=== PATIENT | female | born 1950 | race Caucasian/White ===

== ENCOUNTER 2020-11-02 13:23 | Outpatient (CLI) | payer MEDICARE, OTHER ==
--- NOTE | 2020-11-02 15:00 | CT Report ---
PROCEDURE: Low Dose Lung Cancer Screen INDICATIONS: CURRENT SMOKER TECHNIQUE: Noncontrast low-dose 5 mm thick sections acquired from the pulmonary apices to the posterior costophr enic angles. 7 mm thick coronal and sagittal MIP reformats were then acquired. For radiation dose r eduction, the following was used: automated exposure control, adjustment of mA and/or kV according t o patient size. COMPARISON: None. FINDINGS: Image quality: Excellent. Lungs and pleura: 2 mm solid nodule in anterior aspect of right upper lobe, series 4 image 96. 2 mm solid nodule in posterior aspect of right upper lobe adjacent to major fissure series 4 image 93 . 2 calcified granuloma in anterior aspect of right middle lobe are seen and measures 4 and 5 mm in siz e series 4 image 163. 4 mm calcified granuloma in anterior aspect of right middle lobe series 4 image 173. 1 cm calcified granuloma is seen in right middle lobe near right lung base series 4 image 221. 4 to 5 mm calcified granuloma in anterior right middle lobe near right lung base. Scattered scarring/atelectasis in periphery of bilateral lung pate are seen. No pleural effusion or pneumothorax. Central and peripheral airway is patent and is normal in size. Biapical scarring is se en. Mediastinum: Heart size is normal. No pericardial effusion. No mediastinal adenopathy by size crit eria. Thoracic aorta and central pulmonary arteries are normal in size. Moderate atherosclerotic curtis cifications throughout coronary vessels and thoracic aorta is seen. Esophagus is normal in caliber. No hiatal hernia. Bones and chest wall: No suspicious bony lesions. No vertebral body compression fractures. No axil lucy or supraclavicular adenopathy by size criteria. The thyroid is normal in size and there are no incidental findings. Abdomen: Visualized upper abdomen solid organs and bowel loops appear normal in the absence of contr ast. Gallbladder is surgically absent. IMPRESSION: 1. Multiple calcified granulomata are seen in right lung pate as above. Tiny 2 mm solid nodules are noted in right upper lobe as above. 2. Bibasilar scarring/atelectasis. 3. Moderate atherosclerotic disease. Lung RADS category: 2, benign findings. Annual low-dose chest CT follow-up is recommended. Reviewed by: Monty Moeller MD on 11/02/2020 2:59 PM PDT Approved by: Monty Moeller MD on 11/02/2020 2:59 PM PDT Station ID: [id number]
== END 2020-11-02 13:24 | disposition home or self-care (01) ==
LOC: DI 13:23
PROVIDERS: ATTEND Physician Assistant
DX: Z12.2 Encounter for screening for malignant neoplasm of respiratory organs (principal); F17.210 Nicotine dependence, cigarettes, uncomplicated; J84.10 Pulmonary fibrosis, unspecified; R91.8 Other nonspecific abnormal finding of lung field; J98.11 Atelectasis

== ENCOUNTER 2020-11-11 23:44 | Emergency (ER) | payer MEDICARE, OTHER ==
--- NOTE | 2020-11-12 00:28 | ED Physician Documentation ---
PD HPI Fall - Stated complaint Stated Complaint: GLF/R WRIST PX - Chief complaint Chief Complaint: Trauma Ext - History obtained from History obtained from: Patient - History of Present Illness Mechanism of injury: Tripped (she was outside for a smoke and tripped, falling forward. Abrasions face. Pain right wrist.) Fall distance: Standing position Timing - onset: Today Injury(ies) location: Right Upper Extremity (wrist) Associated symptoms: No: LOC, AMS, Amnesia, Weakness, Paresthesias Contributing factors: Anticoagulated. No: Intoxicated Similar symptoms before: Has not had sx before Review of Systems Constitutional: denies: Fever Nose: denies: Rhinorrhea / runny nose, Congestion Throat: denies: Sore throat Cardiac: denies: Chest pain / pressure Respiratory: denies: Cough GI: denies: Abdominal Pain Skin: reports: Abrasion (s) (several on face). denies: Laceration (s) Neurologic: denies: Focal weakness, Numbness PD PAST MEDICAL HISTORY - Past Medical History Past Medical History: Yes Cardiovascular: Peripheral Vascular Disease, [place] Respiratory: Asthma Neuro: CVA [employer]: Breast cancer : Other Musculoskeletal: Osteoarthritis, Fibromyalgia, Osteoporosis Other Past Medical History: Kidney Failure stage 3 - Past Surgical History Past Surgical History: Yes General: Cholecystectomy, Appendectomy /[employer]: Hysterectomy, Mastectomy - Present Medications Home Medications: Ambulatory Orders Medication Instructions Recorded Confirmed Alendronate Sodium/Vitamin D3 1 each PO 11/12/20 [Fosamax Plus D 70 mg-2,800 Iu] Atorvastatin Calcium 40 mg PO DAILY 11/12/20 11/12/20 Clopidogrel [Plavix] 75 mg PO DAILY 11/12/20 11/12/20 Famotidine [Pepcid] 20 mg PO BID 11/12/20 11/12/20 Fenofibrate [Tricor] 48 mg PO QD 11/12/20 11/12/20 Metoclopramide [Reglan] 10 mg PO Q6H PRN 11/12/20 11/12/20 Metoprolol Succinate [Toprol Xl] 25 mg PO BID 11/12/20 11/12/20 Ondansetron Odt [Zofran] 4 mg TL Q6H PRN #10 tablet 11/12/20 Trazodone HCl 100 mg PO 11/12/20 amLODIPine [Norvasc] 5 mg PO DAILY 11/12/20 11/12/20 oxyCODONE [Roxicodone] 5 mg PO Q4-6H PRN #10 tablet 11/12/20 - Allergies Allergies/Adverse Reactions: Allergies Allergy/AdvReac Type Severity Reaction Status Date / Time Sulfa (Sulfonamide Allergy Rash Verified 11/12/20 00:19 Antibiotics) hydrocodone AdvReac Unknown Verified 11/12/20 00:19 - Social History Does the pt smoke?: Yes Smoking Status: Current every day smoker Does the pt drink ETOH?: Yes Does the pt have substance abuse?: No - Immunizations Immunizations are current?: No Immunizations: TDAP >10years/unknown PD ED PE NORMAL - Vitals Vital signs reviewed: Yes - General General: Alert and oriented X 3, Well developed/nourished - HEENT HEENT: PERRL, Pharynx benign, Other (abrasions on face, forehead, bridge of nose, cheek. ) - Neck Neck: Supple, no meningeal sign, No bony TTP (but does have some tenderness lower neck muscles laterally), No adenopathy - Cardiac Cardiac: RRR, No murmur - Respiratory Respiratory: Clear bilaterally, Other (no chestwall tenderness) - Abdomen Abdomen: Soft, Non tender - Derm Derm: Normal color, Warm and dry - Extremities Extremities: Other (right wrist with swelling and tenderness radial side. Normal pulses color and cap refill. ) - Neuro Neuro: Alert and oriented X 3, No motor deficit, No sensory deficit, Normal speech Results - Vitals Vitals: Oxygen O2 Source Room air - Rads (name of study) head CT Radiology: Prelim report reviewed (no ICH nor fractures), See rad report cervical spine CT Radiology: Prelim report reviewed (no fractures), See rad report wrist xray Radiology: Prelim report reviewed (distal radial comminuted fracture without angulation), See rad report Procedures - General procedure General procedure: ring cutting removal from 2 fingers. - Splint (location) swrist fracture Splint applied by: Tech Type of splint: Fiberglass Other: Patient tolerated well, No complications, Neurovascular intact, Good alignment, Sling provided PD MEDICAL DECISION MAKING - ED course Complexity details: reviewed results, considered differential, d/w patient Departure - Departure Disposition: Home, Self Care Clinical Impression: Fall from slip, trip, or stumble, Facial abrasion, Anticoagulant long-term use, Wrist fracture, right Condition: Stable Record reviewed to determine appropriate education?: Yes Instructions: ED Abrasion, ED Fx Colles Wrist No Redu Requ Follow-Up: YARI WILSON PA-C [Primary Care Provider] - Israel Degroot MD [Provider Admit Priv/Credential] - Prescriptions: oxyCODONE [Roxicodone] 5 mg PO Q4-6H PRN #10 tablet PRN Reason: Pain Ondansetron Odt [Zofran] 4 mg TL Q6H PRN #10 tablet PRN Reason: Nausea / Vomiting Comments: Keep the splint clean and dry. Use the sling to help support and elevate the wrist and forearm. Follow-up with orthopedics within the next week, call Saturday for an appointment. At that point they will earle-ray to make sure it is maintaining position, change the splint to a cast, and discuss if they feel any other treatment is needed such as surgery. Ice elevate and rest the wrist often. Cleanse the abrasions on the face with soap and water or normal back showers and apply topical ointment. Tylenol every 4-6 hours if needed for pain. Consider using it regularly for the next 5 to 6 days 4 times a day. To add add oxycodone every 6 hours if needed for worse pain. Discharge Date/Time: 11/12/20 03:30
[2020-11-12] MEDS ORDERED: ACETAMINOPHEN 325 MG TABLET PO STA (00:36)
[2020-11-12] MEDS ORDERED: KETOROLAC 15 MG/ML VIAL IM STA (00:37)
[2020-11-12] MEDS ORDERED: LIDOCAINE JELLY 2% 6 ML JEL.PF.APP TOP STA (00:37)
[2020-11-12] MEDS ORDERED: oxyCODONE/ACET 5/325 Prepack 4 PO STA (01:28)
[2020-11-12] MEDS ORDERED: CYCLOBENZAPRINE 10 MG TABLET PO STA (01:59)
[2020-11-12 03:03] VITALS: BP 144/70
[2020-11-12] MEDS ORDERED: TETANUS/DIPHTHERIA/PERTUSSIS 0.5 ML SYRINGE IM ONE (03:08)
--- NOTE | 2020-11-12 07:39 | CT Report ---
PROCEDURE: HEAD WO INDICATIONS: fall, face injury on blood thinners TECHNIQUE: Noncontrast 4.5 mm thick angled axial sections acquired from the foramen magnum to the vertex. For r adiation dose reduction, the following was used: automated exposure control, adjustment of mA and/or kV according to patient size. COMPARISON: None. FINDINGS: Image quality: Excellent. CSF spaces: Basal cisterns are patent. No extra-axial fluid collections. Ventricles are normal in size and shape. Brain: No midline shift. No intracranial masses or hemorrhage. Charles-white matter interface is norm al. Skull and face: Calvarium and visualized facial bones are intact, without suspicious lesions. Sinuses: Visualized sinuses and mastoids are clear except for slight maxillary sinus air-fluid level on the left.. IMPRESSION: No trauma found. Small air-fluid level left maxillary sinus posteriorly, possible reflux from epistaxis. Reviewed by: Tevin Curry MD on 11/12/2020 7:37 AM PDT Approved by: Tevin Curry MD on 11/12/2020 7:37 AM PDT Station ID: [id number]
--- NOTE | 2020-11-12 08:07 | CT Report ---
PROCEDURE: CERVICAL SPINE WO INDICATIONS: fall with neck pain/ face injury TECHNIQUE: Noncontrast 3 mm thick sections acquired from the skull base to the T4 level. Sagittal and coronal r eformats were then constructed. For radiation dose reduction, the following was used: automated exp osure control, adjustment of mA and/or kV according to patient size. COMPARISON: None. FINDINGS: Image quality: Excellent. Bones: No fractures or dislocations. Visualized superior ribs are intact. Left greater than right c ervical facet arthropathy, most notably at C2 C3-C6 C7 on the left. Multilevel bilateral bony foramin al narrowing. Soft tissues: Prevertebral soft tissues are normal in thickness. No paravertebral hematomas. No ap ical pneumothoraces. IMPRESSION: 1. No evidence acute cervical fracture or dislocation. 2. Cervical spondylitic change with multilevel foraminal narrowing and multilevel facet arthropathy. A preliminary report with the above findings was provided at the time of the study by [facility]. Reviewed by: Gilbert Mcdonald MD on 11/12/2020 7:05 AM RICCARDO Approved by: Gilbert Mcdonald MD on 11/12/2020 7:05 AM RICCARDO Station ID: [id number]
--- NOTE | 2020-11-12 08:34 | XRAY Report ---
PROCEDURE: Wrist 3 View RT INDICATIONS: fall with wrist pain/injury TECHNIQUE: 3 views of the wrist were acquired. COMPARISON: None FINDINGS: Bones: Comminuted impacted mildly displaced fracture of the distal radius extending to the articular surface. No suspicious bony lesions. Soft tissues: No suspicious soft tissue calcifications. IMPRESSION: Comminuted, impacted, mildly displaced fracture of the distal radius extending to the articular surfa ce. A preliminary report with the above findings was provided at the time of the study by [facility]. Reviewed by: Gilbert Mcdonald MD on 11/12/2020 7:33 AM RICCARDO Approved by: Gilbert Mcdonald MD on 11/12/2020 7:33 AM RICCARDO Station ID: [id number]
== END 2020-11-12 03:30 | disposition home or self-care (01) ==
LOC: ED 23:44
DX: S52.501A Unspecified fracture of the lower end of right radius, initial encounter for closed fracture (principal); S00.81XA Abrasion of other part of head, initial encounter; W18.09XA Striking against other object with subsequent fall, initial encounter; Y93.89 Activity, other specified; Y92.007 Garden or yard of unspecified non-institutional (private) residence as the place of occurrence of the external cause; N18.30 Chronic kidney disease, stage 3 unspecified; F17.200 Nicotine dependence, unspecified, uncomplicated; Z79.01 Long term (current) use of anticoagulants
CPT/HCPCS: 29125; 36415; 70450; 72125; 73110; 90471; 90715; 96372; 99284; A9270

== ENCOUNTER 2020-12-20 09:00 | Outpatient (CLI) | payer MEDICARE, OTHER ==
--- NOTE | 2020-12-20 17:17 | XRAY Report ---
PROCEDURE: Wrist 3 View RT INDICATIONS: COLLES FX OF R RADIUS TECHNIQUE: 3 views of the wrist were acquired. COMPARISON: 11/12/2020 FINDINGS: Bones: There is a mildly impacted fracture of the distal radius with extension to the radiocarpal an d distal radioulnar joints redemonstrated. Fracture lines remain visible with increased sclerosis shelby ng the fracture margins. There is increased callus formation. No definite change in alignment. Soft tissues: There is persistent mild periarticular soft tissue swelling. No suspicious soft tissue calcifications. IMPRESSION: 1. Healing mildly impacted articular fracture of the distal radius without definite change in alignme nt. Reviewed by: Gregorio Tucker MD on 12/20/2020 5:16 PM PDT Approved by: Gregorio Tucker MD on 12/20/2020 5:16 PM PDT Station ID: [id number]
== END 2020-12-20 23:59 | disposition home or self-care (01) ==
LOC: DI.N 09:00
PROVIDERS: ATTEND Physician Assistant
DX: S52.531D Colles' fracture of right radius, subsequent encounter for closed fracture with routine healing (principal)

== ENCOUNTER 2021-01-17 14:30 | Outpatient (CLI) | payer MEDICARE, OTHER ==
--- NOTE | 2021-01-17 15:36 | XRAY Report ---
PROCEDURE: Wrist 3 View RT INDICATIONS: COLLES FX OF R RADIUS TECHNIQUE: 3 views of the wrist were acquired. COMPARISON: 01/17/2021 FINDINGS: Bones: There is a healing fracture of the distal radius which is impacted and involve the articular s urface. No suspicious bony lesions. Soft tissues: No suspicious soft tissue calcifications. IMPRESSION: Healing comminuted fracture of the right distal radius. Reviewed by: Tyson Alexander on 01/17/2021 3:35 PM PDT Approved by: Tyson Alexander on 01/17/2021 3:35 PM PDT Station ID: [id number]
== END 2021-01-17 23:59 | disposition home or self-care (01) ==
LOC: DI.N 14:30
PROVIDERS: ATTEND Orthopaedic Surgery
DX: S52.531D Colles' fracture of right radius, subsequent encounter for closed fracture with routine healing (principal)

== ENCOUNTER 2021-05-26 16:39 | Outpatient (CLI) | payer MEDICARE, OTHER ==
--- NOTE | 2021-05-26 19:18 | Ultrasound Report ---
PROCEDURE: Head or Neck Soft Tissue INDICATIONS: RAISED LUMPS ON FORHEAD TECHNIQUE: Real time scanning was performed of the neck region of interest, with image documentation . COMPARISON: None. FINDINGS: Sonographic images of the right for head demonstrate mild edema. Superior to the right orbi t within the subcutaneous tissues there is a focus of decreased echogenicity measuring 7 x 3 x 5 mm. IMPRESSION: Focus of decreased echogenicity within the subcutaneous tissues as above most suggestive of cyst. Reviewed by: Kate Gutiérrez MD on 05/26/2021 7:17 PM PST Approved by: Kate Gutiérrez MD on 05/26/2021 7:17 PM PST Station ID: [id number]
== END 2021-05-26 16:40 | disposition home or self-care (01) ==
LOC: DI 16:39
PROVIDERS: ATTEND Physician Assistant
DX: R22.0 Localized swelling, mass and lump, head (principal); R10.9 Unspecified abdominal pain; R31.9 Hematuria, unspecified; Z87.442 Personal history of urinary calculi

== ENCOUNTER 2021-05-26 16:49 | Outpatient (CLI) | payer MEDICARE, OTHER ==
--- NOTE | 2021-05-26 18:17 | CT Report ---
PROCEDURE: Abdomen/Pelvis WO INDICATIONS: L flank pain x few months, hx of kidney stones TECHNIQUE: Noncontrast 5 mm thick sections acquired from the diaphragms to the symphysis. 5 mm coronal and sagi ttal reformats were then performed. For radiation dose reduction, the following was used: automated exposure control, adjustment of mA and/or kV according to patient size. COMPARISON: None. FINDINGS: Image quality: Excellent. ABDOMEN: Lung bases: Lung bases are clear. Calcified granulomata, right middle lobe. Heart size is normal. Solid organs: Liver and spleen are normal in size. Multiple calcified splenic granulomata. Gallblad win is surgically absent. Pancreas is normal in contours. No adrenal nodules. Kidneys are normal i n size, without hydronephrosis or nephrolithiasis. Peritoneum and bowel: Unenhanced bowel loops demonstrate normal wall thickness and caliber. Probable large duodenal diverticulum. Fatty infiltration of the wall of the cecum and right colon proximal t ransverse colon suggests chronic inflammation. Mild diverticulosis without evidence of diverticulitis . No free fluid or air. Nodes and vessels: No retroperitoneal or mesenteric adenopathy by size criteria. Extensive aortic an d bilateral iliac calcifications. There is either a calcified high-grade stenosis or focal short segm ent occlusion of the proximal right common iliac artery. Miscellaneous: No ventral hernias. PELVIS: Genitourinary: Bladder wall thickness is normal. Miscellaneous: No inguinal hernias or adenopathy. Uterus is surgically absent. Bones: No suspicious bony lesions. No vertebral body compression fractures. IMPRESSION: 1. No evidence renal stones, ureteral stones, or hydronephrosis. 2. No evidence of acute abdominal process. 3. 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 Comment: If this patient has lifestyle limiting claudication type symptoms, consider CT angiography o f the aorta and lower extremity arteries to further evaluate the extent of occlusive disease. Reviewed by: Gilbert Mcdonald MD on 05/26/2021 6:15 PM PST Approved by: Gilbert Mcdonald MD on 05/26/2021 6:15 PM PST Station ID: [id number]
== END 2021-05-26 23:59 | disposition home or self-care (01) ==
LOC: DI 16:49
PROVIDERS: ATTEND Physician Assistant
DX: R10.9 Unspecified abdominal pain (principal); R31.9 Hematuria, unspecified; Z87.442 Personal history of urinary calculi; I70.0 Atherosclerosis of aorta

== ENCOUNTER 2021-10-25 12:19 | Outpatient (CLI) | payer MEDICARE, OTHER ==
--- NOTE | 2021-10-25 16:34 | CT Report ---
PROCEDURE: Low Dose Lung Cancer Screen, CT scan INDICATIONS: CURRENT SMOKER TECHNIQUE: Noncontrast low-dose 5 mm thick sections acquired from the pulmonary apices to the posterior costophr enic angles. 7 mm thick coronal and sagittal MIP reformats were then acquired. For radiation dose r eduction, the following was used: automated exposure control, adjustment of mA and/or kV according t o patient size. COMPARISON: 11/02/2020 FINDINGS: Image quality: Excellent. Lungs and pleura: 2 mm solid nodule in anterior aspect of right upper lobe, series 4/114. 4 mm calcified granuloma in anterior aspect of right middle lobe series 4 image 173. Adjacent additio nal coarse calcification 1 cm calcified granuloma is seen in right middle lobe near right lung base series 4/231. 4 to 5 mm calcified granuloma in anterior right middle lobe near right lung base. Scattered scarring/atelectasis in periphery of bilateral lung pate are seen. No pleural effusion or pneumothorax. Central and peripheral airway is patent and is normal in size. Biapical scarring is se en. Mediastinum: There is now bulky right paratracheal mediastinal adenopathy measuring 3.4 x 2.7 x 6.2 c m. Dense atherosclerotic vascular calcification present. Smaller calcified nodes present in the media stinum and right hilum measuring up to 1 cm remain unchanged. Heart size is normal. No pericardial e ffusionEsophagus is normal in caliber. No hiatal hernia. Bones and chest wall: No suspicious bony lesions. No vertebral body compression fractures. No axil lucy or supraclavicular adenopathy by size criteria. The thyroid is normal in size and there are no incidental findings. Abdomen: Visualized upper abdomen solid organs and bowel loops appear normal in the absence of contr ast. Gallbladder is surgically absent. IMPRESSION: 1. New bulky mediastinal adenopathy. Recommend follow-up dedicated CT chest with contrast and/or PET/ CT. 2. Stable pulmonary calcified nodules and calcified mediastinal nodes consistent with prior granuloma tous disease. 3. Moderate atherosclerotic disease. Lung RADS category: 4S: Clinically significant findings. Reviewed by: Alberto Louie MD on 10/25/2021 3:33 PM AKDT Approved by: Alberto Louie MD on 10/25/2021 3:33 PM AKDT Station ID: [id number]
== END 2021-10-25 12:20 | disposition home or self-care (01) ==
LOC: DI 12:19
PROVIDERS: ATTEND Physician Assistant
DX: Z12.2 Encounter for screening for malignant neoplasm of respiratory organs (principal); F17.210 Nicotine dependence, cigarettes, uncomplicated; R59.0 Localized enlarged lymph nodes; R91.8 Other nonspecific abnormal finding of lung field; I70.90 Unspecified atherosclerosis

== ENCOUNTER 2022-01-21 21:13 | Emergency (ER) | payer MEDICARE, OTHER ==
--- OUTSIDE RECORDS SUMMARY | 2022-01-21 21:27 | EXTERNAL MEDICAL SUMMARY RPT | Continuity of Care Document ---
:1950 Author Organization [facility] Address [address] [place] [address] Phone Allergies and Intolerances date description facility type (no date) NSAIDS (Non-Steroidal [facility] (unknown) (no date) Sulfa (Sulfonamide Antibiotics) [facility] (unknown) (no date) duloxetine [facility] (unknown) (no date) hydrocodone [facility] (unknown) (no date) meclizine [facility] (unknown) (no date) nirmatrelvir [facility] (unknown) (no date) paroxetine [facility] (unknown) (no date) ritonavir [facility] (unknown) (no date) solifenacin [facility] (unknown) (no date) suvorexant [facility] (unknown) (no date) ursodiol [facility] (unknown) Encounters No information. Functional Status No information. Immunizations No information. Medications date description facility + Oxycodone Hydrochloride 5 MG Oral Tabl et [facility] +0000 Atropine Sulfate 0.025 MG / Diphenoxyl ate [facility] Hydrochloride 2.5 MG Oral Tablet +0000 Amlodipine 5 MG Oral Tablet [facility] +0000 montelukast 10 MG Oral Tablet [facility] +0000 atorvastatin 80 MG Oral Tablet [facility] +0000 clopidogrel 75 MG Oral Tablet [facility] +0000 tizanidine [address] [facility] +0000 Trazodone Hydrochloride 150 MG Oral Ta blet [facility] +0000 Metoprolol Tartrate 25 MG Oral Tablet [facility] +0000 Alendronic acid 70 MG Oral [facility]t [facility] Problems No information. Procedures date description facility + General [facility] [id number] General Physician [facility] +0000 [facility] +0000 [facility] Results/Labs test date author facility value unit interpret ation Result panel 1 (unknown) (no (unknown) (unknown) (no value) (units (unk nown) date) unknown) (unknown) (no (unknown) (unknown) (no value) (units (unk nown) date) unknown) (unknown) (no (unknown) (unknown) [address] [place] [address] (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) unknown) (unknown) (no (unknown) (unknown) [place], [place] (units ( 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) [id number] unknown) (unknown) (no (unknown) (unknown) CT Scan Report (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) unknown) (unknown) (no (unknown) (unknown) [facility] (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) unknown) (unknown) (no (unknown) (unknown) Signed (units (unkno wn) date) unknown) (unknown) (no (unknown) (unknown) (no value) (units (unk nown) date) unknown) (unknown) (no (unknown) (unknown) [id number] (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) cervical spine unknown) degenerative changes are seen. (unknown) (no (unknown) (unknown) 11/21/21 (units (unkno wn) date) unknown) (unknown) (no (unknown) (unknown) 1. Bulky right (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) supraclavicular, unknown) mediastinal, and right hilar adenopathy. Given (unknown) (no (unknown) (unknown) 2. Coarse nodular (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) calcifications, unknown) granulomas in the spleen, liver, and both (unknown) (no (unknown) (unknown) 3. Small (units (unkno wn) date) pericardial unknown) effusion. (unknown) (no (unknown) (unknown) 4. Nonspecific (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) reticulonodular unknown) focus in the medial right upper lobe. Continued (unknown) (no (unknown) (unknown) 5. Mild bronchial (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) wall thickening. unknown) Correlate with acute or chronic bronchitis. (unknown) (no (unknown) (unknown) Abdomen: (units (unkno wn) date) Numerous unknown) calcifications are present in the spleen and occasional (unknown) (no (unknown) (unknown) After the (units (unkn own) date) administration of unknown) intravenous contrast, 3.0 mm axial sections (unknown) (no (unknown) (unknown) After the (units (unkn own) date) administration of unknown) intravenous contrast, 5 mm thick sections acquired (unknown) (no (unknown) (unknown) Approved by: (units (u nknown) date) Mario Yao, unknown) Arianna on 11/21/2021 at 15:58 (unknown) (no (unknown) (unknown) Approved by: (units (u nknown) date) Constance Hutson unknown) Arianna on 11/21/2021 at 18:32 (unknown) (no (unknown) (unknown) Bones and chest (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) wall: There is unknown) bulky adenopathy at the right supraclavicular (unknown) (no (unknown) (unknown) Bones: No (units (unk nown) date) suspicious bony unknown) lesions. Visualized sinuses and mastoids appear (unknown) (no (unknown) (unknown) COMPARISON: (units (un known) date) None. unknown) (unknown) (no (unknown) (unknown) Dictated by: (units (u nknown) date) radha Forbes) Arianna on 11/21/2021 at 15:55 (unknown) (no (unknown) (unknown) Dictated by: (units (u nknown) date) Constance Hutson unknown) Arianna on 11/21/2021 at 18:19 (unknown) (no (unknown) (unknown) FINDINGS: (units (unkn own) date) unknown) (unknown) (no (unknown) (unknown) Glands: The (units (u nknown) date) parotid and unknown) submandibular glands appear normal. Thyroid gland (unknown) (no (unknown) (unknown) IMPRESSION: (units (un known) date) unknown) (unknown) (no (unknown) (unknown) IMPRESSION: (units (un known) date) Metastatic lymph unknown) nodes until proven otherwise within the right (unknown) (no (unknown) (unknown) INDICATIONS: (units (u nknown) date) Localized unknown) swelling, mass and lump, unspecified (unknown) (no (unknown) (unknown) Image quality: (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) Excellent. unknown) (unknown) (no (unknown) (unknown) In this patient (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) with prior unknown) mastectomy, metastatic breast cancer is considered (unknown) (no (unknown) (unknown) Lungs and pleura: (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) Mild leftward unknown) deviation of the mid trachea due to (unknown) (no (unknown) (unknown) Lymph nodes: (units (u nknown) date) There is a unknown) conglomerated group of lymph nodes seen within the (unknown) (no (unknown) (unknown) Mediastinum: The (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) heart size is unknown) normal. There is a small anteriorly layering (unknown) (no (unknown) (unknown) Miscellaneous: (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) Visualized brain unknown) and orbits appear normal. Lung apices appear (unknown) (no (unknown) (unknown) Neck spaces: The (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) oropharynx, unknown) nasopharynx, and pharynx demonstrate no mucosal (unknown) (no (unknown) (unknown) Platelike (units (unkn own) date) atelectatic unknown) changes posteriorly at both lung bases. No pleural (unknown) (no (unknown) (unknown) Please consider (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) additional workup, unknown) beginning with a CT with IV and oral (unknown) (no (unknown) (unknown) Superficial soft (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) tissues appear unknown) normal. (unknown) (no (unknown) (unknown) TECHNIQUE: (units (unk nown) date) unknown) (unknown) (no (unknown) (unknown) The aortic arch (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) demonstrates unknown) moderate atherosclerotic calcification. Pulmonary (unknown) (no (unknown) (unknown) The vocal cords, (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) false vocal cords, unknown) pyriform sinuses, epiglottis, vallecula, (unknown) (no (unknown) (unknown) There is partial (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) visualization of unknown) mediastinal lymph nodes, with a group seen (unknown) (no (unknown) (unknown) Vessels: (units (unkno wn) date) Visualized unknown) vasculature appears patent. (unknown) (no (unknown) (unknown) a masslike (units (unk nown) date) conglomeration of unknown) lymph nodes together measuring about 5.5 x 3.4 cm (unknown) (no (unknown) (unknown) are normal (units (unk nown) date) caliber. The unknown) esophagus is normal without hiatal hernia. (unknown) (no (unknown) (unknown) artery (units (unkno wn) date) calcification. unknown) There is bulky right mediastinal adenopathy. Right (unknown) (no (unknown) (unknown) axis. No (units (unkn own) date) axillary unknown) adenopathy. 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 unknown) Extramucosal spaces appear unremarkable. (unknown) (no (unknown) (unknown) brachiocephalic (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) and left common unknown) carotid artery. There is mass effect on the (unknown) (no (unknown) (unknown) central bronchial (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) wall thickening unknown) bilaterally. No dense alveolar opacities. (unknown) (no (unknown) (unknown) chest, abdomen, (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) and pelvis. unknown) (unknown) (no (unknown) (unknown) coronal and (units (un known) date) sagittal reformats unknown) and 7 mm axial MIP were acquired. For radiation (unknown) (no (unknown) (unknown) diagnosis of (units (u nknown) date) neoplasm, unknown) metastatic disease is most likely. (unknown) (no (unknown) (unknown) effusion or (units (un known) date) pericardial unknown) thickening. Aortic valvular calcification and mild (unknown) (no (unknown) (unknown) few calcified (units ( 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) nodules in the unknown) right middle lobe and occasionally in the left (unknown) (no (unknown) (unknown) interstitial (units (u nknown) date) thickening and unknown) nodularity present in the medial right upper lobe. (unknown) (no (unknown) (unknown) kV according to (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) patient size. unknown) (unknown) (no (unknown) (unknown) likely. (units (unkno wn) date) unknown) (unknown) (no (unknown) (unknown) mass-effect on (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) the adjacent unknown) vasculature, right thyroid lobe, and minimal mass (unknown) (no (unknown) (unknown) no significant (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) abnormality. unknown) (unknown) (no (unknown) (unknown) pharynx. 3 mm (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) thick coronal and unknown) sagittal reformats were generated. For (unknown) (no (unknown) (unknown) pulmonary apices (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) to the posterior unknown) costophrenic angles. 1 mm axial lung, 5 mm (unknown) (no (unknown) (unknown) reduction, the (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) following was unknown) used: automated exposure control, adjustment of (unknown) (no (unknown) (unknown) reduction, the (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) following was unknown) used: automated exposure control. (unknown) (no (unknown) (unknown) right superior (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) mediastinum unknown) measuring 4.3 x 3 cm. Mild mass effect of is seen (unknown) (no (unknown) (unknown) seen in the (units (un known) date) liver. Heavy unknown) atherosclerotic calcification of the aorta and branch (unknown) (no (unknown) (unknown) seen. Adan mass (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) extends within the unknown) superior mediastinum to partially surround (unknown) (no (unknown) (unknown) sella to the (units (u nknown) date) aortic arch. unknown) Additional oblique axial 3.0 mm sections acquired (unknown) (no (unknown) (unknown) subcarinal (units (unk nown) date) adenopathy are unknown) also present. Scattered calcifications within lymph (unknown) (no (unknown) (unknown) suggesting (units (unk nown) date) exposure to prior unknown) granulomatous disease. (unknown) (no (unknown) (unknown) supraclavicular (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) region and unknown) partially visualized within the right superior (unknown) (no (unknown) (unknown) supraclavicular (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) region that unknown) measures at least 5.8 x 3.6 cm in greatest axial (unknown) (no (unknown) (unknown) suspicious bone (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) lesions seen. unknown) (unknown) (no (unknown) (unknown) the trachea. (units (u nknown) date) There is also high unknown) right paratracheal lymph node measuring 1.5 cm (unknown) (no (unknown) (unknown) to this area on (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) subsequent scans unknown) is recommended. (unknown) (no (unknown) (unknown) trachea, which is (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) slightly deviated unknown) to the left. (unknown) (no (unknown) (unknown) vena cava causing (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) narrowing. unknown) (unknown) (no (unknown) (unknown) [id number] (units (unkno wn) date) unknown) (unknown) (no (unknown) (unknown) Accession Number: (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) [id number] unknown) (unknown) (no (unknown) (unknown) Accession Number: (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) [id number] unknown) (unknown) (no (unknown) (unknown) Age/Sex: 71 / F (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) Date of Service: unknown) (unknown) (no (unknown) (unknown) : 1950 (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) Acct:[id number] unknown) (unknown) (no (unknown) (unknown) Irregular (units (unkn own) date) unknown) (unknown) (no (unknown) (unknown) Loc: CT (units (unkno wn) date) unknown) (unknown) (no (unknown) (unknown) Ordering (units (unkno wn) date) Provider: unknown) Lynnette Love P.A-C (unknown) (no (unknown) (unknown) PROCEDURE: CT (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) CHEST W CON unknown) (unknown) (no (unknown) (unknown) PROCEDURE: CT (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) SOFT TISSUE NECK W unknown) CON (unknown) (no (unknown) (unknown) Patient: (units (unkno wn) date) Manda Whitaker unknown) MR#: [id number] (unknown) (no (unknown) (unknown) Procedure: CT (units ( 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) chest w con unknown) (unknown) (no (unknown) (unknown) Procedure: CT (units ( 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) soft tissue neck w unknown) con (unknown) (no (unknown) (unknown) There are (units (unkn own) date) unknown) (unknown) (no (unknown) (unknown) acquired from the (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) unknown) (unknown) (no (unknown) (unknown) adenopathy. Mild (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) unknown) (unknown) (no (unknown) (unknown) and tongue (units (unk nown) date) unknown) (unknown) (no (unknown) (unknown) arteries (units (unkno wn) date) unknown) (unknown) (no (unknown) (unknown) arteries. (units (unkn own) date) unknown) (unknown) (no (unknown) (unknown) attention (units (unkn own) date) unknown) (unknown) (no (unknown) (unknown) calcifications (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) unknown) (unknown) (no (unknown) (unknown) chest. No (units (unk nown) date) unknown) (unknown) (no (unknown) (unknown) clear. (units (unkno wn) date) unknown) (unknown) (no (unknown) (unknown) contrast of the (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) unknown) (unknown) (no (unknown) (unknown) coronary (units (unkno wn) date) unknown) (unknown) (no (unknown) (unknown) demonstrates (units (u nknown) date) unknown) (unknown) (no (unknown) (unknown) dimension. (units (unk nown) date) unknown) (unknown) (no (unknown) (unknown) dose (units (unkno wn) date) unknown) (unknown) (no (unknown) (unknown) effect on (units (unkn own) date) unknown) (unknown) (no (unknown) (unknown) effusions (units (unkn own) date) unknown) (unknown) (no (unknown) (unknown) from the (units (unkno wn) date) unknown) (unknown) (no (unknown) (unknown) hilar and (units (unkn own) date) unknown) (unknown) (no (unknown) (unknown) in short (units (unkno wn) date) unknown) (unknown) (no (unknown) (unknown) lesions. (units (unkno wn) date) unknown) (unknown) (no (unknown) (unknown) lung. (units (unkno wn) date) unknown) (unknown) (no (unknown) (unknown) lungs (units (unkno wn) date) unknown) (unknown) (no (unknown) (unknown) mA and/or (units (unkn own) date) unknown) (unknown) (no (unknown) (unknown) mediastinum. (units (u nknown) date) unknown) (unknown) (no (unknown) (unknown) nodes are (units (unkn own) date) unknown) (unknown) (no (unknown) (unknown) pericardial (units (un known) date) unknown) (unknown) (no (unknown) (unknown) radiation dose (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) unknown) (unknown) (no (unknown) (unknown) recent (units (unkno wn) date) unknown) (unknown) (no (unknown) (unknown) region with (units (un known) date) unknown) (unknown) (no (unknown) (unknown) right (units (unkno wn) date) unknown) (unknown) (no (unknown) (unknown) superior (units (unkno wn) date) unknown) (unknown) (no (unknown) (unknown) there is (units (unkno wn) date) unknown) (unknown) (no (unknown) (unknown) thick (units (unkno wn) date) unknown) (unknown) (no (unknown) (unknown) through the (units (un known) date) unknown) (unknown) (no (unknown) (unknown) to be most (units (unk nown) date) unknown) (unknown) (no (unknown) (unknown) unremarkable. (units ( 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) unknown) (unknown) (no (unknown) (unknown) upon the (units (unkno wn) date) unknown) (unknown) (no (unknown) (unknown) within the (units (unk nown) date) unknown) Result panel 2 (unknown) (no (unknown) (unknown) (no value) (units (unk nown) date) unknown) (unknown) (no (unknown) (unknown) (no value) (units (unk nown) date) unknown) (unknown) (no (unknown) (unknown) (no value) (units (unk nown) date) unknown) (unknown) (no (unknown) (unknown) 11/30/21 (units (unkno wn) date) unknown) (unknown) (no (unknown) (unknown) 15:48 (units (unkno wn) date) unknown) (unknown) (no (unknown) (unknown) [place], [place] (units ( 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) [id number] unknown) (unknown) (no (unknown) (unknown) Draft (units (unkno wn) date) unknown) (unknown) (no (unknown) (unknown) [facility] (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) unknown) (unknown) (no (unknown) (unknown) Surgery Office (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) Visit unknown) (unknown) (no (unknown) (unknown) (no value) (units (unk nown) date) unknown) (unknown) (no (unknown) (unknown) 11/30/21 (units (unkno wn) date) unknown) (unknown) (no (unknown) (unknown) 11/30/21] (units (unkn own) date) unknown) (unknown) (no (unknown) (unknown) [id number] (units (unkno wn) date) unknown) (unknown) (no (unknown) (unknown) Abnormal findings (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) on diagnostic unknown) imaging of other abdominal regions, including (unknown) (no (unknown) (unknown) Abrasion head (units ( 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) unknown) (unknown) (no (unknown) (unknown) Age at menopause: (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) 37 unknown) (unknown) (no (unknown) (unknown) Age/Sex: 71 / F (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) Date of Service: unknown) (unknown) (no (unknown) (unknown) Allergies (units (unkn own) date) unknown) (unknown) (no (unknown) (unknown) Anticoagulant (units ( 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) long-term use unknown) (unknown) (no (unknown) (unknown) Asthma (units (unkno wn) date) unknown) (unknown) (no (unknown) (unknown) Attending Dr: (units ( 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) Anthony Reddy MD unknown) (unknown) (no (unknown) (unknown) BMI 21.6 (units (un known) date) unknown) (unknown) (no (unknown) (unknown) Cardiomegaly (units (u nknown) date) unknown) (unknown) (no (unknown) (unknown) Cerebral (units (unkno wn) date) infarction unknown) (unknown) (no (unknown) (unknown) Cervicalgia (units (un known) date) unknown) (unknown) (no (unknown) (unknown) Chest pain (units (unk nown) date) unknown) (unknown) (no (unknown) (unknown) Chronic kidney (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) disease unknown) (unknown) (no (unknown) (unknown) Confirmed (units (unkn own) date) 11/30/21] unknown) (unknown) (no (unknown) (unknown) Cough (units (unkno wn) date) unknown) (unknown) (no (unknown) (unknown) : 1950 (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) Acct:[id number] unknown) (unknown) (no (unknown) (unknown) Depression (units (unk nown) date) unknown) (unknown) (no (unknown) (unknown) Dept at (units (unkno wn) date) . unknown) (unknown) (no (unknown) (unknown) Documented By: (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) Anthony Reddy MD unknown) 11/30/21 1546 (unknown) (no (unknown) (unknown) Dysuria (units (unkno wn) date) unknown) (unknown) (no (unknown) (unknown) Fall (units (unkno wn) date) unknown) (unknown) (no (unknown) (unknown) Frequency of (units (u nknown) date) micturition unknown) (unknown) (no (unknown) (unknown) : 7 (units (unk nown) date) unknown) (unknown) (no (unknown) (unknown) Head lump (units (unkn own) date) unknown) (unknown) (no (unknown) (unknown) Heart disease (units ( 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) unknown) (unknown) (no (unknown) (unknown) Height 5 ft 5 (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) in unknown) (unknown) (no (unknown) (unknown) Hematuria (units (unkn own) date) unknown) (unknown) (no (unknown) (unknown) Intake (units (unkno wn) date) unknown) (unknown) (no (unknown) (unknown) Loc: [facility] (units (unkno wn) date) unknown) (unknown) (no (unknown) (unknown) Low back pain (units ( 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) unknown) (unknown) (no (unknown) (unknown) 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 unknown) (unknown) (no (unknown) (unknown) Medical History (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) (Reviewed 11/30/21 unknown) @ 16:02 by Nellie Ennis MA) (unknown) (no (unknown) (unknown) Medications (units (un known) date) unknown) (unknown) (no (unknown) (unknown) NSTEMI (non-ST (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) elevated unknown) myocardial infarction) (unknown) (no (unknown) (unknown) 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 unknown) (unknown) (no (unknown) (unknown) PFSH (units (unkno wn) date) unknown) (unknown) (no (unknown) (unknown) Para: 1 (units (unkno wn) date) unknown) (unknown) (no (unknown) (unknown) Patient: (units (unkno wn) date) Manda Whitaker unknown) MR#: [id number] (unknown) (no (unknown) (unknown) Peripheral (units (unk nown) date) vascular disease unknown) (unknown) (no (unknown) (unknown) Reason For Visit (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) unknown) (unknown) (no (unknown) (unknown) Seborrheic (units (unk nown) date) keratoses unknown) (unknown) (no (unknown) (unknown) Signed By: (units (unk nown) date) unknown) (unknown) (no (unknown) (unknown) Skin disorder (units ( 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) unknown) (unknown) (no (unknown) (unknown) Smoking Status: (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) Current every day unknown) smoker (unknown) (no (unknown) (unknown) Sulfa (units (unkno wn) date) (Sulfonamide unknown) Antibiotics) Allergy (Verified 11/30/21 15:47) (unknown) (no (unknown) (unknown) TIA (transient (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) ischemic attack) unknown) (unknown) (no (unknown) (unknown) This note may (units ( 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) have been all or unknown) partially generated using voice recognition (unknown) (no (unknown) (unknown) Tobacco Status (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) unknown) (unknown) (no (unknown) (unknown) Urinary calculi (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) unknown) (unknown) (no (unknown) (unknown) 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) lymph node ref by Ivan (unknown) (no (unknown) (unknown) Vitals (units (unkno wn) date) unknown) (unknown) (no (unknown) (unknown) Weight 130 lb (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) unknown) (unknown) (no (unknown) (unknown) Wrist fracture (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) unknown) (unknown) (no (unknown) (unknown) albuterol sulfate (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) 90 mcg/actuation unknown) aerosol inhaler (Ventolin HFA) 2 puff (unknown) (no (unknown) (unknown) alendronate 70 mg (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) tablet (Fosamax) unknown) 70 mg PO QWEEK 11/30/21 [History Confirmed (unknown) (no (unknown) (unknown) amlodipine 5 mg (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) tablet 5 mg PO unknown) DAILY 11/30/21 [History Confirmed 11/30/21] (unknown) (no (unknown) (unknown) atorvastatin 80 (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) mg tablet 80 mg PO unknown) DAILY 11/30/21 [History Confirmed 11/30/21] (unknown) (no (unknown) (unknown) clopidogrel 75 mg (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) tablet 75 mg PO unknown) DAILY 11/30/21 [History Confirmed 11/30/21] (unknown) (no (unknown) (unknown) diphenoxylate-atr (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) opine 2.5 mg-0.025 unknown) mg tablet 1 tab PO DAILY 11/30/21 [History (unknown) (no (unknown) (unknown) fluticasone (units (un known) date) propionate 50 unknown) mcg/actuation nasal spray,suspension 1 spray (unknown) (no (unknown) (unknown) have occurred. (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) If there are any unknown) questions, please contact the Medical Records (unknown) (no (unknown) (unknown) inhalation Q6H (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) PRN 11/30/21 unknown) [History Confirmed 11/30/21] (unknown) (no (unknown) (unknown) intranasal DAILY (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) 11/30/21 [History unknown) Confirmed 11/30/21] (unknown) (no (unknown) (unknown) may occur. (units (unk nown) date) Occasional unknown) wrong-word or 'sound-alike' substitutions may have (unknown) (no (unknown) (unknown) metoprolol (units (unk nown) date) tartrate 25 mg unknown) tablet 25 mg PO BID 11/30/21 [History Confirmed (unknown) (no (unknown) (unknown) montelukast 10 mg (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) tablet 10 mg PO unknown) DAILY 11/30/21 [History Confirmed 11/30/21] (unknown) (no (unknown) (unknown) occurred due to (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) the inherent unknown) limitations of voice recognition software. Please (unknown) (no (unknown) (unknown) oxycodone 5 mg (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) tablet 5 mg PO BID unknown) PRN 11/30/21 [History Confirmed 11/30/21] (unknown) (no (unknown) (unknown) read the note (units ( 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) carefully and unknown) recognize, using context, where these substitutions (unknown) (no (unknown) (unknown) retroperitoneum (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) unknown) (unknown) (no (unknown) (unknown) software. (units (unkn own) date) Although every unknown) effort is made to edit content, vp global errors (unknown) (no (unknown) (unknown) suvorexant [From (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) Belsomra] Adverse unknown) Reaction (Verified 11/30/21 15:47) (unknown) (no (unknown) (unknown) tizanidine 2 mg (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) capsule 2 mg PO unknown) Q8H PRN 11/30/21 [History Confirmed 11/30/21] (unknown) (no (unknown) (unknown) trazodone 150 mg (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) tablet 150 mg PO unknown) BEDTIME PRN 11/30/21 [History Confirmed Result panel 3 (unknown) (no (unknown) (unknown) (no value) (units (unk nown) date) unknown) (unknown) (no (unknown) (unknown) (no value) (units (unk nown) date) unknown) (unknown) (no (unknown) (unknown) (no value) (units (unk nown) date) unknown) (unknown) (no (unknown) (unknown) 11/30/21 (units (unkno wn) date) unknown) (unknown) (no (unknown) (unknown) 15:48 (units (unkno wn) date) unknown) (unknown) (no (unknown) (unknown) [place], [place] (units ( 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) [id number] unknown) (unknown) (no (unknown) (unknown) Draft (units (unkno wn) date) unknown) (unknown) (no (unknown) (unknown) [facility] (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) unknown) (unknown) (no (unknown) (unknown) Surgery Office (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) Visit unknown) (unknown) (no (unknown) (unknown) (no value) (units (unk nown) date) unknown) (unknown) (no (unknown) (unknown) 11/30/21 (units (unkno wn) date) unknown) (unknown) (no (unknown) (unknown) 11/30/21] (units (unkn own) date) unknown) (unknown) (no (unknown) (unknown) [id number] (units (unkno wn) date) unknown) (unknown) (no (unknown) (unknown) 8-year-old woman (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) referred to unknown) General surgery for requested excisional biopsy of (unknown) (no (unknown) (unknown) Abnormal findings (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) on diagnostic unknown) imaging of other abdominal regions, including (unknown) (no (unknown) (unknown) Abrasion head (units ( 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) unknown) (unknown) (no (unknown) (unknown) Age at menopause: (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) 37 unknown) (unknown) (no (unknown) (unknown) Age/Sex: 71 / F (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) Date of Service: unknown) (unknown) (no (unknown) (unknown) Allergies (units (unkn own) date) unknown) (unknown) (no (unknown) (unknown) Anticoagulant (units ( 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) long-term use unknown) (unknown) (no (unknown) (unknown) Asthma (units (unkno wn) date) unknown) (unknown) (no (unknown) (unknown) Attending Dr: (units ( 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) Anthony Reddy MD unknown) (unknown) (no (unknown) (unknown) BMI 21.6 (units (un known) date) unknown) (unknown) (no (unknown) (unknown) Cardiomegaly (units (u nknown) date) unknown) (unknown) (no (unknown) (unknown) Cerebral (units (unkno wn) date) infarction unknown) (unknown) (no (unknown) (unknown) Cervicalgia (units (un known) date) unknown) (unknown) (no (unknown) (unknown) Chest pain (units (unk nown) date) unknown) (unknown) (no (unknown) (unknown) Chief Complaint (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) unknown) (unknown) (no (unknown) (unknown) Chief Complaint: (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) Neck swelling unknown) (unknown) (no (unknown) (unknown) Chronic kidney (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) disease unknown) (unknown) (no (unknown) (unknown) Confirmed (units (unkn own) date) 11/30/21] unknown) (unknown) (no (unknown) (unknown) Cough (units (unkno wn) date) unknown) (unknown) (no (unknown) (unknown) : 1950 (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) Acct:[id number] unknown) (unknown) (no (unknown) (unknown) Depression (units (unk nown) date) unknown) (unknown) (no (unknown) (unknown) Dept at (units (unkno wn) date) . unknown) (unknown) (no (unknown) (unknown) Details: (units (unkno wn) date) unknown) (unknown) (no (unknown) (unknown) Documented By: (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) Anthony Reddy MD unknown) 11/30/21 1546 (unknown) (no (unknown) (unknown) Dysuria (units (unkno wn) date) unknown) (unknown) (no (unknown) (unknown) Fall (units (unkno wn) date) unknown) (unknown) (no (unknown) (unknown) Frequency of (units (u nknown) date) micturition unknown) (unknown) (no (unknown) (unknown) : 8 (units (unk nown) date) unknown) (unknown) (no (unknown) (unknown) HPI (units (unkno wn) date) unknown) (unknown) (no (unknown) (unknown) Head lump (units (unkn own) date) unknown) (unknown) (no (unknown) (unknown) Heart disease (units ( 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) unknown) (unknown) (no (unknown) (unknown) Height 5 ft 5 (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) in unknown) (unknown) (no (unknown) (unknown) Hematuria (units (unkn own) date) unknown) (unknown) (no (unknown) (unknown) Intake (units (unkno wn) date) unknown) (unknown) (no (unknown) (unknown) Loc: [facility] (units (unkno wn) date) unknown) (unknown) (no (unknown) (unknown) Low back pain (units ( 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) unknown) (unknown) (no (unknown) (unknown) 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 unknown) (unknown) (no (unknown) (unknown) Medical History (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) (Reviewed 11/30/21 unknown) @ 16:02 by Nellie Ennis MA) (unknown) (no (unknown) (unknown) Medications (units (un known) date) unknown) (unknown) (no (unknown) (unknown) NSTEMI (non-ST (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) elevated unknown) myocardial infarction) (unknown) (no (unknown) (unknown) 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 unknown) (unknown) (no (unknown) (unknown) PFSH (units (unkno wn) date) unknown) (unknown) (no (unknown) (unknown) Para: 1 (units (unkno wn) date) unknown) (unknown) (no (unknown) (unknown) Patient: (units (unkno wn) date) Manda Whitaker unknown) MR#: [id number] (unknown) (no (unknown) (unknown) Peripheral (units (unk nown) date) vascular disease unknown) (unknown) (no (unknown) (unknown) Reason For Visit (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) unknown) (unknown) (no (unknown) (unknown) Seborrheic (units (unk nown) date) keratoses unknown) (unknown) (no (unknown) (unknown) Signed By: (units (unk nown) date) unknown) (unknown) (no (unknown) (unknown) Skin disorder (units ( 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) unknown) (unknown) (no (unknown) (unknown) Smoking Status: (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) Current every day unknown) smoker (unknown) (no (unknown) (unknown) Smoking Status: (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) Current every day unknown) smoker (unknown) (no (unknown) (unknown) Social History (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) (Reviewed 11/30/21 unknown) @ 16:02 by Nellie Ennis MA) (unknown) (no (unknown) (unknown) Sulfa (units (unkno wn) date) (Sulfonamide unknown) Antibiotics) Allergy (Verified 11/30/21 15:47) (unknown) (no (unknown) (unknown) TIA (transient (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) ischemic attack) unknown) (unknown) (no (unknown) (unknown) This note may (units ( 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) have been all or unknown) partially generated using voice recognition (unknown) (no (unknown) (unknown) Tobacco Status (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) unknown) (unknown) (no (unknown) (unknown) Urinary calculi (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) unknown) (unknown) (no (unknown) (unknown) 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) lymph node ref by Ivan (unknown) (no (unknown) (unknown) Vitals (units (unkno wn) date) unknown) (unknown) (no (unknown) (unknown) Weight 130 lb (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) unknown) (unknown) (no (unknown) (unknown) Wrist fracture (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) unknown) (unknown) (no (unknown) (unknown) albuterol sulfate (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) 90 mcg/actuation unknown) aerosol inhaler (Ventolin HFA) 2 puff (unknown) (no (unknown) (unknown) alendronate 70 mg (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) tablet (Fosamax) unknown) 70 mg PO QWEEK 11/30/21 [History Confirmed (unknown) (no (unknown) (unknown) amlodipine 5 mg (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) tablet 5 mg PO unknown) DAILY 11/30/21 [History Confirmed 11/30/21] (unknown) (no (unknown) (unknown) and right hilar (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) adenopathy. She unknown) has a chronic cough associated with smoking no (unknown) (no (unknown) (unknown) atorvastatin 80 (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) mg tablet 80 mg PO unknown) DAILY 11/30/21 [History Confirmed 11/30/21] (unknown) (no (unknown) (unknown) clopidogrel 75 mg (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) tablet 75 mg PO unknown) DAILY 11/30/21 [History Confirmed 11/30/21] (unknown) (no (unknown) (unknown) difficulty (units (unk nown) date) swallowing and unknown) fatigued. CT chest and CT neck were ordered by her (unknown) (no (unknown) (unknown) diphenoxylate-atr (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) opine 2.5 mg-0.025 unknown) mg tablet 1 tab PO DAILY 11/30/21 [History (unknown) (no (unknown) (unknown) fluticasone (units (un known) date) propionate 50 unknown) mcg/actuation nasal spray,suspension 1 spray (unknown) (no (unknown) (unknown) have occurred. (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) If there are any unknown) questions, please contact the Medical Records (unknown) (no (unknown) (unknown) hemoptysis nausea (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) vomiting diarrhea unknown) or abdominal pain. She had a bilateral (unknown) (no (unknown) (unknown) inhalation Q6H (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) PRN 11/30/21 unknown) [History Confirmed 11/30/21] (unknown) (no (unknown) (unknown) intranasal DAILY (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) 11/30/21 [History unknown) Confirmed 11/30/21] (unknown) (no (unknown) (unknown) mastectomy (units (unk nown) date) performed in unknown) (unknown) (no (unknown) (unknown) may occur. (units (unk nown) date) Occasional unknown) wrong-word or 'sound-alike' substitutions may have (unknown) (no (unknown) (unknown) metoprolol (units (unk nown) date) tartrate 25 mg unknown) tablet 25 mg PO BID 11/30/21 [History Confirmed (unknown) (no (unknown) (unknown) montelukast 10 mg (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) tablet 10 mg PO unknown) DAILY 11/30/21 [History Confirmed 11/30/21] (unknown) (no (unknown) (unknown) occurred due to (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) the inherent unknown) limitations of voice recognition software. Please (unknown) (no (unknown) (unknown) oxycodone 5 mg (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) tablet 5 mg PO BID unknown) PRN 11/30/21 [History Confirmed 11/30/21] (unknown) (no (unknown) (unknown) primary care (units (u nknown) date) provider and unknown) demonstrate bulky right supraclavicular, mediastinal (unknown) (no (unknown) (unknown) read the note (units ( 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) carefully and unknown) recognize, using context, where these substitutions (unknown) (no (unknown) (unknown) retroperitoneum (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) unknown) (unknown) (no (unknown) (unknown) right neck lymph (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) nodes. Over the unknown) past month she has noticed significant (unknown) (no (unknown) (unknown) software. (units (unkn own) date) Although every unknown) effort is made to edit content, vp global errors (unknown) (no (unknown) (unknown) suvorexant [From (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) Belsomra] Adverse unknown) Reaction (Verified 11/30/21 15:47) (unknown) (no (unknown) (unknown) swelling at the (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) base of her right unknown) neck. In addition she has developed (unknown) (no (unknown) (unknown) tizanidine 2 mg (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) capsule 2 mg PO unknown) Q8H PRN 11/30/21 [History Confirmed 11/30/21] (unknown) (no (unknown) (unknown) trazodone 150 mg (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) tablet 150 mg PO unknown) BEDTIME PRN 11/30/21 [History Confirmed Result panel 4 (unknown) (no (unknown) (unknown) (no value) (units (unk nown) date) unknown) (unknown) (no (unknown) (unknown) (no value) (units (unk nown) date) unknown) (unknown) (no (unknown) (unknown) (no value) (units (unk nown) date) unknown) (unknown) (no (unknown) (unknown) 11/30/21 (units (unkno wn) date) unknown) (unknown) (no (unknown) (unknown) 15:48 (units (unkno wn) date) unknown) (unknown) (no (unknown) (unknown) [place], [place] (units ( 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) [id number] unknown) (unknown) (no (unknown) (unknown) Cancer of kidney (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) unknown) (unknown) (no (unknown) (unknown) Draft (units (unkno wn) date) unknown) (unknown) (no (unknown) (unknown) [facility] (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) unknown) (unknown) (no (unknown) (unknown) Lung cancer (units (un known) date) unknown) (unknown) (no (unknown) (unknown) Surgery Office (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) Visit unknown) (unknown) (no (unknown) (unknown) (no value) (units (unk nown) date) unknown) (unknown) (no (unknown) (unknown) 11/30/21 (units (unkno wn) date) unknown) (unknown) (no (unknown) (unknown) 11/30/21] (units (unkn own) date) unknown) (unknown) (no (unknown) (unknown) [id number] (units (unkno wn) date) unknown) (unknown) (no (unknown) (unknown) 8-year-old woman (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) referred to unknown) General surgery for requested excisional biopsy of (unknown) (no (unknown) (unknown) Abnormal findings (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) on diagnostic unknown) imaging of other abdominal regions, including (unknown) (no (unknown) (unknown) Abrasion head (units ( 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) unknown) (unknown) (no (unknown) (unknown) Age at menopause: (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) 37 unknown) (unknown) (no (unknown) (unknown) Age/Sex: 71 / F (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) Date of Service: unknown) (unknown) (no (unknown) (unknown) Allergies (units (unkn own) date) unknown) (unknown) (no (unknown) (unknown) Anticoagulant (units ( 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) long-term use unknown) (unknown) (no (unknown) (unknown) Asthma (units (unkno wn) date) unknown) (unknown) (no (unknown) (unknown) Attending Dr: (units ( 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) Anthony Reddy MD unknown) (unknown) (no (unknown) (unknown) BMI 21.6 (units (un known) date) unknown) (unknown) (no (unknown) (unknown) BP 120/70 (units (u nknown) date) unknown) (unknown) (no (unknown) (unknown) Blood Pressure (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) Location Lt unknown) brachial (unknown) (no (unknown) (unknown) Cardiomegaly (units (u nknown) date) unknown) (unknown) (no (unknown) (unknown) Cerebral (units (unkno wn) date) infarction unknown) (unknown) (no (unknown) (unknown) Cervicalgia (units (un known) date) unknown) (unknown) (no (unknown) (unknown) Chest pain (units (unk nown) date) unknown) (unknown) (no (unknown) (unknown) Chief Complaint (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) unknown) (unknown) (no (unknown) (unknown) Chief Complaint: (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) Neck swelling unknown) (unknown) (no (unknown) (unknown) Chronic kidney (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) disease unknown) (unknown) (no (unknown) (unknown) Confirmed (units (unkn own) date) 07/21/22] unknown) (unknown) (no (unknown) (unknown) Cough (units (unkno wn) date) unknown) (unknown) (no (unknown) (unknown) : 1950 (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) Acct:[id number] unknown) (unknown) (no (unknown) (unknown) Depression (units (unk nown) date) unknown) (unknown) (no (unknown) (unknown) Dept at (units (unkno wn) date) . unknown) (unknown) (no (unknown) (unknown) Details: (units (unkno wn) date) unknown) (unknown) (no (unknown) (unknown) Documented By: (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) Anthony Reddy MD unknown) 11/30/21 1546 (unknown) (no (unknown) (unknown) Dysuria (units (unkno wn) date) unknown) (unknown) (no (unknown) (unknown) Fall (units (unkno wn) date) unknown) (unknown) (no (unknown) (unknown) Family History (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) (Reviewed 11/30/21 unknown) @ 16:20 by Nellie Ennis MA) (unknown) (no (unknown) (unknown) Father Throat (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) cancer unknown) (unknown) (no (unknown) (unknown) Frequency of (units (u nknown) date) micturition unknown) (unknown) (no (unknown) (unknown) : 8 (units (unk nown) date) unknown) (unknown) (no (unknown) (unknown) H/O bilateral (units ( 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) mastectomy unknown) (unknown) (no (unknown) (unknown) HPI (units (unkno wn) date) unknown) (unknown) (no (unknown) (unknown) Head lump (units (unkn own) date) unknown) (unknown) (no (unknown) (unknown) Heart disease (units ( 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) unknown) (unknown) (no (unknown) (unknown) Height 5 ft 5 (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) in unknown) (unknown) (no (unknown) (unknown) Hematuria (units (unkn own) date) unknown) (unknown) (no (unknown) (unknown) History of (units (unk nown) date) appendectomy unknown) (unknown) (no (unknown) (unknown) History of (units (unk nown) date) cholecystectomy unknown) (unknown) (no (unknown) (unknown) History of (units (unk nown) date) hysterectomy unknown) (unknown) (no (unknown) (unknown) Intake (units (unkno wn) date) unknown) (unknown) (no (unknown) (unknown) Loc: [facility] (units (unkno wn) date) unknown) (unknown) (no (unknown) (unknown) Low back pain (units ( 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) unknown) (unknown) (no (unknown) (unknown) 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 unknown) (unknown) (no (unknown) (unknown) Medical History (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) (Reviewed 11/30/21 unknown) @ 16:20 by Nellie Ennis MA) (unknown) (no (unknown) (unknown) Medications (units (un known) date) unknown) (unknown) (no (unknown) (unknown) Mother Ovarian (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) cancer unknown) (unknown) (no (unknown) (unknown) NSTEMI (non-ST (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) elevated unknown) myocardial infarction) (unknown) (no (unknown) (unknown) 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 unknown) (unknown) (no (unknown) (unknown) Oxygen Delivery (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) Method room air unknown) (unknown) (no (unknown) (unknown) PFSH (units (unkno wn) date) unknown) (unknown) (no (unknown) (unknown) Para: 1 (units (unkno wn) date) unknown) (unknown) (no (unknown) (unknown) Patient: (units (unkno wn) date) Manda Whitaker unknown) MR#: [id number] (unknown) (no (unknown) (unknown) Peripheral (units (unk nown) date) vascular disease unknown) (unknown) (no (unknown) (unknown) Position (units (unkno wn) date) Sitting unknown) (unknown) (no (unknown) (unknown) Pulse 75 (units (un known) date) unknown) (unknown) (no (unknown) (unknown) Pulse Oximetry (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) (%) 97 unknown) (unknown) (no (unknown) (unknown) Pulse Source (units (u nknown) date) Monitor unknown) (unknown) (no (unknown) (unknown) Reason For Visit (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) unknown) (unknown) (no (unknown) (unknown) Seborrheic (units (unk nown) date) keratoses unknown) (unknown) (no (unknown) (unknown) Signed By: (units (unk nown) date) unknown) (unknown) (no (unknown) (unknown) Skin disorder (units ( 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) unknown) (unknown) (no (unknown) (unknown) Smoking Status: (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) Current every day unknown) smoker (unknown) (no (unknown) (unknown) Smoking Status: (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) Current every day unknown) smoker (unknown) (no (unknown) (unknown) Social History (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) (Reviewed 11/30/21 unknown) @ 16:20 by Nellie Ennis MA) (unknown) (no (unknown) (unknown) Sulfa (units (unkno wn) date) (Sulfonamide unknown) Antibiotics) Allergy (Verified 11/30/21 15:47) (unknown) (no (unknown) (unknown) Surgical History (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) (Reviewed 11/30/21 unknown) @ 16:20 by Nellie Ennis MA) (unknown) (no (unknown) (unknown) TIA (transient (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) ischemic attack) unknown) (unknown) (no (unknown) (unknown) Temp 98.8 F (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) unknown) (unknown) (no (unknown) (unknown) Temp Source (units (un known) date) Temporal Artery unknown) Scan (unknown) (no (unknown) (unknown) This note may (units ( 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) have been all or unknown) partially generated using voice recognition (unknown) (no (unknown) (unknown) Tobacco Status (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) unknown) (unknown) (no (unknown) (unknown) Urinary calculi (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) unknown) (unknown) (no (unknown) (unknown) 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) lymph node ref by Ivan (unknown) (no (unknown) (unknown) Vitals (units (unkno wn) date) unknown) (unknown) (no (unknown) (unknown) Weight 130 lb (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) unknown) (unknown) (no (unknown) (unknown) Wrist fracture (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) unknown) (unknown) (no (unknown) (unknown) albuterol sulfate (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) 90 mcg/actuation unknown) aerosol inhaler (Ventolin HFA) 2 puff (unknown) (no (unknown) (unknown) alendronate 70 mg (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) tablet (Fosamax) unknown) 70 mg PO QWEEK 11/30/21 [History Confirmed (unknown) (no (unknown) (unknown) amlodipine 5 mg (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) tablet 5 mg PO unknown) DAILY 11/30/21 [History Confirmed 11/30/21] (unknown) (no (unknown) (unknown) and right hilar (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) adenopathy. She unknown) has a chronic cough associated with smoking no (unknown) (no (unknown) (unknown) atorvastatin 80 (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) mg tablet 80 mg PO unknown) DAILY 11/30/21 [History Confirmed 11/30/21] (unknown) (no (unknown) (unknown) clopidogrel 75 mg (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) tablet 75 mg PO unknown) DAILY 11/30/21 [History Confirmed 11/30/21] (unknown) (no (unknown) (unknown) difficulty (units (unk nown) date) swallowing and unknown) fatigued. CT chest and CT neck were ordered by her (unknown) (no (unknown) (unknown) diphenoxylate-atr (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) opine 2.5 mg-0.025 unknown) mg tablet 1 tab PO DAILY 11/30/21 [History (unknown) (no (unknown) (unknown) fluticasone (units (un known) date) propionate 50 unknown) mcg/actuation nasal spray,suspension 1 spray (unknown) (no (unknown) (unknown) have occurred. (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) If there are any unknown) questions, please contact the Medical Records (unknown) (no (unknown) (unknown) hemoptysis nausea (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) vomiting diarrhea unknown) or abdominal pain. She had a bilateral (unknown) (no (unknown) (unknown) inhalation Q6H (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) PRN 11/30/21 unknown) [History Confirmed 11/30/21] (unknown) (no (unknown) (unknown) intranasal DAILY (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) 11/30/21 [History unknown) Confirmed 11/30/21] (unknown) (no (unknown) (unknown) mastectomy (units (unk nown) date) performed in unknown) (unknown) (no (unknown) (unknown) may occur. (units (unk nown) date) Occasional unknown) wrong-word or 'sound-alike' substitutions may have (unknown) (no (unknown) (unknown) metoprolol (units (unk nown) date) tartrate 25 mg unknown) tablet 25 mg PO BID 11/30/21 [History Confirmed (unknown) (no (unknown) (unknown) montelukast 10 mg (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) tablet 10 mg PO unknown) DAILY 11/30/21 [History Confirmed 11/30/21] (unknown) (no (unknown) (unknown) occurred due to (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) the inherent unknown) limitations of voice recognition software. Please (unknown) (no (unknown) (unknown) oxycodone 5 mg (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) tablet 5 mg PO BID unknown) PRN 11/30/21 [History Confirmed 11/30/21] (unknown) (no (unknown) (unknown) primary care (units (u nknown) date) provider and unknown) demonstrate bulky right supraclavicular, mediastinal (unknown) (no (unknown) (unknown) read the note (units ( unknown) date) carefully and unknown) recognize, using context, where these substitutions (unknown) (no (unknown) (unknown) retroperitoneum (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) unknown) (unknown) (no (unknown) (unknown) right neck lymph (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) nodes. Over the unknown) past month she has noticed significant (unknown) (no (unknown) (unknown) software. (units (unkn own) date) Although every unknown) effort is made to edit content, vp global errors (unknown) (no (unknown) (unknown) suvorexant [From (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) Belsomra] Adverse unknown) Reaction (Verified 11/30/21 15:47) (unknown) (no (unknown) (unknown) swelling at the (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) base of her right unknown) neck. In addition she has developed (unknown) (no (unknown) (unknown) tizanidine 2 mg (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) capsule 2 mg PO unknown) Q8H PRN 11/30/21 [History Confirmed 11/30/21] (unknown) (no (unknown) (unknown) trazodone 150 mg (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) tablet 150 mg PO unknown) BEDTIME PRN 11/30/21 [History Confirmed Result panel 5 (unknown) (no (unknown) (unknown) (no value) (units (unk nown) date) unknown) (unknown) (no (unknown) (unknown) (no value) (units (unk nown) date) unknown) (unknown) (no (unknown) (unknown) [place], [place] (units ( unknown) date) [id number] unknown) (unknown) (no (unknown) (unknown) Draft (units (unkno wn) date) unknown) (unknown) (no (unknown) (unknown) [facility] (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) unknown) (unknown) (no (unknown) (unknown) Nurse Office (units (u nknown) date) Visit unknown) (unknown) (no (unknown) (unknown) (no value) (units (unk nown) date) unknown) (unknown) (no (unknown) (unknown) COVID-19 (units (u nknown) date) unknown) (unknown) (no (unknown) (unknown) [id number] (units (unkno wn) date) unknown) (unknown) (no (unknown) (unknown) 12/05/21 (units (unkno wn) date) unknown) (unknown) (no (unknown) (unknown) Age/Sex: 71 / F (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) Date of unknown) Service: (unknown) (no (unknown) (unknown) Allergies (units (unkn own) date) unknown) (unknown) (no (unknown) (unknown) Attending Dr: (units ( unknown) date) Anthony Reddy MD unknown) (unknown) (no (unknown) (unknown) : 1950 (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) Acct:[id number] unknown) (unknown) (no (unknown) (unknown) Dept at (units (unkno wn) date) . unknown) (unknown) (no (unknown) (unknown) Documented By: (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) Anthony Reddy MD unknown) 12/05/21 1120 (unknown) (no (unknown) (unknown) Evaluation/Scree (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) mere for possible unknown) COVID-19 completed?: Yes- COVID-19 CPT (unknown) (no (unknown) (unknown) Intake (units (unkno wn) date) unknown) (unknown) (no (unknown) (unknown) Intake Note: (units (u nknown) date) unknown) (unknown) (no (unknown) (unknown) Loc: [facility] (units (unkno wn) date) unknown) (unknown) (no (unknown) (unknown) Note (units (unkno wn) date) unknown) (unknown) (no (unknown) (unknown) PRE-PROCEDURE (units ( unknown) date) TEST. PT. DENIES unknown) ANY SYMPTOMS. TEST EXPLAINED AND PT. TOLERATED (unknown) (no (unknown) (unknown) Patient: (units (unkno wn) date) Manda Whitaker unknown) MR#: [id number] (unknown) (no (unknown) (unknown) Reason For Visit (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) unknown) (unknown) (no (unknown) (unknown) Signed By: (units (unk nown) date) unknown) (unknown) (no (unknown) (unknown) Smoking Status: (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) Current every day unknown) smoker (unknown) (no (unknown) (unknown) Sulfa (units (unkno wn) date) (Sulfonamide unknown) Antibiotics) Allergy (Verified 11/30/21 15:47) (unknown) (no (unknown) (unknown) This note may (units ( unknown) date) have been all or unknown) partially generated using voice recognition (unknown) (no (unknown) (unknown) Tobacco Status (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) unknown) (unknown) (no (unknown) (unknown) Visit Reasons: (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) COVID/GUS unknown) (unknown) (no (unknown) (unknown) WELL. (units (unkno wn) date) unknown) (unknown) (no (unknown) (unknown) have occurred. (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) If there are any unknown) questions, please contact the Medical Records (unknown) (no (unknown) (unknown) may occur. (units (unk nown) date) Occasional unknown) wrong-word or 'sound-alike' substitutions may have (unknown) (no (unknown) (unknown) occurred due to (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) the inherent unknown) limitations of voice recognition software. Please (unknown) (no (unknown) (unknown) read the note (units ( unknown) date) carefully and unknown) recognize, using context, where these substitutions (unknown) (no (unknown) (unknown) software. (units (unkn own) date) Although every unknown) effort is made to edit content, vp global errors (unknown) (no (unknown) (unknown) suvorexant [From (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) Belsomra] Adverse unknown) Reaction (Verified 11/30/21 15:47) Result panel 6 (unknown) (no date) (unknown) (unknown) Negative (units (unkn own) unknown) Result panel 7 (unknown) (no (unknown) (unknown) (no value) (units (unk nown) date) unknown) (unknown) (no (unknown) (unknown) (no value) (units (unk nown) date) unknown) (unknown) (no (unknown) (unknown) 12/05/21 1221 (units ( unknown) date) unknown) (unknown) (no (unknown) (unknown) [place], [place] (units ( unknown) date) [id number] unknown) (unknown) (no (unknown) (unknown) [facility] (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) unknown) (unknown) (no (unknown) (unknown) Nurse Office (units (u nknown) date) Visit unknown) (unknown) (no (unknown) (unknown) Signed (units (unkno wn) date) unknown) (unknown) (no (unknown) (unknown) (no value) (units (unk nown) date) unknown) (unknown) (no (unknown) (unknown) COVID-19 (units (u nknown) date) unknown) (unknown) (no (unknown) (unknown) [id number] (units (unkno wn) date) unknown) (unknown) (no (unknown) (unknown) 12/05/21 (units (unkno wn) date) unknown) (unknown) (no (unknown) (unknown) Age/Sex: 71 / F (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) Date of unknown) Service: (unknown) (no (unknown) (unknown) Allergies (units (unkn own) date) unknown) (unknown) (no (unknown) (unknown) Attending Dr: (units ( unknown) date) Anthony Reddy MD unknown) (unknown) (no (unknown) (unknown) : 1950 (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) Acct:[id number] unknown) (unknown) (no (unknown) (unknown) Dept at (units (unkno wn) date) . unknown) (unknown) (no (unknown) (unknown) Documented By: (units (unknown) date) Anthony Reddy MD unknown) 12/05/21 1120 (unknown) (no (unknown) (unknown) Evaluation/Scree (units (unknown) date) mere for possible unknown) COVID-19 completed?: Yes- COVID-19 CPT (unknown) (no (unknown) (unknown) Intake (units (unkno wn) date) unknown) (unknown) (no (unknown) (unknown) Intake Note: (units (u nknown) date) unknown) (unknown) (no (unknown) (unknown) Loc: [facility] (units (unkno wn) date) unknown) (unknown) (no (unknown) (unknown) Note (units (unkno wn) date) unknown) (unknown) (no (unknown) (unknown) PRE-PROCEDURE (units ( unknown) date) TEST. PT. DENIES unknown) ANY SYMPTOMS. TEST EXPLAINED AND PT. TOLERATED (unknown) (no (unknown) (unknown) Patient: (units (unkno wn) date) Manda Whitaker S unknown) MR#: [id number] (unknown) (no (unknown) (unknown) Reason For Visit (units (unknown) date) unknown) (unknown) (no (unknown) (unknown) Signed By: (units (unk nown) date) <Electronically unknown) signed by Anthony Reddy MD> (unknown) (no (unknown) (unknown) Smoking Status: (units (unknown) date) Current every day unknown) smoker (unknown) (no (unknown) (unknown) Sulfa (units (unkno wn) date) (Sulfonamide unknown) Antibiotics) Allergy (Verified 11/30/21 15:47) (unknown) (no (unknown) (unknown) This note may (units ( unknown) date) have been all or unknown) partially generated using voice recognition (unknown) (no (unknown) (unknown) Tobacco Status (units (unknown) date) unknown) (unknown) (no (unknown) (unknown) Visit Reasons: (units (unknown) date) COVID/GUS unknown) (unknown) (no (unknown) (unknown) WELL. (units (unkno wn) date) unknown) (unknown) (no (unknown) (unknown) have occurred. (units (unknown) date) If there are any unknown) questions, please contact the Medical Records (unknown) (no (unknown) (unknown) may occur. (units (unk nown) date) Occasional unknown) wrong-word or 'sound-alike' substitutions may have (unknown) (no (unknown) (unknown) occurred due to (units (unknown) date) the inherent unknown) limitations of voice recognition software. Please (unknown) (no (unknown) (unknown) read the note (units ( unknown) date) carefully and unknown) recognize, using context, where these substitutions (unknown) (no (unknown) (unknown) software. (units (unkn own) date) Although every unknown) effort is made to edit content, vp global errors (unknown) (no (unknown) (unknown) suvorexant [From (units (unknown) date) Belsomra] Adverse unknown) Reaction (Verified 11/30/21 15:47) Result panel 8 (unknown) (no (unknown) (unknown) (no value) (units (unk nown) date) unknown) (unknown) (no (unknown) (unknown) Status: Acute (units ( unknown) date) unknown) (unknown) (no (unknown) (unknown) (no value) (units (unk nown) date) unknown) (unknown) (no (unknown) (unknown) (no value) (units (unk nown) date) unknown) (unknown) (no (unknown) (unknown) 11/30/21 (units (unkno wn) date) unknown) (unknown) (no (unknown) (unknown) 12/05/21 1418 (units ( unknown) date) unknown) (unknown) (no (unknown) (unknown) 15:48 (units (unkno wn) date) unknown) (unknown) (no (unknown) (unknown) [place], [place] (units ( unknown) date) [id number] unknown) (unknown) (no (unknown) (unknown) Cancer of kidney (units (unknown) date) unknown) (unknown) (no (unknown) (unknown) [facility] (units (unknown) date) unknown) (unknown) (no (unknown) (unknown) Lung cancer (units (un known) date) unknown) (unknown) (no (unknown) (unknown) Signed (units (unkno wn) date) unknown) (unknown) (no (unknown) (unknown) Surgery Office (units (unknown) date) Visit unknown) (unknown) (no (unknown) (unknown) (no value) (units (unk nown) date) unknown) (unknown) (no (unknown) (unknown) (1) Cervical (units (u nknown) date) lymphadenopathy: unknown) (unknown) (no (unknown) (unknown) [id number] (units (unkno wn) date) unknown) (unknown) (no (unknown) (unknown) 11/30/21 (units (unkno wn) date) unknown) (unknown) (no (unknown) (unknown) 11/30/21] (units (unkn own) date) unknown) (unknown) (no (unknown) (unknown) 71-year-old woman (units (unknown) date) referred to unknown) General surgery for requested excisional biopsy of (unknown) (no (unknown) (unknown) 71-year-old woman (units (unknown) date) with numerous of unknown) pathologically enlarged right neck and (unknown) (no (unknown) (unknown) Abdomen soft (units (u nknown) date) nontender unknown) nondistended. (unknown) (no (unknown) (unknown) Abnormal findings (units (unknown) date) on diagnostic unknown) imaging of other abdominal regions, including (unknown) (no (unknown) (unknown) Abrasion head (units ( unknown) date) unknown) (unknown) (no (unknown) (unknown) Age at menopause: (units (unknown) date) 37 unknown) (unknown) (no (unknown) (unknown) Age/Sex: 71 / F (units (unknown) date) Date of Service: unknown) (unknown) (no (unknown) (unknown) Allergies (units (unkn own) date) unknown) (unknown) (no (unknown) (unknown) Anticoagulant (units ( unknown) date) long-term use unknown) (unknown) (no (unknown) (unknown) Assessment + Plan (units (unknown) date) unknown) (unknown) (no (unknown) (unknown) Asthma (units (unkno wn) date) unknown) (unknown) (no (unknown) (unknown) Attending Dr: (units ( unknown) date) Anthony Reddy MD unknown) (unknown) (no (unknown) (unknown) BMI 21.6 (units (un known) date) unknown) (unknown) (no (unknown) (unknown) BP 120/70 (units (u nknown) date) unknown) (unknown) (no (unknown) (unknown) Blood Pressure (units (unknown) date) Location Lt unknown) brachial (unknown) (no (unknown) (unknown) Cardiomegaly (units (u nknown) date) unknown) (unknown) (no (unknown) (unknown) Cerebral (units (unkno wn) date) infarction unknown) (unknown) (no (unknown) (unknown) Cervicalgia (units (un known) date) unknown) (unknown) (no (unknown) (unknown) Chest nonlabored (units (unknown) date) respiration unknown) (unknown) (no (unknown) (unknown) Chest pain (units (unk nown) date) unknown) (unknown) (no (unknown) (unknown) Chief Complaint (units (unknown) date) unknown) (unknown) (no (unknown) (unknown) Chief Complaint: (units (unknown) date) Neck swelling unknown) (unknown) (no (unknown) (unknown) Chronic kidney (units (unknown) date) disease unknown) (unknown) (no (unknown) (unknown) Confirmed (units (unkn own) date) 11/30/21] unknown) (unknown) (no (unknown) (unknown) Cough (units (unkno wn) date) unknown) (unknown) (no (unknown) (unknown) : 1950 (units (unknown) date) Acct:[id number] unknown) (unknown) (no (unknown) (unknown) Depression (units (unk nown) date) unknown) (unknown) (no (unknown) (unknown) Dept at (units (unkno wn) date) . unknown) (unknown) (no (unknown) (unknown) Details: (units (unkno wn) date) unknown) (unknown) (no (unknown) (unknown) Documented By: (units (unknown) date) Anthony Reddy MD unknown) 11/30/21 1546 (unknown) (no (unknown) (unknown) Dysuria (units (unkno wn) date) unknown) (unknown) (no (unknown) (unknown) Exam (units (unkno wn) date) unknown) (unknown) (no (unknown) (unknown) Exam Narrative (units (unknown) date) unknown) (unknown) (no (unknown) (unknown) Exam Narrative: (units (unknown) date) unknown) (unknown) (no (unknown) (unknown) Fall (units (unkno wn) date) unknown) (unknown) (no (unknown) (unknown) Family History (units (unknown) date) (Reviewed 12/05/21 unknown) @ 14:14 by Anthony Reddy MD) (unknown) (no (unknown) (unknown) Father Throat (units (unknown) date) cancer unknown) (unknown) (no (unknown) (unknown) Frequency of (units (u nknown) date) micturition unknown) (unknown) (no (unknown) (unknown) General adult (units ( unknown) date) woman alert unknown) oriented no acute distress (unknown) (no (unknown) (unknown) : 8 (units (unk nown) date) unknown) (unknown) (no (unknown) (unknown) H/O bilateral (units ( unknown) date) mastectomy unknown) (unknown) (no (unknown) (unknown) HPI (units (unkno wn) date) unknown) (unknown) (no (unknown) (unknown) Head lump (units (unkn own) date) unknown) (unknown) (no (unknown) (unknown) Heart disease (units ( unknown) date) unknown) (unknown) (no (unknown) (unknown) Height 5 ft 5 (units (unknown) date) in unknown) (unknown) (no (unknown) (unknown) Hematuria (units (unkn own) date) unknown) (unknown) (no (unknown) (unknown) History of (units (unk nown) date) appendectomy unknown) (unknown) (no (unknown) (unknown) History of (units (unk nown) date) cholecystectomy unknown) (unknown) (no (unknown) (unknown) History of (units (unk nown) date) hysterectomy unknown) (unknown) (no (unknown) (unknown) Intake (units (unkno wn) date) unknown) (unknown) (no (unknown) (unknown) Loc: [facility] (units (unkno wn) date) unknown) (unknown) (no (unknown) (unknown) Low back pain (units ( unknown) date) unknown) (unknown) (no (unknown) (unknown) 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 unknown) (unknown) (no (unknown) (unknown) Medical History (units (unknown) date) (Reviewed 12/05/21 unknown) @ 14:14 by Anthony Reddy MD) (unknown) (no (unknown) (unknown) Medications (units (un known) date) unknown) (unknown) (no (unknown) (unknown) Mother Ovarian (units (unknown) date) cancer unknown) (unknown) (no (unknown) (unknown) NSTEMI (non-ST (units (unknown) date) elevated unknown) myocardial infarction) (unknown) (no (unknown) (unknown) Neck numerous (units ( unknown) date) firm fixed unknown) enlarged right base of neck and supraclavicular lymph (unknown) (no (unknown) (unknown) 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 unknown) (unknown) (no (unknown) (unknown) Oxygen Delivery (units (unknown) date) Method room air unknown) (unknown) (no (unknown) (unknown) PFSH (units (unkno wn) date) unknown) (unknown) (no (unknown) (unknown) Para: 1 (units (unkno wn) date) unknown) (unknown) (no (unknown) (unknown) Patient: (units (unkno wn) date) Manda Whitaker unknown) MR#: [id number] (unknown) (no (unknown) (unknown) Peripheral (units (unk nown) date) vascular disease unknown) (unknown) (no (unknown) (unknown) Plan (units (unkno wn) date) unknown) (unknown) (no (unknown) (unknown) Position (units (unkno wn) date) Sitting unknown) (unknown) (no (unknown) (unknown) Pulse 75 (units (un known) date) unknown) (unknown) (no (unknown) (unknown) Pulse Oximetry (units (unknown) date) (%) 97 unknown) (unknown) (no (unknown) (unknown) Pulse Source (units (u nknown) date) Monitor unknown) (unknown) (no (unknown) (unknown) Reason For Visit (units (unknown) date) unknown) (unknown) (no (unknown) (unknown) Seborrheic (units (unk nown) date) keratoses unknown) (unknown) (no (unknown) (unknown) Signed By: (units (unk nown) date) <Electronically unknown) signed by Anthony Reddy MD> (unknown) (no (unknown) (unknown) Skin disorder (units ( unknown) date) unknown) (unknown) (no (unknown) (unknown) Smoking Status: (units (unknown) date) Current every day unknown) smoker (unknown) (no (unknown) (unknown) Smoking Status: (units (unknown) date) Current every day unknown) smoker (unknown) (no (unknown) (unknown) Social History (units (unknown) date) (Reviewed 12/05/21 unknown) @ 14:14 by Anthony Reddy MD) (unknown) (no (unknown) (unknown) Sulfa (units (unkno wn) date) (Sulfonamide unknown) Antibiotics) Allergy (Verified 11/30/21 15:47) (unknown) (no (unknown) (unknown) Surgical History (units (unknown) date) (Reviewed 12/05/21 unknown) @ 14:14 by Anthony Reddy MD) (unknown) (no (unknown) (unknown) TIA (transient (units (unknown) date) ischemic attack) unknown) (unknown) (no (unknown) (unknown) Temp 98.8 F (units (unknown) date) unknown) (unknown) (no (unknown) (unknown) Temp Source (units (un known) date) Temporal Artery unknown) Scan (unknown) (no (unknown) (unknown) This note may (units ( unknown) date) have been all or unknown) partially generated using voice recognition (unknown) (no (unknown) (unknown) Time Coding (units (un known) date) Minutes Spent: unknown) (must be on same date of service/appointmen t) (unknown) (no (unknown) (unknown) Time Spent (units (unk nown) date) unknown) (unknown) (no (unknown) (unknown) Tobacco Status (units (unknown) date) unknown) (unknown) (no (unknown) (unknown) Total Time: 20 (units (unknown) date) unknown) (unknown) (no (unknown) (unknown) Urinary calculi (units (unknown) date) unknown) (unknown) (no (unknown) (unknown) 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) lymph node ref by Ivan (unknown) (no (unknown) (unknown) Vitals (units (unkno wn) date) unknown) (unknown) (no (unknown) (unknown) Weight 130 lb (units (unknown) date) unknown) (unknown) (no (unknown) (unknown) Wrist fracture (units (unknown) date) unknown) (unknown) (no (unknown) (unknown) albuterol sulfate (units (unknown) date) 90 mcg/actuation unknown) aerosol inhaler (Ventolin HFA) 2 puff (unknown) (no (unknown) (unknown) alendronate 70 mg (units (unknown) date) tablet (Fosamax) unknown) 70 mg PO QWEEK 11/30/21 [History Confirmed (unknown) (no (unknown) (unknown) amlodipine 5 mg (units (unknown) date) tablet 5 mg PO unknown) DAILY 11/30/21 [History Confirmed 11/30/21] (unknown) (no (unknown) (unknown) and right hilar (units (unknown) date) adenopathy. She unknown) has a chronic cough associated with smoking no (unknown) (no (unknown) (unknown) atorvastatin 80 (units (unknown) date) mg tablet 80 mg PO unknown) DAILY 11/30/21 [History Confirmed 11/30/21] (unknown) (no (unknown) (unknown) clopidogrel 75 mg (units (unknown) date) tablet 75 mg PO unknown) DAILY 11/30/21 [History Confirmed 11/30/21] (unknown) (no (unknown) (unknown) diagnosis. Lymph (units (unknown) date) nodes are unknown) surgically accessible. Will plan for surgical lymph (unknown) (no (unknown) (unknown) difficulty (units (unk nown) date) swallowing and unknown) fatigued. CT chest and CT neck were ordered by her (unknown) (no (unknown) (unknown) diphenoxylate-atr (units (unknown) date) opine 2.5 mg-0.025 unknown) mg tablet 1 tab PO DAILY 11/30/21 [History (unknown) (no (unknown) (unknown) fluticasone (units (un known) date) propionate 50 unknown) mcg/actuation nasal spray,suspension 1 spray (unknown) (no (unknown) (unknown) have occurred. (units (unknown) date) If there are any unknown) questions, please contact the Medical Records (unknown) (no (unknown) (unknown) hemoptysis nausea (units (unknown) date) vomiting diarrhea unknown) or abdominal pain. No history of (unknown) (no (unknown) (unknown) inhalation Q6H (units (unknown) date) PRN 11/30/21 unknown) [History Confirmed 11/30/21] (unknown) (no (unknown) (unknown) intranasal DAILY (units (unknown) date) 11/30/21 [History unknown) Confirmed 11/30/21] (unknown) (no (unknown) (unknown) is in agreement (units (unknown) date) with this plan. unknown) (unknown) (no (unknown) (unknown) malignancy. (units (un known) date) unknown) (unknown) (no (unknown) (unknown) may occur. (units (unk nown) date) Occasional unknown) wrong-word or 'sound-alike' substitutions may have (unknown) (no (unknown) (unknown) metoprolol (units (unk nown) date) tartrate 25 mg unknown) tablet 25 mg PO BID 11/30/21 [History Confirmed (unknown) (no (unknown) (unknown) montelukast 10 mg (units (unknown) date) tablet 10 mg PO unknown) DAILY 11/30/21 [History Confirmed 11/30/21] (unknown) (no (unknown) (unknown) node excision. (units ( unknown) date) Overview of the unknown) operation was discussed with patient. Operative (unknown) (no (unknown) (unknown) nodes. (units (unkno wn) date) unknown) (unknown) (no (unknown) (unknown) occurred due to (units (unknown) date) the inherent unknown) limitations of voice recognition software. Please (unknown) (no (unknown) (unknown) oxycodone 5 mg (units (unknown) date) tablet 5 mg PO BID unknown) PRN 11/30/21 [History Confirmed 11/30/21] (unknown) (no (unknown) (unknown) primary care (units (u nknown) date) provider and unknown) demonstrate bulky right supraclavicular, mediastinal (unknown) (no (unknown) (unknown) read the note (units ( unknown) date) carefully and unknown) recognize, using context, where these substitutions (unknown) (no (unknown) (unknown) retroperitoneum (units (unknown) date) unknown) (unknown) (no (unknown) (unknown) right neck lymph (units (unknown) date) nodes. Over the unknown) past month she has noticed significant (unknown) (no (unknown) (unknown) risks including (units (unknown) date) bleeding, unknown) infection, lymphatic leak, pneumothorax, damage to (unknown) (no (unknown) (unknown) software. (units (unkn own) date) Although every unknown) effort is made to edit content, vp global errors (unknown) (no (unknown) (unknown) supraclavicular (units (unknown) date) lymph nodes. She unknown) requires an excisional lymph node biopsy for (unknown) (no (unknown) (unknown) surrounding (units (un known) date) structures we were unknown) discussed. Questions have been answered and she (unknown) (no (unknown) (unknown) suvorexant [From (units (unknown) date) Belsomra] Adverse unknown) Reaction (Verified 11/30/21 15:47) (unknown) (no (unknown) (unknown) swelling at the (units (unknown) date) base of her right unknown) neck. In addition she has developed (unknown) (no (unknown) (unknown) tizanidine 2 mg (units (unknown) date) capsule 2 mg PO unknown) Q8H PRN 11/30/21 [History Confirmed 11/30/21] (unknown) (no (unknown) (unknown) trazodone 150 mg (units (unknown) date) tablet 150 mg PO unknown) BEDTIME PRN 11/30/21 [History Confirmed Result panel 9 (unknown) (no date) (unknown) (unknown) (no value) (units 191 39-5 unknown) (unknown) (no date) (unknown) (unknown) (no value) (units (un known) unknown) (unknown) (no date) (unknown) (unknown) (no value) (units 226 37-3 unknown) (unknown) (no date) (unknown) (unknown) (no value) (units 487 67-8 unknown) (unknown) (no date) (unknown) (unknown) (no value) (units (un known) unknown) (unknown) (no date) (unknown) (unknown) (no value) (units 495 60-6 unknown) (unknown) (no date) (unknown) (unknown) (no value) (units 226 36-5 unknown) (unknown) (no date) (unknown) (unknown) (no value) (units 772 02-0 unknown) (unknown) (no date) (unknown) (unknown) (no value) (units 191 39-5 unknown) (unknown) (no date) (unknown) (unknown) (no value) (units 226 34-0 unknown) (unknown) (no date) (unknown) (unknown) (no value) (units 312 08-2 unknown) (unknown) (no date) (unknown) (unknown) (no value) (units 226 33-2 unknown) (unknown) (no date) (unknown) (unknown) (no value) (units 527 97-8 unknown) (unknown) (no date) (unknown) (unknown) (no value) (units 505 95-8 unknown) (unknown) (no date) (unknown) (unknown) (no value) (units 423 49-1 unknown) (unknown) (no date) (unknown) (unknown) Comment: (units 10201 -1 unknown) Result panel 10 (unknown) (no date) (unknown) (unknown) (no value) (units (un known) unknown) (unknown) (no date) (unknown) (unknown) Date of (units (unkn own) Service: unknown) 12/06/21 (unknown) (no date) (unknown) (unknown) 12/06/21 1418 (units (unknown) unknown) (unknown) (no date) (unknown) (unknown) [place] (units (unkn own) [facility] [address] unknown) [address] [place] [id number] (unknown) (no date) (unknown) (unknown) Pre-operative (units (unknown) Note unknown) (unknown) (no date) (unknown) (unknown) (no value) (units (un known) unknown) (unknown) (no date) (unknown) (unknown) [id number] (units (unkn own) unknown) (unknown) (no date) (unknown) (unknown) Age/Sex: 71 / (units (unknown) F unknown) (unknown) (no date) (unknown) (unknown) Changes to (units (un known) H+P: No unknown) (unknown) (no date) (unknown) (unknown) : (units (unkn own) 1950 unknown) Acct:[id number] (unknown) (no date) (unknown) (unknown) History + (units (unk nown) Physical unknown) reviewed/Exam performed by Physician: Yes (unknown) (no date) (unknown) (unknown) Interval Note (units (unknown) unknown) (unknown) (no date) (unknown) (unknown) Patient: (units (unkn own) Manda Whitaker unknown) S MR#: [id number] (unknown) (no date) (unknown) (unknown) Pre-operative (units (unknown) Note unknown) (unknown) (no date) (unknown) (unknown) Provider: (units (unk nown) Anthony Reddy unknown) (unknown) (no date) (unknown) (unknown) Signed (units (unkn own) By:<Electronic unknown) ally signed by Anthony Reddy MD> Result panel 11 (unknown) (no (unknown) (unknown) 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 (unknown) (no (unknown) (unknown) [address] [place] [address] (units (unknown) date) [facility] [address], [place], unknown) [place] [phone] (unknown) (no (unknown) (unknown) [facility] (units (unknown) date) Cytology unknown) (unknown) (no (unknown) (unknown) MD Gregorio Courtney (units (unknown) date) Phone: unknown) [phone] (unknown) (no (unknown) (unknown) Specimen in (units (un known) date) alcohol and two unknown) slides, respectively. Transferred to (unknown) (no (unknown) (unknown) aggregate of four (units (unknown) date) irregularly shaped unknown) pink soft tissue fragments that (unknown) (no (unknown) (unknown) an aggregate of (units (unknown) date) four irregularly unknown) shaped montejo soft tissue fragments that (unknown) (no (unknown) (unknown) cassette A1. (units (u nknown) date) unknown) (unknown) (no (unknown) (unknown) cassette B1. (units (u nknown) date) (KV:[id number]) unknown) (unknown) (no (unknown) (unknown) cytology for (units (u nknown) date) further processing. unknown) (KV:cmc10 [id number]) (unknown) (no (unknown) (unknown) measure 1.2 x 0.7 (units (unknown) date) x 0.4 cm. The unknown) specimen is entirely submitted in (unknown) (no (unknown) (unknown) measure 1.5 x 1.3 (units (unknown) date) x 0.4 cm. The unknown) specimen is entirely submitted in (unknown) (no (unknown) (unknown) patient's name and (units (unknown) date) medical record unknown) number, 'right lymph node', is an (unknown) (no (unknown) (unknown) patient's name and (units (unknown) date) medical record unknown) number, 'right neck lymph node', is (unknown) (no (unknown) (unknown) (no value) (units (unk nown) date) unknown) (unknown) (no (unknown) (unknown) [address] [place] [address] (units (unknown) date) unknown) (unknown) (no (unknown) (unknown) [place], [place] (units ( unknown) date) [id number] unknown) (unknown) (no (unknown) (unknown) [facility] (units (unknown) date) unknown) (unknown) (no (unknown) (unknown) Pathology (units (unkn own) date) Diagnostic Report unknown) (unknown) (no (unknown) (unknown) Signed (units (unkno wn) date) unknown) (unknown) (no (unknown) (unknown) dot-like pattern. (units (unknown) date) unknown) (unknown) (no (unknown) (unknown) (no value) (units (unk nown) date) unknown) (unknown) (no (unknown) (unknown) (negative PAX-8). (units (unknown) date) Also, there is no unknown) evidence for squamous differentiation (unknown) (no (unknown) (unknown) (negative p40). (units (unknown) date) unknown) (unknown) (no (unknown) (unknown) * This test was (units (unknown) date) developed and its unknown) performance characteristics determined (unknown) (no (unknown) (unknown) (units (unknown) date) unknown) (unknown) (no (unknown) (unknown) Performed at: (units (unknown) date) 01 unknown) (unknown) (no (unknown) (unknown) . 01 (units (unkno wn) date) unknown) (unknown) (no (unknown) (unknown) . (units (unkno wn) date) unknown) (unknown) (no (unknown) (unknown) /MRV 12/08/2021 (units (unknown) date) 1038 Local unknown) (unknown) (no (unknown) (unknown) 04 Unknown (units ( unknown) date) Storage/container unknown) code(s) (unknown) (no (unknown) (unknown) 943922, [id number], (units (unknown) date) [id number], [id number] unknown) (unknown) (no (unknown) (unknown) A and B, with the (units (unknown) date) controls stained unknown) appropriately. The tumor shows the (unknown) (no (unknown) (unknown) A. Lymph Node, (units (unknown) date) Right Side of Neck, unknown) Excisional Biopsy: (unknown) (no (unknown) (unknown) A. Received in (units (unknown) date) formalin in a unknown) specimen container, labeled with the (unknown) (no (unknown) (unknown) Administration. (units (unknown) date) The FDA has unknown) determined that such clearance or approval is (unknown) (no (unknown) (unknown) B. Lymph Node, (units (unknown) date) Right Side of Neck, unknown) Excisional Biopsy: (unknown) (no (unknown) (unknown) B. Received in (units (unknown) date) formalin in a unknown) specimen container, labeled with the (unknown) (no (unknown) (unknown) Block A: (units (unkno wn) date) unknown) (unknown) (no (unknown) (unknown) Block B: (units (unkno wn) date) unknown) (unknown) (no (unknown) (unknown) Both of the (units (un known) date) specimens A and B unknown) show similar morphologic features consisting (unknown) (no (unknown) (unknown) Broad spectrum (units (unknown) date) cytokeratins unknown) (TANYA): Uniformly positive, perinuclear (unknown) (no (unknown) (unknown) CD56. In this (units (unknown) date) case, expression unknown) with the 'lung marker' TTF1 raises the (unknown) (no (unknown) (unknown) CD56: Uniformly (units (unknown) date) positive. unknown) (unknown) (no (unknown) (unknown) CDX2: Negative. (units (unknown) date) unknown) (unknown) (no (unknown) (unknown) CPT . (units (o wn) date) unknown) (unknown) (no (unknown) (unknown) Clinical history: (units (unknown) date) . unknown) (unknown) (no (unknown) (unknown) Comment: (units (o wn) date) unknown) (unknown) (no (unknown) (unknown) Cytokeratin 20: (units (unknown) date) Negative. unknown) (unknown) (no (unknown) (unknown) Cytokeratin 7: (units (unknown) date) Uniformly positive, unknown) perinuclear dot-like pattern. (unknown) (no (unknown) (unknown) Diagnosis: (units (unk nown) date) unknown) (unknown) (no (unknown) (unknown) EXCISIONAL BX OF R (units (unknown) date) NECK LYMPH NODE unknown) (unknown) (no (unknown) (unknown) Electronically (units (unknown) date) signed: . unknown) (unknown) (no (unknown) (unknown) Estrogen receptor: (units (unknown) date) Negative. unknown) (unknown) (no (unknown) (unknown) GATA3: Negative. (units (unknown) date) unknown) (unknown) (no (unknown) (unknown) Gross description: (units (unknown) date) . unknown) (unknown) (no (unknown) (unknown) Ki-67: (units ( wn) date) Approximately 50%. unknown) (unknown) (no (unknown) (unknown) [facility] Accession (units ( unknown) date) Number: [id number] unknown) (unknown) (no (unknown) (unknown) MR 12/14/2021 (units (unknown) date) 1521 Local unknown) (unknown) (no (unknown) (unknown) Material (units ( wn) date) submitted: . unknown) (unknown) (no (unknown) (unknown) NPI- [id number] (units (unknown) date) unknown) (unknown) (no (unknown) (unknown) No. of (units ( wn) date) containers..02 unknown) Tissue (unknown) (no (unknown) (unknown) P40: Negative. (units (unknown) date) unknown) (unknown) (no (unknown) (unknown) PART A: lymph node (units (unknown) date) - RIGHT NECK LYMPH unknown) NODE FORMALIN (unknown) (no (unknown) (unknown) PART B: lymph node (units (unknown) date) - RIGHT NECK LYMPH unknown) NODE B-FIX (unknown) (no (unknown) (unknown) PAX-8: Negative. (units (unknown) date) unknown) (unknown) (no (unknown) (unknown) Pathologist (units (un known) date) provided ICD-10: unknown) (unknown) (no (unknown) (unknown) Rose (units (unkno wn) date) MD Esau, unknown) Pathologist (unknown) (no (unknown) (unknown) R59.1 (units (unkno wn) date) unknown) (unknown) (no (unknown) (unknown) Synaptophysin: (units (unknown) date) Uniformly positive. unknown) (unknown) (no (unknown) (unknown) TTF1: Focaly (units ( unknown) date) positive. unknown) (unknown) (no (unknown) (unknown) The results of (units (unknown) date) this case are unknown) verbally provided by Dr. Cifuentes to (unknown) (no (unknown) (unknown) These results, in (units (unknown) date) conjunction with unknown) the morphologic features, are (unknown) (no (unknown) (unknown) and individual (units (unknown) date) tumor cell unknown) necrosis. *Immunostains are performed on blocks (unknown) (no (unknown) (unknown) by [facility]. It has (units (unknown) date) not been cleared or unknown) approved by the U.S. 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 tract (unknown) (no (unknown) (unknown) considered (units (unk nown) date) supportive of the unknown) interpretation of a high-grade (unknown) (no (unknown) (unknown) evidence for (units (u nknown) date) metastatic deposit unknown) from the patient's reported breast (unknown) (no (unknown) (unknown) following results: (units (unknown) date) unknown) (unknown) (no (unknown) (unknown) high level (units (unk nown) date) coexpression of the unknown) neuroendocrine markers synaptophysin and (unknown) (no (unknown) (unknown) may not be (units (unk nown) date) indicative of unknown) pulmonary origin. Furthermore, there is no (unknown) (no (unknown) (unknown) medical claims assistant (units (unknown) date) Veena on 12/14/2021 unknown) at 1:00 p.m. (unknown) (no (unknown) (unknown) neuroendocrine (units (unknown) date) carcinoma. unknown) Specifically, this impression is based on the (unknown) (no (unknown) (unknown) not necessary. (units (unknown) date) This test is used unknown) for clinical purposes. It should not be (unknown) (no (unknown) (unknown) of a small cell (units (unknown) date) undifferentiated unknown) malignancy with extensive crush artifact (unknown) (no (unknown) (unknown) pattern of (units (unk nown) date) staining seen with unknown) TANYA and cytokeratin 7 in conjunction with (unknown) (no (unknown) (unknown) regarded as (units (un known) date) investigational or unknown) for research. (unknown) (no (unknown) (unknown) suspicion for (units ( unknown) date) origin from a lung unknown) primary; however, it is worthy to note (unknown) (no (unknown) (unknown) that TTF1 loses (units (unknown) date) specificity in the unknown) setting of neuroendocrine neoplasms and (unknown) (no (unknown) (unknown) Collection Date: (units (unknown) date) 12/06/21 unknown) (unknown) (no (unknown) (unknown) DD/ (units (unknown) date) 0000 unknown) (unknown) (no (unknown) (unknown) Date of : (units (unknown) date) 1950 Admit unknown) Date: 12/06/21 (unknown) (no (unknown) (unknown) Dictated By: (units (u nknown) date) Rose Cifuentes unknown) (unknown) (no (unknown) (unknown) (units (unknown) date) Dictating Dr: unknown) Rose Cifuentes MD (unknown) (no (unknown) (unknown) Ordering (units (unkno wn) date) Physician: unknown) Anthony Reddy MD (unknown) (no (unknown) (unknown) Patient name: (units ( unknown) date) Manda Whitaker unknown) (unknown) (no (unknown) (unknown) Signed By: (units (unk nown) date) 12/14/212006 unknown) (unknown) (no (unknown) (unknown) TD/TT: 12/14/21 (units (unknown) date) 2006 unknown) Result panel 12 (unknown) (no (unknown) (unknown) (no value) (units (unk nown) date) unknown) (unknown) (no (unknown) (unknown) Date of Service: (units (unknown) date) 12/06/21 unknown) (unknown) (no (unknown) (unknown) 12/06/21 1544 (units ( unknown) date) unknown) (unknown) (no (unknown) (unknown) [facility] (units (unknown) date) [address] [place] [address] unknown) [place] [address] (unknown) (no (unknown) (unknown) Operative Note (units (unknown) date) unknown) (unknown) (no (unknown) (unknown) (no value) (units (unk nown) date) unknown) (unknown) (no (unknown) (unknown) [id number] (units (unkno wn) date) unknown) (unknown) (no (unknown) (unknown) Age/Sex: 71 / F (units (unknown) date) unknown) (unknown) (no (unknown) (unknown) Anesthesia Type: (units (unknown) date) General unknown) (unknown) (no (unknown) (unknown) Click Yes if (units (u nknown) date) Unassisted: Yes unknown) (unknown) (no (unknown) (unknown) Complications: (units (unknown) date) none unknown) (unknown) (no (unknown) (unknown) Condition: stable (units (unknown) date) unknown) (unknown) (no (unknown) (unknown) : 1950 (units (unknown) date) Acct:[id number] unknown) (unknown) (no (unknown) (unknown) Date of (units (unkno wn) date) procedure: unknown) 12/06/21 (unknown) (no (unknown) (unknown) Disposition: same (units (unknown) date) day surgery unknown) (unknown) (no (unknown) (unknown) Enlarging right (units (unknown) date) cervical and unknown) supraclavicular lymphadenopathy of unknown etiology (unknown) (no (unknown) (unknown) Estimated Blood (units (unknown) date) Loss (mL): 30 unknown) (unknown) (no (unknown) (unknown) Excisional biopsy (units (unknown) date) of left cervical unknown) lymph node. (unknown) (no (unknown) (unknown) Findings: (units (unkn own) date) unknown) (unknown) (no (unknown) (unknown) Indications: (units (u nknown) date) unknown) (unknown) (no (unknown) (unknown) Necrotic (units (unkno wn) date) superficial unknown) cervical lymph nodes (unknown) (no (unknown) (unknown) Operative (units (unkn own) date) Date/Time/Diagnose unknown) s (unknown) (no (unknown) (unknown) Operative Notes (units (unknown) date) unknown) (unknown) (no (unknown) (unknown) Patient was (units (unk n) date) brought to the unknown) operating room placed supine on the table. Bilateral (unknown) (no (unknown) (unknown) Patient: (units (unkno wn) date) Manda Whitaker S unknown) MR#: [id number] (unknown) (no (unknown) (unknown) Post-op (units (unkno wn) date) diagnosis: same unknown) (unknown) (no (unknown) (unknown) Post-operative (units (unknown) date) unknown) (unknown) (no (unknown) (unknown) Pre-op diagnosis: (units (unknown) date) Cervical unknown) lymphadenopathy (unknown) (no (unknown) (unknown) Procedure + (units (un known) date) Clinicians unknown) (unknown) (no (unknown) (unknown) Procedure in (units (u nknown) date) detail: unknown) (unknown) (no (unknown) (unknown) Procedure: (units (unk nown) date) unknown) (unknown) (no (unknown) (unknown) Provider: (units (unkn own) date) Anthony Reddy MD unknown) (unknown) (no (unknown) (unknown) Same procedure as (units (unknown) date) scheduled: Yes unknown) (unknown) (no (unknown) (unknown) Signed (units (unkno wn) date) By:<Electronically unknown) signed by Anthony Reddy MD> (unknown) (no (unknown) (unknown) Specimen(s): (units (u nknown) date) other (Right unknown) cervical lymph nodes) (unknown) (no (unknown) (unknown) Surgeon: Anthony (units (unknown) date) Gus unknown) (unknown) (no (unknown) (unknown) Time of (units (unkno wn) date) procedure: 15:40 unknown) (unknown) (no (unknown) (unknown) excised and (units (un known) date) passed off the unknown) field as specimen. The wound was irrigated and this (unknown) (no (unknown) (unknown) hemostasis and (units (unknown) date) for dividing the unknown) lymphatic tissue. The lymph node was then X (unknown) (no (unknown) (unknown) into the supine (units (unknown) date) position and unknown) appropriately padded. Time-out was performed. She (unknown) (no (unknown) (unknown) large. It was (units (unknown) date) necrotic and unknown) crumbled with grasping. Hemoclips were used for (unknown) (no (unknown) (unknown) lower extremity (units (unknown) date) compression unknown) devices were applied. Patient was then positioned (unknown) (no (unknown) (unknown) palpable. The (units ( unknown) date) platysma was unknown) incised and the base of the neck was exposed. There (unknown) (no (unknown) (unknown) recovery in (units (un known) date) stable condition. unknown) (unknown) (no (unknown) (unknown) returned clear. (units (unknown) date) The platysma was unknown) then closed in running fashion followed by the (unknown) (no (unknown) (unknown) skin with 4-0 (units (u nknown) date) Monocryl. Patient unknown) tolerated the procedure well was transferred to (unknown) (no (unknown) (unknown) the neck towards (units (unknown) date) the based on the unknown) right-hand side. The lymph nodes were readily (unknown) (no (unknown) (unknown) was a prominent (units (unknown) date) superficial unknown) cervical lymph node that was pathologically and (unknown) (no (unknown) (unknown) was prepped and (units (unknown) date) draped in sterile unknown) fashion. A horizontal incision was made on Result panel 13 (unknown) (no (unknown) (unknown) (no value) (units (unk nown) date) unknown) (unknown) (no (unknown) (unknown) Date of Service: (units (unknown) date) 01/01/22 unknown) (unknown) (no (unknown) (unknown) (no value) (units (unk nown) date) unknown) (unknown) (no (unknown) (unknown) Allergies (units (unkn own) date) unknown) (unknown) (no (unknown) (unknown) Cancer of kidney (units (unknown) date) unknown) (unknown) (no (unknown) (unknown) Home Medications (units (unknown) date) unknown) (unknown) (no (unknown) (unknown) [facility] (units (unknown) date) [address] [place] [address] Street unknown) [place] [address] (unknown) (no (unknown) (unknown) Lung cancer (units (un known) date) unknown) (unknown) (no (unknown) (unknown) Oncology Consult (units (unknown) date) unknown) (unknown) (no (unknown) (unknown) Ovarian cancer (units (unknown) date) unknown) (unknown) (no (unknown) (unknown) Throat cancer (units ( unknown) date) unknown) (unknown) (no (unknown) (unknown) (no value) (units (unk nown) date) unknown) (unknown) (no (unknown) (unknown) 7-10) (units (unkno wn) date) unknown) (unknown) (no (unknown) (unknown) Medication (units (unk nown) date) Instructions unknown) Recorded Confirmed Type (unknown) (no (unknown) (unknown) (Tylenol) (units (unkn own) date) unknown) (unknown) (no (unknown) (unknown) - Consult (units (unkn own) date) Narrative unknown) (unknown) (no (unknown) (unknown) - Data of Consult (units (unknown) date) unknown) (unknown) (no (unknown) (unknown) - Medical, (units (unk nown) date) Surgical, Family unknown) History (unknown) (no (unknown) (unknown) - Social History (units (unknown) date) unknown) (unknown) (no (unknown) (unknown) [id number] (units (unkno wn) date) unknown) (unknown) (no (unknown) (unknown) 11/21/2021 CT (units (u nknown) date) chest without unknown) contrast showed bulky right supraclavicular (unknown) (no (unknown) (unknown) Abnormal (units (unkno wn) date) colonoscopy unknown) (unknown) (no (unknown) (unknown) Abnormal findings (units (unknown) date) on diagnostic unknown) imaging of other abdominal regions, including (unknown) (no (unknown) (unknown) Abrasion head (units ( unknown) date) unknown) (unknown) (no (unknown) (unknown) Age/Sex: 71 / F (units (unknown) date) unknown) (unknown) (no (unknown) (unknown) Allergy/AdvReac (units (unknown) date) Type Severity unknown) Reaction Status Date / Time (unknown) (no (unknown) (unknown) Antibiotics) (units (u nknown) date) unknown) (unknown) (no (unknown) (unknown) Anticoagulant (units ( unknown) date) long-term use unknown) (unknown) (no (unknown) (unknown) Asthma (units (unkno wn) date) unknown) (unknown) (no (unknown) (unknown) Both samples (units (u nknown) date) contain similar unknown) morphologic features consisting a small cell (unknown) (no (unknown) (unknown) CC: Melly Noe, (units (unknown) date) MD unknown) (unknown) (no (unknown) (unknown) CT neck (units (unkno wn) date) w/contrast unknown) (unknown) (no (unknown) (unknown) Cardiomegaly (units (u nknown) date) unknown) (unknown) (no (unknown) (unknown) Cerebral (units (unkno wn) date) infarction unknown) (unknown) (no (unknown) (unknown) Cervicalgia (units (un known) date) unknown) (unknown) (no (unknown) (unknown) Chest pain (units (unk nown) date) unknown) (unknown) (no (unknown) (unknown) Chronic kidney (units (unknown) date) disease unknown) (unknown) (no (unknown) (unknown) Cough (units (unkno wn) date) unknown) (unknown) (no (unknown) (unknown) : 1950 (units (unknown) date) Acct:[id number] unknown) (unknown) (no (unknown) (unknown) Linus Demarco MD (units (unknown) date) unknown) (unknown) (no (unknown) (unknown) Depression (units (unk nown) date) unknown) (unknown) (no (unknown) (unknown) Dysuria (units (unkno wn) date) unknown) (unknown) (no (unknown) (unknown) Fall (units (unkno wn) date) unknown) (unknown) (no (unknown) (unknown) Family History (units (unknown) date) (Last Reviewed unknown) 12/05/21 @ 14:14 by Anthony Reddy MD) (unknown) (no (unknown) (unknown) Family History: (units (unknown) date) unknown) (unknown) (no (unknown) (unknown) Father (units (unkno wn) date) unknown) (unknown) (no (unknown) (unknown) Frequency of (units (u nknown) date) micturition unknown) (unknown) (no (unknown) (unknown) H/O bilateral (units ( unknown) date) mastectomy unknown) (unknown) (no (unknown) (unknown) Head lump (units (unkn own) date) unknown) (unknown) (no (unknown) (unknown) Heart disease (units ( unknown) date) unknown) (unknown) (no (unknown) (unknown) Hematuria (units (unkn own) date) unknown) (unknown) (no (unknown) (unknown) History (units (unkno wn) date) unknown) (unknown) (no (unknown) (unknown) History of (units (unk nown) date) Present Illness unknown) (unknown) (no (unknown) (unknown) History of (units (unk nown) date) appendectomy unknown) (unknown) (no (unknown) (unknown) History of (units (unk nown) date) cholecystectomy unknown) (unknown) (no (unknown) (unknown) History of (units (unk nown) date) hysterectomy unknown) (unknown) (no (unknown) (unknown) Home Medications (units (unknown) date) and Allergies unknown) (unknown) (no (unknown) (unknown) In 10/2021, right (units (unknown) date) neck tender unknown) (unknown) (no (unknown) (unknown) Manda Whitaker (units (unknown) date) is a 71 year old unknown) female (unknown) (no (unknown) (unknown) Low back pain (units ( unknown) date) unknown) (unknown) (no (unknown) (unknown) 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 unknown) (unknown) (no (unknown) (unknown) Medical History (units (unknown) date) unknown) (unknown) (no (unknown) (unknown) Medical History (units (unknown) date) (Last Updated unknown) 12/06/21 @ 12:52 by Cosmo Boykin RN) (unknown) (no (unknown) (unknown) Medical History: (units (unknown) date) unknown) (unknown) (no (unknown) (unknown) Mother (units (unkno wn) date) unknown) (unknown) (no (unknown) (unknown) NSTEMI (non-ST (units (unknown) date) elevated unknown) myocardial infarction) (unknown) (no (unknown) (unknown) Narrative: (units (unk nown) date) unknown) (unknown) (no (unknown) (unknown) On 12/06/2021, (units (unknown) date) Gus performed unknown) excisional biopsy of right cervical lymph (unknown) (no (unknown) (unknown) Patient: (units (unkno wn) date) Manda Whitaker unknown) MR#: [id number] (unknown) (no (unknown) (unknown) Patient: new to (units (unknown) date) practice unknown) (unknown) (no (unknown) (unknown) Peripheral (units (unk nown) date) vascular disease unknown) (unknown) (no (unknown) (unknown) Primary Care (units (u nknown) date) Provider: unknown) (unknown) (no (unknown) (unknown) Provider: (units (unkn own) date) Melly Noe MD unknown) (unknown) (no (unknown) (unknown) Reason for (units (unk nown) date) consult: Small unknown) cell lung cancer (unknown) (no (unknown) (unknown) Seborrheic (units (unk nown) date) keratoses unknown) (unknown) (no (unknown) (unknown) She is c/o (units (unk nown) date) headache. at time unknown) pretty sever. at oxydone at night. blurred vision (unknown) (no (unknown) (unknown) She said she is (units (unknown) date) lossing wt in the unknown) face and arm, but edema in the legs. left > (unknown) (no (unknown) (unknown) Signed By: (units (unk nown) date) unknown) (unknown) (no (unknown) (unknown) Skin disorder (units ( unknown) date) unknown) (unknown) (no (unknown) (unknown) Smoking Status: (units (unknown) date) Current every day unknown) smoker (unknown) (no (unknown) (unknown) Sulfa (units (unkno wn) date) (Sulfonamide unknown) Allergy Verified 11/30/21 15:47 (unknown) (no (unknown) (unknown) Surgical History (units (unknown) date) (Last Updated unknown) 12/06/21 @ 12:51 by Cosmo Boykin RN) (unknown) (no (unknown) (unknown) Surgical History: (units (unknown) date) unknown) (unknown) (no (unknown) (unknown) TIA (transient (units (unknown) date) ischemic attack) unknown) (unknown) (no (unknown) (unknown) There is partial (units (unknown) date) visualization of unknown) mediastinal lymph nodes, with a group seen (unknown) (no (unknown) (unknown) Urinary calculi (units (unknown) date) unknown) (unknown) (no (unknown) (unknown) Wrist fracture (units (unknown) date) unknown) (unknown) (no (unknown) (unknown) a lot of nausea (units (unknown) date) unknown) (unknown) (no (unknown) (unknown) acetaminophen 325 (units (unknown) date) mg capsule 650 mg unknown) PO QID PRN pain #60 caps 12/06/21 Rx (unknown) (no (unknown) (unknown) aerosol inhaler (units (unknown) date) (Ventolin HFA) unknown) Bronchodilation (unknown) (no (unknown) (unknown) albuterol sulfate (units (unknown) date) 90 mcg/actuation 2 unknown) puff inhalation Q6H PRN 11/30/21 12/06/21 (unknown) (no (unknown) (unknown) alendronate 70 mg (units (unknown) date) tablet 70 mg PO unknown) WEEKLY 12/06/21 12/06/21 History (unknown) (no (unknown) (unknown) amlodipine 5 mg (units (unknown) date) tablet 5 mg PO unknown) DAILY 11/30/21 12/06/21 History (unknown) (no (unknown) (unknown) at time. used to (units (unknown) date) read a lot, but unknown) now give up 2/2 blurred vision. No double (unknown) (no (unknown) (unknown) atorvastatin 80 (units (unknown) date) mg tablet 80 mg PO unknown) DAILY 11/30/21 12/06/21 History (unknown) (no (unknown) (unknown) bronchial wall (units (unknown) date) thickening noted. unknown) (unknown) (no (unknown) (unknown) clopidogrel 75 mg (units (unknown) date) tablet 75 mg PO unknown) DAILY 11/30/21 12/06/21 History (unknown) (no (unknown) (unknown) different on diff (units (unknown) date) she aided unknown) malignancy with extensive crush artifact (unknown) (no (unknown) (unknown) difficult (units (unkn own) date) swal;lowing. unknown) (unknown) (no (unknown) (unknown) dimension. (units (unk nown) date) unknown) (unknown) (no (unknown) (unknown) diphenoxylate-atr (units (unknown) date) opine 2.5 1 tab PO unknown) DAILY diarrhea 11/30/21 12/06/21 History (unknown) (no (unknown) (unknown) epigastric pian, (units (unknown) date) umbilivcal adn eh unknown) under the right rib. (unknown) (no (unknown) (unknown) fluticasone (units (un known) date) propionate 50 1 unknown) spray intranasal DAILY 11/30/21 12/06/21 History (unknown) (no (unknown) (unknown) food stuck in the (units (unknown) date) throat unknown) (unknown) (no (unknown) (unknown) here is a (units (unkn own) date) conglomerated unknown) group of lymph nodes seen within the right (unknown) (no (unknown) (unknown) mcg/actuation (units ( unknown) date) nasal unknown) (unknown) (no (unknown) (unknown) mediastinal and (units (unknown) date) right hilar unknown) adenopathy, coarse nodular calcifications, gradually (unknown) (no (unknown) (unknown) metoprolol (units (unk nown) date) tartrate 25 mg unknown) tablet 25 mg PO BID 11/30/21 12/06/21 History (unknown) (no (unknown) (unknown) mg-0.025 mg (units (un known) date) tablet unknown) (unknown) (no (unknown) (unknown) montelukast 10 mg (units (unknown) date) tablet 10 mg PO unknown) DAILY 11/30/21 12/06/21 History (unknown) (no (unknown) (unknown) months in the (units ( unknown) date) spleen liver and unknown) both lungs, small pericardial effusion and (unknown) (no (unknown) (unknown) node. The (units (unk nown) date) pathology showed unknown) metastatic high-grade neuroendocrine carcinoma. (unknown) (no (unknown) (unknown) nonspecific (units (un known) date) reticulonodular unknown) focus in the medial right upper lobe. Mild (unknown) (no (unknown) (unknown) on 11/02/2021: (units (unknown) date) node palapge by unknown) PCP Dr. Lynnette Hua. Now Dr. Linus Demarco (unknown) (no (unknown) (unknown) oxycodone 5 mg (units (unknown) date) tablet 5 mg PO BID unknown) PRN Pain (Scale Score 07/21/22 07/27/22 (unknown) (no (unknown) (unknown) retroperitoneum (units (unknown) date) unknown) (unknown) (no (unknown) (unknown) right (units (unkno wn) date) unknown) (unknown) (no (unknown) (unknown) right neck has (units (unknown) date) grown a lot. the unknown) left side became tender (unknown) (no (unknown) (unknown) right superior (units (unknown) date) mediastinum unknown) measuring 4.3 x 3 cm. Mild mass effect of is seen (unknown) (no (unknown) (unknown) she can only eat (units (unknown) date) soft food unknown) sometime. (unknown) (no (unknown) (unknown) she just saw (units (u nknown) date) vascular surgerry. unknown) no blood clot. (unknown) (no (unknown) (unknown) spray,suspension (units (unknown) date) unknown) (unknown) (no (unknown) (unknown) supraclavicular (units (unknown) date) region that unknown) measures at least 5.8 x 3.6 cm in greatest axial (unknown) (no (unknown) (unknown) suvorexant [From (units (unknown) date) Belsomra] AdvReac unknown) Verified 12/06/21 12:53 (unknown) (no (unknown) (unknown) tizanidine 2 mg (units (unknown) date) tablet 2 mg PO PRN unknown) PRN Muscle Pain 12/06/21 12/06/21 History (unknown) (no (unknown) (unknown) trachea, which is (units (unknown) date) slightly deviated unknown) to the left. (unknown) (no (unknown) (unknown) trazodone 150 mg (units (unknown) date) tablet 150 mg PO unknown) BEDTIME PRN Sleep 11/30/21 12/06/21 History (unknown) (no (unknown) (unknown) upon the (units (unkno wn) date) unknown) (unknown) (no (unknown) (unknown) vision. (units (unkno wn) date) unknown) (unknown) (no (unknown) (unknown) weight has (units (unk nown) date) remained about the unknown) same . (unknown) (no (unknown) (unknown) within the (units (unk nown) date) unknown) Result panel 14 (unknown) (no (unknown) (unknown) (no value) (units (unk nown) date) unknown) (unknown) (no (unknown) (unknown) Date of Service: (units (unknown) date) 01/01/22 unknown) (unknown) (no (unknown) (unknown) (no value) (units (unk nown) date) unknown) (unknown) (no (unknown) (unknown) Allergies (units (unkn own) date) unknown) (unknown) (no (unknown) (unknown) Cancer of kidney (units (unknown) date) unknown) (unknown) (no (unknown) (unknown) Home Medications (units (unknown) date) unknown) (unknown) (no (unknown) (unknown) [facility] (units (unknown) date) [address] unknown) [place] [address] (unknown) (no (unknown) (unknown) Lung cancer (units (un known) date) unknown) (unknown) (no (unknown) (unknown) Oncology Consult (units (unknown) date) unknown) (unknown) (no (unknown) (unknown) Ovarian cancer (units (unknown) date) unknown) (unknown) (no (unknown) (unknown) Throat cancer (units ( unknown) date) unknown) (unknown) (no (unknown) (unknown) n (units (unkno wn) date) unknown) (unknown) (no (unknown) (unknown) (no value) (units (unk nown) date) unknown) (unknown) (no (unknown) (unknown) 7-10) (units (unkno wn) date) unknown) (unknown) (no (unknown) (unknown) Medication (units (unk nown) date) Instructions unknown) Recorded Confirmed Type (unknown) (no (unknown) (unknown) (Tylenol) (units (unkn own) date) unknown) (unknown) (no (unknown) (unknown) - Consult (units (unkn own) date) Narrative unknown) (unknown) (no (unknown) (unknown) - Data of Consult (units (unknown) date) unknown) (unknown) (no (unknown) (unknown) - Medical, (units (unk nown) date) Surgical, Family unknown) History (unknown) (no (unknown) (unknown) - Social History (units (unknown) date) unknown) (unknown) (no (unknown) (unknown) [id number] (units (unkno wn) date) unknown) (unknown) (no (unknown) (unknown) 11/21/2021 CT chest (units (unknown) date) without contrast unknown) showed bulky right supraclavicular (unknown) (no (unknown) (unknown) Abnormal (units (unkno wn) date) colonoscopy unknown) (unknown) (no (unknown) (unknown) Abnormal findings (units (unknown) date) on diagnostic unknown) imaging of other abdominal regions, including (unknown) (no (unknown) (unknown) Abrasion head (units ( unknown) date) unknown) (unknown) (no (unknown) (unknown) Age/Sex: 71 / F (units (unknown) date) unknown) (unknown) (no (unknown) (unknown) Alcohol Intake: (units (unknown) date) former unknown) (unknown) (no (unknown) (unknown) Allergy/AdvReac (units (unknown) date) Type Severity unknown) Reaction Status Date / Time (unknown) (no (unknown) (unknown) Anti-Inflamma (units ( unknown) date) Upset unknown) (unknown) (no (unknown) (unknown) Antibiotics) (units (u nknown) date) unknown) (unknown) (no (unknown) (unknown) Anticoagulant (units ( unknown) date) long-term use unknown) (unknown) (no (unknown) (unknown) Asthma (units (unkno wn) date) unknown) (unknown) (no (unknown) (unknown) Both samples (units (u nknown) date) contain similar unknown) morphologic features consisting a small cell (unknown) (no (unknown) (unknown) CC: Melly Noe, (units (unknown) date) MD unknown) (unknown) (no (unknown) (unknown) CT neck w/contrast (units (unknown) date) unknown) (unknown) (no (unknown) (unknown) Cardiomegaly (units (u nknown) date) unknown) (unknown) (no (unknown) (unknown) Cerebral (units (unkno wn) date) infarction unknown) (unknown) (no (unknown) (unknown) Cervicalgia (units (un known) date) unknown) (unknown) (no (unknown) (unknown) Chest pain (units (unk nown) date) unknown) (unknown) (no (unknown) (unknown) Chronic kidney (units (unknown) date) disease unknown) (unknown) (no (unknown) (unknown) Consult date: (units ( unknown) date) 01/01/22 unknown) (unknown) (no (unknown) (unknown) Cough (units (unkno wn) date) unknown) (unknown) (no (unknown) (unknown) : 1950 (units (unknown) date) Acct:[id number] unknown) (unknown) (no (unknown) (unknown) Linus Demarco MD (units (unknown) date) unknown) (unknown) (no (unknown) (unknown) Depression (units (unk nown) date) unknown) (unknown) (no (unknown) (unknown) Dysuria (units (unkno wn) date) unknown) (unknown) (no (unknown) (unknown) Fall (units (unkno wn) date) unknown) (unknown) (no (unknown) (unknown) Family History (units (unknown) date) (Last Reviewed unknown) 12/05/21 @ 14:14 by Anthony Reddy MD) (unknown) (no (unknown) (unknown) Family History: (units (unknown) date) unknown) (unknown) (no (unknown) (unknown) Father (units (unkno wn) date) unknown) (unknown) (no (unknown) (unknown) Frequency of (units (u nknown) date) micturition unknown) (unknown) (no (unknown) (unknown) H/O bilateral (units ( unknown) date) mastectomy unknown) (unknown) (no (unknown) (unknown) Head lump (units (unkn own) date) unknown) (unknown) (no (unknown) (unknown) Heart disease (units ( unknown) date) unknown) (unknown) (no (unknown) (unknown) Hematuria (units (unkn own) date) unknown) (unknown) (no (unknown) (unknown) History (units (unkno wn) date) unknown) (unknown) (no (unknown) (unknown) History of Present (units (unknown) date) Illness unknown) (unknown) (no (unknown) (unknown) History of (units (unk nown) date) appendectomy unknown) (unknown) (no (unknown) (unknown) History of (units (unk nown) date) cholecystectomy unknown) (unknown) (no (unknown) (unknown) History of (units (unk nown) date) hysterectomy unknown) (unknown) (no (unknown) (unknown) Home Medications (units (unknown) date) and Allergies unknown) (unknown) (no (unknown) (unknown) In 10/2021, right (units (unknown) date) neck tender unknown) (unknown) (no (unknown) (unknown) Manda Whiatker (units (unknown) date) is a 71 year old unknown) female (unknown) (no (unknown) (unknown) Low back pain (units ( unknown) date) unknown) (unknown) (no (unknown) (unknown) 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 unknown) (unknown) (no (unknown) (unknown) Medical History (units (unknown) date) unknown) (unknown) (no (unknown) (unknown) Medical History (units (unknown) date) (Last Updated unknown) 12/06/21 @ 12:52 by Cosmo Boykin RN) (unknown) (no (unknown) (unknown) Medical History: (units (unknown) date) unknown) (unknown) (no (unknown) (unknown) Mother (units (unkno wn) date) unknown) (unknown) (no (unknown) (unknown) NSAIDS (units (unkno wn) date) (Non-Steroidal unknown) AdvReac Gastrointestinal Verified 01/01/22 12:44 (unknown) (no (unknown) (unknown) NSTEMI (non-ST (units (unknown) date) elevated myocardial unknown) infarction) (unknown) (no (unknown) (unknown) Narrative: (units (unk nown) date) unknown) (unknown) (no (unknown) (unknown) On 12/06/2021, (units (unknown) date) Gus performed unknown) excisional biopsy of right cervical lymph (unknown) (no (unknown) (unknown) Patient: (units (unkno wn) date) Manda Whitaker unknown) MR#: [id number] (unknown) (no (unknown) (unknown) Patient: new to (units (unknown) date) practice unknown) (unknown) (no (unknown) (unknown) Peripheral (units (unk ) date) vascular disease unknown) (unknown) (no (unknown) (unknown) Primary Care (units (u nknown) date) Provider: unknown) (unknown) (no (unknown) (unknown) Provider: (units (unkn own) date) Melly Noe MD unknown) (unknown) (no (unknown) (unknown) Reason for (units (unk nown) date) consult: Small cell unknown) lung cancer (unknown) (no (unknown) (unknown) Requesting (units (un) ) Physician: unknown) (unknown) (no (unknown) (unknown) Seborrheic (units (unk n) date) keratoses unknown) (unknown) (no (unknown) (unknown) She is c/o (units () ) headache. at time unknown) pretty sever. at oxydone at night. blurred vision (unknown) (no (unknown) (unknown) She is still (units (u nknow) date) smoking actively. unknown) (unknown) (no (unknown) (unknown) She said she is (units (unknown) date) lossing wt in the unknown) face and arm, but edema in the legs. left > (unknown) (no (unknown) (unknown) She was tested and (units (unknown) date) was negative BRCA unknown) 1/2 in 2015. (unknown) (no (unknown) (unknown) Signed By: (units (unk nown) date) unknown) (unknown) (no (unknown) (unknown) Skin disorder (units ( unknown) date) unknown) (unknown) (no (unknown) (unknown) Smoking Status: (units (unknown) date) Current every day unknown) smoker (unknown) (no (unknown) (unknown) Substance Use (units ( unknown) date) Type: does not use unknown) (unknown) (no (unknown) (unknown) Sulfa (Sulfonamide (units (unknown) date) Allergy Verified unknown) 11/30/21 15:47 (unknown) (no (unknown) (unknown) Surgical History (units (unknown) date) (Last Updated unknown) 12/06/21 @ 12:51 by Cosmo Boykin RN) (unknown) (no (unknown) (unknown) Surgical History: (units (unknown) date) unknown) (unknown) (no (unknown) (unknown) TIA (transient (units (unknown) date) ischemic attack) unknown) (unknown) (no (unknown) (unknown) There is partial (units (unknown) date) visualization of unknown) mediastinal lymph nodes, with a group seen (unknown) (no (unknown) (unknown) Urinary calculi (units (unknown) date) unknown) (unknown) (no (unknown) (unknown) Wrist fracture (units (unknown) date) unknown) (unknown) (no (unknown) (unknown) [From Paxlovid (units (unknown) date) (EUA)] unknown) (unknown) (no (unknown) (unknown) a lot of nausea (units (unknown) date) unknown) (unknown) (no (unknown) (unknown) acetaminophen 325 (units (unknown) date) mg capsule 650 mg unknown) PO QID PRN pain #60 caps 12/06/21 Rx (unknown) (no (unknown) (unknown) aerosol inhaler (units (unknown) date) (Ventolin HFA) unknown) Bronchodilation (unknown) (no (unknown) (unknown) albuterol sulfate (units (unknown) date) 90 mcg/actuation 2 unknown) puff inhalation Q6H PRN 11/30/21 12/06/21 (unknown) (no (unknown) (unknown) alendronate 70 mg (units (unknown) date) tablet 70 mg PO unknown) WEEKLY 12/06/21 12/06/21 History (unknown) (no (unknown) (unknown) amlodipine 5 mg (units (unknown) date) tablet 5 mg PO unknown) DAILY 11/30/21 12/06/21 History (unknown) (no (unknown) (unknown) at time. used to (units (unknown) date) read a lot, but now unknown) give up 2/2 blurred vision. No double (unknown) (no (unknown) (unknown) atorvastatin 80 mg (units (unknown) date) tablet 80 mg PO unknown) DAILY 11/30/21 12/06/21 History (unknown) (no (unknown) (unknown) bronchial wall (units (unknown) date) thickening noted. unknown) (unknown) (no (unknown) (unknown) clopidogrel 75 mg (units (unknown) date) tablet 75 mg PO unknown) DAILY 11/30/21 12/06/21 History (unknown) (no (unknown) (unknown) different on diff (units (unknown) date) she aided unknown) malignancy with extensive crush artifact (unknown) (no (unknown) (unknown) difficult (units (unkn own) date) swal;lowing. unknown) (unknown) (no (unknown) (unknown) dimension. (units (unk nown) date) unknown) (unknown) (no (unknown) (unknown) diphenoxylate-atro (units (unknown) date) pine 2.5 1 tab PO unknown) DAILY diarrhea 11/30/21 12/06/21 History (unknown) (no (unknown) (unknown) duloxetine AdvReac (units (unknown) date) Hypotension unknown) Verified 01/01/22 12:44 (unknown) (no (unknown) (unknown) epigastric pian, (units (unknown) date) umbilivcal adn eh unknown) under the right rib. (unknown) (no (unknown) (unknown) fluticasone (units (un known) date) propionate 50 1 unknown) spray intranasal DAILY 11/30/21 12/06/21 History (unknown) (no (unknown) (unknown) food stuck in the (units (unknown) date) throat unknown) (unknown) (no (unknown) (unknown) here is a (units (unkn own) date) conglomerated group unknown) of lymph nodes seen within the right (unknown) (no (unknown) (unknown) hydrocodone (units (un known) date) AdvReac Rash unknown) Verified 01/01/22 12:44 (unknown) (no (unknown) (unknown) mcg/actuation (units ( unknown) date) nasal unknown) (unknown) (no (unknown) (unknown) meclizine AdvReac (units (unknown) date) Hypertensio unknown) Verified 01/01/22 12:44 (unknown) (no (unknown) (unknown) mediastinal and (units (unknown) date) right hilar unknown) adenopathy, coarse nodular calcifications, gradually (unknown) (no (unknown) (unknown) metoprolol (units (unk nown) date) tartrate 25 mg unknown) tablet 25 mg PO BID 11/30/21 12/06/21 History (unknown) (no (unknown) (unknown) mg-0.025 mg tablet (units (unknown) date) unknown) (unknown) (no (unknown) (unknown) montelukast 10 mg (units (unknown) date) tablet 10 mg PO unknown) DAILY 11/30/21 12/06/21 History (unknown) (no (unknown) (unknown) months in the (units ( unknown) date) spleen liver and unknown) both lungs, small pericardial effusion and (unknown) (no (unknown) (unknown) nirmatrelvir (units (u nknown) date) AdvReac Verified unknown) 01/01/22 12:44 (unknown) (no (unknown) (unknown) node. The (units (unk nown) date) pathology showed unknown) metastatic high-grade neuroendocrine carcinoma. (unknown) (no (unknown) (unknown) nonspecific (units (un known) date) reticulonodular unknown) focus in the medial right upper lobe. Mild (unknown) (no (unknown) (unknown) on 11/02/2021: (units (unknown) date) node palapge by PCP unknown) Dr. Lynnette Hua. Now Dr. Linus Demarco (unknown) (no (unknown) (unknown) oxycodone 5 mg (units (unknown) date) tablet 5 mg PO BID unknown) PRN Pain (Scale Score 11/30/21 12/06/21 (unknown) (no (unknown) (unknown) paroxetine AdvReac (units (unknown) date) Nightmare Verified unknown) 01/01/22 12:44 (unknown) (no (unknown) (unknown) retroperitoneum (units (unknown) date) unknown) (unknown) (no (unknown) (unknown) right (units (unkno wn) date) unknown) (unknown) (no (unknown) (unknown) right neck has (units (unknown) date) grown a lot. the unknown) left side became tender (unknown) (no (unknown) (unknown) right superior (units (unknown) date) mediastinum unknown) measuring 4.3 x 3 cm. Mild mass effect of is seen (unknown) (no (unknown) (unknown) ritonavir AdvReac (units (unknown) date) Verified 01/01/22 unknown) 12:44 (unknown) (no (unknown) (unknown) she can only eat (units (unknown) date) soft food sometime. unknown) (unknown) (no (unknown) (unknown) she just saw (units (u nknown) date) vascular surgerry. unknown) no blood clot. (unknown) (no (unknown) (unknown) solifenacin (units (un known) date) AdvReac Verified unknown) 01/01/22 12:44 (unknown) (no (unknown) (unknown) spray,suspension (units (unknown) date) unknown) (unknown) (no (unknown) (unknown) supraclavicular (units (unknown) date) region that unknown) measures at least 5.8 x 3.6 cm in greatest axial (unknown) (no (unknown) (unknown) suvorexant [From (units (unknown) date) Belsomra] AdvReac unknown) Verified 12/06/21 12:53 (unknown) (no (unknown) (unknown) tizanidine 2 mg (units (unknown) date) tablet 2 mg PO PRN unknown) PRN Muscle Pain 12/06/21 12/06/21 History (unknown) (no (unknown) (unknown) trachea, which is (units (unknown) date) slightly deviated unknown) to the left. (unknown) (no (unknown) (unknown) trazodone 150 mg (units (unknown) date) tablet 150 mg PO unknown) BEDTIME PRN Sleep 11/30/21 12/06/21 History (unknown) (no (unknown) (unknown) upon the (units (unkno wn) date) unknown) (unknown) (no (unknown) (unknown) ursodiol AdvReac (units (unknown) date) Rash Verified unknown) 01/01/22 12:44 (unknown) (no (unknown) (unknown) vision. (units (unkno wn) date) unknown) (unknown) (no (unknown) (unknown) weight has (units (unk nown) date) remained about the unknown) same . (unknown) (no (unknown) (unknown) within the (units (unk nown) date) unknown) Result panel 15 (unknown) (no (unknown) (unknown) (no value) (units (unk nown) date) unknown) (unknown) (no (unknown) (unknown) Date of Service: (units (unknown) date) 01/01/22 unknown) (unknown) (no (unknown) (unknown) (no value) (units (unk nown) date) unknown) (unknown) (no (unknown) (unknown) Allergies (units (unkn own) date) unknown) (unknown) (no (unknown) (unknown) Cancer of kidney (units (unknown) date) unknown) (unknown) (no (unknown) (unknown) Home Medications (units (unknown) date) unknown) (unknown) (no (unknown) (unknown) [facility] (units (unknown) date) [address] unknown) [place] [address] (unknown) (no (unknown) (unknown) Lung cancer (units (un known) date) unknown) (unknown) (no (unknown) (unknown) Oncology Consult (units (unknown) date) unknown) (unknown) (no (unknown) (unknown) Ovarian cancer (units (unknown) date) unknown) (unknown) (no (unknown) (unknown) Throat cancer (units ( unknown) date) unknown) (unknown) (no (unknown) (unknown) n (units (unkno wn) date) unknown) (unknown) (no (unknown) (unknown) (no value) (units (unk nown) date) unknown) (unknown) (no (unknown) (unknown) 7-10) (units (unkno wn) date) unknown) (unknown) (no (unknown) (unknown) Medication (units (unk nown) date) Instructions unknown) Recorded Confirmed Type (unknown) (no (unknown) (unknown) (1) 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 (unknown) (no (unknown) (unknown) (Tylenol) (units (unkn own) date) unknown) (unknown) (no (unknown) (unknown) - Consult (units (unkn own) date) Narrative unknown) (unknown) (no (unknown) (unknown) - Data of Consult (units (unknown) date) unknown) (unknown) (no (unknown) (unknown) - Medical, (units (unk nown) date) Surgical, Family unknown) History (unknown) (no (unknown) (unknown) - Social History (units (unknown) date) unknown) (unknown) (no (unknown) (unknown) [id number] (units (unkno wn) date) unknown) (unknown) (no (unknown) (unknown) 11/21/2021 CT chest (units (unknown) date) without contrast unknown) showed bulky right supraclavicular (unknown) (no (unknown) (unknown) Abnormal (units (unkno wn) date) colonoscopy unknown) (unknown) (no (unknown) (unknown) Abnormal findings (units (unknown) date) on diagnostic unknown) imaging of other abdominal regions, including (unknown) (no (unknown) (unknown) Abrasion head (units ( unknown) date) unknown) (unknown) (no (unknown) (unknown) Age/Sex: 71 / F (units (unknown) date) unknown) (unknown) (no (unknown) (unknown) Alcohol Intake: (units (unknown) date) former unknown) (unknown) (no (unknown) (unknown) Allergy/AdvReac (units (unknown) date) Type Severity unknown) Reaction Status Date / Time (unknown) (no (unknown) (unknown) Anti-Inflamma (units ( unknown) date) Upset unknown) (unknown) (no (unknown) (unknown) Antibiotics) (units (u nknown) date) unknown) (unknown) (no (unknown) (unknown) Anticoagulant (units ( unknown) date) long-term use unknown) (unknown) (no (unknown) (unknown) Assessment and (units (unknown) date) Plan unknown) (unknown) (no (unknown) (unknown) Asthma (units (unkno wn) date) unknown) (unknown) (no (unknown) (unknown) Both samples (units (u nknown) date) contain similar unknown) morphologic features consisting a small cell (unknown) (no (unknown) (unknown) Brain MR w/wo (units ( unknown) date) contrast unknown) (unknown) (no (unknown) (unknown) CBC, CMP (units (unkno wn) date) unknown) (unknown) (no (unknown) (unknown) CC: Melly Noe, (units (unknown) date) MD unknown) (unknown) (no (unknown) (unknown) CT neck w/contrast (units (unknown) date) unknown) (unknown) (no (unknown) (unknown) Cardiomegaly (units (u nknown) date) unknown) (unknown) (no (unknown) (unknown) Cerebral (units (unkno wn) date) infarction unknown) (unknown) (no (unknown) (unknown) Cervicalgia (units (un known) date) unknown) (unknown) (no (unknown) (unknown) Chest pain (units (unk nown) date) unknown) (unknown) (no (unknown) (unknown) Chronic kidney (units (unknown) date) disease unknown) (unknown) (no (unknown) (unknown) Consult date: (units ( unknown) date) 01/01/22 unknown) (unknown) (no (unknown) (unknown) Cough (units (unkno wn) date) unknown) (unknown) (no (unknown) (unknown) : 1950 (units (unknown) date) Acct:[id number] unknown) (unknown) (no (unknown) (unknown) Linus Demarco MD (units (unknown) date) unknown) (unknown) (no (unknown) (unknown) Depression (units (unk nown) date) unknown) (unknown) (no (unknown) (unknown) Discussion: (units (un known) date) unknown) (unknown) (no (unknown) (unknown) Dysuria (units (unkno wn) date) unknown) (unknown) (no (unknown) (unknown) Fall (units (unkno wn) date) unknown) (unknown) (no (unknown) (unknown) Family History (units (unknown) date) (Last Reviewed unknown) 12/05/21 @ 14:14 by Anthony Reddy MD) (unknown) (no (unknown) (unknown) Family History: (units (unknown) date) unknown) (unknown) (no (unknown) (unknown) Father (units (unkno wn) date) unknown) (unknown) (no (unknown) (unknown) Frequency of (units (u nknown) date) micturition unknown) (unknown) (no (unknown) (unknown) H/O bilateral (units ( unknown) date) mastectomy unknown) (unknown) (no (unknown) (unknown) Head lump (units (unkn own) date) unknown) (unknown) (no (unknown) (unknown) Heart disease (units ( unknown) date) unknown) (unknown) (no (unknown) (unknown) Hematuria (units (unkn own) date) unknown) (unknown) (no (unknown) (unknown) History (units (unkno wn) date) unknown) (unknown) (no (unknown) (unknown) History of Present (units (unknown) date) Illness unknown) (unknown) (no (unknown) (unknown) History of (units (unk nown) date) appendectomy unknown) (unknown) (no (unknown) (unknown) History of (units (unk nown) date) cholecystectomy unknown) (unknown) (no (unknown) (unknown) History of (units (unk nown) date) hysterectomy unknown) (unknown) (no (unknown) (unknown) Home Medications (units (unknown) date) and Allergies unknown) (unknown) (no (unknown) (unknown) I reviewed the (units (unknown) date) right neck lymph unknown) node biopsy pathology with the patient. 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 unknown) (unknown) (no (unknown) (unknown) Medical History (units (unknown) date) unknown) (unknown) (no (unknown) (unknown) Medical History (units (unknown) date) (Last Updated unknown) 12/06/21 @ 12:52 by Cosmo Boykin RN) (unknown) (no (unknown) (unknown) Medical History: (units (unknown) date) unknown) (unknown) (no (unknown) (unknown) Mother (units (unkno wn) date) unknown) (unknown) (no (unknown) (unknown) NSAIDS (units (unkno wn) date) (Non-Steroidal unknown) AdvReac Gastrointestinal Verified 01/01/22 12:44 (unknown) (no (unknown) (unknown) NSTEMI (non-ST (units (unknown) date) elevated myocardial unknown) infarction) (unknown) (no (unknown) (unknown) Narrative: (units (unk nown) date) unknown) (unknown) (no (unknown) (unknown) [facility] (units (unknown) date) unknown) (unknown) (no (unknown) (unknown) On 12/06/2021, (units (unknown) date) Gus performed unknown) excisional biopsy of right cervical lymph (unknown) (no (unknown) (unknown) PET CT (units (unkno wn) date) unknown) (unknown) (no (unknown) (unknown) Patient: (units (unkno wn) date) Manda Whitaker unknown) MR#: [id number] (unknown) (no (unknown) (unknown) Patient: new to (units (unknown) date) practice unknown) (unknown) (no (unknown) (unknown) 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 unknown) (unknown) (no (unknown) (unknown) Plan: (units (unkno wn) date) unknown) (unknown) (no (unknown) (unknown) Port placement (units (unknown) date) unknown) (unknown) (no (unknown) (unknown) Primary Care (units (u nknown) date) Provider: unknown) (unknown) (no (unknown) (unknown) Provider: (units (unkn own) date) Melly Noe MD unknown) (unknown) (no (unknown) (unknown) RTC in 3 weeks (units (unknown) date) unknown) (unknown) (no (unknown) (unknown) Reason for (units (unk nown) date) consult: Small cell unknown) lung cancer (unknown) (no (unknown) (unknown) Requesting (units (unk nown) date) Physician: unknown) (unknown) (no (unknown) (unknown) Rx (units (unkno wn) date) unknown) (unknown) (no (unknown) (unknown) Seborrheic (units (unk nown) date) keratoses unknown) (unknown) (no (unknown) (unknown) She is c/o (units (unk nown) date) headache. at time unknown) pretty sever. at oxydone at night. blurred vision (unknown) (no (unknown) (unknown) She is still (units (u nknown) date) smoking actively. unknown) (unknown) (no (unknown) (unknown) She said she is (units (unknown) date) lossing wt in the unknown) face and arm, but edema in the legs. left > (unknown) (no (unknown) (unknown) She was tested and (units (unknown) date) was negative BRCA unknown) 1/2 in 2016. (unknown) (no (unknown) (unknown) Signed By: (units (unk nown) date) unknown) (unknown) (no (unknown) (unknown) Skin disorder (units ( unknown) date) unknown) (unknown) (no (unknown) (unknown) Smoking Status: (units (unknown) date) Current every day unknown) smoker (unknown) (no (unknown) (unknown) Substance Use (units ( unknown) date) Type: does not use unknown) (unknown) (no (unknown) (unknown) Sulfa (Sulfonamide (units (unknown) date) Allergy Verified unknown) 11/30/21 15:47 (unknown) (no (unknown) (unknown) Surgical History (units (unknown) date) (Last Updated unknown) 12/06/21 @ 12:51 by Cosmo Boykin RN) (unknown) (no (unknown) (unknown) Surgical History: (units (unknown) date) unknown) (unknown) (no (unknown) (unknown) TIA (transient (units (unknown) date) ischemic attack) unknown) (unknown) (no (unknown) (unknown) Talked with (units (un known) date) patient that 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 (unknown) (no (unknown) (unknown) There is partial (units (unknown) date) visualization of unknown) mediastinal lymph nodes, with a group seen (unknown) (no (unknown) (unknown) Urinary calculi (units (unknown) date) unknown) (unknown) (no (unknown) (unknown) Wrist fracture (units (unknown) date) unknown) (unknown) (no (unknown) (unknown) [From Paxlovid (units (unknown) date) (EUA)] unknown) (unknown) (no (unknown) (unknown) a lot of nausea (units (unknown) date) unknown) (unknown) (no (unknown) (unknown) acetaminophen 325 (units (unknown) date) mg capsule 650 mg unknown) PO QID PRN pain #60 caps 12/06/21 01/01/22 (unknown) (no (unknown) (unknown) aerosol inhaler (units (unknown) date) (Ventolin HFA) unknown) Bronchodilation (unknown) (no (unknown) (unknown) albuterol sulfate (units (unknown) date) 90 mcg/actuation 2 unknown) puff inhalation Q6H PRN 11/30/21 01/01/22 (unknown) (no (unknown) (unknown) alendronate 70 mg (units (unknown) date) tablet 70 mg PO unknown) WEEKLY 12/06/21 01/01/22 History (unknown) (no (unknown) (unknown) amlodipine 5 mg (units (unknown) date) tablet 5 mg PO unknown) DAILY 11/30/21 01/01/22 History (unknown) (no (unknown) (unknown) at time. used to (units (unknown) date) read a lot, but now unknown) give up 2/2 blurred vision. No double (unknown) (no (unknown) (unknown) atorvastatin 80 mg (units (unknown) date) tablet 80 mg PO unknown) DAILY 11/30/21 01/01/22 History (unknown) (no (unknown) (unknown) bronchial wall (units (unknown) date) thickening noted. unknown) (unknown) (no (unknown) (unknown) clopidogrel 75 mg (units (unknown) date) tablet 75 mg PO unknown) DAILY 11/30/21 01/01/22 History (unknown) (no (unknown) (unknown) different on diff (units (unknown) date) she aided unknown) malignancy with extensive crush artifact (unknown) (no (unknown) (unknown) difficult (units (unkn own) date) swal;lowing. unknown) (unknown) (no (unknown) (unknown) dimension. (units (unk nown) date) unknown) (unknown) (no (unknown) (unknown) diphenoxylate-atro (units (unknown) date) pine 2.5 1 tab PO unknown) DAILY diarrhea 11/30/21 01/01/22 History (unknown) (no (unknown) (unknown) duloxetine AdvReac (units (unknown) date) Hypotension unknown) Verified 01/01/22 12:44 (unknown) (no (unknown) (unknown) epigastric pian, (units (unknown) date) umbilivcal adn eh unknown) under the right rib. (unknown) (no (unknown) (unknown) experiencing (units (u nknown) date) headache. I talked unknown) with them that small cell has the tendency to (unknown) (no (unknown) (unknown) fluticasone (units (un known) date) propionate 50 1 unknown) spray intranasal DAILY 11/30/21 01/01/22 History (unknown) (no (unknown) (unknown) food stuck in the (units (unknown) date) throat unknown) (unknown) (no (unknown) (unknown) here is a (units (unkn own) date) conglomerated group unknown) of lymph nodes seen within the right (unknown) (no (unknown) (unknown) hydrocodone (units (un known) date) AdvReac Rash unknown) Verified 01/01/22 12:44 (unknown) (no (unknown) (unknown) informed her and (units (unknown) date) her daughter the unknown) final diagnosis is consistent with small cell (unknown) (no (unknown) (unknown) lung cancer. It (units (unknown) date) is associated with unknown) smoking 100%. Patient clinically is also (unknown) (no (unknown) (unknown) mcg/actuation (units ( unknown) date) nasal unknown) (unknown) (no (unknown) (unknown) meclizine AdvReac (units (unknown) date) Hypertensio unknown) Verified 01/01/22 12:44 (unknown) (no (unknown) (unknown) mediastinal and (units (unknown) date) right hilar unknown) adenopathy, coarse nodular calcifications, gradually (unknown) (no (unknown) (unknown) metastasis. To (units (unknown) date) further evaluate unknown) the stool, I will obtain PET scan. (unknown) (no (unknown) (unknown) metastasize to (units ( unknown) date) brain. I will unknown) obtain brain MRI to further evaluate. In addition (unknown) (no (unknown) (unknown) metoprolol (units (unk nown) date) tartrate 25 mg unknown) tablet 25 mg PO BID 11/30/21 01/01/22 History (unknown) (no (unknown) (unknown) mg-0.025 mg tablet (units (unknown) date) unknown) (unknown) (no (unknown) (unknown) montelukast 10 mg (units (unknown) date) tablet 10 mg PO unknown) DAILY 11/30/21 01/01/22 History (unknown) (no (unknown) (unknown) months in the (units ( unknown) date) spleen liver and unknown) both lungs, small pericardial effusion and (unknown) (no (unknown) (unknown) nirmatrelvir (units (u nknown) date) AdvReac Verified unknown) 01/01/22 12:44 (unknown) (no (unknown) (unknown) node. The (units (unk nown) date) pathology showed unknown) metastatic high-grade neuroendocrine carcinoma. (unknown) (no (unknown) (unknown) nonspecific (units (un known) date) reticulonodular unknown) focus in the medial right upper lobe. Mild (unknown) (no (unknown) (unknown) on 11/02/2021: (units (unknown) date) node palapge by PCP unknown) Dr. Lynnette Hua. Now Dr. Linus Demarco (unknown) (no (unknown) (unknown) oxycodone 5 mg (units (unknown) date) tablet 5 mg PO BID unknown) PRN Pain (Scale Score 11/30/21 01/01/22 (unknown) (no (unknown) (unknown) paroxetine AdvReac (units (unknown) date) Nightmare Verified unknown) 01/01/22 12:44 (unknown) (no (unknown) (unknown) patient is having (units (unknown) date) a lot of other unknown) symptoms including abdominal pain nausea and. (unknown) (no (unknown) (unknown) retroperitoneum (units (unknown) date) unknown) (unknown) (no (unknown) (unknown) right (units (unkno wn) date) unknown) (unknown) (no (unknown) (unknown) right neck has (units (unknown) date) grown a lot. the unknown) left side became tender (unknown) (no (unknown) (unknown) right superior (units (unknown) date) mediastinum unknown) measuring 4.3 x 3 cm. Mild mass effect of is seen (unknown) (no (unknown) (unknown) ritonavir AdvReac (units (unknown) date) Verified 01/01/22 unknown) 12:44 (unknown) (no (unknown) (unknown) she can only eat (units (unknown) date) soft food sometime. unknown) (unknown) (no (unknown) (unknown) she just saw (units (u nknown) date) vascular surgerry. unknown) no blood clot. (unknown) (no (unknown) (unknown) solifenacin (units (un known) date) AdvReac Verified unknown) 01/01/22 12:44 (unknown) (no (unknown) (unknown) spray,suspension (units (unknown) date) unknown) (unknown) (no (unknown) (unknown) supraclavicular (units (unknown) date) region that unknown) measures at least 5.8 x 3.6 cm in greatest axial (unknown) (no (unknown) (unknown) suvorexant [From (units (unknown) date) Belsomra] AdvReac unknown) Verified 12/06/21 12:53 (unknown) (no (unknown) (unknown) tizanidine 2 mg (units (unknown) date) tablet 2 mg PO PRN unknown) PRN Muscle Pain 12/06/21 01/01/22 History (unknown) (no (unknown) (unknown) trachea, which is (units (unknown) date) slightly deviated unknown) to the left. (unknown) (no (unknown) (unknown) trazodone 150 mg (units (unknown) date) tablet 150 mg PO unknown) BEDTIME PRN Sleep 11/30/21 01/01/22 History (unknown) (no (unknown) (unknown) tumor. We usually (units (unknown) date) treat with unknown) (unknown) (no (unknown) (unknown) upon the (units (unkno wn) date) unknown) (unknown) (no (unknown) (unknown) ursodiol AdvReac (units (unknown) date) Rash Verified unknown) 01/01/22 12:44 (unknown) (no (unknown) (unknown) vision. (units (unkno wn) date) unknown) (unknown) (no (unknown) (unknown) weight has (units (unk nown) date) remained about the unknown) same . (unknown) (no (unknown) (unknown) within the (units (unk nown) date) unknown) Result panel 16 (unknown) (no date) (unknown) (unknown) 1.0 % (unkn own) (unknown) (no date) (unknown) (unknown) 1.1 % (unkn own) (unknown) (no date) (unknown) (unknown) 100 /uL (unkn own) (unknown) (no date) (unknown) (unknown) 100 /uL (unkn own) (unknown) (no date) (unknown) (unknown) 12.6 g/dL (unkn own) (unknown) (no date) (unknown) (unknown) 14.3 % (unkn own) (unknown) (no date) (unknown) (unknown) 156 X10 3/uL (unkn own) (unknown) (no date) (unknown) (unknown) 1800 /uL (unkn own) (unknown) (no date) (unknown) (unknown) 30.7 PG (unkn own) (unknown) (no date) (unknown) (unknown) 32.4 % (unkn own) (unknown) (no date) (unknown) (unknown) 3200 /uL (unkn own) (unknown) (no date) (unknown) (unknown) 35.1 % (unkn own) (unknown) (no date) (unknown) (unknown) 35.9 % (unkn own) (unknown) (no date) (unknown) (unknown) 4.10 X10 6/uL (unkn own) (unknown) (no date) (unknown) (unknown) 400 /uL (unkn own) (unknown) (no date) (unknown) (unknown) 5.6 X10 3/uL (unkn own) (unknown) (no date) (unknown) (unknown) 57.5 % (unkn own) (unknown) (no date) (unknown) (unknown) 8.0 % (unkn own) (unknown) (no date) (unknown) (unknown) 87.5 fL (unkn own) Result panel 17 (unknown) (no date) (unknown) (unknown) > 60 mL/min (unkn own) (unknown) (no date) (unknown) (unknown) 0.4 mg/dL (unkn own) (unknown) (no date) (unknown) (unknown) 0.99 mg/dL (unkn own) (unknown) (no date) (unknown) (unknown) 1.2 (units unknown) (unknown) (unknown) (no date) (unknown) (unknown) 12 mg/dL (unkn own) (unknown) (no date) (unknown) (unknown) 12.1 (units unknown) (unknown) (unknown) (no date) (unknown) (unknown) 137 mmol/L (unkn own) (unknown) (no date) (unknown) (unknown) 2.9 g/dL (unkn own) (unknown) (no date) (unknown) (unknown) 25 IU/L (unkn own) (unknown) (no date) (unknown) (unknown) 3.5 g/dL (unkn own) (unknown) (no date) (unknown) (unknown) 3.5 mmol/L (unkn own) (unknown) (no date) (unknown) (unknown) 32 mmol/L (unkn own) (unknown) (no date) (unknown) (unknown) 50 IU/L (unkn own) (unknown) (no date) (unknown) (unknown) 6.4 g/dL (unkn own) (unknown) (no date) (unknown) (unknown) 8.7 mg/dL (unkn own) (unknown) (no date) (unknown) (unknown) 85 U/L (unkn own) (unknown) (no date) (unknown) (unknown) 91 mg/dL (unkn own) (unknown) (no date) (unknown) (unknown) 99 mmol/L (unkn own) Result panel 18 (unknown) (no (unknown) (unknown) (no value) (units (unk nown) date) unknown) (unknown) (no (unknown) (unknown) Date of Service: (units (unknown) date) 01/01/22 unknown) (unknown) (no (unknown) (unknown) (no value) (units (unk nown) date) unknown) (unknown) (no (unknown) (unknown) Allergies (units (unkn own) date) unknown) (unknown) (no (unknown) (unknown) Cancer of kidney (units (unknown) date) unknown) (unknown) (no (unknown) (unknown) Home Medications (units (unknown) date) unknown) (unknown) (no (unknown) (unknown) [facility] (units (unknown) date) [address] unknown) [place] [address] (unknown) (no (unknown) (unknown) Lung cancer (units (un known) date) unknown) (unknown) (no (unknown) (unknown) Oncology Consult (units (unknown) date) unknown) (unknown) (no (unknown) (unknown) Ovarian cancer (units (unknown) date) unknown) (unknown) (no (unknown) (unknown) Throat cancer (units ( unknown) date) unknown) (unknown) (no (unknown) (unknown) n (units (unkno wn) date) unknown) (unknown) (no (unknown) (unknown) (no value) (units (unk nown) date) unknown) (unknown) (no (unknown) (unknown) 7-10) (units (unkno wn) date) unknown) (unknown) (no (unknown) (unknown) Medication (units (unk nown) date) Instructions unknown) Recorded Confirmed Type (unknown) (no (unknown) (unknown) (1) 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 (unknown) (no (unknown) (unknown) (Tylenol) (units (unkn own) date) unknown) (unknown) (no (unknown) (unknown) - Consult (units (unkn own) date) Narrative unknown) (unknown) (no (unknown) (unknown) - Data of Consult (units (unknown) date) unknown) (unknown) (no (unknown) (unknown) - Medical, (units (unk nown) date) Surgical, Family unknown) History (unknown) (no (unknown) (unknown) - Social History (units (unknown) date) unknown) (unknown) (no (unknown) (unknown) [id number] (units (unkno wn) date) unknown) (unknown) (no (unknown) (unknown) Abnormal (units (unkno wn) date) colonoscopy unknown) (unknown) (no (unknown) (unknown) Abnormal findings (units (unknown) date) on diagnostic unknown) imaging of other abdominal regions, including (unknown) (no (unknown) (unknown) Abrasion head (units ( unknown) date) unknown) (unknown) (no (unknown) (unknown) Age/Sex: 71 / F (units (unknown) date) unknown) (unknown) (no (unknown) (unknown) Alcohol Intake: (units (unknown) date) former unknown) (unknown) (no (unknown) (unknown) Allergy/AdvReac (units (unknown) date) Type Severity unknown) Reaction Status Date / Time (unknown) (no (unknown) (unknown) Anti-Inflamma (units ( unknown) date) Upset unknown) (unknown) (no (unknown) (unknown) Antibiotics) (units (u nknown) date) unknown) (unknown) (no (unknown) (unknown) Anticoagulant (units ( unknown) date) long-term use unknown) (unknown) (no (unknown) (unknown) Assessment and (units (unknown) date) Plan unknown) (unknown) (no (unknown) (unknown) Asthma (units (unkno wn) date) unknown) (unknown) (no (unknown) (unknown) Brain MR w/wo (units ( unknown) date) contrast unknown) (unknown) (no (unknown) (unknown) CBC, CMP (units (unkno wn) date) unknown) (unknown) (no (unknown) (unknown) CC: Melly Noe, (units (unknown) date) MD unknown) (unknown) (no (unknown) (unknown) Cardiomegaly (units (u nknown) date) unknown) (unknown) (no (unknown) (unknown) Cerebral (units (unkno wn) date) infarction unknown) (unknown) (no (unknown) (unknown) Cervicalgia (units (un known) date) unknown) (unknown) (no (unknown) (unknown) Chest pain (units (unk nown) date) unknown) (unknown) (no (unknown) (unknown) Chronic kidney (units (unknown) date) disease unknown) (unknown) (no (unknown) (unknown) Consult date: (units ( unknown) date) 01/01/22 unknown) (unknown) (no (unknown) (unknown) Cough (units (unkno wn) date) unknown) (unknown) (no (unknown) (unknown) : 1950 (units (unknown) date) Acct:[id number] unknown) (unknown) (no (unknown) (unknown) Linus Demarco MD (units (unknown) date) unknown) (unknown) (no (unknown) (unknown) Depression (units (unk nown) date) unknown) (unknown) (no (unknown) (unknown) Discussion: (units (un known) date) unknown) (unknown) (no (unknown) (unknown) Dysuria (units (unkno wn) date) unknown) (unknown) (no (unknown) (unknown) Fall (units (unkno wn) date) unknown) (unknown) (no (unknown) (unknown) Family History (units (unknown) date) (Last Reviewed unknown) 12/05/21 @ 14:14 by Anthony Reddy MD) (unknown) (no (unknown) (unknown) Family History: (units (unknown) date) unknown) (unknown) (no (unknown) (unknown) Father (units (unkno wn) date) unknown) (unknown) (no (unknown) (unknown) Frequency of (units (u nknown) date) micturition unknown) (unknown) (no (unknown) (unknown) H/O bilateral (units ( unknown) date) mastectomy unknown) (unknown) (no (unknown) (unknown) Head lump (units (unkn own) date) unknown) (unknown) (no (unknown) (unknown) Heart disease (units ( unknown) date) unknown) (unknown) (no (unknown) (unknown) Hematuria (units (unkn own) date) unknown) (unknown) (no (unknown) (unknown) History (units (unkno wn) date) unknown) (unknown) (no (unknown) (unknown) History of Present (units (unknown) date) Illness unknown) (unknown) (no (unknown) (unknown) History of (units (unk nown) date) appendectomy unknown) (unknown) (no (unknown) (unknown) History of (units (unk nown) date) cholecystectomy unknown) (unknown) (no (unknown) (unknown) History of (units (unk nown) date) hysterectomy unknown) (unknown) (no (unknown) (unknown) Home Medications (units (unknown) date) and Allergies unknown) (unknown) (no (unknown) (unknown) I reviewed the (units (unknown) date) right neck lymph unknown) node biopsy pathology with the patient. I (unknown) (no (unknown) (unknown) I talked with them (units (unknown) date) it is highly unknown) suspicious that patient may have a distant (unknown) (no (unknown) (unknown) Manda Whitaker (units (unknown) date) is a 71 year old unknown) female. According to patient, she has family (unknown) (no (unknown) (unknown) Manda said that (units (unknown) date) about in 10/2021, unknown) she felt right neck tenderness. 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 unknown) (unknown) (no (unknown) (unknown) Medical History (units (unknown) date) unknown) (unknown) (no (unknown) (unknown) Medical History (units (unknown) date) (Last Updated unknown) 12/06/21 @ 12:52 by Cosmo Boykin RN) (unknown) (no (unknown) (unknown) Medical History: (units (unknown) date) unknown) (unknown) (no (unknown) (unknown) Mother (units (unkno wn) date) unknown) (unknown) (no (unknown) (unknown) NSAIDS (units (unkno wn) date) (Non-Steroidal unknown) AdvReac Gastrointestinal Verified 01/01/22 12:44 (unknown) (no (unknown) (unknown) NSTEMI (non-ST (units (unknown) date) elevated myocardial unknown) infarction) (unknown) (no (unknown) (unknown) Narrative: (units (unk nown) date) unknown) (unknown) (no (unknown) (unknown) [employer] (units (unknown) date) unknown) (unknown) (no (unknown) (unknown) On 11/21/2021 CT (units (unknown) date) chest without unknown) contrast showed bulky right supraclavicular, (unknown) (no (unknown) (unknown) On 12/06/2021, (units (unknown) date) Gus performed unknown) excisional biopsy of right cervical lymph (unknown) (no (unknown) (unknown) PET CT (units (unkno wn) date) unknown) (unknown) (no (unknown) (unknown) Patient: (units (o wn) date) Manda Whitaker S unknown) MR#: [id number] (unknown) (no (unknown) (unknown) Patient: new to (units (unknown) date) practice unknown) (unknown) (no (unknown) (unknown) Peripheral (units (unk nown) date) vascular disease unknown) (unknown) (no (unknown) (unknown) Plan: (units (unkno wn) date) unknown) (unknown) (no (unknown) (unknown) Port placement (units (unknown) date) unknown) (unknown) (no (unknown) (unknown) Primary Care (units (u nkn) date) Provider: unknown) (unknown) (no (unknown) (unknown) Provider: (units ( own) date) Melly Noe MD unknown) (unknown) (no (unknown) (unknown) RTC in 3 weeks (units (unknown) date) unknown) (unknown) (no (unknown) (unknown) Reason for (units (unk nown) date) consult: Small cell unknown) lung cancer (unknown) (no (unknown) (unknown) Requesting (units (unk n) date) Physician: unknown) (unknown) (no (unknown) (unknown) Rx (units (unkno wn) date) unknown) (unknown) (no (unknown) (unknown) Seborrheic (units (unk nown) date) keratoses unknown) (unknown) (no (unknown) (unknown) She is still (units (u nknown) date) smoking actively. unknown) (unknown) (no (unknown) (unknown) She said she is (units (unknown) date) lossing wt in the unknown) face and arm, but edema in the legs. left > (unknown) (no (unknown) (unknown) She then underwent (units (unknown) date) CT neck w/contrast unknown) on 11/21/2021 that showed a masslike (unknown) (no (unknown) (unknown) Signed By: (units (unk nown) date) unknown) (unknown) (no (unknown) (unknown) Skin disorder (units ( unknown) date) unknown) (unknown) (no (unknown) (unknown) Smoking Status: (units (unknown) date) Current every day unknown) smoker (unknown) (no (unknown) (unknown) Substance Use (units ( unknown) date) Type: does not use unknown) (unknown) (no (unknown) (unknown) Sulfa (Sulfonamide (units (unknown) date) Allergy Verified unknown) 11/30/21 15:47 (unknown) (no (unknown) (unknown) Surgical History (units (unknown) date) (Last Updated unknown) 12/06/21 @ 12:51 by Cosmo Boykin RN) (unknown) (no (unknown) (unknown) Surgical History: (units (unknown) date) unknown) (unknown) (no (unknown) (unknown) TIA (transient (units (unknown) date) ischemic attack) unknown) (unknown) (no (unknown) (unknown) Talked with (units (un known) date) patient that 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 At time unknown) her headache is pretty severe. She also (unknown) (no (unknown) (unknown) Urinary calculi (units (unknown) date) unknown) (unknown) (no (unknown) (unknown) Wrist fracture (units (unknown) date) unknown) (unknown) (no (unknown) (unknown) [From Paxlovid (units (unknown) date) (EUA)] unknown) (unknown) (no (unknown) (unknown) acetaminophen 325 (units (unknown) date) mg capsule 650 mg unknown) PO QID PRN pain #60 caps 12/06/21 01/01/22 (unknown) (no (unknown) (unknown) aerosol inhaler (units (unknown) date) (Ventolin HFA) unknown) Bronchodilation (unknown) (no (unknown) (unknown) albuterol sulfate (units (unknown) date) 90 mcg/actuation 2 unknown) puff inhalation Q6H PRN 11/30/21 01/01/22 (unknown) (no (unknown) (unknown) alendronate 70 mg (units (unknown) date) tablet 70 mg PO unknown) WEEKLY 12/06/21 01/01/22 History (unknown) (no (unknown) (unknown) amlodipine 5 mg (units (unknown) date) tablet 5 mg PO unknown) DAILY 11/30/21 01/01/22 History (unknown) (no (unknown) (unknown) artifact. (units (unkn own) date) unknown) (unknown) (no (unknown) (unknown) atorvastatin 80 mg (units (unknown) date) tablet 80 mg PO unknown) DAILY 11/30/21 01/01/22 History (unknown) (no (unknown) (unknown) bronchial wall (units (unknown) date) thickening noted. unknown) (unknown) (no (unknown) (unknown) clopidogrel 75 mg (units (unknown) date) tablet 75 mg PO unknown) DAILY 11/30/21 01/01/22 History (unknown) (no (unknown) (unknown) conglomerated (units ( unknown) date) group of lymph unknown) nodes within the right supraclavicular region that (unknown) (no (unknown) (unknown) developed blurred (units (unknown) date) vision. She said unknown) that she used to read a lot, but now she has (unknown) (no (unknown) (unknown) diphenoxylate-atro (units (unknown) date) pine 2.5 1 tab PO unknown) DAILY diarrhea 11/30/21 01/01/22 History (unknown) (no (unknown) (unknown) duloxetine AdvReac (units (unknown) date) Hypotension unknown) Verified 01/01/22 12:44 (unknown) (no (unknown) (unknown) experiencing (units (u nknown) date) headache. I talked unknown) with them that small cell has the tendency to (unknown) (no (unknown) (unknown) features consist (units (unknown) date) with small cell unknown) undifferented malignancy with extensive crush (unknown) (no (unknown) (unknown) fluticasone (units (un known) date) propionate 50 1 unknown) spray intranasal DAILY 11/30/21 01/01/22 History (unknown) (no (unknown) (unknown) history of breast (units (unknown) date) cancer (her unknown) daughter with positive BRCA mutations. But Manda (unknown) (no (unknown) (unknown) hydrocodone (units (un known) date) AdvReac Rash unknown) Verified 01/01/22 12:44 (unknown) (no (unknown) (unknown) informed her and (units (unknown) date) her daughter the unknown) final diagnosis is consistent with small cell (unknown) (no (unknown) (unknown) is reporting (units (u nknown) date) epigastric pain and unknown) umblical snell. Her weight has remained about (unknown) (no (unknown) (unknown) lung cancer. It (units (unknown) date) is associated with unknown) smoking 100%. Patient clinically is also (unknown) (no (unknown) (unknown) mcg/actuation (units ( unknown) date) nasal unknown) (unknown) (no (unknown) (unknown) measures at least (units (unknown) date) 5.8 x 3.6 cm in unknown) greatest axial dimension. There is partial (unknown) (no (unknown) (unknown) meclizine AdvReac (units (unknown) date) Hypertensio unknown) Verified 01/01/22 12:44 (unknown) (no (unknown) (unknown) mediastinal and (units (unknown) date) right hilar unknown) adenopathy, coarse nodular calcifications, gradually (unknown) (no (unknown) (unknown) metastasis. To (units (unknown) date) further evaluate unknown) the stool, I will obtain PET scan. (unknown) (no (unknown) (unknown) metastasize to (units ( unknown) date) brain. I will unknown) obtain brain MRI to further evaluate. In addition (unknown) (no (unknown) (unknown) metoprolol (units (unk nown) date) tartrate 25 mg unknown) tablet 25 mg PO BID 11/30/21 01/01/22 History (unknown) (no (unknown) (unknown) mg-0.025 mg tablet (units (unknown) date) unknown) (unknown) (no (unknown) (unknown) montelukast 10 mg (units (unknown) date) tablet 10 mg PO unknown) DAILY 11/30/21 01/01/22 History (unknown) (no (unknown) (unknown) months in the (units ( unknown) date) spleen liver and unknown) both lungs, small pericardial effusion and (unknown) (no (unknown) (unknown) nirmatrelvir (units (u nknown) date) AdvReac Verified unknown) 01/01/22 12:44 (unknown) (no (unknown) (unknown) node. The (units (unk nown) date) pathology showed unknown) metastatic high-grade neuroendocrine carcinoma with (unknown) (no (unknown) (unknown) nonspecific (units (un known) date) reticulonodular unknown) focus in the medial right upper lobe. Mild (unknown) (no (unknown) (unknown) oxycodone 5 mg (units (unknown) date) tablet 5 mg PO BID unknown) PRN Pain (Scale Score 11/30/21 01/01/22 (unknown) (no (unknown) (unknown) paroxetine AdvReac (units (unknown) date) Nightmare Verified unknown) 01/01/22 12:44 (unknown) (no (unknown) (unknown) patient is having (units (unknown) date) a lot of other unknown) symptoms including abdominal pain nausea and. (unknown) (no (unknown) (unknown) retroperitoneum (units (unknown) date) unknown) (unknown) (no (unknown) (unknown) right (units (unkno wn) date) unknown) (unknown) (no (unknown) (unknown) ritonavir AdvReac (units (unknown) date) Verified 01/01/22 unknown) 12:44 (unknown) (no (unknown) (unknown) she just saw (units (u nknown) date) vascular surgerry. unknown) no blood clot. (unknown) (no (unknown) (unknown) she went to see (units (unknown) date) her PCR Lynnette unknown) Ivan, and right neck lymph nodes were palpated. (unknown) (no (unknown) (unknown) solifenacin (units (un known) date) AdvReac Verified unknown) 01/01/22 12:44 (unknown) (no (unknown) (unknown) spray,suspension (units (unknown) date) unknown) (unknown) (no (unknown) (unknown) superior (units (unkno wn) date) mediastinum unknown) measuring 4.3 x 3 cm. Mild mass effect of is seen upon the (unknown) (no (unknown) (unknown) suvorexant [From (units (unknown) date) Belsomra] AdvReac unknown) Verified 12/06/21 12:53 (unknown) (no (unknown) (unknown) the same . (units (unk nown) date) unknown) (unknown) (no (unknown) (unknown) tizanidine 2 mg (units (unknown) date) tablet 2 mg PO PRN unknown) PRN Muscle Pain 12/06/21 01/01/22 History (unknown) (no (unknown) (unknown) to give up 2/2 (units ( unknown) date) blurred vision. She unknown) is also reporting food stuck in the flow. She (unknown) (no (unknown) (unknown) trachea, which is (units (unknown) date) slightly deviated unknown) to the left. (unknown) (no (unknown) (unknown) trazodone 150 mg (units (unknown) date) tablet 150 mg PO unknown) BEDTIME PRN Sleep 11/30/21 01/01/22 History (unknown) (no (unknown) (unknown) tumor. We usually (units (unknown) date) treat with unknown) (unknown) (no (unknown) (unknown) ursodiol AdvReac (units (unknown) date) Rash Verified unknown) 01/01/22 12:44 (unknown) (no (unknown) (unknown) visualization of (units (unknown) date) mediastinal lymph unknown) nodes, with a group seen within the right (unknown) (no (unknown) (unknown) was tested (units (unk nown) date) negative (about in unknown) 2015). Result panel 19 (unknown) (no (unknown) (unknown) (no value) (units (unk nown) date) unknown) (unknown) (no (unknown) (unknown) Date of Service: (units (unknown) date) 01/01/22 unknown) (unknown) (no (unknown) (unknown) (no value) (units (unk nown) date) unknown) (unknown) (no (unknown) (unknown) Allergies (units (unkn own) date) unknown) (unknown) (no (unknown) (unknown) Cancer of kidney (units (unknown) date) unknown) (unknown) (no (unknown) (unknown) Home Medications (units (unknown) date) unknown) (unknown) (no (unknown) (unknown) [facility] (units (unknown) date) [address] unknown) [place] [address] (unknown) (no (unknown) (unknown) Laboratory Last (units (unknown) date) Values unknown) (unknown) (no (unknown) (unknown) Last Vital Signs (units (unknown) date) unknown) (unknown) (no (unknown) (unknown) Lung cancer (units (un known) date) unknown) (unknown) (no (unknown) (unknown) Oncology Consult (units (unknown) date) unknown) (unknown) (no (unknown) (unknown) Ovarian cancer (units (unknown) date) unknown) (unknown) (no (unknown) (unknown) Throat cancer (units ( unknown) date) unknown) (unknown) (no (unknown) (unknown) n (units (unkno wn) date) unknown) (unknown) (no (unknown) (unknown) (no value) (units (unk nown) date) unknown) (unknown) (no (unknown) (unknown) 7-10) (units (unkno wn) date) unknown) (unknown) (no (unknown) (unknown) Medication (units (unk nown) date) Instructions unknown) Recorded Confirmed Type (unknown) (no (unknown) (unknown) (1) 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 (unknown) (no (unknown) (unknown) (Tylenol) (units (unkn own) date) unknown) (unknown) (no (unknown) (unknown) - Constitutional (units (unknown) date) unknown) (unknown) (no (unknown) (unknown) - Consult (units (unkn own) date) Narrative unknown) (unknown) (no (unknown) (unknown) - Data of Consult (units (unknown) date) unknown) (unknown) (no (unknown) (unknown) - Labs (units (unkno wn) date) unknown) (unknown) (no (unknown) (unknown) - Medical, (units (unk nown) date) Surgical, Family unknown) History (unknown) (no (unknown) (unknown) - Routine (units (unkn own) date) Abdominal Exam unknown) (unknown) (no (unknown) (unknown) - Routine (units (unkn own) date) Cardiovascular Exam unknown) (unknown) (no (unknown) (unknown) - Routine (units (unkn own) date) Chest/Breast/Axilla unknown) Exam (unknown) (no (unknown) (unknown) - Routine HEENT (units (unknown) date) Exam unknown) (unknown) (no (unknown) (unknown) - Routine Neck (units (unknown) date) Exam unknown) (unknown) (no (unknown) (unknown) - Routine (units (unkn own) date) Respiratory Exam unknown) (unknown) (no (unknown) (unknown) - Social History (units (unknown) date) unknown) (unknown) (no (unknown) (unknown) [id number] (units (unkno wn) date) unknown) (unknown) (no (unknown) (unknown) 01/02/22 00:24 (units (unknown) date) unknown) (unknown) (no (unknown) (unknown) 71 year old female (units (unknown) date) with active smoking unknown) history. She developed right neck mass (unknown) (no (unknown) (unknown) ALT 25 IU/L (<35) (units (unknown) date) 01/01/22 14:24 unknown) (unknown) (no (unknown) (unknown) AST 50 IU/L (units (u nknown) date) (14-36) H unknown) 01/01/22 14:24 (unknown) (no (unknown) (unknown) Abnormal (units (unkno wn) date) colonoscopy unknown) (unknown) (no (unknown) (unknown) Abnormal findings (units (unknown) date) on diagnostic unknown) imaging of other abdominal regions, including (unknown) (no (unknown) (unknown) Abrasion head (units ( unknown) date) unknown) (unknown) (no (unknown) (unknown) Age/Sex: 71 / F (units (unknown) date) unknown) (unknown) (no (unknown) (unknown) Albumin 3.5 g/dL (units (unknown) date) (3.5-5.0) unknown) 01/01/22 14:24 (unknown) (no (unknown) (unknown) Albumin/Globulin (units (unknown) date) Ratio 1.2 unknown) (1.0-2.8) 01/01/22 14:24 (unknown) (no (unknown) (unknown) Alcohol Intake: (units (unknown) date) former unknown) (unknown) (no (unknown) (unknown) Alkaline (units (unkno wn) date) Phosphatase 85 U/L unknown) (38-126) 01/01/22 14:24 (unknown) (no (unknown) (unknown) All systems PM: (units (unknown) date) reviewed and no unknown) additional remarkable complaints except as (unknown) (no (unknown) (unknown) Allergy/AdvReac (units (unknown) date) Type Severity unknown) Reaction Status Date / Time (unknown) (no (unknown) (unknown) Anti-Inflamma (units ( unknown) date) Upset unknown) (unknown) (no (unknown) (unknown) Antibiotics) (units (u nknown) date) unknown) (unknown) (no (unknown) (unknown) Anticoagulant (units ( unknown) date) long-term use unknown) (unknown) (no (unknown) (unknown) Assessment and (units (unknown) date) Plan unknown) (unknown) (no (unknown) (unknown) Asthma (units (unkno wn) date) unknown) (unknown) (no (unknown) (unknown) Axillae: Absent: (units (unknown) date) lymphadenopathy unknown) (unknown) (no (unknown) (unknown) BP 117/51 L (units (u nknown) date) 01/01/22 12:45 unknown) (unknown) (no (unknown) (unknown) BUN 12 mg/dL (units ( unknown) date) (7-17) 01/01/22 unknown) 14:24 (unknown) (no (unknown) (unknown) BUN/Creatinine (units (unknown) date) Ratio 12.1 (6-22) unknown) 01/01/22 14:24 (unknown) (no (unknown) (unknown) Baso # (Auto) 100 (units (unknown) date) /uL (0-100) unknown) 01/01/22 14:24 (unknown) (no (unknown) (unknown) Baso % (Auto) 1.0 (units (unknown) date) % (0-2) 01/01/22 unknown) 14:24 (unknown) (no (unknown) (unknown) Brain MR w/wo (units ( unknown) date) contrast unknown) (unknown) (no (unknown) (unknown) CBC, CMP (units (unkno wn) date) unknown) (unknown) (no (unknown) (unknown) CC: Melly Noe, (units (unknown) date) unknown) (unknown) (no (unknown) (unknown) Calcium 8.7 mg/dL (units (unknown) date) (8.4-10.2) unknown) 01/01/22 14:24 (unknown) (no (unknown) (unknown) Carbon Dioxide 32 (units (unknown) date) mmol/L (22-32) unknown) 01/01/22 14:24 (unknown) (no (unknown) (unknown) Cardiomegaly (units (u nknown) date) unknown) (unknown) (no (unknown) (unknown) Cerebral (units (unkno wn) date) infarction unknown) (unknown) (no (unknown) (unknown) Cervicalgia (units (un known) date) unknown) (unknown) (no (unknown) (unknown) Chest pain (units (unk nown) date) unknown) (unknown) (no (unknown) (unknown) Chest wall exam (units (unknown) date) standard: Absent: unknown) tenderness (unknown) (no (unknown) (unknown) Chloride 99 (units (u nknown) date) mmol/L (98-107) unknown) 01/01/22 14:24 (unknown) (no (unknown) (unknown) Chronic kidney (units (unknown) date) disease unknown) (unknown) (no (unknown) (unknown) Consult date: (units ( unknown) date) 01/01/22 unknown) (unknown) (no (unknown) (unknown) Cough (units (unkno wn) date) unknown) (unknown) (no (unknown) (unknown) Creatinine 0.99 (units (unknown) date) mg/dL (0.52-1.04) unknown) 01/01/22 14:24 (unknown) (no (unknown) (unknown) : 1950 (units (unknown) date) Acct:[id number] unknown) (unknown) (no (unknown) (unknown) Linus Demarco MD (units (unknown) date) unknown) (unknown) (no (unknown) (unknown) Depression (units (unk nown) date) unknown) (unknown) (no (unknown) (unknown) Discussion: (units (un known) date) unknown) (unknown) (no (unknown) (unknown) Dysuria (units (unkno wn) date) unknown) (unknown) (no (unknown) (unknown) Eos # (Auto) 100 (units (unknown) date) /uL (0-450) unknown) 01/01/22 14:24 (unknown) (no (unknown) (unknown) Eos % (Auto) 1.1 (units (unknown) date) % (2-4) L unknown) 01/01/22 14:24 (unknown) (no (unknown) (unknown) Estimated GFR > (units (unknown) date) 60 mL/min (>60) unknown) 01/01/22 14:24 (unknown) (no (unknown) (unknown) Exam (units (unkno wn) date) unknown) (unknown) (no (unknown) (unknown) Eye: Present: (units ( unknown) date) EOMI, PERRL, normal unknown) accommodation. Absent: conjunctival icterus (unknown) (no (unknown) (unknown) Fall (units (unkno wn) date) unknown) (unknown) (no (unknown) (unknown) Family History (units (unknown) date) (Last Reviewed unknown) 12/05/21 @ 14:14 by Anthony Reddy MD) (unknown) (no (unknown) (unknown) Family History: (units (unknown) date) unknown) (unknown) (no (unknown) (unknown) Father (units (unkno wn) date) unknown) (unknown) (no (unknown) (unknown) Frequency of (units (u nknown) date) micturition unknown) (unknown) (no (unknown) (unknown) GenericComposite[P (units (unknown) date) lt Count 156 unknown) X10^3/uL (150-400) 01/01/22 14:24 ] (unknown) (no (unknown) (unknown) GenericComposite[R (units (unknown) date) BC 4.10 X10^6/uL unknown) (4.0-5.2) 01/01/22 14:24 ] (unknown) (no (unknown) (unknown) GenericComposite[W (units (unknown) date) BC 5.6 X10^3/uL unknown) (4.5-11.0) 01/01/22 14:24 ] (unknown) (no (unknown) (unknown) Globulin 2.9 g/dL (units (unknown) date) (1.7-4.1) unknown) 01/01/22 14:24 (unknown) (no (unknown) (unknown) Glucose 91 mg/dL (units (unknown) date) (80-110) 01/01/22 unknown) 14:24 (unknown) (no (unknown) (unknown) H/O bilateral (units ( unknown) date) mastectomy unknown) (unknown) (no (unknown) (unknown) Hct 35.9 % (units (un known) date) (36-46) L unknown) 01/01/22 14:24 (unknown) (no (unknown) (unknown) Head lump (units (unkn own) date) unknown) (unknown) (no (unknown) (unknown) Head: Present: (units (unknown) date) normocephalic, unknown) atraumatic. Absent: cushingoid faces, abrasion, (unknown) (no (unknown) (unknown) Heart disease (units ( unknown) date) unknown) (unknown) (no (unknown) (unknown) Hematuria (units (unkn own) date) unknown) (unknown) (no (unknown) (unknown) Hgb 12.6 g/dL (units (unknown) date) (12.0-16.0) unknown) 01/01/22 14:24 (unknown) (no (unknown) (unknown) History (units (unkno wn) date) unknown) (unknown) (no (unknown) (unknown) History of Present (units (unknown) date) Illness unknown) (unknown) (no (unknown) (unknown) History of (units (unk nown) date) appendectomy unknown) (unknown) (no (unknown) (unknown) History of (units (unk nown) date) cholecystectomy unknown) (unknown) (no (unknown) (unknown) History of (units (unk nown) date) hysterectomy unknown) (unknown) (no (unknown) (unknown) Home Medications (units (unknown) date) and Allergies unknown) (unknown) (no (unknown) (unknown) I reviewed the (units (unknown) date) right neck lymph unknown) node biopsy pathology with the patient. I (unknown) (no (unknown) (unknown) Manda Whitaker (units (unknown) date) is a 71 year old unknown) female. According to patient, she has family (unknown) (no (unknown) (unknown) Manda said that (units (unknown) date) about in 10/2021, unknown) she felt right neck tenderness. On 11/02/2021, (unknown) (no (unknown) (unknown) Low back pain (units ( unknown) date) unknown) (unknown) (no (unknown) (unknown) Lymph # (Auto) (units (unknown) date) 1800 /uL unknown) ([id number]) 01/01/22 14:24 (unknown) (no (unknown) (unknown) Lymph % (Auto) (units (unknown) date) 32.4 % (25-40) unknown) 01/01/22 14:24 (unknown) (no (unknown) (unknown) MCH 30.7 PG (units (u nknown) date) (26-34) 01/01/22 unknown) 14:24 (unknown) (no (unknown) (unknown) MCHC 35.1 % (units (u nknown) date) (30-36) 01/01/22 unknown) 14:24 (unknown) (no (unknown) (unknown) MCV 87.5 fL (units (u nknown) date) (80-100) 01/01/22 unknown) 14:24 (unknown) (no (unknown) (unknown) 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 unknown) (unknown) (no (unknown) (unknown) Medical History (units (unknown) date) unknown) (unknown) (no (unknown) (unknown) Medical History (units (unknown) date) (Last Updated unknown) 12/06/21 @ 12:52 by Cosmo Boykin RN) (unknown) (no (unknown) (unknown) Medical History: (units (unknown) date) unknown) (unknown) (no (unknown) (unknown) Ector # (Auto) 400 (units (unknown) date) /uL (0-900) unknown) 01/01/22 14:24 (unknown) (no (unknown) (unknown) Ector % (Auto) 8.0 (units (unknown) date) % (3-14) 01/01/22 unknown) 14:24 (unknown) (no (unknown) (unknown) Mother (units (unkno wn) date) unknown) (unknown) (no (unknown) (unknown) NSAIDS (units (o wn) date) (Non-Steroidal unknown) AdvReac Gastrointestinal Verified 01/01/22 12:44 (unknown) (no (unknown) (unknown) NSTEMI (non-ST (units (unknown) date) elevated myocardial unknown) infarction) (unknown) (no (unknown) (unknown) Narrative: (units (unk nown) date) unknown) (unknown) (no (unknown) (unknown) Neut # (Auto) (units ( unknown) date) 3200 /uL unknown) ([id number]) 01/01/22 14:24 (unknown) (no (unknown) (unknown) Neut % (Auto) (units ( unknown) date) 57.5 % (50-75) unknown) 01/01/22 14:24 (unknown) (no (unknown) (unknown) [employer] (units (unknown) date) unknown) (unknown) (no (unknown) (unknown) On 11/21/2021 CT (units (unknown) date) chest without unknown) contrast showed bulky right supraclavicular, (unknown) (no (unknown) (unknown) On 12/06/2021, (units (unknown) date) Gus performed unknown) excisional biopsy of right cervical lymph (unknown) (no (unknown) (unknown) PET CT (units (o wn) date) unknown) (unknown) (no (unknown) (unknown) Palpation/Percussi (units (unknown) date) on: Absent: unknown) hepatomegaly (unknown) (no (unknown) (unknown) Patient: (units (unkno wn) date) Manda Whitaker S unknown) MR#: [id number] (unknown) (no (unknown) (unknown) Patient: new to (units (unknown) date) practice unknown) (unknown) (no (unknown) (unknown) 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 Absent: wheezes (unknown) (no (unknown) (unknown) Present: RRR, S1, (units (unknown) date) S2. Absent: unknown) murmur, gallop, rubs (unknown) (no (unknown) (unknown) Present: soft. (units (unknown) date) Absent: tenderness, unknown) distended, organomegaly (unknown) (no (unknown) (unknown) Present: supple, (units (unknown) date) lymphadenopathy unknown) (large right supraclavicular mass noted (unknown) (no (unknown) (unknown) Primary Care (units (u nknown) date) Provider: unknown) (unknown) (no (unknown) (unknown) Provider: (units (unkn own) date) Melly Noe MD unknown) (unknown) (no (unknown) (unknown) Pulse 59 L (units (un known) date) 01/01/22 12:45 unknown) (unknown) (no (unknown) (unknown) Pulse Ox 96 (units (u nknown) date) 01/01/22 12:45 unknown) (unknown) (no (unknown) (unknown) RDW 14.3 % (units (un known) date) (11.6-14.8) unknown) 01/01/22 14:24 (unknown) (no (unknown) (unknown) RTC in 3 weeks (units (unknown) date) unknown) (unknown) (no (unknown) (unknown) 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 unknown) (unknown) (no (unknown) (unknown) She said she is (units (unknown) date) lossing wt in the unknown) face and arm, but edema in the legs. left > (unknown) (no (unknown) (unknown) She then underwent (units (unknown) date) CT neck w/contrast unknown) on 11/21/2021 that showed a masslike (unknown) (no (unknown) (unknown) Signed By: (units (unk nown) date) unknown) (unknown) (no (unknown) (unknown) Skin disorder (units ( unknown) date) unknown) (unknown) (no (unknown) (unknown) Smoking Status: (units (unknown) date) Current every day unknown) smoker (unknown) (no (unknown) (unknown) Sodium 137 mmol/L (units (unknown) date) (137-145) unknown) 01/01/22 14:24 (unknown) (no (unknown) (unknown) Substance Use (units ( unknown) date) Type: does not use unknown) (unknown) (no (unknown) (unknown) Sulfa (Sulfonamide (units (unknown) date) Allergy Verified unknown) 11/30/21 15:47 (unknown) (no (unknown) (unknown) Surgical History (units (unknown) date) (Last Updated unknown) 12/06/21 @ 12:51 by Cosmo Boykin RN) (unknown) (no (unknown) (unknown) Surgical History: (units (unknown) date) unknown) (unknown) (no (unknown) (unknown) TIA (transient (units (unknown) date) ischemic attack) unknown) (unknown) (no (unknown) (unknown) Talked with (units (un known) date) patient that 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 At time unknown) her headache is pretty severe. She also (unknown) (no (unknown) (unknown) Total Bilirubin (units (unknown) date) 0.4 mg/dL (0.2-1.3) unknown) 01/01/22 14:24 (unknown) (no (unknown) (unknown) Total Protein 6.4 (units (unknown) date) g/dL (6.3-8.2) unknown) 01/01/22 14:24 (unknown) (no (unknown) (unknown) Urinary calculi (units (unknown) date) unknown) (unknown) (no (unknown) (unknown) Vital signs: (units (u nknown) date) unknown) (unknown) (no (unknown) (unknown) Wrist fracture (units (unknown) date) unknown) (unknown) (no (unknown) (unknown) [From Paxlovid (units (unknown) date) (EUA)] unknown) (unknown) (no (unknown) (unknown) acetaminophen 325 (units (unknown) date) mg capsule 650 mg unknown) PO QID PRN pain #60 caps 12/06/21 01/01/22 (unknown) (no (unknown) (unknown) addition patient (units (unknown) date) is having a lot of unknown) other symptoms including abdominal pain (unknown) (no (unknown) (unknown) aerosol inhaler (units (unknown) date) (Ventolin HFA) unknown) Bronchodilation (unknown) (no (unknown) (unknown) albuterol sulfate (units (unknown) date) 90 mcg/actuation 2 unknown) puff inhalation Q6H PRN 11/30/21 01/01/22 (unknown) (no (unknown) (unknown) alendronate 70 mg (units (unknown) date) tablet 70 mg PO unknown) WEEKLY 12/06/21 01/01/22 History (unknown) (no (unknown) (unknown) also experiencing (units (unknown) date) headache. I talked unknown) with them that small cell has the tendency (unknown) (no (unknown) (unknown) amlodipine 5 mg (units (unknown) date) tablet 5 mg PO unknown) DAILY 11/30/21 01/01/22 History (unknown) (no (unknown) (unknown) artifact. (units (unkn own) date) unknown) (unknown) (no (unknown) (unknown) atorvastatin 80 mg (units (unknown) date) tablet 80 mg PO unknown) DAILY 11/30/21 01/01/22 History (unknown) (no (unknown) (unknown) bronchial wall (units (unknown) date) thickening noted. unknown) (unknown) (no (unknown) (unknown) cell lung cancer. (units (unknown) date) It is associated unknown) with smoking 100%. Patient clinically is (unknown) (no (unknown) (unknown) clopidogrel 75 mg (units (unknown) date) tablet 75 mg PO unknown) DAILY 11/30/21 01/01/22 History (unknown) (no (unknown) (unknown) conglomerated (units ( unknown) date) group of lymph unknown) nodes within the right supraclavicular region that (unknown) (no (unknown) (unknown) developed blurred (units (unknown) date) vision. She said unknown) that she used to read a lot, but now she has (unknown) (no (unknown) (unknown) diphenoxylate-atro (units (unknown) date) pine 2.5 1 tab PO unknown) DAILY diarrhea 11/30/21 01/01/22 History (unknown) (no (unknown) (unknown) distant (units (unkno wn) date) metastasis. To unknown) further evaluate the stool, I will obtain PET scan. 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 But Manda (unknown) (no (unknown) (unknown) hydrocodone (units (un known) date) AdvReac Rash unknown) Verified 01/01/22 12:44 (unknown) (no (unknown) (unknown) informed her and (units (unknown) date) her daughter that unknown) the final diagnosis is consistent with small (unknown) (no (unknown) (unknown) is reporting (units (u nknown) date) epigastric pain and unknown) umblical snell. Her weight has remained about (unknown) (no (unknown) (unknown) laceration, (units (un known) date) hematoma unknown) (unknown) (no (unknown) (unknown) mcg/actuation (units ( unknown) date) nasal unknown) (unknown) (no (unknown) (unknown) meaduring 6 x 6 on (units (unknown) date) my evaluaiton. ), unknown) tenderness (unknown) (no (unknown) (unknown) measures at least (units (unknown) date) 5.8 x 3.6 cm in unknown) greatest axial dimension. There is partial (unknown) (no (unknown) (unknown) meclizine AdvReac (units (unknown) date) Hypertensio unknown) Verified 01/01/22 12:44 (unknown) (no (unknown) (unknown) mediastinal and (units (unknown) date) right hilar unknown) adenopathy, coarse nodular calcifications, gradually (unknown) (no (unknown) (unknown) metoprolol (units (unk nown) date) tartrate 25 mg unknown) tablet 25 mg PO BID 11/30/21 01/01/22 History (unknown) (no (unknown) (unknown) mg-0.025 mg tablet (units (unknown) date) unknown) (unknown) (no (unknown) (unknown) montelukast 10 mg (units (unknown) date) tablet 10 mg PO unknown) DAILY 11/30/21 01/01/22 History (unknown) (no (unknown) (unknown) months in the (units ( unknown) date) spleen liver and unknown) both lungs, small pericardial effusion and (unknown) (no (unknown) (unknown) nausea and. I (units (unknown) date) talked with them it unknown) is highly suspicious that patient may have a (unknown) (no (unknown) (unknown) nirmatrelvir (units (u nknown) date) AdvReac Verified unknown) 01/01/22 12:44 (unknown) (no (unknown) (unknown) node. The (units (unk nown) date) pathology showed unknown) metastatic high-grade neuroendocrine carcinoma with (unknown) (no (unknown) (unknown) nonspecific (units (un known) date) reticulonodular unknown) focus in the medial right upper lobe. Mild (unknown) (no (unknown) (unknown) oxycodone 5 mg (units (unknown) date) tablet 5 mg PO BID unknown) PRN Pain (Scale Score 11/30/21 01/01/22 (unknown) (no (unknown) (unknown) paroxetine AdvReac (units (unknown) date) Nightmare Verified unknown) 01/01/22 12:44 (unknown) (no (unknown) (unknown) positive no acute (units (unknown) date) distress, positive unknown) average body habitus (unknown) (no (unknown) (unknown) relative quickly (units (unknown) date) unknown) (unknown) (no (unknown) (unknown) retroperitoneum (units (unknown) date) unknown) (unknown) (no (unknown) (unknown) right (units (unkno wn) date) unknown) (unknown) (no (unknown) (unknown) ritonavir AdvReac (units (unknown) date) Verified 01/01/22 unknown) 12:44 (unknown) (no (unknown) (unknown) she just saw (units (u nknown) date) vascular surgerry. unknown) no blood clot. (unknown) (no (unknown) (unknown) she went to see (units (unknown) date) her PCR Lynnette unknown) Ivan, and right neck lymph nodes were palpated. (unknown) (no (unknown) (unknown) solifenacin (units (un known) date) AdvReac Verified unknown) 01/01/22 12:44 (unknown) (no (unknown) (unknown) spray,suspension (units (unknown) date) unknown) (unknown) (no (unknown) (unknown) stated (units (unkno wn) date) unknown) (unknown) (no (unknown) (unknown) superior (units (unkno wn) date) mediastinum unknown) measuring 4.3 x 3 cm. Mild mass effect of is seen upon the (unknown) (no (unknown) (unknown) suvorexant [From (units (unknown) date) Belsomra] AdvReac unknown) Verified 12/06/21 12:53 (unknown) (no (unknown) (unknown) the same . (units (unk nown) date) unknown) (unknown) (no (unknown) (unknown) tizanidine 2 mg (units (unknown) date) tablet 2 mg PO PRN unknown) PRN Muscle Pain 12/06/21 01/01/22 History (unknown) (no (unknown) (unknown) to give up 2/2 (units ( unknown) date) blurred vision. She unknown) is also reporting food stuck in the flow. She (unknown) (no (unknown) (unknown) to metastasize to (units (unknown) date) brain. I will unknown) obtain brain MRI to further evaluate. In (unknown) (no (unknown) (unknown) trachea, which is (units (unknown) date) slightly deviated unknown) to the left. (unknown) (no (unknown) (unknown) trazodone 150 mg (units (unknown) date) tablet 150 mg PO unknown) BEDTIME PRN Sleep 11/30/21 01/01/22 History (unknown) (no (unknown) (unknown) tumor. We usually (units (unknown) date) treat with unknown) (unknown) (no (unknown) (unknown) ursodiol AdvReac (units (unknown) date) Rash Verified unknown) 01/01/22 12:44 (unknown) (no (unknown) (unknown) visualization of (units (unknown) date) mediastinal lymph unknown) nodes, with a group seen within the right (unknown) (no (unknown) (unknown) was tested (units (unk nown) date) negative (about in unknown) 2015). Result panel 20 (unknown) (no (unknown) (unknown) (no value) (units (unk nown) date) unknown) (unknown) (no (unknown) (unknown) Date of Service: (units (unknown) date) 01/01/22 unknown) (unknown) (no (unknown) (unknown) (no value) (units (unk nown) date) unknown) (unknown) (no (unknown) (unknown) 01/02/22 0039 (units ( unknown) date) unknown) (unknown) (no (unknown) (unknown) Allergies (units (unkn own) date) unknown) (unknown) (no (unknown) (unknown) Cancer of kidney (units (unknown) date) unknown) (unknown) (no (unknown) (unknown) Home Medications (units (unknown) date) unknown) (unknown) (no (unknown) (unknown) [facility] (units (unknown) date) [address] unknown) [place] [address] (unknown) (no (unknown) (unknown) Laboratory Last (units (unknown) date) Values unknown) (unknown) (no (unknown) (unknown) Last Vital Signs (units (unknown) date) unknown) (unknown) (no (unknown) (unknown) Lung cancer (units (un known) date) unknown) (unknown) (no (unknown) (unknown) Oncology Consult (units (unknown) date) unknown) (unknown) (no (unknown) (unknown) Ovarian cancer (units (unknown) date) unknown) (unknown) (no (unknown) (unknown) Throat cancer (units ( unknown) date) unknown) (unknown) (no (unknown) (unknown) n (units (unkno wn) date) unknown) (unknown) (no (unknown) (unknown) (no value) (units (unk nown) date) unknown) (unknown) (no (unknown) (unknown) 7-10) (units (unkno wn) date) unknown) (unknown) (no (unknown) (unknown) Medication (units (unk nown) date) Instructions unknown) Recorded Confirmed Type (unknown) (no (unknown) (unknown) (1) 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 (unknown) (no (unknown) (unknown) (Tylenol) (units (unkn own) date) unknown) (unknown) (no (unknown) (unknown) - Constitutional (units (unknown) date) unknown) (unknown) (no (unknown) (unknown) - Consult (units (unkn own) date) Narrative unknown) (unknown) (no (unknown) (unknown) - Data of Consult (units (unknown) date) unknown) (unknown) (no (unknown) (unknown) - Labs (units (unkno wn) date) unknown) (unknown) (no (unknown) (unknown) - Medical, (units (unk nown) date) Surgical, Family unknown) History (unknown) (no (unknown) (unknown) - Routine (units (unkn own) date) Abdominal Exam unknown) (unknown) (no (unknown) (unknown) - Routine (units (unkn own) date) Cardiovascular Exam unknown) (unknown) (no (unknown) (unknown) - Routine (units (unkn own) date) Chest/Breast/Axilla unknown) Exam (unknown) (no (unknown) (unknown) - Routine HEENT (units (unknown) date) Exam unknown) (unknown) (no (unknown) (unknown) - Routine Neck (units (unknown) date) Exam unknown) (unknown) (no (unknown) (unknown) - Routine (units (unkn own) date) Respiratory Exam unknown) (unknown) (no (unknown) (unknown) - Social History (units (unknown) date) unknown) (unknown) (no (unknown) (unknown) [id number] (units (unkno wn) date) unknown) (unknown) (no (unknown) (unknown) 01/02/22 00:24 (units (unknown) date) unknown) (unknown) (no (unknown) (unknown) 71 year old female (units (unknown) date) with active smoking unknown) history. She developed right neck mass (unknown) (no (unknown) (unknown) ALT 25 IU/L (<35) (units (unknown) date) 01/01/22 14:24 unknown) (unknown) (no (unknown) (unknown) AST 50 IU/L (units (u nknown) date) (14-36) H unknown) 01/01/22 14:24 (unknown) (no (unknown) (unknown) Abnormal (units (unkno wn) date) colonoscopy unknown) (unknown) (no (unknown) (unknown) Abnormal findings (units (unknown) date) on diagnostic unknown) imaging of other abdominal regions, including (unknown) (no (unknown) (unknown) Abrasion head (units ( unknown) date) unknown) (unknown) (no (unknown) (unknown) Age/Sex: 71 / F (units (unknown) date) unknown) (unknown) (no (unknown) (unknown) Albumin 3.5 g/dL (units (unknown) date) (3.5-5.0) unknown) 01/01/22 14:24 (unknown) (no (unknown) (unknown) Albumin/Globulin (units (unknown) date) Ratio 1.2 unknown) (1.0-2.8) 01/01/22 14:24 (unknown) (no (unknown) (unknown) Alcohol Intake: (units (unknown) date) former unknown) (unknown) (no (unknown) (unknown) Alkaline (units (unkno wn) date) Phosphatase 85 U/L unknown) (38-126) 01/01/22 14:24 (unknown) (no (unknown) (unknown) All systems PM: (units (unknown) date) reviewed and no unknown) additional remarkable complaints except as (unknown) (no (unknown) (unknown) Allergy/AdvReac (units (unknown) date) Type Severity unknown) Reaction Status Date / Time (unknown) (no (unknown) (unknown) Anti-Inflamma (units ( unknown) date) Upset unknown) (unknown) (no (unknown) (unknown) Antibiotics) (units (u nknown) date) unknown) (unknown) (no (unknown) (unknown) Anticoagulant (units ( unknown) date) long-term use unknown) (unknown) (no (unknown) (unknown) Assessment and (units (unknown) date) Plan unknown) (unknown) (no (unknown) (unknown) Asthma (units (unkno wn) date) unknown) (unknown) (no (unknown) (unknown) Axillae: Absent: (units (unknown) date) lymphadenopathy unknown) (unknown) (no (unknown) (unknown) BP 117/51 L (units (u nknown) date) 01/01/22 12:45 unknown) (unknown) (no (unknown) (unknown) BUN 12 mg/dL (units ( unknown) date) (7-17) 01/01/22 unknown) 14:24 (unknown) (no (unknown) (unknown) BUN/Creatinine (units (unknown) date) Ratio 12.1 (6-22) unknown) 01/01/22 14:24 (unknown) (no (unknown) (unknown) Baso # (Auto) 100 (units (unknown) date) /uL (0-100) unknown) 01/01/22 14:24 (unknown) (no (unknown) (unknown) Baso % (Auto) 1.0 (units (unknown) date) % (0-2) 01/01/22 unknown) 14:24 (unknown) (no (unknown) (unknown) Brain MR w/wo (units ( unknown) date) contrast unknown) (unknown) (no (unknown) (unknown) CBC, CMP (units (unkno wn) date) unknown) (unknown) (no (unknown) (unknown) CC: Melly Noe, (units (unknown) date) MD unknown) (unknown) (no (unknown) (unknown) Calcium 8.7 mg/dL (units (unknown) date) (8.4-10.2) unknown) 01/01/22 14:24 (unknown) (no (unknown) (unknown) Carbon Dioxide 32 (units (unknown) date) mmol/L (22-32) unknown) 01/01/22 14:24 (unknown) (no (unknown) (unknown) Cardiomegaly (units (u nknown) date) unknown) (unknown) (no (unknown) (unknown) Cerebral (units (unkno wn) date) infarction unknown) (unknown) (no (unknown) (unknown) Cervicalgia (units (un known) date) unknown) (unknown) (no (unknown) (unknown) Chest pain (units (unk nown) date) unknown) (unknown) (no (unknown) (unknown) Chest wall exam (units (unknown) date) standard: Absent: unknown) tenderness (unknown) (no (unknown) (unknown) Chloride 99 (units (u nknown) date) mmol/L (98-107) unknown) 01/01/22 14:24 (unknown) (no (unknown) (unknown) Chronic kidney (units (unknown) date) disease unknown) (unknown) (no (unknown) (unknown) Consult date: (units ( unknown) date) 01/01/22 unknown) (unknown) (no (unknown) (unknown) Cough (units (unkno wn) date) unknown) (unknown) (no (unknown) (unknown) Creatinine 0.99 (units (unknown) date) mg/dL (0.52-1.04) unknown) 01/01/22 14:24 (unknown) (no (unknown) (unknown) : 1950 (units (unknown) date) Acct:[id number] unknown) (unknown) (no (unknown) (unknown) Linus Demarco MD (units (unknown) date) unknown) (unknown) (no (unknown) (unknown) Depression (units (unk nown) date) unknown) (unknown) (no (unknown) (unknown) Discussion: (units (un known) date) unknown) (unknown) (no (unknown) (unknown) Dysuria (units (unkno wn) date) unknown) (unknown) (no (unknown) (unknown) Eos # (Auto) 100 (units (unknown) date) /uL (0-450) unknown) 01/01/22 14:24 (unknown) (no (unknown) (unknown) Eos % (Auto) 1.1 (units (unknown) date) % (2-4) L unknown) 01/01/22 14:24 (unknown) (no (unknown) (unknown) Estimated GFR > (units (unknown) date) 60 mL/min (>60) unknown) 01/01/22 14:24 (unknown) (no (unknown) (unknown) Exam (units (unkno wn) date) unknown) (unknown) (no (unknown) (unknown) Eye: Present: (units ( unknown) date) EOMI, PERRL, normal unknown) accommodation. Absent: conjunctival icterus (unknown) (no (unknown) (unknown) Fall (units (unkno wn) date) unknown) (unknown) (no (unknown) (unknown) Family History (units (unknown) date) (Last Reviewed unknown) 12/05/21 @ 14:14 by Anthony Reddy MD) (unknown) (no (unknown) (unknown) Family History: (units (unknown) date) unknown) (unknown) (no (unknown) (unknown) Father (units (unkno wn) date) unknown) (unknown) (no (unknown) (unknown) Frequency of (units (u nknown) date) micturition unknown) (unknown) (no (unknown) (unknown) GenericComposite[P (units (unknown) date) lt Count 156 unknown) X10^3/uL (150-400) 01/01/22 14:24 ] (unknown) (no (unknown) (unknown) GenericComposite[R (units (unknown) date) BC 4.10 X10^6/uL unknown) (4.0-5.2) 01/01/22 14:24 ] (unknown) (no (unknown) (unknown) GenericComposite[W (units (unknown) date) BC 5.6 X10^3/uL unknown) (4.5-11.0) 01/01/22 14:24 ] (unknown) (no (unknown) (unknown) Globulin 2.9 g/dL (units (unknown) date) (1.7-4.1) unknown) 01/01/22 14:24 (unknown) (no (unknown) (unknown) Glucose 91 mg/dL (units (unknown) date) (80-110) 01/01/22 unknown) 14:24 (unknown) (no (unknown) (unknown) H/O bilateral (units ( unknown) date) mastectomy unknown) (unknown) (no (unknown) (unknown) Hct 35.9 % (units (un known) date) (36-46) L unknown) 01/01/22 14:24 (unknown) (no (unknown) (unknown) Head lump (units (unkn own) date) unknown) (unknown) (no (unknown) (unknown) Head: Present: (units (unknown) date) normocephalic, unknown) atraumatic. Absent: cushingoid faces, abrasion, (unknown) (no (unknown) (unknown) Heart disease (units ( unknown) date) unknown) (unknown) (no (unknown) (unknown) Hematuria (units (unkn own) date) unknown) (unknown) (no (unknown) (unknown) Hgb 12.6 g/dL (units (unknown) date) (12.0-16.0) unknown) 01/01/22 14:24 (unknown) (no (unknown) (unknown) History (units (unkno wn) date) unknown) (unknown) (no (unknown) (unknown) History of Present (units (unknown) date) Illness unknown) (unknown) (no (unknown) (unknown) History of (units (unk nown) date) appendectomy unknown) (unknown) (no (unknown) (unknown) History of (units (unk nown) date) cholecystectomy unknown) (unknown) (no (unknown) (unknown) History of (units (unk nown) date) hysterectomy unknown) (unknown) (no (unknown) (unknown) Home Medications (units (unknown) date) and Allergies unknown) (unknown) (no (unknown) (unknown) I explained that (units (unknown) date) 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 The goal is to delay the (unknown) (no (unknown) (unknown) I reviewed the (units (unknown) date) right neck lymph unknown) node biopsy pathology with the patient. I (unknown) (no (unknown) (unknown) I will obtain (units ( unknown) date) brain MRI to unknown) further evaluate. In addition patient is having a (unknown) (no (unknown) (unknown) Manda Whitaker (units (unknown) date) is a 71 year old unknown) female. According to patient, she has family (unknown) (no (unknown) (unknown) Manda said that (units (unknown) date) about in 10/2021, unknown) she felt right neck tenderness. On 11/02/2021, (unknown) (no (unknown) (unknown) Low back pain (units ( unknown) date) unknown) (unknown) (no (unknown) (unknown) Lymph # (Auto) (units (unknown) date) 1800 /uL unknown) ([id number]) 01/01/22 14:24 (unknown) (no (unknown) (unknown) Lymph % (Auto) (units (unknown) date) 32.4 % (25-40) unknown) 01/01/22 14:24 (unknown) (no (unknown) (unknown) MCH 30.7 PG (units (u nknown) date) (26-34) 01/01/22 unknown) 14:24 (unknown) (no (unknown) (unknown) MCHC 35.1 % (units (u nknown) date) (30-36) 01/01/22 unknown) 14:24 (unknown) (no (unknown) (unknown) MCV 87.5 fL (units (u nknown) date) (80-100) 01/01/22 unknown) 14:24 (unknown) (no (unknown) (unknown) 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 unknown) (unknown) (no (unknown) (unknown) Medical History (units (unknown) date) unknown) (unknown) (no (unknown) (unknown) Medical History (units (unknown) date) (Last Updated unknown) 12/06/21 @ 12:52 by Cosmo Boykin RN) (unknown) (no (unknown) (unknown) Medical History: (units (unknown) date) unknown) (unknown) (no (unknown) (unknown) Ector # (Auto) 400 (units (unknown) date) /uL (0-900) unknown) 01/01/22 14:24 (unknown) (no (unknown) (unknown) Ector % (Auto) 8.0 (units (unknown) date) % (3-14) 01/01/22 unknown) 14:24 (unknown) (no (unknown) (unknown) Mother (units (unkno wn) date) unknown) (unknown) (no (unknown) (unknown) NSAIDS (units (unkno wn) date) (Non-Steroidal unknown) AdvReac Gastrointestinal Verified 01/01/22 12:44 (unknown) (no (unknown) (unknown) NSTEMI (non-ST (units (unknown) date) elevated myocardial unknown) infarction) (unknown) (no (unknown) (unknown) Narrative: (units (unk nown) date) unknown) (unknown) (no (unknown) (unknown) Neut # (Auto) (units ( unknown) date) 3200 /uL unknown) (0706-3160) 01/01/22 14:24 (unknown) (no (unknown) (unknown) Neut % (Auto) (units ( unknown) date) 57.5 % (50-75) unknown) 01/01/22 14:24 (unknown) (no (unknown) (unknown) [employer] (units (unknown) date) unknown) (unknown) (no (unknown) (unknown) On 11/21/2021 CT (units (unknown) date) chest without unknown) contrast showed bulky right supraclavicular, (unknown) (no (unknown) (unknown) On 12/06/2021, (units (unknown) date) Gus performed unknown) excisional biopsy of right cervical lymph (unknown) (no (unknown) (unknown) PET CT (units (unkno wn) date) unknown) (unknown) (no (unknown) (unknown) Palpation/Percussi (units (unknown) date) on: Absent: unknown) hepatomegaly (unknown) (no (unknown) (unknown) Patient: (units (unkno wn) date) Manda Whitaker S unknown) MR#: [id number] (unknown) (no (unknown) (unknown) Patient: new to (units (unknown) date) practice unknown) (unknown) (no (unknown) (unknown) 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 Absent: wheezes (unknown) (no (unknown) (unknown) Present: RRR, S1, (units (unknown) date) S2. Absent: unknown) murmur, gallop, rubs (unknown) (no (unknown) (unknown) Present: soft. (units (unknown) date) Absent: tenderness, unknown) distended, organomegaly (unknown) (no (unknown) (unknown) Present: supple, (units (unknown) date) lymphadenopathy unknown) (large right supraclavicular mass noted (unknown) (no (unknown) (unknown) Primary Care (units (u nknown) date) Provider: unknown) (unknown) (no (unknown) (unknown) Provider: (units (unkn own) date) Melly Noe MD unknown) (unknown) (no (unknown) (unknown) Pulse 59 L (units (un known) date) 01/01/22 12:45 unknown) (unknown) (no (unknown) (unknown) Pulse Ox 96 (units (u nknown) date) 01/01/22 12:45 unknown) (unknown) (no (unknown) (unknown) RDW 14.3 % (units (un known) date) (11.6-14.8) unknown) 01/01/22 14:24 (unknown) (no (unknown) (unknown) RTC in 3 weeks (units (unknown) date) unknown) (unknown) (no (unknown) (unknown) 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 unknown) (unknown) (no (unknown) (unknown) She said she is (units (unknown) date) lossing wt in the unknown) face and arm, but edema in the legs. left > (unknown) (no (unknown) (unknown) She then underwent (units (unknown) date) CT neck w/contrast unknown) on 11/21/2021 that showed a masslike (unknown) (no (unknown) (unknown) Signed (units (unkno wn) date) By:<Electronically unknown) signed by Melly Noe MD> (unknown) (no (unknown) (unknown) Skin disorder (units ( unknown) date) unknown) (unknown) (no (unknown) (unknown) Smoking Status: (units (unknown) date) Current every day unknown) smoker (unknown) (no (unknown) (unknown) Sodium 137 mmol/L (units (unknown) date) (137-145) unknown) 01/01/22 14:24 (unknown) (no (unknown) (unknown) Substance Use (units ( unknown) date) Type: does not use unknown) (unknown) (no (unknown) (unknown) Sulfa (Sulfonamide (units (unknown) date) Allergy Verified unknown) 11/30/21 15:47 (unknown) (no (unknown) (unknown) Surgical History (units (unknown) date) (Last Updated unknown) 12/06/21 @ 12:51 by Cosmo Boykin RN) (unknown) (no (unknown) (unknown) Surgical History: (units (unknown) date) unknown) (unknown) (no (unknown) (unknown) TIA (transient (units (unknown) date) ischemic attack) unknown) (unknown) (no (unknown) (unknown) Temp 97.4 F L (units (unknown) date) 01/01/22 12:45 unknown) (unknown) (no (unknown) (unknown) Today, she is c/o (units (unknown) date) headache. At time unknown) her headache is pretty severe. She also (unknown) (no (unknown) (unknown) Total Bilirubin (units (unknown) date) 0.4 mg/dL (0.2-1.3) unknown) 01/01/22 14:24 (unknown) (no (unknown) (unknown) Total Protein 6.4 (units (unknown) date) g/dL (6.3-8.2) unknown) 01/01/22 14:24 (unknown) (no (unknown) (unknown) Urinary calculi (units (unknown) date) unknown) (unknown) (no (unknown) (unknown) Vital signs: (units (u nknown) date) unknown) (unknown) (no (unknown) (unknown) Wrist fracture (units (unknown) date) unknown) (unknown) (no (unknown) (unknown) [From Paxlovid (units (unknown) date) (EUA)] unknown) (unknown) (no (unknown) (unknown) acetaminophen 325 (units (unknown) date) mg capsule 650 mg unknown) PO QID PRN pain #60 caps 12/06/21 01/01/22 (unknown) (no (unknown) (unknown) aerosol inhaler (units (unknown) date) (Ventolin HFA) unknown) Bronchodilation (unknown) (no (unknown) (unknown) albuterol sulfate (units (unknown) date) 90 mcg/actuation 2 unknown) puff inhalation Q6H PRN 11/30/21 01/01/22 (unknown) (no (unknown) (unknown) alendronate 70 mg (units (unknown) date) tablet 70 mg PO unknown) WEEKLY 12/06/21 01/01/22 History (unknown) (no (unknown) (unknown) amlodipine 5 mg (units (unknown) date) tablet 5 mg PO unknown) DAILY 11/30/21 01/01/22 History (unknown) (no (unknown) (unknown) artifact. (units (unkn own) date) unknown) (unknown) (no (unknown) (unknown) atorvastatin 80 mg (units (unknown) date) tablet 80 mg PO unknown) DAILY 11/30/21 01/01/22 History (unknown) (no (unknown) (unknown) cell lung cancer. (units (unknown) date) unknown) (unknown) (no (unknown) (unknown) cell lung cancer. (units (unknown) date) Patient clinically unknown) is also experiencing headache. I talked (unknown) (no (unknown) (unknown) cisplatin/etoposid (units (unknown) date) e.. I also unknown) recommended port placement. (unknown) (no (unknown) (unknown) clopidogrel 75 mg (units (unknown) date) tablet 75 mg PO unknown) DAILY 11/30/21 01/01/22 History (unknown) (no (unknown) (unknown) conglomerated (units ( unknown) date) group of lymph unknown) nodes within the right supraclavicular region that (unknown) (no (unknown) (unknown) developed blurred (units (unknown) date) vision. She said unknown) that she used to read a lot, but now she has (unknown) (no (unknown) (unknown) diphenoxylate-atro (units (unknown) date) pine 2.5 1 tab PO unknown) DAILY diarrhea 11/30/21 01/01/22 History (unknown) (no (unknown) (unknown) distant (units (unkno wn) date) metastasis. To unknown) further evaluate, I will obtain PET scan. 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 But Manda (unknown) (no (unknown) (unknown) hydrocodone (units (un known) date) AdvReac Rash unknown) Verified 01/01/22 12:44 (unknown) (no (unknown) (unknown) in the spleen (units ( unknown) date) liver and both unknown) lungs, small pericardial effusion and nonspecific (unknown) (no (unknown) (unknown) informed her and (units (unknown) date) her daughter that unknown) the final diagnosis is consistent with small (unknown) (no (unknown) (unknown) is reporting (units (u nknown) date) epigastric pain and unknown) umblical snell. Her weight has remained about (unknown) (no (unknown) (unknown) laceration, (units (un known) date) hematoma unknown) (unknown) (no (unknown) (unknown) lot of other (units (u nknown) date) symptoms including unknown) abdominal pain, nausea and food stuck in the (unknown) (no (unknown) (unknown) mcg/actuation (units ( unknown) date) nasal unknown) (unknown) (no (unknown) (unknown) meaduring 6 x 6 on (units (unknown) date) my evaluaiton. ), unknown) tenderness (unknown) (no (unknown) (unknown) measures at least (units (unknown) date) 5.8 x 3.6 cm in unknown) greatest axial dimension. There is partial (unknown) (no (unknown) (unknown) meclizine AdvReac (units (unknown) date) Hypertensio unknown) Verified 01/01/22 12:44 (unknown) (no (unknown) (unknown) mediastinal and (units (unknown) date) right hilar unknown) adenopathy, coarse nodular calcifications, granuloma (unknown) (no (unknown) (unknown) metoprolol (units (unk nown) date) tartrate 25 mg unknown) tablet 25 mg PO BID 11/30/21 01/01/22 History (unknown) (no (unknown) (unknown) mg-0.025 mg tablet (units (unknown) date) unknown) (unknown) (no (unknown) (unknown) montelukast 10 mg (units (unknown) date) tablet 10 mg PO unknown) DAILY 11/30/21 01/01/22 History (unknown) (no (unknown) (unknown) nirmatrelvir (units (u nknown) date) AdvReac Verified unknown) 01/01/22 12:44 (unknown) (no (unknown) (unknown) node. 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 I told her that (unknown) (no (unknown) (unknown) relative quickly in (units (unknown) date) 10/2021. CT neck unknown) and chest showed bulky lymph nodes in right (unknown) (no (unknown) (unknown) reticulonodular (units (unknown) date) focus in the medial unknown) right upper lobe. Mild bronchial wall (unknown) (no (unknown) (unknown) retroperitoneum (units (unknown) date) unknown) (unknown) (no (unknown) (unknown) right (units (unkno wn) date) unknown) (unknown) (no (unknown) (unknown) right neck lymph (units (unknown) date) node excision unknown) biopsy. The pathology is consistent with small (unknown) (no (unknown) (unknown) ritonavir AdvReac (units (unknown) date) Verified 01/01/22 unknown) 12:44 (unknown) (no (unknown) (unknown) she just saw (units (u nknown) date) vascular surgerry. unknown) no blood clot. (unknown) (no (unknown) (unknown) she went to see (units (unknown) date) her PCR Lynnette unknown) Ivan, and right neck lymph nodes were palpated. (unknown) (no (unknown) (unknown) small cell the (units (unknown) date) highly sensitive to unknown) chemotherapy. I am recommending (unknown) (no (unknown) (unknown) solifenacin (units (un known) date) AdvReac Verified unknown) 01/01/22 12:44 (unknown) (no (unknown) (unknown) spray,suspension (units (unknown) date) unknown) (unknown) (no (unknown) (unknown) stated (units (unkno wn) date) unknown) (unknown) (no (unknown) (unknown) superior (units (unkno wn) date) mediastinum unknown) measuring 4.3 x 3 cm. Mild mass effect of is seen upon the (unknown) (no (unknown) (unknown) supraclavicular (units (unknown) date) fossa, and unknown) mediastinum. On 12/06/2021, Dr. Reddy performed (unknown) (no (unknown) (unknown) suvorexant [From (units (unknown) date) Belsomra] AdvReac unknown) Verified 12/06/21 12:53 (unknown) (no (unknown) (unknown) the same . (units (unk nown) date) unknown) (unknown) (no (unknown) (unknown) thickening noted. (units (unknown) date) unknown) (unknown) (no (unknown) (unknown) tizanidine 2 mg (units (unknown) date) tablet 2 mg PO PRN unknown) PRN Muscle Pain 12/06/21 01/01/22 History (unknown) (no (unknown) (unknown) to give up 2/2 (units ( unknown) date) blurred vision. She unknown) is also reporting food stuck in the flow. She (unknown) (no (unknown) (unknown) trachea, which is (units (unknown) date) slightly deviated unknown) to the left. (unknown) (no (unknown) (unknown) trazodone 150 mg (units (unknown) date) tablet 150 mg PO unknown) BEDTIME PRN Sleep 11/30/21 01/01/22 History (unknown) (no (unknown) (unknown) upper chest. I (units (unknown) date) talked with them it unknown) is highly suspicious that patient may have a (unknown) (no (unknown) (unknown) ursodiol AdvReac (units (unknown) date) Rash Verified unknown) 01/01/22 12:44 (unknown) (no (unknown) (unknown) visualization of (units (unknown) date) mediastinal lymph unknown) nodes, with a group seen within the right (unknown) (no (unknown) (unknown) was tested (units (unk nown) date) negative (about in unknown) 2015). 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 Result panel 21 (unknown) (no (unknown) (unknown) (no value) (units (unk nown) date) unknown) (unknown) (no (unknown) (unknown) [address] [place] [address] (units (unknown) date) unknown) (unknown) (no (unknown) (unknown) [place] [address] (unit s (unknown) date) unknown) (unknown) (no (unknown) (unknown) [facility] (units (unknown) date) unknown) (unknown) (no (unknown) (unknown) Nuclear Medicine (units (unknown) date) Report unknown) (unknown) (no (unknown) (unknown) Signed (units (unkno wn) date) unknown) (unknown) (no (unknown) (unknown) (no value) (units (unk nown) date) unknown) (unknown) (no (unknown) (unknown) 01/03/22 (units (unkno wn) date) unknown) (unknown) (no (unknown) (unknown) 3.1 cm with SUV (units (unknown) date) maximum 15.7, unknown) previously measured 2.3 x 2.3 cm. Right hilar (unknown) (no (unknown) (unknown) 4.0. Multiple (units ( unknown) date) calcified pulmonary unknown) nodules. Heart size is enlarged with trace (unknown) (no (unknown) (unknown) 7.1. (units (unkno wn) date) unknown) (unknown) (no (unknown) (unknown) Abdomen and pelvis: (unit s (unknown) date) No enlarged unknown) retroperitoneal or mesenteric lymph nodes. (unknown) (no (unknown) (unknown) After intravenous (units (unknown) date) administration of unknown) F-18 fluoro-deoxyglucose (FDG), noncontrast (unknown) (no (unknown) (unknown) Although small, (units (unknown) date) there is appearance unknown) of increased metabolic activity with SUV (unknown) (no (unknown) (unknown) Approved by: Kaet (unit s (unknown) date) Arianna Gutiérrez on unknown) 01/04/2022 at 15:19 (unknown) (no (unknown) (unknown) Bones: No abnormal (unit s (unknown) date) osseous tracer unknown) uptake. No lytic or blastic bony lesions. (unknown) (no (unknown) (unknown) COMPARISON: (units (un known) date) [facility], CT, unknown) CT CHEST W CON, 11/21/2021, 13:10. (unknown) (no (unknown) (unknown) Dictated by: Kate (unit s (unknown) date) Arianna Gutiérrez on unknown) 01/04/2022 at 14:31 (unknown) (no (unknown) (unknown) FINDINGS: (units (unkn own) date) unknown) (unknown) (no (unknown) (unknown) Hypermetabolic (units (unknown) date) masses in the lower unknown) neck, mediastinum and hilar regions most (unknown) (no (unknown) (unknown) Hypermetabolic (units (unknown) date) pulmonary nodules unknown) concerning for metastatic disease. (unknown) (no (unknown) (unknown) IMPRESSION: (units (un known) date) unknown) (unknown) (no (unknown) (unknown) INDICATIONS: (units (u nknown) date) small cell lung unknown) cancer (unknown) (no (unknown) (unknown) Ill defined streaky (unit s (unknown) date) opacity measuring unknown) appoximately 7 mm on ser 3 image 81 with (unknown) (no (unknown) (unknown) Ill-defined (units (un known) date) multiple hepatic unknown) mass lesions with metabolic activity most (unknown) (no (unknown) (unknown) Kidneys are normal (units (unknown) date) in size, without unknown) hydronephrosis or nephrolithiasis. Small (unknown) (no (unknown) (unknown) Left (units (unkno wn) date) supraclavicular mass unknown) measuring 1.3 cm x 1.7 cm on series 3 image 54 with (unknown) (no (unknown) (unknown) Neck/Thorax: There (unit s (unknown) date) are two 4 mm medial unknown) right upper lobe nodules on series 3 (unknown) (no (unknown) (unknown) RADIOPHARMACEUTICAL (unit s (unknown) date) : 14.1 mCi F-18 unknown) fluorodeoxyglucose IV. (unknown) (no (unknown) (unknown) Right (units (unkno wn) date) supraclavicular mass unknown) measures 5.3 x 6.7 cm compared to 3.9 cm x 4.9 cm. (unknown) (no (unknown) (unknown) TECHNIQUE: (units (unk nown) date) unknown) (unknown) (no (unknown) (unknown) appears (units (unkno wn) date) heterogenous with unknown) ill defined areas of low attenuation. There are (unknown) (no (unknown) (unknown) effusion. (units (unkn own) date) unknown) (unknown) (no (unknown) (unknown) free fluid or air. (units (unknown) date) No pelvic or unknown) inguinal adenopathy. Bladder wall thickness (unknown) (no (unknown) (unknown) glucose level as (units (unknown) date) measured by unknown) glucometer was 1 L1 mg/dl. The area imaged (unknown) (no (unknown) (unknown) hypermetabolic (units (unknown) date) activity is present unknown) in the mediastinum. Subcarinal mass (unknown) (no (unknown) (unknown) hypermetabolic with (unit s (unknown) date) SUV maximum unknown) measuring 9.2. Anterior conglomerate (unknown) (no (unknown) (unknown) intestines are (units (unknown) date) normal in caliber. unknown) Aorta and inferior vena cava are normal in (unknown) (no (unknown) (unknown) maximum 3.3. (units (u nknown) date) unknown) (unknown) (no (unknown) (unknown) measures 1.9 x 2.7 (units (unknown) date) cm compared to 1.5 unknown) cm x 2.2 cm, with SUV maximum of 11.0. (unknown) (no (unknown) (unknown) measures 2.9 x 7.5 (units (unknown) date) cm compared to 1.1 x unknown) 1.3 cm. It is hypermetabolic with SUV (unknown) (no (unknown) (unknown) measuring 10.2. (units (unknown) date) Right conglomerate unknown) paratracheal mass measures 6.2 cm x 6.1 cm (unknown) (no (unknown) (unknown) metastatic disease. (unit s (unknown) date) Further evaluation unknown) with hepatic MR is recommended. (unknown) (no (unknown) (unknown) of hypermetabolic (units (unknown) date) activity with SUV unknown) maximums ranging from 4-11. The spleen is (unknown) (no (unknown) (unknown) overlapping (units (un known) date) emission PET images unknown) was then obtained. The patient's pretest (unknown) (no (unknown) (unknown) size. Gallbladder (units (unknown) date) is removed. unknown) Pancreas is normal in morphology. No adrenal (unknown) (no (unknown) (unknown) skull base, vertex (units (unknown) date) to the upper thighs. unknown) (unknown) (no (unknown) (unknown) to 4.6 x 3.7 cm. (units (unknown) date) It is hypermetabolic unknown) with SUV maximum measuring 10.8. Smaller (unknown) (no (unknown) (unknown) were obtained for (units (unknown) date) attenuation unknown) correction and anatomic localization. A series (unknown) (no (unknown) (unknown) with malignant (units (unknown) date) disease. unknown) (unknown) (no (unknown) (unknown) [id number] (units (unkn own) date) unknown) (unknown) (no (unknown) (unknown) Accession Number: (units (unknown) date) [id number] unknown) (unknown) (no (unknown) (unknown) Age/Sex: 71 / F (units (unknown) date) Date of Service: unknown) (unknown) (no (unknown) (unknown) CT images (units (unkn own) date) unknown) (unknown) (no (unknown) (unknown) : 1950 (units (unknown) date) Acct:[id number] unknown) (unknown) (no (unknown) (unknown) It is (units (unkno wn) date) unknown) (unknown) (no (unknown) (unknown) Loc: [facility] (units (unkn own) date) unknown) (unknown) (no (unknown) (unknown) Ordering Provider: (units (unknown) date) Melly Noe MD unknown) (unknown) (no (unknown) (unknown) PROCEDURE: NM PET (unit s (unknown) date) CT FUSION SKULL 2 unknown) THIGH (unknown) (no (unknown) (unknown) Patient: (units (unkno wn) date) Manda Whitaker unknown) MR#: M (unknown) (no (unknown) (unknown) Procedure: NM PET (units (unknown) date) CT fusion skull 2 unknown) thigh (unknown) (no (unknown) (unknown) SUV (units (unkno wn) date) unknown) (unknown) (no (unknown) (unknown) SUV maximum (units (un known) date) unknown) (unknown) (no (unknown) (unknown) The liver (units (unkn own) date) unknown) (unknown) (no (unknown) (unknown) and large (units (unkn own) date) unknown) (unknown) (no (unknown) (unknown) compared (units (unkno wn) date) unknown) (unknown) (no (unknown) (unknown) concerning for (units (unknown) date) unknown) (unknown) (no (unknown) (unknown) consistent (units (unk nown) date) unknown) (unknown) (no (unknown) (unknown) fasting blood (units ( unknown) date) unknown) (unknown) (no (unknown) (unknown) foci of (units (unkno wn) date) unknown) (unknown) (no (unknown) (unknown) image 70. (units (unkn own) date) unknown) (unknown) (no (unknown) (unknown) is normal. (units (unk nown) date) unknown) (unknown) (no (unknown) (unknown) mass (units (unkno wn) date) unknown) (unknown) (no (unknown) (unknown) maximum (units (unkno wn) date) unknown) (unknown) (no (unknown) (unknown) maximum of (units (unk nown) date) unknown) (unknown) (no (unknown) (unknown) measuring 2.6 x (units (unknown) date) unknown) (unknown) (no (unknown) (unknown) mediastinal mass (units (unknown) date) unknown) (unknown) (no (unknown) (unknown) multiple foci (units ( unknown) date) unknown) (unknown) (no (unknown) (unknown) nodules. (units (unkno wn) date) unknown) (unknown) (no (unknown) (unknown) normal in (units (unkn own) date) unknown) (unknown) (no (unknown) (unknown) of (units (unkno wn) date) unknown) (unknown) (no (unknown) (unknown) pericardial (units (un known) date) unknown) (unknown) (no (unknown) (unknown) size. No (units (unkn own) date) unknown) (unknown) (no (unknown) (unknown) spanned from the (units (unknown) date) unknown) Result panel (unknown) (no (unknown) (unknown) (no value) (units (unk nown) date) unknown) (unknown) (no (unknown) (unknown) (no value) (units (unk nown) date) unknown) (unknown) (no (unknown) (unknown) (no value) (units (unk nown) date) unknown) (unknown) (no (unknown) (unknown) 01/04/22 (units (unkno wn) date) unknown) (unknown) (no (unknown) (unknown) 09:42 (units (unkno wn) date) unknown) (unknown) (no (unknown) (unknown) [place], [place] (units ( unknown) date) [id number] unknown) (unknown) (no (unknown) (unknown) Cancer of kidney (units (unknown) date) unknown) (unknown) (no (unknown) (unknown) Draft (units (unkno wn) date) unknown) (unknown) (no (unknown) (unknown) Gastrointestinal (units (unknown) date) Upset unknown) (unknown) (no (unknown) (unknown) Hypertension (units (u nknown) date) unknown) (unknown) (no (unknown) (unknown) Hypotension (units (un known) date) unknown) (unknown) (no (unknown) (unknown) [facility] (units (unknown) date) unknown) (unknown) (no (unknown) (unknown) Lung cancer (units (un known) date) unknown) (unknown) (no (unknown) (unknown) Nightmare (units (unkn own) date) unknown) (unknown) (no (unknown) (unknown) Rash (units (unkno wn) date) unknown) (unknown) (no (unknown) (unknown) Surgery Office (units (unknown) date) Visit unknown) (unknown) (no (unknown) (unknown) (no value) (units (unk nown) date) unknown) (unknown) (no (unknown) (unknown) [id number] (units (unkno wn) date) unknown) (unknown) (no (unknown) (unknown) 01/04/22 (units (unkno wn) date) unknown) (unknown) (no (unknown) (unknown) 01/04/22] (units (unkn own) date) unknown) (unknown) (no (unknown) (unknown) Abnormal (units (unkno wn) date) colonoscopy unknown) (unknown) (no (unknown) (unknown) Abnormal findings (units (unknown) date) on diagnostic unknown) imaging of other abdominal regions, including (unknown) (no (unknown) (unknown) Abrasion head (units ( unknown) date) unknown) (unknown) (no (unknown) (unknown) Age/Sex: 71 / F (units (unknown) date) Date of Service: unknown) (unknown) (no (unknown) (unknown) Allergies (units (unkn own) date) unknown) (unknown) (no (unknown) (unknown) Anticoagulant (units ( unknown) date) long-term use unknown) (unknown) (no (unknown) (unknown) Asthma (units (unkno wn) date) unknown) (unknown) (no (unknown) (unknown) Attending Dr: (units ( unknown) date) Anthony Reddy MD unknown) (unknown) (no (unknown) (unknown) BMI 21.1 (units (un known) date) unknown) (unknown) (no (unknown) (unknown) Cardiomegaly (units (u nknown) date) unknown) (unknown) (no (unknown) (unknown) Cerebral (units (unkno wn) date) infarction unknown) (unknown) (no (unknown) (unknown) Cervicalgia (units (un known) date) unknown) (unknown) (no (unknown) (unknown) Chest pain (units (unk nown) date) unknown) (unknown) (no (unknown) (unknown) Chronic kidney (units (unknown) date) disease unknown) (unknown) (no (unknown) (unknown) Confirmed (units (unkn own) date) 01/04/22] unknown) (unknown) (no (unknown) (unknown) Cough (units (unkno wn) date) unknown) (unknown) (no (unknown) (unknown) : 1950 (units (unknown) date) Acct:[id number] unknown) (unknown) (no (unknown) (unknown) Depression (units (unk nown) date) unknown) (unknown) (no (unknown) (unknown) Dept at (units (unkno wn) date) . unknown) (unknown) (no (unknown) (unknown) Documented By: (units (unknown) date) Anthony Reddy MD unknown) 01/04/22 0940 (unknown) (no (unknown) (unknown) Dysuria (units (unkno wn) date) unknown) (unknown) (no (unknown) (unknown) Fall (units (unkno wn) date) unknown) (unknown) (no (unknown) (unknown) Family History (units (unknown) date) (Reviewed 12/05/21 unknown) @ 14:14 by Anthony Reddy MD) (unknown) (no (unknown) (unknown) Father Throat (units (unknown) date) cancer unknown) (unknown) (no (unknown) (unknown) Frequency of (units (u nknown) date) micturition unknown) (unknown) (no (unknown) (unknown) H/O bilateral (units ( unknown) date) mastectomy unknown) (unknown) (no (unknown) (unknown) Head lump (units (unkn own) date) unknown) (unknown) (no (unknown) (unknown) Heart disease (units ( unknown) date) unknown) (unknown) (no (unknown) (unknown) Height 5 ft 5 (units (unknown) date) in unknown) (unknown) (no (unknown) (unknown) Hematuria (units (unkn own) date) unknown) (unknown) (no (unknown) (unknown) History of (units (unk nown) date) appendectomy unknown) (unknown) (no (unknown) (unknown) History of (units (unk nown) date) cholecystectomy unknown) (unknown) (no (unknown) (unknown) History of (units (unk nown) date) hysterectomy unknown) (unknown) (no (unknown) (unknown) Intake (units (unkno wn) date) unknown) (unknown) (no (unknown) (unknown) Loc: [facility] (units (unkno wn) date) unknown) (unknown) (no (unknown) (unknown) Low back pain (units ( unknown) date) unknown) (unknown) (no (unknown) (unknown) 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 unknown) (unknown) (no (unknown) (unknown) Medical History (units (unknown) date) (Updated 01/01/22 @ unknown) 13:10 by Melly Noe MD) (unknown) (no (unknown) (unknown) Medications (units (un known) date) unknown) (unknown) (no (unknown) (unknown) Mother Ovarian (units (unknown) date) cancer unknown) (unknown) (no (unknown) (unknown) NSAIDS (units (unkno wn) date) (Non-Steroidal unknown) Anti-Inflamma Adverse Reaction (Verified 01/04/22 09:40) (unknown) (no (unknown) (unknown) NSTEMI (non-ST (units (unknown) date) elevated myocardial unknown) infarction) (unknown) (no (unknown) (unknown) Oxygen Delivery (units (unknown) date) Method room air unknown) (unknown) (no (unknown) (unknown) PFSH (units (unkno wn) date) unknown) (unknown) (no (unknown) (unknown) Patient: (units (unkno wn) date) Manda Whitaker unknown) MR#: [id number] (unknown) (no (unknown) (unknown) Peripheral (units (unk nown) date) vascular disease unknown) (unknown) (no (unknown) (unknown) Pulse 70 (units (un known) date) unknown) (unknown) (no (unknown) (unknown) Pulse Oximetry (%) (units (unknown) date) 96 unknown) (unknown) (no (unknown) (unknown) Pulse Source (units (u nknown) date) Monitor unknown) (unknown) (no (unknown) (unknown) Reason For Visit (units (unknown) date) unknown) (unknown) (no (unknown) (unknown) Seborrheic (units (unk nown) date) keratoses unknown) (unknown) (no (unknown) (unknown) Signed By: (units (unk nown) date) unknown) (unknown) (no (unknown) (unknown) Skin disorder (units ( unknown) date) unknown) (unknown) (no (unknown) (unknown) Smoking Status: (units (unknown) date) Current every day unknown) smoker (unknown) (no (unknown) (unknown) Smoking Status: (units (unknown) date) Current every day unknown) smoker (unknown) (no (unknown) (unknown) Social History (units (unknown) date) (Reviewed 12/05/21 unknown) @ 14:14 by Anthony Reddy MD) (unknown) (no (unknown) (unknown) Sulfa (Sulfonamide (units (unknown) date) Antibiotics) unknown) Allergy (Verified 01/04/22 09:40) (unknown) (no (unknown) (unknown) Surgical History (units (unknown) date) (Updated 01/01/22 @ unknown) 12:47 by Melly Noe MD) (unknown) (no (unknown) (unknown) TIA (transient (units (unknown) date) ischemic attack) unknown) (unknown) (no (unknown) (unknown) Temp 97.1 F L (units (unknown) date) unknown) (unknown) (no (unknown) (unknown) Temp Source (units (un known) date) Temporal Artery unknown) Scan (unknown) (no (unknown) (unknown) This note may have (units (unknown) date) been all or unknown) partially generated using voice recognition (unknown) (no (unknown) (unknown) Tobacco Status (units (unknown) date) unknown) (unknown) (no (unknown) (unknown) Urinary calculi (units (unknown) date) unknown) (unknown) (no (unknown) (unknown) Visit Reasons: PO/ (units (unknown) date) LYMPH NODE unknown) BIOPSY/needs port placement per onc (unknown) (no (unknown) (unknown) Vitals (units (unkno wn) date) unknown) (unknown) (no (unknown) (unknown) Weight 127 lb (units (unknown) date) unknown) (unknown) (no (unknown) (unknown) Wrist fracture (units (unknown) date) unknown) (unknown) (no (unknown) (unknown) [History Confirmed (units (unknown) date) 01/04/22] unknown) (unknown) (no (unknown) (unknown) [Rx Confirmed (units ( unknown) date) 01/04/22] unknown) (unknown) (no (unknown) (unknown) acetaminophen 325 (units (unknown) date) mg capsule unknown) (Tylenol) 650 mg PO QID PRN pain #60 caps 12/06/21 (unknown) (no (unknown) (unknown) albuterol sulfate (units (unknown) date) 90 mcg/actuation unknown) aerosol inhaler (Ventolin HFA) 2 puff (unknown) (no (unknown) (unknown) alcohol intake: (units (unknown) date) former unknown) (unknown) (no (unknown) (unknown) alendronate 70 mg (units (unknown) date) tablet 70 mg PO unknown) WEEKLY 12/06/21 [History Confirmed 01/04/22] (unknown) (no (unknown) (unknown) amlodipine 5 mg (units (unknown) date) tablet 5 mg PO unknown) DAILY 11/30/21 [History Confirmed 01/04/22] (unknown) (no (unknown) (unknown) atorvastatin 80 mg (units (unknown) date) tablet 80 mg PO unknown) DAILY 11/30/21 [History Confirmed 01/04/22] (unknown) (no (unknown) (unknown) clopidogrel 75 mg (units (unknown) date) tablet 75 mg PO unknown) DAILY 11/30/21 [History Confirmed 01/04/22] (unknown) (no (unknown) (unknown) diphenoxylate-atro (units (unknown) date) pine 2.5 mg-0.025 unknown) mg tablet 1 tab PO DAILY diarrhea 11/30/21 (unknown) (no (unknown) (unknown) duloxetine Adverse (units (unknown) date) Reaction (Verified unknown) 01/04/22 09:40) (unknown) (no (unknown) (unknown) fluticasone (units (un known) date) propionate 50 unknown) mcg/actuation nasal spray,suspension 1 spray (unknown) (no (unknown) (unknown) have occurred. If (units (unknown) date) there are any unknown) questions, please contact the Medical Records (unknown) (no (unknown) (unknown) household members: (units (unknown) date) family unknown) (unknown) (no (unknown) (unknown) hydrocodone (units (un known) date) Adverse Reaction unknown) (Verified 01/04/22 09:40) (unknown) (no (unknown) (unknown) inhalation Q6H PRN (units (unknown) date) Bronchodilation unknown) 11/30/21 [History Confirmed 01/04/22] (unknown) (no (unknown) (unknown) intranasal DAILY (units (unknown) date) 11/30/21 [History unknown) Confirmed 01/04/22] (unknown) (no (unknown) (unknown) may occur. (units (unk nown) date) Occasional unknown) wrong-word or 'sound-alike' substitutions may have (unknown) (no (unknown) (unknown) meclizine Adverse (units (unknown) date) Reaction (Verified unknown) 01/04/22 09:40) (unknown) (no (unknown) (unknown) metoprolol (units (unk nown) date) tartrate 25 mg unknown) tablet 25 mg PO BID 11/30/21 [History Confirmed (unknown) (no (unknown) (unknown) montelukast 10 mg (units (unknown) date) tablet 10 mg PO unknown) DAILY 11/30/21 [History Confirmed 01/04/22] (unknown) (no (unknown) (unknown) nirmatrelvir [From (units (unknown) date) Paxlovid (EUA)] unknown) Adverse Reaction (Verified 01/04/22 09:40) (unknown) (no (unknown) (unknown) occurred due to (units (unknown) date) the inherent unknown) limitations of voice recognition software. Please (unknown) (no (unknown) (unknown) oxycodone 5 mg (units (unknown) date) tablet 5 mg PO BID unknown) PRN Pain (Scale Score 7-10) 11/30/21 [History (unknown) (no (unknown) (unknown) paroxetine Adverse (units (unknown) date) Reaction (Verified unknown) 01/04/22 09:40) (unknown) (no (unknown) (unknown) read the note (units ( unknown) date) carefully and unknown) recognize, using context, where these substitutions (unknown) (no (unknown) (unknown) retroperitoneum (units (unknown) date) unknown) (unknown) (no (unknown) (unknown) ritonavir [From (units (unknown) date) Paxlovid (EUA)] unknown) Adverse Reaction (Verified 01/04/22 09:40) (unknown) (no (unknown) (unknown) software. Although (units (unknown) date) every effort is unknown) made to edit content, vp global errors (unknown) (no (unknown) (unknown) solifenacin (units (un known) date) Adverse Reaction unknown) (Verified 01/04/22 09:40) (unknown) (no (unknown) (unknown) substance use (units ( unknown) date) type: does not use unknown) (unknown) (no (unknown) (unknown) suvorexant [From (units (unknown) date) Belsomra] Adverse unknown) Reaction (Verified 01/04/22 09:40) (unknown) (no (unknown) (unknown) tizanidine 2 mg (units (unknown) date) tablet 2 mg PO PRN unknown) PRN Muscle Pain 12/06/21 [History Confirmed (unknown) (no (unknown) (unknown) trazodone 150 mg (units (unknown) date) tablet 150 mg PO unknown) BEDTIME PRN Sleep 11/30/21 [History Confirmed (unknown) (no (unknown) (unknown) ursodiol Adverse (units (unknown) date) Reaction (Verified unknown) 01/04/22 09:40) Result panel 23 (unknown) (no (unknown) (unknown) (no value) (units (unk nown) date) unknown) (unknown) (no (unknown) (unknown) [address] [place] [address] (units (unknown) date) unknown) (unknown) (no (unknown) (unknown) [place], [place] (units ( unknown) date) [id number] unknown) (unknown) (no (unknown) (unknown) [facility] (units (unknown) date) unknown) (unknown) (no (unknown) (unknown) Magnetic (units (unkno wn) date) Resonance Report unknown) (unknown) (no (unknown) (unknown) Signed (units (unkno wn) date) unknown) (unknown) (no (unknown) (unknown) (no value) (units (unk nown) date) unknown) (unknown) (no (unknown) (unknown) - If clinically (units (unknown) date) appropriate, unknown) please consider a follow-up whole-body nuclear (unknown) (no (unknown) (unknown) 01/04/22 (units (unkno wn) date) unknown) (unknown) (no (unknown) (unknown) Approved by: (units (u nknown) date) Mario Yao, unknown) Arianna on 01/04/2022 at 13:26 (unknown) (no (unknown) (unknown) Brain: No (units (unk nown) date) intracranial unknown) bleeds or mass effects. No abnormal intracranial (unknown) (no (unknown) (unknown) COMPARISON: (units (un known) date) [facility], unknown) NM, NM PET CT FUSION SKULL 2 THIGH, 01/03/2022, (unknown) (no (unknown) (unknown) CSF spaces: (units (un known) date) Ventricles are unknown) normal in size and shape. Basal cisterns are (unknown) (no (unknown) (unknown) CT CHEST W CON, (units (unknown) date) 11/21/2021, 13:10. unknown) (unknown) (no (unknown) (unknown) Dictated by: (units (u nknown) date) Mario Yao unknownFrederick Keller on 01/04/2022 at 13:23 (unknown) (no (unknown) (unknown) FINDINGS: (units (unkn own) date) unknown) (unknown) (no (unknown) (unknown) Charles-white (units (unk nown) date) matter interface unknown) appears intact. Diffusion weighted images (unknown) (no (unknown) (unknown) However, (units (unkno wn) date) numerous unknown) irregularly enhancing areas can be seen within the calvarium. (unknown) (no (unknown) (unknown) IMPRESSION: No (units (unknown) date) dana parenchymal unknown) masses or abnormal enhancement can be seen. 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 unknown) (unknown) (no (unknown) (unknown) [facility], (units (unknown) date) CT, CT SOFT unknown) TISSUE NECK W CON, 11/21/2021, 13:10. [place] (unknown) (no (unknown) (unknown) Noncontrast (units (un known) date) axial T1 spin unknown) echo, axial T2 fast spin echo, sagittal and axial (unknown) (no (unknown) (unknown) Note is made of (units (unknown) date) age-appropriate unknown) brain parenchymal volume loss and chronic small (unknown) (no (unknown) (unknown) Optional (units (unkno wn) date) contrast, unknown) followed by axial and coronal and sagittal 3D VIBE or T1 (unknown) (no (unknown) (unknown) Orbits appear (units ( unknown) date) normal. Note is unknown) made of bilateral lens replacements. (unknown) (no (unknown) (unknown) Sinuses: (units (unkno wn) date) Sinuses and unknown) mastoids are clear. (unknown) (no (unknown) (unknown) Skull and face: (units (unknown) date) Numerous unknown) irregularly enhancing foci can be seen within the (unknown) (no (unknown) (unknown) TECHNIQUE: (units (unk nown) date) unknown) (unknown) (no (unknown) (unknown) There is (units (unkno wn) date) unknown) (unknown) (no (unknown) (unknown) acute ischemic (units (unknown) date) insults. unknown) Brainstem appear normal. Normal intravascular flow (unknown) (no (unknown) (unknown) extra-axial (units (un known) date) fluid unknown) collections. (unknown) (no (unknown) (unknown) gradient echo, (units (unknown) date) axial diffusion unknown) and ADC, coronal thin-slice T2 FSE through the (unknown) (no (unknown) (unknown) ischemic (units (unkno wn) date) changes. unknown) (unknown) (no (unknown) (unknown) moderate (units (unkno wn) date) suspicion for unknown) bony metastatic disease. (unknown) (no (unknown) (unknown) present. The (units ( unknown) date) hippocampal unknown) regions appear normal and symmetric in morphology. (unknown) (no (unknown) (unknown) scan. (units (unkno wn) date) unknown) (unknown) (no (unknown) (unknown) with fat (units (unkno wn) date) saturation unknown) sequences through the brain. (unknown) (no (unknown) (unknown) [id number] (units (unkn own) date) unknown) (unknown) (no (unknown) (unknown) 10:53. (units (unkno wn) date) unknown) (unknown) (no (unknown) (unknown) Accession (units (unkn own) date) Number: unknown) [id number] (unknown) (no (unknown) (unknown) Age/Sex: 71 / F (units (unknown) date) Date of unknown) Service: (unknown) (no (unknown) (unknown) : 1950 (units (unknown) date) Acct:[id number] unknown) (unknown) (no (unknown) (unknown) FLAIR, axial (units (u nknown) date) unknown) (unknown) (no (unknown) (unknown) Hospital, CT, (units ( unknown) date) unknown) (unknown) (no (unknown) (unknown) Loc: MRI (units (unkno wn) date) unknown) (unknown) (no (unknown) (unknown) Ordering (units (unkno wn) date) Provider: unknown) Melly Noe MD (unknown) (no (unknown) (unknown) PROCEDURE: MR (units (unknown) date) HEAD/BRAIN WO/W unknown) CON (unknown) (no (unknown) (unknown) Patient: (units (unkno wn) date) Manda Whitaker unknown) MR#: M (unknown) (no (unknown) (unknown) Procedure: MR (units ( unknown) date) head/brain wo/w unknown) con (unknown) (no (unknown) (unknown) brain. (units (unkno wn) date) unknown) (unknown) (no (unknown) (unknown) calvarium. (units (unk nown) date) unknown) (unknown) (no (unknown) (unknown) demonstrate no (units (unknown) date) unknown) (unknown) (no (unknown) (unknown) enhancement. (units (u nknown) date) unknown) (unknown) (no (unknown) (unknown) medicine bone (units ( unknown) date) unknown) (unknown) (no (unknown) (unknown) patent. No (units (un known) date) unknown) (unknown) (no (unknown) (unknown) spin echo (units (unkn own) date) unknown) (unknown) (no (unknown) (unknown) vessel (units (unkno wn) date) unknown) (unknown) (no (unknown) (unknown) voids are (units (unkn own) date) unknown) Result panel 24 (unknown) (no (unknown) (unknown) (no value) (units (unk nown) date) unknown) (unknown) (no (unknown) (unknown) (no value) (units (unk nown) date) unknown) (unknown) (no (unknown) (unknown) (no value) (units (unk nown) date) unknown) (unknown) (no (unknown) (unknown) 01/04/22 (units (unkno wn) date) unknown) (unknown) (no (unknown) (unknown) 09:42 (units (unkno wn) date) unknown) (unknown) (no (unknown) (unknown) [place], [place] (units ( unknown) date) [id number] unknown) (unknown) (no (unknown) (unknown) Cancer of kidney (units (unknown) date) unknown) (unknown) (no (unknown) (unknown) Draft (units (unkno wn) date) unknown) (unknown) (no (unknown) (unknown) Gastrointestinal (units (unknown) date) Upset unknown) (unknown) (no (unknown) (unknown) Hypertension (units (u nknown) date) unknown) (unknown) (no (unknown) (unknown) Hypotension (units (un known) date) unknown) (unknown) (no (unknown) (unknown) [facility] (units (unknown) date) unknown) (unknown) (no (unknown) (unknown) Lung cancer (units (un known) date) unknown) (unknown) (no (unknown) (unknown) Nightmare (units (unkn own) date) unknown) (unknown) (no (unknown) (unknown) Rash (units (unkno wn) date) unknown) (unknown) (no (unknown) (unknown) Surgery Office (units (unknown) date) Visit unknown) (unknown) (no (unknown) (unknown) (no value) (units (unk nown) date) unknown) (unknown) (no (unknown) (unknown) [id number] (units (unkno wn) date) unknown) (unknown) (no (unknown) (unknown) 01/04/22 (units (unkno wn) date) unknown) (unknown) (no (unknown) (unknown) 01/04/22] (units (unkn own) date) unknown) (unknown) (no (unknown) (unknown) 71 year old woman (units (unknown) date) referred for port a unknown) cath placement secondary to metastatic (unknown) (no (unknown) (unknown) Abnormal (units (unkno wn) date) colonoscopy unknown) (unknown) (no (unknown) (unknown) Abnormal findings (units (unknown) date) on diagnostic unknown) imaging of other abdominal regions, including (unknown) (no (unknown) (unknown) Abrasion head (units ( unknown) date) unknown) (unknown) (no (unknown) (unknown) Age/Sex: 71 / F (units (unknown) date) Date of Service: unknown) (unknown) (no (unknown) (unknown) Allergies (units (unkn own) date) unknown) (unknown) (no (unknown) (unknown) Anticoagulant (units ( unknown) date) long-term use unknown) (unknown) (no (unknown) (unknown) Asthma (units (unkno wn) date) unknown) (unknown) (no (unknown) (unknown) Attending Dr: (units ( unknown) date) Anthony Reddy MD unknown) (unknown) (no (unknown) (unknown) BMI 21.1 (units (un known) date) unknown) (unknown) (no (unknown) (unknown) Cardiomegaly (units (u nknown) date) unknown) (unknown) (no (unknown) (unknown) Cerebral (units (unkno wn) date) infarction unknown) (unknown) (no (unknown) (unknown) Cervicalgia (units (un known) date) unknown) (unknown) (no (unknown) (unknown) Chest pain (units (unk nown) date) unknown) (unknown) (no (unknown) (unknown) Chief Complaint (units (unknown) date) unknown) (unknown) (no (unknown) (unknown) Chief Complaint: (units (unknown) date) port placement unknown) (unknown) (no (unknown) (unknown) Chronic kidney (units (unknown) date) disease unknown) (unknown) (no (unknown) (unknown) Confirmed (units (unkn own) date) 01/04/22] unknown) (unknown) (no (unknown) (unknown) Cough (units (unkno wn) date) unknown) (unknown) (no (unknown) (unknown) : 1950 (units (unknown) date) Acct:[id number] unknown) (unknown) (no (unknown) (unknown) Depression (units (unk nown) date) unknown) (unknown) (no (unknown) (unknown) Dept at (units (unkno wn) date) . unknown) (unknown) (no (unknown) (unknown) Details: (units (unkno wn) date) unknown) (unknown) (no (unknown) (unknown) Documented By: (units (unknown) date) Anthony Reddy MD unknown) 01/04/22 0940 (unknown) (no (unknown) (unknown) Dysuria (units (unkno wn) date) unknown) (unknown) (no (unknown) (unknown) Fall (units (unkno wn) date) unknown) (unknown) (no (unknown) (unknown) Family History (units (unknown) date) (Reviewed 12/05/21 unknown) @ 14:14 by Anthony Reddy MD) (unknown) (no (unknown) (unknown) Father Throat (units (unknown) date) cancer unknown) (unknown) (no (unknown) (unknown) Frequency of (units (u nknown) date) micturition unknown) (unknown) (no (unknown) (unknown) H/O bilateral (units ( unknown) date) mastectomy unknown) (unknown) (no (unknown) (unknown) HPI (units (unkno wn) date) unknown) (unknown) (no (unknown) (unknown) Head lump (units (unkn own) date) unknown) (unknown) (no (unknown) (unknown) Heart disease (units ( unknown) date) unknown) (unknown) (no (unknown) (unknown) Height 5 ft 5 (units (unknown) date) in unknown) (unknown) (no (unknown) (unknown) Hematuria (units (unkn own) date) unknown) (unknown) (no (unknown) (unknown) History of (units (unk nown) date) appendectomy unknown) (unknown) (no (unknown) (unknown) History of (units (unk nown) date) cholecystectomy unknown) (unknown) (no (unknown) (unknown) History of (units (unk nown) date) hysterectomy unknown) (unknown) (no (unknown) (unknown) Intake (units (unkno wn) date) unknown) (unknown) (no (unknown) (unknown) Loc: [facility]G (units (unkno wn) date) unknown) (unknown) (no (unknown) (unknown) Low back pain (units ( unknown) date) unknown) (unknown) (no (unknown) (unknown) 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 unknown) (unknown) (no (unknown) (unknown) Medical History (units (unknown) date) (Updated 01/01/22 @ unknown) 13:10 by Melly Noe MD) (unknown) (no (unknown) (unknown) Medications (units (un known) date) unknown) (unknown) (no (unknown) (unknown) Mother Ovarian (units (unknown) date) cancer unknown) (unknown) (no (unknown) (unknown) NSAIDS (units (unkno wn) date) (Non-Steroidal unknown) Anti-Inflamma Adverse Reaction (Verified 01/04/22 09:40) (unknown) (no (unknown) (unknown) NSTEMI (non-ST (units (unknown) date) elevated myocardial unknown) infarction) (unknown) (no (unknown) (unknown) Oxygen Delivery (units (unknown) date) Method room air unknown) (unknown) (no (unknown) (unknown) PFSH (units (unkno wn) date) unknown) (unknown) (no (unknown) (unknown) Patient: (units (unkno wn) date) Manda Whitaker unknown) MR#: [id number] (unknown) (no (unknown) (unknown) Peripheral (units (unk nown) date) vascular disease unknown) (unknown) (no (unknown) (unknown) Pulse 70 (units (un known) date) unknown) (unknown) (no (unknown) (unknown) Pulse Oximetry (%) (units (unknown) date) 96 unknown) (unknown) (no (unknown) (unknown) Pulse Source (units (u nknown) date) Monitor unknown) (unknown) (no (unknown) (unknown) Reason For Visit (units (unknown) date) unknown) (unknown) (no (unknown) (unknown) Seborrheic (units (unk nown) date) keratoses unknown) (unknown) (no (unknown) (unknown) She has never had (units (unknown) date) a prior inwdewlling unknown) central venous catheter. She does not (unknown) (no (unknown) (unknown) She has widely (units (unknown) date) metastatic disease unknown) and intends to start paliative chemotherapy. (unknown) (no (unknown) (unknown) Signed By: (units (unk nown) date) unknown) (unknown) (no (unknown) (unknown) Skin disorder (units ( unknown) date) unknown) (unknown) (no (unknown) (unknown) Smoking Status: (units (unknown) date) Current every day unknown) smoker (unknown) (no (unknown) (unknown) Smoking Status: (units (unknown) date) Current every day unknown) smoker (unknown) (no (unknown) (unknown) Social History (units (unknown) date) (Reviewed 12/05/21 unknown) @ 14:14 by Anthony Reddy MD) (unknown) (no (unknown) (unknown) Status post (units (un known) date) excisional biopsy unknown) (12/06/21) (unknown) (no (unknown) (unknown) Sulfa (Sulfonamide (units (unknown) date) Antibiotics) unknown) Allergy (Verified 01/04/22 09:40) (unknown) (no (unknown) (unknown) Surgical History (units (unknown) date) (Updated 01/04/22 @ unknown) 15:10 by Mojgan Barrios RN) (unknown) (no (unknown) (unknown) TIA (transient (units (unknown) date) ischemic attack) unknown) (unknown) (no (unknown) (unknown) Temp 97.1 F L (units (unknown) date) unknown) (unknown) (no (unknown) (unknown) Temp Source (units (un known) date) Temporal Artery unknown) Scan (unknown) (no (unknown) (unknown) This note may have (units (unknown) date) been all or unknown) partially generated using voice recognition (unknown) (no (unknown) (unknown) Tobacco Status (units (unknown) date) unknown) (unknown) (no (unknown) (unknown) Urinary calculi (units (unknown) date) unknown) (unknown) (no (unknown) (unknown) Visit Reasons: PO/ (units (unknown) date) LYMPH NODE unknown) BIOPSY/needs port placement per onc (unknown) (no (unknown) (unknown) Vitals (units (unkno wn) date) unknown) (unknown) (no (unknown) (unknown) Weight 127 lb (units (unknown) date) unknown) (unknown) (no (unknown) (unknown) Wrist fracture (units (unknown) date) unknown) (unknown) (no (unknown) (unknown) [History Confirmed (units (unknown) date) 01/04/22] unknown) (unknown) (no (unknown) (unknown) [Rx Confirmed (units ( unknown) date) 01/04/22] unknown) (unknown) (no (unknown) (unknown) acetaminophen 325 (units (unknown) date) mg capsule unknown) (Tylenol) 650 mg PO QID PRN pain #60 caps 12/06/21 (unknown) (no (unknown) (unknown) albuterol sulfate (units (unknown) date) 90 mcg/actuation unknown) aerosol inhaler (Ventolin HFA) 2 puff (unknown) (no (unknown) (unknown) alcohol intake: (units (unknown) date) former unknown) (unknown) (no (unknown) (unknown) alendronate 70 mg (units (unknown) date) tablet 70 mg PO unknown) WEEKLY 12/06/21 [History Confirmed 01/04/22] (unknown) (no (unknown) (unknown) amlodipine 5 mg (units (unknown) date) tablet 5 mg PO unknown) DAILY 11/30/21 [History Confirmed 01/04/22] (unknown) (no (unknown) (unknown) atorvastatin 80 mg (units (unknown) date) tablet 80 mg PO unknown) DAILY 11/30/21 [History Confirmed 01/04/22] (unknown) (no (unknown) (unknown) clopidogrel 75 mg (units (unknown) date) tablet 75 mg PO unknown) DAILY 11/30/21 [History Confirmed 01/04/22] (unknown) (no (unknown) (unknown) diphenoxylate-atro (units (unknown) date) pine 2.5 mg-0.025 unknown) mg tablet 1 tab PO DAILY diarrhea 11/30/21 (unknown) (no (unknown) (unknown) duloxetine Adverse (units (unknown) date) Reaction (Verified unknown) 01/04/22 09:40) (unknown) (no (unknown) (unknown) fluticasone (units (un known) date) propionate 50 unknown) mcg/actuation nasal spray,suspension 1 spray (unknown) (no (unknown) (unknown) have occurred. If (units (unknown) date) there are any unknown) questions, please contact the Medical Records (unknown) (no (unknown) (unknown) household members: (units (unknown) date) family unknown) (unknown) (no (unknown) (unknown) hydrocodone (units (un known) date) Adverse Reaction unknown) (Verified 01/04/22 09:40) (unknown) (no (unknown) (unknown) inhalation Q6H PRN (units (unknown) date) Bronchodilation unknown) 11/30/21 [History Confirmed 01/04/22] (unknown) (no (unknown) (unknown) intranasal DAILY (units (unknown) date) 11/30/21 [History unknown) Confirmed 01/04/22] (unknown) (no (unknown) (unknown) may occur. (units (unk nown) date) Occasional unknown) wrong-word or 'sound-alike' substitutions may have (unknown) (no (unknown) (unknown) meclizine Adverse (units (unknown) date) Reaction (Verified unknown) 01/04/22 09:40) (unknown) (no (unknown) (unknown) metoprolol (units (unk nown) date) tartrate 25 mg unknown) tablet 25 mg PO BID 11/30/21 [History Confirmed (unknown) (no (unknown) (unknown) montelukast 10 mg (units (unknown) date) tablet 10 mg PO unknown) DAILY 11/30/21 [History Confirmed 01/04/22] (unknown) (no (unknown) (unknown) nirmatrelvir [From (units (unknown) date) Paxlovid (EUA)] unknown) Adverse Reaction (Verified 01/04/22 09:40) (unknown) (no (unknown) (unknown) occurred due to (units (unknown) date) the inherent unknown) limitations of voice recognition software. Please (unknown) (no (unknown) (unknown) oxycodone 5 mg (units (unknown) date) tablet 5 mg PO BID unknown) PRN Pain (Scale Score 7-10) 11/30/21 [History (unknown) (no (unknown) (unknown) paroxetine Adverse (units (unknown) date) Reaction (Verified unknown) 01/04/22 09:40) (unknown) (no (unknown) (unknown) read the note (units ( unknown) date) carefully and unknown) recognize, using context, where these substitutions (unknown) (no (unknown) (unknown) retroperitoneum (units (unknown) date) unknown) (unknown) (no (unknown) (unknown) ritonavir [From (units (unknown) date) Paxlovid (EUA)] unknown) Adverse Reaction (Verified 01/04/22 09:40) (unknown) (no (unknown) (unknown) [id number] weeks (units (unknown) date) ago without issue unknown) for an excisional biopsy of the right neck (unknown) (no (unknown) (unknown) small cell lung (units (unknown) date) cancer. unknown) (unknown) (no (unknown) (unknown) software. Although (units (unknown) date) every effort is unknown) made to edit content, vp global errors (unknown) (no (unknown) (unknown) solifenacin (units (un known) date) Adverse Reaction unknown) (Verified 01/04/22 09:40) (unknown) (no (unknown) (unknown) substance use (units ( unknown) date) type: does not use unknown) (unknown) (no (unknown) (unknown) suvorexant [From (units (unknown) date) Belsomra] Adverse unknown) Reaction (Verified 01/04/22 09:40) (unknown) (no (unknown) (unknown) take (units (unkno wn) date) anticoagulation but unknown) does take Clopidogrel. She tolerated anesthesia (unknown) (no (unknown) (unknown) tizanidine 2 mg (units (unknown) date) tablet 2 mg PO PRN unknown) PRN Muscle Pain 12/06/21 [History Confirmed (unknown) (no (unknown) (unknown) trazodone 150 mg (units (unknown) date) tablet 150 mg PO unknown) BEDTIME PRN Sleep 11/30/21 [History Confirmed (unknown) (no (unknown) (unknown) ursodiol Adverse (units (unknown) date) Reaction (Verified unknown) 01/04/22 09:40) Result panel 25 (unknown) (no (unknown) (unknown) (no value) (units (unk nown) date) unknown) (unknown) (no (unknown) (unknown) Status: Acute (units ( unknown) date) unknown) (unknown) (no (unknown) (unknown) (no value) (units (unk nown) date) unknown) (unknown) (no (unknown) (unknown) (no value) (units (unk nown) date) unknown) (unknown) (no (unknown) (unknown) 01/04/22 (units (unkno wn) date) unknown) (unknown) (no (unknown) (unknown) 01/04/221920 (units ( unknown) date) unknown) (unknown) (no (unknown) (unknown) 09:42 (units (unkno wn) date) unknown) (unknown) (no (unknown) (unknown) [place], [place] (units ( unknown) date) [id number] unknown) (unknown) (no (unknown) (unknown) Cancer of kidney (units (unknown) date) unknown) (unknown) (no (unknown) (unknown) Gastrointestinal (units (unknown) date) Upset unknown) (unknown) (no (unknown) (unknown) Hypertension (units (u nknown) date) unknown) (unknown) (no (unknown) (unknown) Hypotension (units (un known) date) unknown) (unknown) (no (unknown) (unknown) [facility] (units (unknown) date) unknown) (unknown) (no (unknown) (unknown) Lung cancer (units (un known) date) unknown) (unknown) (no (unknown) (unknown) Nightmare (units (unkn own) date) unknown) (unknown) (no (unknown) (unknown) Rash (units (unkno wn) date) unknown) (unknown) (no (unknown) (unknown) Signed (units (unkno wn) date) unknown) (unknown) (no (unknown) (unknown) Surgery Office (units (unknown) date) Visit unknown) (unknown) (no (unknown) (unknown) (no value) (units (unk nown) date) unknown) (unknown) (no (unknown) (unknown) (1) 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: (unknown) (no (unknown) (unknown) - (units (unkno wn) date) unknown) (unknown) (no (unknown) (unknown) -Hold Plavix 5 (units (unknown) date) days preop unknown) (unknown) (no (unknown) (unknown) [id number] (units (unkno wn) date) unknown) (unknown) (no (unknown) (unknown) 01/04/22 (units (unkno wn) date) unknown) (unknown) (no (unknown) (unknown) 01/04/22] (units (unkn own) date) unknown) (unknown) (no (unknown) (unknown) 71 y.o woman with (units (unknown) date) metastatic small unknown) cell lung cancer hx of CAD, COPD, PVD who (unknown) (no (unknown) (unknown) 71 year old woman (units (unknown) date) referred for port a unknown) cath placement secondary to metastatic (unknown) (no (unknown) (unknown) Abnormal (units (unkno wn) date) colonoscopy unknown) (unknown) (no (unknown) (unknown) Abnormal findings (units (unknown) date) on diagnostic unknown) imaging of other abdominal regions, including (unknown) (no (unknown) (unknown) Abrasion head (units ( unknown) date) unknown) (unknown) (no (unknown) (unknown) Active tobacco use (units (unknown) date) unknown) (unknown) (no (unknown) (unknown) Age/Sex: 71 / F (units (unknown) date) Date of Service: unknown) (unknown) (no (unknown) (unknown) Allergies (units (unkn own) date) unknown) (unknown) (no (unknown) (unknown) Anticoagulant (units ( unknown) date) long-term use unknown) (unknown) (no (unknown) (unknown) Assessment + Plan (units (unknown) date) unknown) (unknown) (no (unknown) (unknown) Asthma (units (unkno wn) date) unknown) (unknown) (no (unknown) (unknown) Attending Dr: (units ( unknown) date) Anthony Reddy MD unknown) (unknown) (no (unknown) (unknown) BMI 21.1 (units (un known) date) unknown) (unknown) (no (unknown) (unknown) CAD (units (unkno wn) date) unknown) (unknown) (no (unknown) (unknown) COPD not on oxygen (units (unknown) date) unknown) (unknown) (no (unknown) (unknown) Cardiomegaly (units (u nknown) date) unknown) (unknown) (no (unknown) (unknown) Cerebral (units (unkno wn) date) infarction unknown) (unknown) (no (unknown) (unknown) Cervicalgia (units (un known) date) unknown) (unknown) (no (unknown) (unknown) Chest pain (units (unk nown) date) unknown) (unknown) (no (unknown) (unknown) Chief Complaint (units (unknown) date) unknown) (unknown) (no (unknown) (unknown) Chief Complaint: (units (unknown) date) port placement unknown) (unknown) (no (unknown) (unknown) Chronic kidney (units (unknown) date) disease unknown) (unknown) (no (unknown) (unknown) Confirmed (units (unkn own) date) 01/04/22] unknown) (unknown) (no (unknown) (unknown) Cough (units (unkno wn) date) unknown) (unknown) (no (unknown) (unknown) : 1950 (units (unknown) date) Acct:[id number] unknown) (unknown) (no (unknown) (unknown) Depression (units (unk nown) date) unknown) (unknown) (no (unknown) (unknown) Dept at (units (unkno wn) date) . unknown) (unknown) (no (unknown) (unknown) Details: (units (unkno wn) date) unknown) (unknown) (no (unknown) (unknown) Documented By: (units (unknown) date) Anthony Reddy MD unknown) 01/04/22 0940 (unknown) (no (unknown) (unknown) Dysuria (units (unkno wn) date) unknown) (unknown) (no (unknown) (unknown) Exam (units (unkno wn) date) unknown) (unknown) (no (unknown) (unknown) Exam Narrative (units (unknown) date) unknown) (unknown) (no (unknown) (unknown) Exam Narrative: (units (unknown) date) unknown) (unknown) (no (unknown) (unknown) Fall (units (unkno wn) date) unknown) (unknown) (no (unknown) (unknown) Family History (units (unknown) date) (Reviewed 01/04/22 unknown) @ 19:13 by Anthony Reddy MD) (unknown) (no (unknown) (unknown) Father Throat (units (unknown) date) cancer unknown) (unknown) (no (unknown) (unknown) Frequency of (units (u nknown) date) micturition unknown) (unknown) (no (unknown) (unknown) Gen-Adult woman (units (unknown) date) alert and oriented unknown) (unknown) (no (unknown) (unknown) H/O bilateral (units ( unknown) date) mastectomy unknown) (unknown) (no (unknown) (unknown) HPI (units (unkno wn) date) unknown) (unknown) (no (unknown) (unknown) Head lump (units (unkn own) date) unknown) (unknown) (no (unknown) (unknown) Heart disease (units ( unknown) date) unknown) (unknown) (no (unknown) (unknown) Height 5 ft 5 (units (unknown) date) in unknown) (unknown) (no (unknown) (unknown) Hematuria (units (unkn own) date) unknown) (unknown) (no (unknown) (unknown) History of (units (unk nown) date) appendectomy unknown) (unknown) (no (unknown) (unknown) History of (units (unk nown) date) cholecystectomy unknown) (unknown) (no (unknown) (unknown) History of (units (unk nown) date) hysterectomy unknown) (unknown) (no (unknown) (unknown) Hx (units (unkno wn) date) unknown) (unknown) (no (unknown) (unknown) Intake (units (unkno wn) date) unknown) (unknown) (no (unknown) (unknown) Loc: [facility] (units (unkno wn) date) unknown) (unknown) (no (unknown) (unknown) Low back pain (units ( unknown) date) unknown) (unknown) (no (unknown) (unknown) 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 unknown) (unknown) (no (unknown) (unknown) Medical History (units (unknown) date) (Reviewed 01/04/22 unknown) @ 19:13 by Anthony Reddy MD) (unknown) (no (unknown) (unknown) Medications (units (un known) date) unknown) (unknown) (no (unknown) (unknown) Mother Ovarian (units (unknown) date) cancer unknown) (unknown) (no (unknown) (unknown) NSAIDS (units (unkno wn) date) (Non-Steroidal unknown) Anti-Inflamma Adverse Reaction (Verified 01/04/22 09:40) (unknown) (no (unknown) (unknown) NSTEMI (non-ST (units (unknown) date) elevated myocardial unknown) infarction) (unknown) (no (unknown) (unknown) Neck-Right neck (units (unknown) date) incision CDI bulky unknown) right cervical lymphadenopathy. No (unknown) (no (unknown) (unknown) Oxygen Delivery (units (unknown) date) Method room air unknown) (unknown) (no (unknown) (unknown) PFSH (units (unkno wn) date) unknown) (unknown) (no (unknown) (unknown) PVD (units (unkno wn) date) unknown) (unknown) (no (unknown) (unknown) Patient: (units (unkno wn) date) Manda Whitaker unknown) MR#: [id number] (unknown) (no (unknown) (unknown) Peripheral (units (unk nown) date) vascular disease unknown) (unknown) (no (unknown) (unknown) Plan (units (unkno wn) date) unknown) (unknown) (no (unknown) (unknown) Pulse 70 (units (un known) date) unknown) (unknown) (no (unknown) (unknown) Pulse Oximetry (%) (units (unknown) date) 96 unknown) (unknown) (no (unknown) (unknown) Pulse Source (units (u nknown) date) Monitor unknown) (unknown) (no (unknown) (unknown) Reason For Visit (units (unknown) date) unknown) (unknown) (no (unknown) (unknown) Seborrheic (units (unk nown) date) keratoses unknown) (unknown) (no (unknown) (unknown) She has never had a (units (unknown) date) prior indewlling unknown) central venous catheter. She does not take (unknown) (no (unknown) (unknown) She has widely (units (unknown) date) metastatic disease unknown) and intends to start palliative chemotherapy. (unknown) (no (unknown) (unknown) Signed By: (units (unk nown) date) <Electronically unknown) signed by Anthony Reddy MD> (unknown) (no (unknown) (unknown) Skin disorder (units ( unknown) date) unknown) (unknown) (no (unknown) (unknown) Smoking Status: (units (unknown) date) Current every day unknown) smoker (unknown) (no (unknown) (unknown) Smoking Status: (units (unknown) date) Current every day unknown) smoker (unknown) (no (unknown) (unknown) Social History (units (unknown) date) (Reviewed 01/04/22 unknown) @ 19:13 by Anthony Reddy MD) (unknown) (no (unknown) (unknown) Status post (units (un known) date) excisional biopsy unknown) (12/06/21) (unknown) (no (unknown) (unknown) Sulfa (Sulfonamide (units (unknown) date) Antibiotics) unknown) Allergy (Verified 01/04/22 09:40) (unknown) (no (unknown) (unknown) Surgical History (units (unknown) date) (Reviewed 01/04/22 unknown) @ 19:13 by Anthony Reddy MD) (unknown) (no (unknown) (unknown) TIA (transient (units (unknown) date) ischemic attack) unknown) (unknown) (no (unknown) (unknown) TIA/C (units (unkno wn) date) unknown) (unknown) (no (unknown) (unknown) Temp 97.1 F L (units (unknown) date) unknown) (unknown) (no (unknown) (unknown) Temp Source (units (un known) date) Temporal Artery unknown) Scan (unknown) (no (unknown) (unknown) This note may have (units (unknown) date) been all or unknown) partially generated using voice recognition (unknown) (no (unknown) (unknown) Time Coding (units (un known) date) Minutes Spent: unknown) (must be on same date of service/appointment ) (unknown) (no (unknown) (unknown) Time Spent (units (unk nown) date) unknown) (unknown) (no (unknown) (unknown) Tobacco Status (units (unknown) date) unknown) (unknown) (no (unknown) (unknown) Total Time: 25 (units (unknown) date) unknown) (unknown) (no (unknown) (unknown) Urinary calculi (units (unknown) date) unknown) (unknown) (no (unknown) (unknown) Visit Reasons: PO/ (units (unknown) date) LYMPH NODE unknown) BIOPSY/needs port placement per onc (unknown) (no (unknown) (unknown) Vitals (units (unkno wn) date) unknown) (unknown) (no (unknown) (unknown) Weight 127 lb (units (unknown) date) unknown) (unknown) (no (unknown) (unknown) Wrist fracture (units (unknown) date) unknown) (unknown) (no (unknown) (unknown) [History Confirmed (units (unknown) date) 01/04/22] unknown) (unknown) (no (unknown) (unknown) [Rx Confirmed (units ( unknown) date) 01/04/22] unknown) (unknown) (no (unknown) (unknown) access. I think it (units (unknown) date) is reasonable to unknown) proceed with left port a cath placement (unknown) (no (unknown) (unknown) acetaminophen 325 (units (unknown) date) mg capsule unknown) (Tylenol) 650 mg PO QID PRN pain #60 caps 12/06/21 (unknown) (no (unknown) (unknown) albuterol sulfate (units (unknown) date) 90 mcg/actuation unknown) aerosol inhaler (Ventolin HFA) 2 puff (unknown) (no (unknown) (unknown) alcohol intake: (units (unknown) date) former unknown) (unknown) (no (unknown) (unknown) alendronate 70 mg (units (unknown) date) tablet 70 mg PO unknown) WEEKLY 12/06/21 [History Confirmed 01/04/22] (unknown) (no (unknown) (unknown) amlodipine 5 mg (units (unknown) date) tablet 5 mg PO unknown) DAILY 11/30/21 [History Confirmed 01/04/22] (unknown) (no (unknown) (unknown) anticoagulation (units (unknown) date) but does take unknown) Clopidogrel. She tolerated general anesthesia (unknown) (no (unknown) (unknown) atorvastatin 80 mg (units (unknown) date) tablet 80 mg PO unknown) DAILY 11/30/21 [History Confirmed 01/04/22] (unknown) (no (unknown) (unknown) be possible. (units (un known) date) However the left unknown) neck may be amendable to ultrasound guided central (unknown) (no (unknown) (unknown) cervical (units (unkno wn) date) lymphadenopathy and unknown) a right neck approach to port placement would not (unknown) (no (unknown) (unknown) clopidogrel 75 mg (units (unknown) date) tablet 75 mg PO unknown) DAILY 11/30/21 [History Confirmed 01/04/22] (unknown) (no (unknown) (unknown) diphenoxylate-atro (units (unknown) date) pine 2.5 mg-0.025 unknown) mg tablet 1 tab PO DAILY diarrhea 11/30/21 (unknown) (no (unknown) (unknown) duloxetine Adverse (units (unknown) date) Reaction (Verified unknown) 01/04/22 09:40) (unknown) (no (unknown) (unknown) embolism, (units (unknown) date) were discussed. unknown) (unknown) (no (unknown) (unknown) fluticasone (units (un known) date) propionate 50 unknown) mcg/actuation nasal spray,suspension 1 spray (unknown) (no (unknown) (unknown) have occurred. If (units (unknown) date) there are any unknown) questions, please contact the Medical Records (unknown) (no (unknown) (unknown) household members: (units (unknown) date) family unknown) (unknown) (no (unknown) (unknown) however she (units (unk nown) date) understands that if unknown) it is not technically possible the backup option (unknown) (no (unknown) (unknown) hydrocodone (units (un known) date) Adverse Reaction unknown) (Verified 01/04/22 09:40) (unknown) (no (unknown) (unknown) including (units (unkn own) date) bleeding, unknown) infection, mechanical device failure, pneumothorax, (unknown) (no (unknown) (unknown) inhalation Q6H PRN (units (unknown) date) Bronchodilation unknown) 11/30/21 [History Confirmed 01/04/22] (unknown) (no (unknown) (unknown) intranasal DAILY (units (unknown) date) 11/30/21 [History unknown) Confirmed 01/04/22] (unknown) (no (unknown) (unknown) is PICC placement. (units (unknown) date) Overview of the unknown) operation was discussed. Operative risks (unknown) (no (unknown) (unknown) may occur. (units (unk nown) date) Occasional unknown) wrong-word or 'sound-alike' substitutions may have (unknown) (no (unknown) (unknown) meclizine Adverse (units (unknown) date) Reaction (Verified unknown) 01/04/22 09:40) (unknown) (no (unknown) (unknown) metoprolol (units (unk nown) date) tartrate 25 mg unknown) tablet 25 mg PO BID 11/30/21 [History Confirmed (unknown) (no (unknown) (unknown) montelukast 10 mg (units (unknown) date) tablet 10 mg PO unknown) DAILY 11/30/21 [History Confirmed 01/04/22] (unknown) (no (unknown) (unknown) needs a port a (units (unknown) date) cath for palliative unknown) chemotherapy. She has bulky right sided (unknown) (no (unknown) (unknown) nirmatrelvir [From (units (unknown) date) Paxlovid (EUA)] unknown) Adverse Reaction (Verified 01/04/22 09:40) (unknown) (no (unknown) (unknown) occurred due to (units (unknown) date) the inherent unknown) limitations of voice recognition software. Please (unknown) (no (unknown) (unknown) oxycodone 5 mg (units (unknown) date) tablet 5 mg PO BID unknown) PRN Pain (Scale Score 7-10) 11/30/21 [History (unknown) (no (unknown) (unknown) paroxetine Adverse (units (unknown) date) Reaction (Verified unknown) 01/04/22 09:40) (unknown) (no (unknown) (unknown) read the note (units ( unknown) date) carefully and unknown) recognize, using context, where these substitutions (unknown) (no (unknown) (unknown) retroperitoneum (units (unknown) date) unknown) (unknown) (no (unknown) (unknown) ritonavir [From (units (unknown) date) Paxlovid (EUA)] unknown) Adverse Reaction (Verified 01/04/22 09:40) (unknown) (no (unknown) (unknown) several weeks ago (units (unknown) date) without issue for unknown) an excisional biopsy of the right neck. (unknown) (no (unknown) (unknown) significant left (units (unknown) date) cervical unknown) lymphadenopathy. (unknown) (no (unknown) (unknown) small cell lung (units (unknown) date) cancer. unknown) (unknown) (no (unknown) (unknown) software. Although (units (unknown) date) every effort is unknown) made to edit content, vp global errors (unknown) (no (unknown) (unknown) solifenacin (units (un known) date) Adverse Reaction unknown) (Verified 01/04/22 09:40) (unknown) (no (unknown) (unknown) substance use (units ( unknown) date) type: does not use unknown) (unknown) (no (unknown) (unknown) suvorexant [From (units (unknown) date) Belsomra] Adverse unknown) Reaction (Verified 01/04/22 09:40) (unknown) (no (unknown) (unknown) tizanidine 2 mg (units (unknown) date) tablet 2 mg PO PRN unknown) PRN Muscle Pain 12/06/21 [History Confirmed (unknown) (no (unknown) (unknown) trazodone 150 mg (units (unknown) date) tablet 150 mg PO unknown) BEDTIME PRN Sleep 11/30/21 [History Confirmed (unknown) (no (unknown) (unknown) ursodiol Adverse (units (unknown) date) Reaction (Verified unknown) 01/04/22 09:40) Result panel 26 (unknown) (no (unknown) (unknown) (no value) (units (unk nown) date) unknown) (unknown) (no (unknown) (unknown) COVID-19 (units (u nknown) date) unknown) (unknown) (no (unknown) (unknown) [id number] (units (unkno wn) date) unknown) (unknown) (no (unknown) (unknown) 01/09/22 (units (unkno wn) date) unknown) (unknown) (no (unknown) (unknown) Age/Sex: 71 / F (units (unknown) date) Date of Service: unknown) (unknown) (no (unknown) (unknown) Allergies (units (unkn own) date) unknown) (unknown) (no (unknown) (unknown) [place], [place] (units ( unknown) date) [id number] unknown) (unknown) (no (unknown) (unknown) Attending Dr: (units ( unknown) date) Anthony Reddy MD unknown) (unknown) (no (unknown) (unknown) : 1950 (units (unknown) date) Acct:[id number] unknown) (unknown) (no (unknown) (unknown) Dept at (units (unkno wn) date) . unknown) (unknown) (no (unknown) (unknown) Documented By: (units (unknown) date) Anthony Reddy MD unknown) 01/09/22 1048 (unknown) (no (unknown) (unknown) Draft (units (unkno wn) date) unknown) (unknown) (no (unknown) (unknown) Evaluation/Screeni (units (unknown) date) ng for possible unknown) COVID-19 completed?: Yes- COVID-19 CPT (unknown) (no (unknown) (unknown) Gastrointestinal (units (unknown) date) Upset unknown) (unknown) (no (unknown) (unknown) Hypertension (units (u nknown) date) unknown) (unknown) (no (unknown) (unknown) Hypotension (units (un known) date) unknown) (unknown) (no (unknown) (unknown) Intake Note: (units (u nknown) date) unknown) (unknown) (no (unknown) (unknown) Intake performed (units (unknown) date) by: Jb Polk unknown) (unknown) (no (unknown) (unknown) Intake (units (unkno wn) date) unknown) (unknown) (no (unknown) (unknown) Intake- Clincial (units (unknown) date) Staff unknown) (unknown) (no (unknown) (unknown) [facility] (units (unknown) date) unknown) (unknown) (no (unknown) (unknown) Loc: [facility] (units (unkno wn) date) unknown) (unknown) (no (unknown) (unknown) NSAIDS (units (unkno wn) date) (Non-Steroidal unknown) Anti-Inflamma Adverse Reaction (Verified 01/04/22 09:40) (unknown) (no (unknown) (unknown) Nightmare (units (unkn own) date) unknown) (unknown) (no (unknown) (unknown) Note (units (unkno wn) date) unknown) (unknown) (no (unknown) (unknown) Nurse Office Visit (units (unknown) date) unknown) (unknown) (no (unknown) (unknown) Pain, nausea (units (u nknown) date) unknown) (unknown) (no (unknown) (unknown) Patient: (units (unkno wn) date) Goodhall,Manda S unknown) MR#: [id number] (unknown) (no (unknown) (unknown) Pt came in for a (units (unknown) date) pre procedure covid unknown) test. Denied any covid symptoms. Explained (unknown) (no (unknown) (unknown) Rash (units (unkno wn) date) unknown) (unknown) (no (unknown) (unknown) Reason For Visit (units (unknown) date) unknown) (unknown) (no (unknown) (unknown) Signed By: (units (unk nown) date) unknown) (unknown) (no (unknown) (unknown) Smoking Status: (units (unknown) date) Current every day unknown) smoker (unknown) (no (unknown) (unknown) Sulfa (Sulfonamide (units (unknown) date) Antibiotics) unknown) Allergy (Verified 01/04/22 09:40) (unknown) (no (unknown) (unknown) This note may have (units (unknown) date) been all or unknown) partially generated using voice recognition (unknown) (no (unknown) (unknown) Tobacco Status (units (unknown) date) unknown) (unknown) (no (unknown) (unknown) Visit Reasons: (units (unknown) date) COVID/GUS unknown) (unknown) (no (unknown) (unknown) duloxetine Adverse (units (unknown) date) Reaction (Verified unknown) 01/04/22 09:40) (unknown) (no (unknown) (unknown) have occurred. If (units (unknown) date) there are any unknown) questions, please contact the Medical Records (unknown) (no (unknown) (unknown) hydrocodone (units (un known) date) Adverse Reaction unknown) (Verified 01/04/22 09:40) (unknown) (no (unknown) (unknown) may occur. (units (unk nown) date) Occasional unknown) wrong-word or 'sound-alike' substitutions may have (unknown) (no (unknown) (unknown) meclizine Adverse (units (unknown) date) Reaction (Verified unknown) 01/04/22 09:40) (unknown) (no (unknown) (unknown) nirmatrelvir [From (units (unknown) date) Paxlovid (EUA)] unknown) Adverse Reaction (Verified 01/05/22 07:26) (unknown) (no (unknown) (unknown) occurred due to (units (unknown) date) the inherent unknown) limitations of voice recognition software. Please (unknown) (no (unknown) (unknown) paroxetine Adverse (units (unknown) date) Reaction (Verified unknown) 01/04/22 09:40) (unknown) (no (unknown) (unknown) read the note (units ( unknown) date) carefully and unknown) recognize, using context, where these substitutions (unknown) (no (unknown) (unknown) ritonavir [From (units (unknown) date) Paxlovid (EUA)] unknown) Adverse Reaction (Verified 01/05/22 07:26) (unknown) (no (unknown) (unknown) software. Although (units (unknown) date) every effort is unknown) made to edit content, vp global errors (unknown) (no (unknown) (unknown) solifenacin (units (un known) date) Adverse Reaction unknown) (Verified 01/04/22 09:40) (unknown) (no (unknown) (unknown) suvorexant [From (units (unknown) date) Belsomra] Allergy unknown) (Verified 01/05/22 07:26) (unknown) (no (unknown) (unknown) test to pt. (units (un known) date) Tolerated covid unknown) test well. (unknown) (no (unknown) (unknown) ursodiol Adverse (units (unknown) date) Reaction (Verified unknown) 01/04/22 09:40) Result panel 27 (unknown) (no (unknown) (unknown) (no value) (units (unk nown) date) unknown) (unknown) (no (unknown) (unknown) COVID-19 (units (u nknown) date) unknown) (unknown) (no (unknown) (unknown) [id number] (units (unkno wn) date) unknown) (unknown) (no (unknown) (unknown) 01/09/22 1121 (units ( unknown) date) unknown) (unknown) (no (unknown) (unknown) 01/09/22 (units (unkno wn) date) unknown) (unknown) (no (unknown) (unknown) Age/Sex: 71 / F (units (unknown) date) Date of Service: unknown) (unknown) (no (unknown) (unknown) Allergies (units (unkn own) date) unknown) (unknown) (no (unknown) (unknown) [facility] (units ( unknown) date) [id number] unknown) (unknown) (no (unknown) (unknown) Attending Dr: (units ( unknown) date) Anthony Reddy MD unknown) (unknown) (no (unknown) (unknown) : 1950 (units (unknown) date) Acct:[id number] unknown) (unknown) (no (unknown) (unknown) Dept at (units (unkno wn) date) . unknown) (unknown) (no (unknown) (unknown) Documented By: (units (unknown) date) Anthony Reddy MD unknown) 01/09/22 1048 (unknown) (no (unknown) (unknown) Evaluation/Screeni (units (unknown) date) ng for possible unknown) COVID-19 completed?: Yes- COVID-19 CPT (unknown) (no (unknown) (unknown) Gastrointestinal (units (unknown) date) Upset unknown) (unknown) (no (unknown) (unknown) Hypertension (units (u nknown) date) unknown) (unknown) (no (unknown) (unknown) Hypotension (units (un known) date) unknown) (unknown) (no (unknown) (unknown) Intake Note: (units (u nknown) date) unknown) (unknown) (no (unknown) (unknown) Intake performed (units (unknown) date) by: Jb Polk unknown) (unknown) (no (unknown) (unknown) Intake (units (unkno wn) date) unknown) (unknown) (no (unknown) (unknown) Intake- Clincial (units (unknown) date) Staff unknown) (unknown) (no (unknown) (unknown) [facility] (units (unknown) date) unknown) (unknown) (no (unknown) (unknown) Loc: [facility] (units (unkno wn) date) unknown) (unknown) (no (unknown) (unknown) NSAIDS (units (unkno wn) date) (Non-Steroidal unknown) Anti-Inflamma Adverse Reaction (Verified 01/04/22 09:40) (unknown) (no (unknown) (unknown) Nightmare (units (unkn own) date) unknown) (unknown) (no (unknown) (unknown) Note (units (unkno wn) date) unknown) (unknown) (no (unknown) (unknown) Nurse Office Visit (units (unknown) date) unknown) (unknown) (no (unknown) (unknown) Pain, nausea (units (u nknown) date) unknown) (unknown) (no (unknown) (unknown) Patient: (units (unkno wn) date) Manda Whitaker unknown) MR#: [id number] (unknown) (no (unknown) (unknown) Pt came in for a (units (unknown) date) pre procedure covid unknown) test. Denied any covid symptoms. Explained (unknown) (no (unknown) (unknown) Rash (units (unkno wn) date) unknown) (unknown) (no (unknown) (unknown) Reason For Visit (units (unknown) date) unknown) (unknown) (no (unknown) (unknown) Signed By: (units (unk nown) date) <Electronically unknown) signed by Anthony Reddy MD> (unknown) (no (unknown) (unknown) Signed (units (unkno wn) date) unknown) (unknown) (no (unknown) (unknown) Smoking Status: (units (unknown) date) Current every day unknown) smoker (unknown) (no (unknown) (unknown) Sulfa (Sulfonamide (units (unknown) date) Antibiotics) unknown) Allergy (Verified 01/04/22 09:40) (unknown) (no (unknown) (unknown) This note may have (units (unknown) date) been all or unknown) partially generated using voice recognition (unknown) (no (unknown) (unknown) Tobacco Status (units (unknown) date) unknown) (unknown) (no (unknown) (unknown) Visit Reasons: (units (unknown) date) COVID/GUS unknown) (unknown) (no (unknown) (unknown) duloxetine Adverse (units (unknown) date) Reaction (Verified unknown) 01/04/22 09:40) (unknown) (no (unknown) (unknown) have occurred. If (units (unknown) date) there are any unknown) questions, please contact the Medical Records (unknown) (no (unknown) (unknown) hydrocodone (units (un known) date) Adverse Reaction unknown) (Verified 01/04/22 09:40) (unknown) (no (unknown) (unknown) may occur. (units (unk nown) date) Occasional unknown) wrong-word or 'sound-alike' substitutions may have (unknown) (no (unknown) (unknown) meclizine Adverse (units (unknown) date) Reaction (Verified unknown) 01/04/22 09:40) (unknown) (no (unknown) (unknown) nirmatrelvir [From (units (unknown) date) Paxlovid (EUA)] unknown) Adverse Reaction (Verified 01/05/22 07:26) (unknown) (no (unknown) (unknown) occurred due to (units (unknown) date) the inherent unknown) limitations of voice recognition software. Please (unknown) (no (unknown) (unknown) paroxetine Adverse (units (unknown) date) Reaction (Verified unknown) 01/04/22 09:40) (unknown) (no (unknown) (unknown) read the note (units ( unknown) date) carefully and unknown) recognize, using context, where these substitutions (unknown) (no (unknown) (unknown) ritonavir [From (units (unknown) date) Paxlovid (EUA)] unknown) Adverse Reaction (Verified 01/05/22 07:26) (unknown) (no (unknown) (unknown) software. Although (units (unknown) date) every effort is unknown) made to edit content, vp global errors (unknown) (no (unknown) (unknown) solifenacin (units (un known) date) Adverse Reaction unknown) (Verified 01/04/22 09:40) (unknown) (no (unknown) (unknown) suvorexant [From (units (unknown) date) Belsomra] Allergy unknown) (Verified 01/05/22 07:26) (unknown) (no (unknown) (unknown) test to pt. (units (un known) date) Tolerated covid unknown) test well. (unknown) (no (unknown) (unknown) ursodiol Adverse (units (unknown) date) Reaction (Verified unknown) 01/04/22 09:40) Result panel 28 (unknown) (no date) (unknown) (unknown) Negative (units (unkn own) unknown) (unknown) (no date) (unknown) (unknown) Negative (units (unkn own) unknown) Result panel 29 (unknown) (no date) (unknown) (unknown) (no value) (units (un known) unknown) (unknown) (no date) (unknown) (unknown) [id number] (units (unkn own) unknown) (unknown) (no date) (unknown) (unknown) 01/10/22 1537 (units (unknown) unknown) (unknown) (no date) (unknown) (unknown) Age/Sex: 71 / (units (unknown) F unknown) (unknown) (no date) (unknown) (unknown) Changes to (units (un known) H+P: No unknown) (unknown) (no date) (unknown) (unknown) : (units (unkn own) 1950 unknown) Acct:[id number] (unknown) (no date) (unknown) (unknown) Date of (units (unkn own) Service: unknown) 01/10/22 (unknown) (no date) (unknown) (unknown) History + (units (unk nown) Physical unknown) reviewed/Exam performed by Physician: Yes (unknown) (no date) (unknown) (unknown) Interval Note (units (unknown) unknown) (unknown) (no date) (unknown) (unknown) [place] (units (unkn own) [facility] [address] unknown) [address] [place] [id number] (unknown) (no date) (unknown) (unknown) Patient: (units (unkn own) Manda Whitaker unknown) S MR#: [id number] (unknown) (no date) (unknown) (unknown) Pre-operative (units (unknown) Note unknown) (unknown) (no date) (unknown) (unknown) Provider: (units (unk nown) Anthony Reddy unknown) (unknown) (no date) (unknown) (unknown) Signed (units (unkn own) By:<Electronic unknown) ally signed by Anthony Reddy MD> Result panel 30 (unknown) (no (unknown) (unknown) (no value) (units (unk nown) date) unknown) (unknown) (no (unknown) (unknown) [phone] (units (unkn own) date) unknown) (unknown) (no (unknown) (unknown) 01/10/22 (units (unkno wn) date) unknown) (unknown) (no (unknown) (unknown) 1. Port placement (units (unknown) date) as above. unknown) (unknown) (no (unknown) (unknown) [address] [place] [address] (units (unknown) date) unknown) (unknown) (no (unknown) (unknown) 2. Right (units (unkno wn) date) paratracheal unknown) adenopathy. (unknown) (no (unknown) (unknown) Accession Number: (units (unknown) date) [id number] unknown) (unknown) (no (unknown) (unknown) Age/Sex: 71 / F (units (unknown) date) Date of Service: unknown) (unknown) (no (unknown) (unknown) [place], [place] (units ( unknown) date) [id number] unknown) (unknown) (no (unknown) (unknown) Approved by: (units (u nknown) date) Quan iFne M.D. unknown) on 01/10/2022 at 17:54 (unknown) (no (unknown) (unknown) Bones and chest (units (unknown) date) wall: No unknown) suspicious bony lesions. Overlying soft tissues (unknown) (no (unknown) (unknown) COMPARISON: (units (un known) date) [facility], unknown) CT, CT CHEST W [facility], 11/21/2021, 13:10. (unknown) (no (unknown) (unknown) : 1950 (units (unknown) date) Acct:[id number] unknown) (unknown) (no (unknown) (unknown) Dictated by: (units (u nknown) date) Quan Fine M.D. unknown) on 01/10/2022 at 17:53 (unknown) (no (unknown) (unknown) FINDINGS: (units (unkn own) date) unknown) (unknown) (no (unknown) (unknown) IMPRESSION: (units (un known) date) unknown) (unknown) (no (unknown) (unknown) INDICATIONS: PORT (units (unknown) date) PLACEMENT unknown) (unknown) (no (unknown) (unknown) [facility] (units (unknown) date) unknown) (unknown) (no (unknown) (unknown) Loc: OR (units (unkno wn) date) unknown) (unknown) (no (unknown) (unknown) Lungs and pleura: (units (unknown) date) Lungs are clear. unknown) No pleural effusions or pneumothorax. (unknown) (no (unknown) (unknown) Mediastinum: (units (u nknown) date) Right paratracheal unknown) adenopathy is present, as before. Heart size (unknown) (no (unknown) (unknown) Ordering (units (unkno wn) date) Provider: unknown) Anthony Reddy MD (unknown) (no (unknown) (unknown) PROCEDURE: XR (units ( unknown) date) CHEST 1V unknown) (unknown) (no (unknown) (unknown) Patient: (units (unkno wn) date) Manda Whitaker unknown) MR#: M (unknown) (no (unknown) (unknown) Procedure: XR (units ( unknown) date) chest 1V unknown) (unknown) (no (unknown) (unknown) Signed (units (unkno wn) date) unknown) (unknown) (no (unknown) (unknown) Surgical changes (units (unknown) date) and devices: unknown) Left-sided port a catheter is present, tip of (unknown) (no (unknown) (unknown) TECHNIQUE: One (units (unknown) date) view of the chest unknown) was acquired. (unknown) (no (unknown) (unknown) XRay Report (units (un known) date) unknown) (unknown) (no (unknown) (unknown) appear (units (unkno wn) date) unknown) (unknown) (no (unknown) (unknown) is normal. (units (unk nown) date) unknown) (unknown) (no (unknown) (unknown) the left (units (unkno wn) date) brachiocephalic unknown) vein. There is a loop within the left inferior neck. (unknown) (no (unknown) (unknown) unremarkable. (units ( unknown) date) unknown) (unknown) (no (unknown) (unknown) which is in (units (un known) date) unknown) Result panel 31 (unknown) (no (unknown) (unknown) (no value) (units (unk nown) date) unknown) (unknown) (no (unknown) (unknown) [id number] (units (unkno wn) date) unknown) (unknown) (no (unknown) (unknown) 01/10/22 1654 (units ( unknown) date) unknown) (unknown) (no (unknown) (unknown) Age/Sex: 71 / F (units (unknown) date) unknown) (unknown) (no (unknown) (unknown) Ancef prior to (units (unknown) date) incision. Under unknown) ultrasound guidance the left internal jugular (unknown) (no (unknown) (unknown) Anesthesia Type: (units (unknown) date) General unknown) (unknown) (no (unknown) (unknown) Click Yes if (units (u nknown) date) Unassisted: Yes unknown) (unknown) (no (unknown) (unknown) Complications: (units (unknown) date) none unknown) (unknown) (no (unknown) (unknown) Condition: (units (unk nown) date) stable unknown) (unknown) (no (unknown) (unknown) : 1950 (units (unknown) date) Acct:[id number] unknown) (unknown) (no (unknown) (unknown) Date of Service: (units (unknown) date) 01/10/22 unknown) (unknown) (no (unknown) (unknown) Date of (units (unkno wn) date) procedure: unknown) 01/10/22 (unknown) (no (unknown) (unknown) Disposition: (units (u nknown) date) same day surgery unknown) (unknown) (no (unknown) (unknown) Estimated Blood (units (unknown) date) Loss (mL): 50 unknown) (unknown) (no (unknown) (unknown) Findings: (units (unkn own) date) unknown) (unknown) (no (unknown) (unknown) Indications: (units (u nknown) date) unknown) (unknown) (no (unknown) (unknown) [facility] (units (unknown) date) [address] unknown) [place] [address] (unknown) (no (unknown) (unknown) 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 The (units ( unknown) date) skin was sealed unknown) with Dermabond. Patient tolerated procedure (unknown) (no (unknown) (unknown) Operative (units (unkn own) date) Date/Time/Diagnos unknown) es (unknown) (no (unknown) (unknown) Operative Note (units (unknown) date) unknown) (unknown) (no (unknown) (unknown) Operative Notes (units (unknown) date) unknown) (unknown) (no (unknown) (unknown) Patient emerged (units (unknown) date) from general unknown) anesthesia was extubated and taken to the (unknown) (no (unknown) (unknown) Patient was (units (un known) date) brought to the unknown) operating room placed supine on table. Bilateral (unknown) (no (unknown) (unknown) Patient: (units (unkno wn) date) Manda Whitaker unknown) MR#: [id number] (unknown) (no (unknown) (unknown) Port flushes and (units (unknown) date) draws easily. Tip unknown) of the catheter projects into the SVC (unknown) (no (unknown) (unknown) Port-A-Cath (units (un known) date) placement unknown) (unknown) (no (unknown) (unknown) Post-op (units (unkno wn) date) diagnosis: same unknown) (unknown) (no (unknown) (unknown) Post-operative (units (unknown) date) unknown) (unknown) (no (unknown) (unknown) Pre-op (units (unkno wn) date) diagnosis: Small unknown) cell lung cancer (unknown) (no (unknown) (unknown) Procedure + (units (un known) date) Clinicians unknown) (unknown) (no (unknown) (unknown) Procedure in (units (u nknown) date) detail: unknown) (unknown) (no (unknown) (unknown) Procedure: (units (unk nown) date) unknown) (unknown) (no (unknown) (unknown) Provider: (units (unkn own) date) Anthony Reddy MD unknown) (unknown) (no (unknown) (unknown) Same procedure (units (unknown) date) as scheduled: Yes unknown) (unknown) (no (unknown) (unknown) Signed (units (unkno wn) date) By:<Electronicall unknown) y signed by Anthony Reddy MD> (unknown) (no (unknown) (unknown) Specimen(s): (units (u nknown) date) none sent unknown) (unknown) (no (unknown) (unknown) Surgeon: Anthony (units (unknown) date) Gus unknown) (unknown) (no (unknown) (unknown) Time of (units (unkno wn) date) procedure: 16:50 unknown) (unknown) (no (unknown) (unknown) attached after (units (unknown) date) it was primed unknown) with heparined saline. The port was tested to (unknown) (no (unknown) (unknown) dilator was then (units (unknown) date) placed over the unknown) guidewire. The catheter was then inserted (unknown) (no (unknown) (unknown) ensure that it (units (unknown) date) flushed easily unknown) and had good blood return. The port was then (unknown) (no (unknown) (unknown) induced and he (units (unknown) date) was intubated unknown) with an LMA. she was then prepped and draped in (unknown) (no (unknown) (unknown) lower extremity (units (unknown) date) compressive unknown) devices were applied. General anesthesia was (unknown) (no (unknown) (unknown) postoperative (units ( unknown) date) care unit in unknown) stable condition (unknown) (no (unknown) (unknown) procedure (units (unkn own) date) necessary unknown) equipment within the operating room. She received 2 g of (unknown) (no (unknown) (unknown) secured to the (units (unknown) date) underlying fascia unknown) using interupted 0 Prolene suture. Hemostasis (unknown) (no (unknown) (unknown) subcutaneous (units (u nknown) date) pocket was made unknown) in the right chest wall. The tunneler device was (unknown) (no (unknown) (unknown) through the (units (un known) date) needle. Its unknown) placement was then confirmed using fluoroscopy. The (unknown) (no (unknown) (unknown) through the (units (un known) date) sheath. Placement unknown) was again confirmed with fluoroscopy. A (unknown) (no (unknown) (unknown) tissues were (units (u nknown) date) reapproximated unknown) with the 3 0 Vicryl and then skin closed with 4-0 (unknown) (no (unknown) (unknown) used to move the (units (unknown) date) catheter from the unknown) neck to the chest pocket. The port was (unknown) (no (unknown) (unknown) usual sterile (units ( unknown) date) fashion. Time-out unknown) was performed ensure the correct patient (unknown) (no (unknown) (unknown) vein was (units (unkno wn) date) accessed under unknown) direct visualization. The guidewire was then threaded (unknown) (no (unknown) (unknown) was achieved. (units ( unknown) date) The wound was unknown) irrigated with sterile saline. The subcutaneous (unknown) (no (unknown) (unknown) well. The sponge (units (unknown) date) and instrument unknown) count at the end operation was correct. Result panel 32 (unknown) (no date) (unknown) (unknown) 0.8 % (unkn own) (unknown) (no date) (unknown) (unknown) 1.6 % (unkn own) (unknown) (no date) (unknown) (unknown) 100 /ul (unkn own) (unknown) (no date) (unknown) (unknown) 12.7 g/dl (unkn own) (unknown) (no date) (unknown) (unknown) 14.7 % (unkn own) (unknown) (no date) (unknown) (unknown) 15.4 % (unkn own) (unknown) (no date) (unknown) (unknown) 1500 /ul (unkn own) (unknown) (no date) (unknown) (unknown) 199 x10 3/ul (unkn own) (unknown) (no date) (unknown) (unknown) 200 /ul (unkn own) (unknown) (no date) (unknown) (unknown) 30.1 pg (unkn own) (unknown) (no date) (unknown) (unknown) 34.0 % (unkn own) (unknown) (no date) (unknown) (unknown) 37.3 % (unkn own) (unknown) (no date) (unknown) (unknown) 4.20 x10 6/ul (unkn own) (unknown) (no date) (unknown) (unknown) 7.5 % (unkn own) (unknown) (no date) (unknown) (unknown) 700 /ul (unkn own) (unknown) (no date) (unknown) (unknown) 7300 /ul (unkn own) (unknown) (no date) (unknown) (unknown) 74.7 % (unkn own) (unknown) (no date) (unknown) (unknown) 88.7 fl (unkn own) (unknown) (no date) (unknown) (unknown) 9.8 x10 3/ul (unkn own) Result panel 33 (unknown) (no date) (unknown) (unknown) 1.0 (units unknown) (unknown) (unknown) (no date) (unknown) (unknown) 1.23 mg/dl (unkn own) (unknown) (no date) (unknown) (unknown) 1.3 mg/dl (unkn own) (unknown) (no date) (unknown) (unknown) 1.4 mg/dl (unkn own) (unknown) (no date) (unknown) (unknown) 132 mmol/l (unkn own) (unknown) (no date) (unknown) (unknown) 177 u/l (unkn own) (unknown) (no date) (unknown) (unknown) 20.3 (units unknown) (unknown) (unknown) (no date) (unknown) (unknown) 25 mg/dl (unkn own) (unknown) (no date) (unknown) (unknown) 29 iu/l (unkn own) (unknown) (no date) (unknown) (unknown) 3.1 g/dl (unkn own) (unknown) (no date) (unknown) (unknown) 3.1 g/dl (unkn own) (unknown) (no date) (unknown) (unknown) 3.4 mmol/l (unkn own) (unknown) (no date) (unknown) (unknown) 33 mmol/l (unkn own) (unknown) (no date) (unknown) (unknown) 47 ml/min (unkn own) (unknown) (no date) (unknown) (unknown) 47 ml/min (unkn own) (unknown) (no date) (unknown) (unknown) 6.2 g/dl (unkn own) (unknown) (no date) (unknown) (unknown) 8.5 mg/dl (unkn own) (unknown) (no date) (unknown) (unknown) 89 mg/dl (unkn own) (unknown) (no date) (unknown) (unknown) 89 mg/dl (unkn own) (unknown) (no date) (unknown) (unknown) 92 mmol/l (unkn own) (unknown) (no date) (unknown) (unknown) 95 iu/l (unkn own) Result panel 34 (unknown) (no date) (unknown) (unknown) 0.9 (units unknown) (unknown) (unknown) (no date) (unknown) (unknown) 1.2 mg/dl (unkn own) (unknown) (no date) (unknown) (unknown) 1.3 mg/dl (unkn own) (unknown) (no date) (unknown) (unknown) 1.31 mg/dl (unkn own) (unknown) (no date) (unknown) (unknown) 117 mg/dl (unkn own) (unknown) (no date) (unknown) (unknown) 117 mg/dl (unkn own) (unknown) (no date) (unknown) (unknown) 129 mmol/l (unkn own) (unknown) (no date) (unknown) (unknown) 166 u/l (unkn own) (unknown) (no date) (unknown) (unknown) 2.9 g/dl (unkn own) (unknown) (no date) (unknown) (unknown) 22.1 (units unknown) (unknown) (unknown) (no date) (unknown) (unknown) 28 iu/l (unkn own) (unknown) (no date) (unknown) (unknown) 29 mg/dl (unkn own) (unknown) (no date) (unknown) (unknown) 3.1 g/dl (unkn own) (unknown) (no date) (unknown) (unknown) 3.5 mmol/l (unkn own) (unknown) (no date) (unknown) (unknown) 30 mmol/l (unkn own) (unknown) (no date) (unknown) (unknown) 44 ml/min (unkn own) (unknown) (no date) (unknown) (unknown) 44 ml/min (unkn own) (unknown) (no date) (unknown) (unknown) 6.0 g/dl (unkn own) (unknown) (no date) (unknown) (unknown) 8.1 mg/dl (unkn own) (unknown) (no date) (unknown) (unknown) 94 mmol/l (unkn own) (unknown) (no date) (unknown) (unknown) 96 iu/l (unkn own) Result panel 35 (unknown) (no date) (unknown) (unknown) 0.6 % (unkn own) (unknown) (no date) (unknown) (unknown) 0.9 % (unkn own) (unknown) (no date) (unknown) (unknown) 10.6 x10 3/ul (unkn own) (unknown) (no date) (unknown) (unknown) 100 /ul (unkn own) (unknown) (no date) (unknown) (unknown) 100 /ul (unkn own) (unknown) (no date) (unknown) (unknown) 12.5 g/dl (unkn own) (unknown) (no date) (unknown) (unknown) 14.7 % (unkn own) (unknown) (no date) (unknown) (unknown) 17.7 % (unkn own) (unknown) (no date) (unknown) (unknown) 1900 /ul (unkn own) (unknown) (no date) (unknown) (unknown) 227 x10 3/ul (unkn own) (unknown) (no date) (unknown) (unknown) 30.1 pg (unkn own) (unknown) (no date) (unknown) (unknown) 33.9 % (unkn own) (unknown) (no date) (unknown) (unknown) 37.0 % (unkn own) (unknown) (no date) (unknown) (unknown) 4.16 x10 6/ul (unkn own) (unknown) (no date) (unknown) (unknown) 7.3 % (unkn own) (unknown) (no date) (unknown) (unknown) 73.5 % (unkn own) (unknown) (no date) (unknown) (unknown) 7800 /ul (unkn own) (unknown) (no date) (unknown) (unknown) 800 /ul (unkn own) (unknown) (no date) (unknown) (unknown) 88.9 fl (unkn own) Result panel 36 (unknown) (no (unknown) (unknown) (no value) (units (unk nown) date) unknown) (unknown) (no (unknown) (unknown) (1) 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 (unknown) (no (unknown) (unknown) (Tylenol) (units (unkn own) date) unknown) (unknown) (no (unknown) (unknown) - Date of Visit (units (unknown) date) unknown) (unknown) (no (unknown) (unknown) - Labs (units (unkno wn) date) unknown) (unknown) (no (unknown) (unknown) - Patient (units (unkn own) date) Self-Reported unknown) Symptoms (unknown) (no (unknown) (unknown) [id number] (units (unkno wn) date) unknown) (unknown) (no (unknown) (unknown) [id number] (units (unkno wn) date) unknown) (unknown) (no (unknown) (unknown) [id number] (units (unkno wn) date) unknown) (unknown) (no (unknown) (unknown) 01/17/22 01/18/22 (units (unknown) date) 01/18/22 unknown) (unknown) (no (unknown) (unknown) 01/18/22 14:00 (units (unknown) date) 97.8 F 83 18 122/58 unknown) L 98 (unknown) (no (unknown) (unknown) 1000 mls/hr IV (units (unknown) date) BOLUS ONE Rx#: unknown) (unknown) (no (unknown) (unknown) 23:59 07:59 15:59 (units (unknown) date) unknown) (unknown) (no (unknown) (unknown) 7-10) (units (unkno wn) date) unknown) (unknown) (no (unknown) (unknown) 71 year old female (units (unknown) date) with active smoking unknown) history. She developed right neck mass (unknown) (no (unknown) (unknown) @ 25 mls/hr IV NOW (units (unknown) date) ONE Rx#: unknown) (unknown) (no (unknown) (unknown) ALT 28 IU/L (<35) (units (unknown) date) 01/17/22 11:57 unknown) (unknown) (no (unknown) (unknown) AST 96 IU/L (units (un known) date) (14-36) H 01/17/22 unknown) 11:57 (unknown) (no (unknown) (unknown) Abdominal pain, (units (unknown) date) Heartburn unknown) (unknown) (no (unknown) (unknown) Age/Sex: 71 / F (units (unknown) date) unknown) (unknown) (no (unknown) (unknown) Albumin 2.9 g/dL (units (unknown) date) (3.5-5.0) L unknown) 01/17/22 11:57 (unknown) (no (unknown) (unknown) Albumin/Globulin (units (unknown) date) Ratio 0.9 (1.0-2.8) unknown) L 01/17/22 11:57 (unknown) (no (unknown) (unknown) Alkaline (units (unkno wn) date) Phosphatase 166 U/L unknown) (38-126) H 01/17/22 11:57 (unknown) (no (unknown) (unknown) Allergies (units (unkn own) date) unknown) (unknown) (no (unknown) (unknown) Allergy/AdvReac (units (unknown) date) Type Severity unknown) Reaction Status Date / Time (unknown) (no (unknown) (unknown) Anti-Inflamma (units ( unknown) date) Upset unknown) (unknown) (no (unknown) (unknown) Antibiotics) (units (u nknown) date) unknown) (unknown) (no (unknown) (unknown) Assessment and (units (unknown) date) Plan unknown) (unknown) (no (unknown) (unknown) BUN 29 mg/dL (units (u nknown) date) (7-17) H 01/17/22 unknown) 11:57 (unknown) (no (unknown) (unknown) BUN/Creatinine (units (unknown) date) Ratio 22.1 (6-22) H unknown) 01/17/22 11:57 (unknown) (no (unknown) (unknown) Balance 1104 / (units (unknown) date) 1104 unknown) (unknown) (no (unknown) (unknown) Baso # (Auto) 100 (units (unknown) date) /uL (0-100) unknown) 01/18/22 13:50 (unknown) (no (unknown) (unknown) Baso % (Auto) 0.6 (units (unknown) date) % (0-2) 01/18/22 unknown) 13:50 (unknown) (no (unknown) (unknown) Brain MR w/wo (units ( unknown) date) contrast unknown) (unknown) (no (unknown) (unknown) CBC, CMP (units (unkno wn) date) unknown) (unknown) (no (unknown) (unknown) Calcium 8.1 mg/dL (units (unknown) date) (8.4-10.2) L unknown) 01/17/22 11:57 (unknown) (no (unknown) (unknown) Carbon Dioxide 30 (units (unknown) date) mmol/L (22-32) unknown) 01/17/22 11:57 (unknown) (no (unknown) (unknown) Chief Complaint: (units (unknown) date) Small cell lung unknown) cancer (unknown) (no (unknown) (unknown) Chloride 0.9% 50 (units (unknown) date) ml @ 216 mls/ unknown) (unknown) (no (unknown) (unknown) Chloride 94 mmol/L (units (unknown) date) (98-107) L 01/17/22 unknown) 11:57 (unknown) (no (unknown) (unknown) Creatinine 1.31 (units (unknown) date) mg/dL (0.52-1.04) H unknown) 01/17/22 11:57 (unknown) (no (unknown) (unknown) : 1950 (units (unknown) date) Acct:[id number] unknown) (unknown) (no (unknown) (unknown) Date of Service: (units (unknown) date) 01/18/22 unknown) (unknown) (no (unknown) (unknown) Date of visit: (units (unknown) date) 01/18/22 unknown) (unknown) (no (unknown) (unknown) Discussion: (units (un known) date) unknown) (unknown) (no (unknown) (unknown) Eos # (Auto) 100 (units (unknown) date) /uL (0-450) unknown) 01/18/22 13:50 (unknown) (no (unknown) (unknown) Eos % (Auto) 0.9 % (units (unknown) date) (2-4) L 01/18/22 unknown) 13:50 (unknown) (no (unknown) (unknown) Estimated GFR 44 (units (unknown) date) mL/min (>60) L unknown) 01/17/22 11:57 (unknown) (no (unknown) (unknown) Exam (units (unkno wn) date) unknown) (unknown) (no (unknown) (unknown) Globulin 3.1 g/dL (units (unknown) date) (1.7-4.1) 01/17/22 unknown) 11:57 (unknown) (no (unknown) (unknown) Glucose 117 mg/dL (units (unknown) date) (80-110) H 01/17/22 unknown) 11:57 (unknown) (no (unknown) (unknown) Hct 37.0 % (36-46) (units (unknown) date) 01/18/22 13:50 unknown) (unknown) (no (unknown) (unknown) Hgb 12.5 g/dL (units ( unknown) date) (12.0-16.0) unknown) 01/18/22 13:50 (unknown) (no (unknown) (unknown) History (units (unkno wn) date) unknown) (unknown) (no (unknown) (unknown) Home Medications (units (unknown) date) and Allergies unknown) (unknown) (no (unknown) (unknown) Home Medications (units (unknown) date) unknown) (unknown) (no (unknown) (unknown) I explained that (units (unknown) date) 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 The goal is to delay the (unknown) (no (unknown) (unknown) I reviewed the (units (unknown) date) right neck lymph unknown) node biopsy pathology with the patient. I (unknown) (no (unknown) (unknown) I will obtain (units ( unknown) date) brain MRI to unknown) further evaluate. In addition patient is having a (unknown) (no (unknown) (unknown) IV 1104 / 1104 (units (unknown) date) unknown) (unknown) (no (unknown) (unknown) Intake Total 1104 (units (unknown) date) / 1104 unknown) (unknown) (no (unknown) (unknown) Intake and Output (units (unknown) date) unknown) (unknown) (no (unknown) (unknown) Intake: (units (unkno wn) date) unknown) (unknown) (no (unknown) (unknown) Interval history: (units (unknown) date) unknown) (unknown) (no (unknown) (unknown) [facility] (units (unknown) date) [address] unknown) [place] [id number] (unknown) (no (unknown) (unknown) Manda Whitaker (units (unknown) date) is a 71 year old unknown) female. According to patient, she has family (unknown) (no (unknown) (unknown) Manda said that (units (unknown) date) about in 10/2021, unknown) she felt right neck tenderness. On 11/02/2021, (unknown) (no (unknown) (unknown) Laboratory Last (units (unknown) date) Values unknown) (unknown) (no (unknown) (unknown) Lymph # (Auto) (units (unknown) date) 1900 /uL unknown) (2012-2695) 01/18/22 13:50 (unknown) (no (unknown) (unknown) Lymph % (Auto) (units (unknown) date) 17.7 % (25-40) L unknown) 01/18/22 13:50 (unknown) (no (unknown) (unknown) MCH 30.1 PG (units (un known) date) (26-34) 01/18/22 unknown) 13:50 (unknown) (no (unknown) (unknown) MCHC 33.9 % (units (un known) date) (30-36) 01/18/22 unknown) 13:50 (unknown) (no (unknown) (unknown) MCV 88.9 fL (units (un known) date) (80-100) 01/18/22 unknown) 13:50 (unknown) (no (unknown) (unknown) Magnesium 1.3 (units ( unknown) date) mg/dL (1.6-2.3) L unknown) 01/17/22 11:57 (unknown) (no (unknown) (unknown) Magnesium Sulfate (units (unknown) date) 2 gm In 50 ml 50 / unknown) 50 (unknown) (no (unknown) (unknown) Medication (units (unk nown) date) Instructions unknown) Recorded Confirmed Type (unknown) (no (unknown) (unknown) Ector # (Auto) 800 (units (unknown) date) /uL (0-900) unknown) 01/18/22 13:50 (unknown) (no (unknown) (unknown) Ector % (Auto) 7.3 (units (unknown) date) % (3-14) 01/18/22 unknown) 13:50 (unknown) (no (unknown) (unknown) NSAIDS (units (unkno wn) date) (Non-Steroidal unknown) AdvReac Gastrointestinal Verified 01/10/22 16:32 (unknown) (no (unknown) (unknown) Neut # (Auto) 7800 (units (unknown) date) /uL (9843-1340) H unknown) 01/18/22 13:50 (unknown) (no (unknown) (unknown) Neut % (Auto) 73.5 (units (unknown) date) % (50-75) 01/18/22 unknown) 13:50 (unknown) (no (unknown) (unknown) Nose bleeds, (units (u nknown) date) Changes in taste, unknown) Hoarseness, Swollen glands (unknown) (no (unknown) (unknown) [employer] (units (unknown) date) unknown) (unknown) (no (unknown) (unknown) On 11/21/2021 CT (units (unknown) date) chest without unknown) contrast showed bulky right supraclavicular, (unknown) (no (unknown) (unknown) On 12/06/2021, (units (unknown) date) Gus performed unknown) excisional biopsy of right cervical lymph (unknown) (no (unknown) (unknown) Oncological (units (un known) date) History unknown) (unknown) (no (unknown) (unknown) Oncology Progress (units (unknown) date) Note unknown) (unknown) (no (unknown) (unknown) Ondansetron 8 mg (units (unknown) date) In Sodium 54 / 54 unknown) (unknown) (no (unknown) (unknown) PET CT (units (unkno wn) date) unknown) (unknown) (no (unknown) (unknown) PN -Subjective (units (unknown) date) unknown) (unknown) (no (unknown) (unknown) Patient: (units (unkno wn) date) Manda Whitaker S unknown) MR#: [id number] (unknown) (no (unknown) (unknown) Plan: (units (unkno wn) date) unknown) (unknown) (no (unknown) (unknown) Plt Count 227 (units ( unknown) date) X103/uL (150-400) unknown) 01/18/22 13:50 (unknown) (no (unknown) (unknown) Port placement (units (unknown) date) unknown) (unknown) (no (unknown) (unknown) Potassium 3.5 (units ( unknown) date) mmol/L (3.4-5.1) unknown) 01/17/22 11:57 (unknown) (no (unknown) (unknown) Provider: (units (unkn own) date) Melly Noe MD unknown) (unknown) (no (unknown) (unknown) RBC 4.16 X106/uL (units (unknown) date) (4.0-5.2) 01/18/22 unknown) 13:50 (unknown) (no (unknown) (unknown) RDW 14.7 % (units (unk nown) date) (11.6-14.8) unknown) 01/18/22 13:50 (unknown) (no (unknown) (unknown) RTC in 3 weeks (units (unknown) date) unknown) (unknown) (no (unknown) (unknown) Results (units (unkno wn) date) unknown) (unknown) (no (unknown) (unknown) Rx (units (unkno wn) date) unknown) (unknown) (no (unknown) (unknown) SR Cardiovascular (units (unknown) date) issues: unknown) Palpitations, Shortness of breath with activity or (unknown) (no (unknown) (unknown) SR Constitution: (units (unknown) date) Fatigue/Malaise, unknown) Night Sweats (unknown) (no (unknown) (unknown) SR Endocrine (units (u nknown) date) issues: Cold unknown) intolerance, Excessive thirst (unknown) (no (unknown) (unknown) SR (units (unkno wn) date) Gastrointestinal unknown) issues: Poor or no appetite, Nausea, Vomiting, Diarrhea, (unknown) (no (unknown) (unknown) SR Hematologic (units (unknown) date) issues: Swollen unknown) lymph nodes (unknown) (no (unknown) (unknown) SR Musculoskeletal (units (unknown) date) issues: Joint pain unknown) or swelling, Muscle weakness, Muscle pain (unknown) (no (unknown) (unknown) SR Neuro issues: (units (unknown) date) Headache, unknown) Lightheaded/dizzy, Numbness or tingling, Difficulty (unknown) (no (unknown) (unknown) SR Skin issues: (units (unknown) date) Skin color changes, unknown) Blistering or peeling, Skin lesions or (unknown) (no (unknown) (unknown) SR ears, nose, (units (unknown) date) mouth, throat unknown) issues: Congestion, Cough, Difficulty swallowing, (unknown) (no (unknown) (unknown) SR respiratory (units (unknown) date) issues: Cough, unknown) Shortness of breath, Mucous (unknown) (no (unknown) (unknown) She said she is (units (unknown) date) lossing wt in the unknown) face and arm, but edema in the legs. left > (unknown) (no (unknown) (unknown) She then underwent (units (unknown) date) CT neck w/contrast unknown) on 11/21/2021 that showed a masslike (unknown) (no (unknown) (unknown) Signed By: (units (unk nown) date) unknown) (unknown) (no (unknown) (unknown) Sodium 129 mmol/L (units (unknown) date) (137-145) L unknown) 01/17/22 11:57 (unknown) (no (unknown) (unknown) Sodium Chloride (units (unknown) date) 0.9% 1,000 ml @ unknown) 1000 / 1000 (unknown) (no (unknown) (unknown) Sulfa (Sulfonamide (units (unknown) date) Allergy Verified unknown) 01/10/22 16:32 (unknown) (no (unknown) (unknown) Temp Pulse Resp BP (units (unknown) date) Pulse Ox unknown) (unknown) (no (unknown) (unknown) Today, she is c/o (units (unknown) date) headache. At time unknown) her headache is pretty severe. She also (unknown) (no (unknown) (unknown) Total Bilirubin (units (unknown) date) 1.2 mg/dL (0.2-1.3) unknown) 01/17/22 11:57 (unknown) (no (unknown) (unknown) Total Protein 6.0 (units (unknown) date) g/dL (6.3-8.2) L unknown) 01/17/22 11:57 (unknown) (no (unknown) (unknown) Vital Signs (units (un known) date) unknown) (unknown) (no (unknown) (unknown) Vital signs: (units (u nknown) date) unknown) (unknown) (no (unknown) (unknown) WBC 10.6 X103/uL (units (unknown) date) (4.5-11.0) 01/18/22 unknown) 13:50 (unknown) (no (unknown) (unknown) [From Paxlovid (units (unknown) date) (EUA)] nausea unknown) (unknown) (no (unknown) (unknown) acetaminophen 325 (units (unknown) date) mg capsule 650 mg unknown) PO QID PRN pain #60 caps 12/06/21 01/10/22 (unknown) (no (unknown) (unknown) aerosol inhaler (units (unknown) date) (Ventolin HFA) unknown) Bronchodilation (unknown) (no (unknown) (unknown) albuterol sulfate (units (unknown) date) 90 mcg/actuation 2 unknown) puff inhalation Q6H PRN 11/30/21 01/10/22 (unknown) (no (unknown) (unknown) alendronate 70 mg (units (unknown) date) tablet 70 mg PO unknown) WEEKLY 12/06/21 01/10/22 History (unknown) (no (unknown) (unknown) amlodipine 5 mg (units (unknown) date) tablet 5 mg PO unknown) DAILY 11/30/21 01/10/22 History (unknown) (no (unknown) (unknown) artifact. (units (unkn own) date) unknown) (unknown) (no (unknown) (unknown) atorvastatin 80 mg (units (unknown) date) tablet 80 mg PO unknown) DAILY 11/30/21 01/10/22 History (unknown) (no (unknown) (unknown) balancing (units (unkn own) date) unknown) (unknown) (no (unknown) (unknown) cell lung cancer. (units (unknown) date) Patient clinically unknown) is also experiencing headache. I talked (unknown) (no (unknown) (unknown) cell lung cancer. (units (unknown) date) unknown) (unknown) (no (unknown) (unknown) cisplatin/etoposid (units (unknown) date) e.. I also unknown) recommended port placement. (unknown) (no (unknown) (unknown) clopidogrel 75 mg (units (unknown) date) tablet 75 mg PO unknown) DAILY 11/30/21 01/10/22 History (unknown) (no (unknown) (unknown) conglomerated (units ( unknown) date) group of lymph unknown) nodes within the right supraclavicular region that (unknown) (no (unknown) (unknown) developed blurred (units (unknown) date) vision. She said unknown) that she used to read a lot, but now she has (unknown) (no (unknown) (unknown) diphenoxylate-atro (units (unknown) date) pine 2.5 1 tab PO unknown) DAILY diarrhea 11/30/21 01/10/22 History (unknown) (no (unknown) (unknown) distant (units (unkno wn) date) metastasis. To unknown) further evaluate, I will obtain PET scan. 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 But Manda (unknown) (no (unknown) (unknown) hr IV NOW ONE (units ( unknown) date) Rx#:[id number] unknown) (unknown) (no (unknown) (unknown) hydrocodone (units (un known) date) AdvReac Rash unknown) Verified 01/10/22 16:32 (unknown) (no (unknown) (unknown) in the spleen (units ( unknown) date) liver and both unknown) lungs, small pericardial effusion and nonspecific (unknown) (no (unknown) (unknown) informed her and (units (unknown) date) her daughter that unknown) the final diagnosis is consistent with small (unknown) (no (unknown) (unknown) is reporting (units (u nknown) date) epigastric pain and unknown) umblical snell. Her weight has remained about (unknown) (no (unknown) (unknown) lidocaine-prilocai (units (unknown) date) ne 2.5 %-2.5 % See unknown) Rx Instructions .Route 01/16/22 Rx (unknown) (no (unknown) (unknown) lot of other (units (u nknown) date) symptoms including unknown) abdominal pain, nausea and food stuck in the (unknown) (no (unknown) (unknown) lying flat, (units (un known) date) Extreme swelling unknown) (unknown) (no (unknown) (unknown) mcg/actuation (units ( unknown) date) nasal unknown) (unknown) (no (unknown) (unknown) measures at least (units (unknown) date) 5.8 x 3.6 cm in unknown) greatest axial dimension. There is partial (unknown) (no (unknown) (unknown) meclizine AdvReac (units (unknown) date) Hypertensio unknown) Verified 01/10/22 16:32 (unknown) (no (unknown) (unknown) mediastinal and (units (unknown) date) right hilar unknown) adenopathy, coarse nodular calcifications, granuloma (unknown) (no (unknown) (unknown) metoprolol (units (unk nown) date) tartrate 25 mg unknown) tablet 37.5 mg PO BID 11/30/21 01/10/22 History (unknown) (no (unknown) (unknown) mg-0.025 mg tablet (units (unknown) date) unknown) (unknown) (no (unknown) (unknown) moles, Hair loss (units (unknown) date) or scalp prob, Nail unknown) changes (unknown) (no (unknown) (unknown) montelukast 10 mg (units (unknown) date) tablet 10 mg PO unknown) DAILY 11/30/21 01/10/22 History (unknown) (no (unknown) (unknown) n (units (unkno wn) date) unknown) (unknown) (no (unknown) (unknown) nirmatrelvir (units (u nknown) date) AdvReac Pain, unknown) Verified 01/10/22 16:32 (unknown) (no (unknown) (unknown) node. 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 (unknown) (no (unknown) (unknown) ondansetron 4 mg (units (unknown) date) disintegrating 4 mg unknown) PO Q6H PRN nausea and 01/10/22 Rx (unknown) (no (unknown) (unknown) or cramps, Back or (units (unknown) date) neck pain, unknown) Difficulty walking, Bone pain (unknown) (no (unknown) (unknown) oxycodone 5 mg (units (unknown) date) tablet 5 mg PO BID unknown) PRN Pain (Scale Score 11/30/21 01/10/22 (unknown) (no (unknown) (unknown) paroxetine AdvReac (units (unknown) date) Nightmare Verified unknown) 01/10/22 16:32 (unknown) (no (unknown) (unknown) prochlorperazine (units (unknown) date) 25 mg rectal 25 mg unknown) KS BID PRN Nausea And 01/16/22 Rx (unknown) (no (unknown) (unknown) progress and to (units (unknown) date) keep her quality of unknown) time as best as we can. I told her that (unknown) (no (unknown) (unknown) relative quickly in (units (unknown) date) 10/2021. CT neck unknown) and chest showed bulky lymph nodes in right (unknown) (no (unknown) (unknown) reticulonodular (units (unknown) date) focus in the medial unknown) right upper lobe. Mild bronchial wall (unknown) (no (unknown) (unknown) right neck lymph (units (unknown) date) node excision unknown) biopsy. The pathology is consistent with small (unknown) (no (unknown) (unknown) right (units (unkno wn) date) unknown) (unknown) (no (unknown) (unknown) ritonavir AdvReac (units (unknown) date) Pain, Verified unknown) 01/10/22 16:32 (unknown) (no (unknown) (unknown) she just saw (units (u nknown) date) vascular surgerry. unknown) no blood clot. (unknown) (no (unknown) (unknown) she went to see (units (unknown) date) her PCR Lynnette unknown) Ivan, and right neck lymph nodes were palpated. (unknown) (no (unknown) (unknown) small cell the (units (unknown) date) highly sensitive to unknown) chemotherapy. I am recommending (unknown) (no (unknown) (unknown) solifenacin (units (un known) date) AdvReac Verified unknown) 01/10/22 16:32 (unknown) (no (unknown) (unknown) spray,suspension (units (unknown) date) unknown) (unknown) (no (unknown) (unknown) superior (units (unkno wn) date) mediastinum unknown) measuring 4.3 x 3 cm. Mild mass effect of is seen upon the (unknown) (no (unknown) (unknown) suppository (units (un known) date) Vomiting #20 ea unknown) (unknown) (no (unknown) (unknown) supraclavicular (units (unknown) date) fossa, and unknown) mediastinum. On 12/06/2021, Dr. Reddy performed (unknown) (no (unknown) (unknown) suvorexant [From (units (unknown) date) Belsomra] Allergy unknown) Rash Verified 01/10/22 16:32 (unknown) (no (unknown) (unknown) tablet vomiting (units (unknown) date) #30 tabs unknown) (unknown) (no (unknown) (unknown) the same . (units (unk nown) date) unknown) (unknown) (no (unknown) (unknown) thickening noted. (units (unknown) date) unknown) (unknown) (no (unknown) (unknown) tizanidine 2 mg (units (unknown) date) tablet 2 mg PO PRN unknown) PRN Muscle Pain 12/06/21 01/10/22 History (unknown) (no (unknown) (unknown) to give up 2/2 (units ( unknown) date) blurred vision. She unknown) is also reporting food stuck in the flow. She (unknown) (no (unknown) (unknown) topical cream (units ( unknown) date) .COMPLEX #30 grams unknown) (unknown) (no (unknown) (unknown) trachea, which is (units (unknown) date) slightly deviated unknown) to the left. (unknown) (no (unknown) (unknown) trazodone 150 mg (units (unknown) date) tablet 150 mg PO unknown) BEDTIME PRN Sleep 11/30/21 01/10/22 History (unknown) (no (unknown) (unknown) upper chest. I (units (unknown) date) talked with them it unknown) is highly suspicious that patient may have a (unknown) (no (unknown) (unknown) ursodiol AdvReac (units (unknown) date) Rash Verified unknown) 01/10/22 16:32 (unknown) (no (unknown) (unknown) visualization of (units (unknown) date) mediastinal lymph unknown) nodes, with a group seen within the right (unknown) (no (unknown) (unknown) was tested (units (unk nown) date) negative (about in unknown) 2015). 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 Result panel 37 (unknown) (no date) (unknown) (unknown) 0.9 (units unknown) (unknown) (unknown) (no date) (unknown) (unknown) 1.2 mg/dl (unkn own) (unknown) (no date) (unknown) (unknown) 1.21 mg/dl (unkn own) (unknown) (no date) (unknown) (unknown) 129 mmol/l (unkn own) (unknown) (no date) (unknown) (unknown) 135 iu/l (unkn own) (unknown) (no date) (unknown) (unknown) 2.0 mg/dl (unkn own) (unknown) (no date) (unknown) (unknown) 21.5 (units unknown) (unknown) (unknown) (no date) (unknown) (unknown) 219 u/l (unkn own) (unknown) (no date) (unknown) (unknown) 26 mg/dl (unkn own) (unknown) (no date) (unknown) (unknown) 28 mmol/l (unkn own) (unknown) (no date) (unknown) (unknown) 3.1 g/dl (unkn own) (unknown) (no date) (unknown) (unknown) 3.3 g/dl (unkn own) (unknown) (no date) (unknown) (unknown) 3.6 mmol/l (unkn own) (unknown) (no date) (unknown) (unknown) 32 iu/l (unkn own) (unknown) (no date) (unknown) (unknown) 48 ml/min (unkn own) (unknown) (no date) (unknown) (unknown) 48 ml/min (unkn own) (unknown) (no date) (unknown) (unknown) 6.4 g/dl (unkn own) (unknown) (no date) (unknown) (unknown) 8.1 mg/dl (unkn own) (unknown) (no date) (unknown) (unknown) 93 mmol/l (unkn own) (unknown) (no date) (unknown) (unknown) 99 mg/dl (unkn own) (unknown) (no date) (unknown) (unknown) 99 mg/dl (unkn own) Result panel 38 (unknown) (no (unknown) (unknown) (no value) (units (unk nown) date) unknown) (unknown) (no (unknown) (unknown) (1) 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 (unknown) (no (unknown) (unknown) (Tylenol) (units (unkn own) date) unknown) (unknown) (no (unknown) (unknown) - Date of Visit (units (unknown) date) unknown) (unknown) (no (unknown) (unknown) - Labs (units (unkno wn) date) unknown) (unknown) (no (unknown) (unknown) - Patient (units (unkn own) date) Self-Reported unknown) Symptoms (unknown) (no (unknown) (unknown) [id number] (units (unkno wn) date) unknown) (unknown) (no (unknown) (unknown) [id number] (units (unkno wn) date) unknown) (unknown) (no (unknown) (unknown) [id number] (units (unkno wn) date) unknown) (unknown) (no (unknown) (unknown) 01/17/22 01/18/22 (units (unknown) date) 01/18/22 unknown) (unknown) (no (unknown) (unknown) 01/18/22 14:00 (units (unknown) date) 97.8 F 83 18 122/58 unknown) L 98 (unknown) (no (unknown) (unknown) 1000 mls/hr IV (units (unknown) date) BOLUS ONE Rx#: unknown) (unknown) (no (unknown) (unknown) 23:59 07:59 15:59 (units (unknown) date) unknown) (unknown) (no (unknown) (unknown) 7-10) (units (unkno wn) date) unknown) (unknown) (no (unknown) (unknown) 71 year old female (units (unknown) date) with active smoking unknown) history. She developed right neck mass (unknown) (no (unknown) (unknown) @ 25 mls/hr IV NOW (units (unknown) date) ONE Rx#: unknown) (unknown) (no (unknown) (unknown) ALT 28 IU/L (<35) (units (unknown) date) 01/17/22 11:57 unknown) (unknown) (no (unknown) (unknown) AST 96 IU/L (units (un known) date) (14-36) H 01/17/22 unknown) 11:57 (unknown) (no (unknown) (unknown) Abdominal pain, (units (unknown) date) Heartburn unknown) (unknown) (no (unknown) (unknown) Age/Sex: 71 / F (units (unknown) date) unknown) (unknown) (no (unknown) (unknown) Albumin 2.9 g/dL (units (unknown) date) (3.5-5.0) L unknown) 01/17/22 11:57 (unknown) (no (unknown) (unknown) Albumin/Globulin (units (unknown) date) Ratio 0.9 (1.0-2.8) unknown) L 01/17/22 11:57 (unknown) (no (unknown) (unknown) Alkaline (units (unkno wn) date) Phosphatase 166 U/L unknown) (38-126) H 01/17/22 11:57 (unknown) (no (unknown) (unknown) Allergies (units (unkn own) date) unknown) (unknown) (no (unknown) (unknown) Allergy/AdvReac (units (unknown) date) Type Severity unknown) Reaction Status Date / Time (unknown) (no (unknown) (unknown) Anti-Inflamma (units ( unknown) date) Upset unknown) (unknown) (no (unknown) (unknown) Antibiotics) (units (u nknown) date) unknown) (unknown) (no (unknown) (unknown) Assessment and (units (unknown) date) Plan unknown) (unknown) (no (unknown) (unknown) BUN 29 mg/dL (units (u nknown) date) (7-17) H 01/17/22 unknown) 11:57 (unknown) (no (unknown) (unknown) BUN/Creatinine (units (unknown) date) Ratio 22.1 (6-22) H unknown) 01/17/22 11:57 (unknown) (no (unknown) (unknown) Balance 1104 / (units (unknown) date) 1104 unknown) (unknown) (no (unknown) (unknown) Baso # (Auto) 100 (units (unknown) date) /uL (0-100) unknown) 01/18/22 13:50 (unknown) (no (unknown) (unknown) Baso % (Auto) 0.6 (units (unknown) date) % (0-2) 01/18/22 unknown) 13:50 (unknown) (no (unknown) (unknown) Brain MR w/wo (units ( unknown) date) contrast unknown) (unknown) (no (unknown) (unknown) CBC, CMP (units (unkno wn) date) unknown) (unknown) (no (unknown) (unknown) Calcium 8.1 mg/dL (units (unknown) date) (8.4-10.2) L unknown) 01/17/22 11:57 (unknown) (no (unknown) (unknown) Carbon Dioxide 30 (units (unknown) date) mmol/L (22-32) unknown) 01/17/22 11:57 (unknown) (no (unknown) (unknown) Chief Complaint: (units (unknown) date) Small cell lung unknown) cancer (unknown) (no (unknown) (unknown) Chloride 0.9% 50 (units (unknown) date) ml @ 216 mls/ unknown) (unknown) (no (unknown) (unknown) Chloride 94 mmol/L (units (unknown) date) (98-107) L 01/17/22 unknown) 11:57 (unknown) (no (unknown) (unknown) Creatinine 1.31 (units (unknown) date) mg/dL (0.52-1.04) H unknown) 01/17/22 11:57 (unknown) (no (unknown) (unknown) : 1950 (units (unknown) date) Acct:[id number] unknown) (unknown) (no (unknown) (unknown) Date of Service: (units (unknown) date) 01/18/22 unknown) (unknown) (no (unknown) (unknown) Date of visit: (units (unknown) date) 01/18/22 unknown) (unknown) (no (unknown) (unknown) Discussion: (units (un known) date) unknown) (unknown) (no (unknown) (unknown) Eos # (Auto) 100 (units (unknown) date) /uL (0-450) unknown) 01/18/22 13:50 (unknown) (no (unknown) (unknown) Eos % (Auto) 0.9 % (units (unknown) date) (2-4) L 01/18/22 unknown) 13:50 (unknown) (no (unknown) (unknown) Estimated GFR 44 (units (unknown) date) mL/min (>60) L unknown) 01/17/22 11:57 (unknown) (no (unknown) (unknown) Exam (units (unkno wn) date) unknown) (unknown) (no (unknown) (unknown) Globulin 3.1 g/dL (units (unknown) date) (1.7-4.1) 01/17/22 unknown) 11:57 (unknown) (no (unknown) (unknown) Glucose 117 mg/dL (units (unknown) date) (80-110) H 01/17/22 unknown) 11:57 (unknown) (no (unknown) (unknown) Hct 37.0 % (36-46) (units (unknown) date) 01/18/22 13:50 unknown) (unknown) (no (unknown) (unknown) Hgb 12.5 g/dL (units ( unknown) date) (12.0-16.0) unknown) 01/18/22 13:50 (unknown) (no (unknown) (unknown) History (units (unkno wn) date) unknown) (unknown) (no (unknown) (unknown) Home Medications (units (unknown) date) and Allergies unknown) (unknown) (no (unknown) (unknown) Home Medications (units (unknown) date) unknown) (unknown) (no (unknown) (unknown) I explained that (units (unknown) date) 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 The goal is to delay the (unknown) (no (unknown) (unknown) I reviewed the (units (unknown) date) right neck lymph unknown) node biopsy pathology with the patient. I (unknown) (no (unknown) (unknown) I will obtain (units ( unknown) date) brain MRI to unknown) further evaluate. In addition patient is having a (unknown) (no (unknown) (unknown) IV 1104 / 1104 (units (unknown) date) unknown) (unknown) (no (unknown) (unknown) Intake Total 1104 (units (unknown) date) / 1104 unknown) (unknown) (no (unknown) (unknown) Intake and Output (units (unknown) date) unknown) (unknown) (no (unknown) (unknown) Intake: (units (unkno wn) date) unknown) (unknown) (no (unknown) (unknown) Interval history: (units (unknown) date) unknown) (unknown) (no (unknown) (unknown) [facility] (units (unknown) date) [address] unknown) [place] [address] (unknown) (no (unknown) (unknown) Manda Whitaker (units (unknown) date) is a 71 year old unknown) female. According to patient, she has family (unknown) (no (unknown) (unknown) Manda said that (units (unknown) date) about in 10/2021, unknown) she felt right neck tenderness. On 11/02/2021, (unknown) (no (unknown) (unknown) Laboratory Last (units (unknown) date) Values unknown) (unknown) (no (unknown) (unknown) Lymph # (Auto) (units (unknown) date) 1900 /uL unknown) ([id number]) 01/18/22 13:50 (unknown) (no (unknown) (unknown) Lymph % (Auto) (units (unknown) date) 17.7 % (25-40) L unknown) 01/18/22 13:50 (unknown) (no (unknown) (unknown) MCH 30.1 PG (units (un known) date) (26-34) 01/18/22 unknown) 13:50 (unknown) (no (unknown) (unknown) MCHC 33.9 % (units (un known) date) (30-36) 01/18/22 unknown) 13:50 (unknown) (no (unknown) (unknown) MCV 88.9 fL (units (un known) date) (80-100) 01/18/22 unknown) 13:50 (unknown) (no (unknown) (unknown) Magnesium 1.3 (units ( unknown) date) mg/dL (1.6-2.3) L unknown) 01/17/22 11:57 (unknown) (no (unknown) (unknown) Magnesium Sulfate (units (unknown) date) 2 gm In 50 ml 50 / unknown) 50 (unknown) (no (unknown) (unknown) Medication (units (unk nown) date) Instructions unknown) Recorded Confirmed Type (unknown) (no (unknown) (unknown) Ector # (Auto) 800 (units (unknown) date) /uL (0-900) unknown) 01/18/22 13:50 (unknown) (no (unknown) (unknown) Ector % (Auto) 7.3 (units (unknown) date) % (3-14) 01/18/22 unknown) 13:50 (unknown) (no (unknown) (unknown) NSAIDS (units (unkno wn) date) (Non-Steroidal unknown) AdvReac Gastrointestinal Verified 01/10/22 16:32 (unknown) (no (unknown) (unknown) Neut # (Auto) 7800 (units (unknown) date) /uL (8294-7214) H unknown) 01/18/22 13:50 (unknown) (no (unknown) (unknown) Neut % (Auto) 73.5 (units (unknown) date) % (50-75) 01/18/22 unknown) 13:50 (unknown) (no (unknown) (unknown) Nose bleeds, (units (u nknown) date) Changes in taste, unknown) Hoarseness, Swollen glands (unknown) (no (unknown) (unknown) [employer] (units (unknown) date) unknown) (unknown) (no (unknown) (unknown) On 11/21/2021 CT (units (unknown) date) chest without unknown) contrast showed bulky right supraclavicular, (unknown) (no (unknown) (unknown) On 12/06/2021, (units (unknown) date) Gus performed unknown) excisional biopsy of right cervical lymph (unknown) (no (unknown) (unknown) On 01/03/2022, (units ( unknown) date) patient underwent unknown) PET scan that showed hypermetabolic masses in (unknown) (no (unknown) (unknown) On 01/04/2022, (units ( unknown) date) patient also unknown) underwent brain MRI that showed no dana parenchymal (unknown) (no (unknown) (unknown) Oncological (units (un known) date) History unknown) (unknown) (no (unknown) (unknown) Oncology Progress (units (unknown) date) Note unknown) (unknown) (no (unknown) (unknown) Ondansetron 8 mg (units (unknown) date) In Sodium 54 / 54 unknown) (unknown) (no (unknown) (unknown) PET CT (units (unkno wn) date) unknown) (unknown) (no (unknown) (unknown) PN -Subjective (units (unknown) date) unknown) (unknown) (no (unknown) (unknown) Patient: (units (unkno wn) date) Manda Whitaker unknown) MR#: [id number] (unknown) (no (unknown) (unknown) Plan: (units (unkno wn) date) unknown) (unknown) (no (unknown) (unknown) Plt Count 227 (units ( unknown) date) X103/uL (150-400) unknown) 01/18/22 13:50 (unknown) (no (unknown) (unknown) Port placement (units (unknown) date) unknown) (unknown) (no (unknown) (unknown) Potassium 3.5 (units ( unknown) date) mmol/L (3.4-5.1) unknown) 01/17/22 11:57 (unknown) (no (unknown) (unknown) Provider: (units (unkn own) date) Melly Noe MD unknown) (unknown) (no (unknown) (unknown) RBC 4.16 X106/uL (units (unknown) date) (4.0-5.2) 01/18/22 unknown) 13:50 (unknown) (no (unknown) (unknown) RDW 14.7 % (units (unk nown) date) (11.6-14.8) unknown) 01/18/22 13:50 (unknown) (no (unknown) (unknown) RTC in 3 weeks (units (unknown) date) unknown) (unknown) (no (unknown) (unknown) Results (units (unkno wn) date) unknown) (unknown) (no (unknown) (unknown) Rx (units (unkno wn) date) unknown) (unknown) (no (unknown) (unknown) SR Cardiovascular (units (unknown) date) issues: unknown) Palpitations, Shortness of breath with activity or (unknown) (no (unknown) (unknown) SR Constitution: (units (unknown) date) Fatigue/Malaise, unknown) Night Sweats (unknown) (no (unknown) (unknown) SR Endocrine (units (u nknown) date) issues: Cold unknown) intolerance, Excessive thirst (unknown) (no (unknown) (unknown) SR (units (unkno wn) date) Gastrointestinal unknown) issues: Poor or no appetite, Nausea, Vomiting, Diarrhea, (unknown) (no (unknown) (unknown) SR Hematologic (units (unknown) date) issues: Swollen unknown) lymph nodes (unknown) (no (unknown) (unknown) SR Musculoskeletal (units (unknown) date) issues: Joint pain unknown) or swelling, Muscle weakness, Muscle pain (unknown) (no (unknown) (unknown) SR Neuro issues: (units (unknown) date) Headache, unknown) Lightheaded/dizzy, Numbness or tingling, Difficulty (unknown) (no (unknown) (unknown) SR Skin issues: (units (unknown) date) Skin color changes, unknown) Blistering or peeling, Skin lesions or (unknown) (no (unknown) (unknown) SR ears, nose, (units (unknown) date) mouth, throat unknown) issues: Congestion, Cough, Difficulty swallowing, (unknown) (no (unknown) (unknown) SR respiratory (units (unknown) date) issues: Cough, unknown) Shortness of breath, Mucous (unknown) (no (unknown) (unknown) She then underwent (units (unknown) date) CT neck w/contrast unknown) on 11/21/2021 that showed a mass-like (unknown) (no (unknown) (unknown) Signed By: (units (unk nown) date) unknown) (unknown) (no (unknown) (unknown) Sodium 129 mmol/L (units (unknown) date) (137-145) L unknown) 01/17/22 11:57 (unknown) (no (unknown) (unknown) Sodium Chloride (units (unknown) date) 0.9% 1,000 ml @ unknown) 1000 / 1000 (unknown) (no (unknown) (unknown) Sulfa (Sulfonamide (units (unknown) date) Allergy Verified unknown) 01/10/22 16:32 (unknown) (no (unknown) (unknown) Temp Pulse Resp BP (units (unknown) date) Pulse Ox unknown) (unknown) (no (unknown) (unknown) Today, she is c/o (units (unknown) date) headache. At time unknown) her headache is pretty severe. She also (unknown) (no (unknown) (unknown) Total Bilirubin (units (unknown) date) 1.2 mg/dL (0.2-1.3) unknown) 01/17/22 11:57 (unknown) (no (unknown) (unknown) Total Protein 6.0 (units (unknown) date) g/dL (6.3-8.2) L unknown) 01/17/22 11:57 (unknown) (no (unknown) (unknown) Vital Signs (units (un known) date) unknown) (unknown) (no (unknown) (unknown) Vital signs: (units (u nknown) date) unknown) (unknown) (no (unknown) (unknown) WBC 10.6 X103/uL (units (unknown) date) (4.5-11.0) 01/18/22 unknown) 13:50 (unknown) (no (unknown) (unknown) [From Paxlovid (units (unknown) date) (EUA)] nausea unknown) (unknown) (no (unknown) (unknown) acetaminophen 325 (units (unknown) date) mg capsule 650 mg unknown) PO QID PRN pain #60 caps 12/06/21 01/10/22 (unknown) (no (unknown) (unknown) aerosol inhaler (units (unknown) date) (Ventolin HFA) unknown) Bronchodilation (unknown) (no (unknown) (unknown) albuterol sulfate (units (unknown) date) 90 mcg/actuation 2 unknown) puff inhalation Q6H PRN 11/30/21 01/10/22 (unknown) (no (unknown) (unknown) alendronate 70 mg (units (unknown) date) tablet 70 mg PO unknown) WEEKLY 12/06/21 01/10/22 History (unknown) (no (unknown) (unknown) amlodipine 5 mg (units (unknown) date) tablet 5 mg PO unknown) DAILY 11/30/21 01/10/22 History (unknown) (no (unknown) (unknown) artifact. (units (unkn own) date) unknown) (unknown) (no (unknown) (unknown) atorvastatin 80 mg (units (unknown) date) tablet 80 mg PO unknown) DAILY 11/30/21 01/10/22 History (unknown) (no (unknown) (unknown) balancing (units (unkn own) date) unknown) (unknown) (no (unknown) (unknown) can be seen within (units (unknown) date) the calvarium. unknown) There is moderate suspicion for bony (unknown) (no (unknown) (unknown) cell lung cancer. (units (unknown) date) Patient clinically unknown) is also experiencing headache. I talked (unknown) (no (unknown) (unknown) cell lung cancer. (units (unknown) date) unknown) (unknown) (no (unknown) (unknown) cisplatin/etoposid (units (unknown) date) e.. I also unknown) recommended port placement. (unknown) (no (unknown) (unknown) clopidogrel 75 mg (units (unknown) date) tablet 75 mg PO unknown) DAILY 11/30/21 01/10/22 History (unknown) (no (unknown) (unknown) concerning for (units (unknown) date) metastatic is unknown) noted. (unknown) (no (unknown) (unknown) conglomerated group (units (unknown) date) of lymph nodes unknown) within the right supra-clavicular region that (unknown) (no (unknown) (unknown) developed blurred (units (unknown) date) vision. She said unknown) that she used to read a lot, but now she has (unknown) (no (unknown) (unknown) diphenoxylate-atro (units (unknown) date) pine 2.5 1 tab PO unknown) DAILY diarrhea 11/30/21 01/10/22 History (unknown) (no (unknown) (unknown) disease. (units (unkno wn) date) Ill-defined unknown) multiple hepatic mass lesions with metabolic activity most (unknown) (no (unknown) (unknown) distant (units (unkno wn) date) metastasis. To unknown) further evaluate, I will obtain PET scan. (unknown) (no (unknown) (unknown) duloxetine AdvReac (units (unknown) date) Hypotension unknown) Verified 01/10/22 16:32 (unknown) (no (unknown) (unknown) e. 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 But Manda (unknown) (no (unknown) (unknown) hr IV NOW ONE (units ( unknown) date) Rx#:[id number] unknown) (unknown) (no (unknown) (unknown) hydrocodone (units (un known) date) AdvReac Rash unknown) Verified 01/10/22 16:32 (unknown) (no (unknown) (unknown) in the spleen (units ( unknown) date) liver and both unknown) lungs, small pericardial effusion and nonspecific (unknown) (no (unknown) (unknown) informed her and (units (unknown) date) her daughter that unknown) the final diagnosis is consistent with small (unknown) (no (unknown) (unknown) is reporting (units (u nknown) date) epigastric pain and unknown) umblical snell. Her weight has remained about (unknown) (no (unknown) (unknown) legs. left > (units (u nknown) date) right. She just saw unknown) vascular surgery. no blood clot. (unknown) (no (unknown) (unknown) lidocaine-prilocai (units (unknown) date) ne 2.5 %-2.5 % See unknown) Rx Instructions .Route 01/16/22 Rx (unknown) (no (unknown) (unknown) lot of other (units (u nknown) date) symptoms including unknown) abdominal pain, nausea and food stuck in the (unknown) (no (unknown) (unknown) lying flat, (units (un known) date) Extreme swelling unknown) (unknown) (no (unknown) (unknown) masses or abnormal (units (unknown) date) enhancement. unknown) However, numerous irregularly enhancing areas (unknown) (no (unknown) (unknown) mcg/actuation (units ( unknown) date) nasal unknown) (unknown) (no (unknown) (unknown) measures at least (units (unknown) date) 5.8 x 3.6 cm in unknown) greatest axial dimension. There is partial (unknown) (no (unknown) (unknown) meclizine AdvReac (units (unknown) date) Hypertensio unknown) Verified 01/10/22 16:32 (unknown) (no (unknown) (unknown) mediastinal and (units (unknown) date) right hilar unknown) adenopathy, coarse nodular calcifications, granuloma (unknown) (no (unknown) (unknown) metastatic (units (unk nown) date) disease. unknown) (unknown) (no (unknown) (unknown) metoprolol (units (unk nown) date) tartrate 25 mg unknown) tablet 37.5 mg PO BID 11/30/21 01/10/22 History (unknown) (no (unknown) (unknown) mg-0.025 mg tablet (units (unknown) date) unknown) (unknown) (no (unknown) (unknown) moles, Hair loss (units (unknown) date) or scalp prob, Nail unknown) changes (unknown) (no (unknown) (unknown) montelukast 10 mg (units (unknown) date) tablet 10 mg PO unknown) DAILY 11/30/21 01/10/22 History (unknown) (no (unknown) (unknown) n (units (unkno wn) date) unknown) (unknown) (no (unknown) (unknown) nirmatrelvir (units (u nknown) date) AdvReac Pain, unknown) Verified 01/10/22 16:32 (unknown) (no (unknown) (unknown) node. 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 (unknown) (no (unknown) (unknown) ondansetron 4 mg (units (unknown) date) disintegrating 4 mg unknown) PO Q6H PRN nausea and 01/10/22 Rx (unknown) (no (unknown) (unknown) or cramps, Back or (units (unknown) date) neck pain, unknown) Difficulty walking, Bone pain (unknown) (no (unknown) (unknown) oxycodone 5 mg (units (unknown) date) tablet 5 mg PO BID unknown) PRN Pain (Scale Score 11/30/21 01/10/22 (unknown) (no (unknown) (unknown) paroxetine AdvReac (units (unknown) date) Nightmare Verified unknown) 01/10/22 16:32 (unknown) (no (unknown) (unknown) prochlorperazine (units (unknown) date) 25 mg rectal 25 mg unknown) KS BID PRN Nausea And 01/16/22 Rx (unknown) (no (unknown) (unknown) progress and to (units (unknown) date) keep her quality of unknown) time as best as we can. I told her that (unknown) (no (unknown) (unknown) relative quickly in (units (unknown) date) 10/2021. CT neck unknown) and chest showed bulky lymph nodes in right (unknown) (no (unknown) (unknown) reticulonodular (units (unknown) date) focus in the medial unknown) right upper lobe. Mild bronchial wall (unknown) (no (unknown) (unknown) right neck lymph (units (unknown) date) node excision unknown) biopsy. The pathology is consistent with small (unknown) (no (unknown) (unknown) ritonavir AdvReac (units (unknown) date) Pain, Verified unknown) 01/10/22 16:32 (unknown) (no (unknown) (unknown) she went to see (units (unknown) date) her PCR Lynnette unknown) Ivan, and right neck lymph nodes were palpated. (unknown) (no (unknown) (unknown) small cell the (units (unknown) date) highly sensitive to unknown) chemotherapy. I am recommending (unknown) (no (unknown) (unknown) solifenacin (units (un known) date) AdvReac Verified unknown) 01/10/22 16:32 (unknown) (no (unknown) (unknown) spray,suspension (units (unknown) date) unknown) (unknown) (no (unknown) (unknown) superior (units (unkno wn) date) mediastinum unknown) measuring 4.3 x 3 cm. Mild mass effect of is seen upon the (unknown) (no (unknown) (unknown) suppository (units (un known) date) Vomiting #20 ea unknown) (unknown) (no (unknown) (unknown) supraclavicular (units (unknown) date) fossa, and unknown) mediastinum. On 12/06/2021, Dr. Reddy performed (unknown) (no (unknown) (unknown) suvorexant [From (units (unknown) date) Belsomra] Allergy unknown) Rash Verified 01/10/22 16:32 (unknown) (no (unknown) (unknown) tablet vomiting (units (unknown) date) #30 tabs unknown) (unknown) (no (unknown) (unknown) the lower neck, (units (unknown) date) mediastinum, and unknown) hilar regions consistent with malignant diseas (unknown) (no (unknown) (unknown) the same . She (units (unknown) date) said she is losing unknown) wt in the face and arm, but edema in the (unknown) (no (unknown) (unknown) thickening noted. (units (unknown) date) unknown) (unknown) (no (unknown) (unknown) tizanidine 2 mg (units (unknown) date) tablet 2 mg PO PRN unknown) PRN Muscle Pain 12/06/21 01/10/22 History (unknown) (no (unknown) (unknown) to give up 2/2 (units ( unknown) date) blurred vision. She unknown) is also reporting food stuck in the flow. She (unknown) (no (unknown) (unknown) topical cream (units ( unknown) date) .COMPLEX #30 grams unknown) (unknown) (no (unknown) (unknown) trachea, which is (units (unknown) date) slightly deviated unknown) to the left. (unknown) (no (unknown) (unknown) trazodone 150 mg (units (unknown) date) tablet 150 mg PO unknown) BEDTIME PRN Sleep 11/30/21 01/10/22 History (unknown) (no (unknown) (unknown) upper chest. I (units (unknown) date) talked with them it unknown) is highly suspicious that patient may have a (unknown) (no (unknown) (unknown) ursodiol AdvReac (units (unknown) date) Rash Verified unknown) 01/10/22 16:32 (unknown) (no (unknown) (unknown) visualization of (units (unknown) date) mediastinal lymph unknown) nodes, with a group seen within the right (unknown) (no (unknown) (unknown) was tested (units (unk nown) date) negative (about in unknown) 2015). 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 Result panel 39 (unknown) (no (unknown) (unknown) (no value) (units (unk nown) date) unknown) (unknown) (no (unknown) (unknown) (1) 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 (unknown) (no (unknown) (unknown) (Tylenol) (units (unkn own) date) unknown) (unknown) (no (unknown) (unknown) - Date of Visit (units (unknown) date) unknown) (unknown) (no (unknown) (unknown) - Labs (units (unkno wn) date) unknown) (unknown) (no (unknown) (unknown) - Patient (units (unkn own) date) Self-Reported unknown) Symptoms (unknown) (no (unknown) (unknown) [id number] (units (unkno wn) date) unknown) (unknown) (no (unknown) (unknown) [id number] (units (unkno wn) date) unknown) (unknown) (no (unknown) (unknown) [id number] (units (unkno wn) date) unknown) (unknown) (no (unknown) (unknown) 01/17/22 01/18/22 (units (unknown) date) 01/18/22 unknown) (unknown) (no (unknown) (unknown) 01/18/22 14:00 (units (unknown) date) 97.8 F 83 18 122/58 unknown) L 98 (unknown) (no (unknown) (unknown) 1000 mls/hr IV (units (unknown) date) BOLUS ONE Rx#: unknown) (unknown) (no (unknown) (unknown) 23:59 07:59 15:59 (units (unknown) date) unknown) (unknown) (no (unknown) (unknown) 7-10) (units (unkno wn) date) unknown) (unknown) (no (unknown) (unknown) 71 year old female (units (unknown) date) with active smoking unknown) history. She developed right neck mass (unknown) (no (unknown) (unknown) @ 25 mls/hr IV NOW (units (unknown) date) ONE Rx#: unknown) (unknown) (no (unknown) (unknown) ALT 28 IU/L (<35) (units (unknown) date) 01/17/22 11:57 unknown) (unknown) (no (unknown) (unknown) AST 96 IU/L (units (un known) date) (14-36) H 01/17/22 unknown) 11:57 (unknown) (no (unknown) (unknown) Abdominal pain, (units (unknown) date) Heartburn unknown) (unknown) (no (unknown) (unknown) Age/Sex: 71 / F (units (unknown) date) unknown) (unknown) (no (unknown) (unknown) Albumin 2.9 g/dL (units (unknown) date) (3.5-5.0) L unknown) 01/17/22 11:57 (unknown) (no (unknown) (unknown) Albumin/Globulin (units (unknown) date) Ratio 0.9 (1.0-2.8) unknown) L 01/17/22 11:57 (unknown) (no (unknown) (unknown) Alkaline (units (unkno wn) date) Phosphatase 166 U/L unknown) (38-126) H 01/17/22 11:57 (unknown) (no (unknown) (unknown) Allergies (units (unkn own) date) unknown) (unknown) (no (unknown) (unknown) Allergy/AdvReac (units (unknown) date) Type Severity unknown) Reaction Status Date / Time (unknown) (no (unknown) (unknown) Anti-Inflamma (units ( unknown) date) Upset unknown) (unknown) (no (unknown) (unknown) Antibiotics) (units (u nknown) date) unknown) (unknown) (no (unknown) (unknown) Assessment and (units (unknown) date) Plan unknown) (unknown) (no (unknown) (unknown) BUN 29 mg/dL (units (u nknown) date) (7-17) H 01/17/22 unknown) 11:57 (unknown) (no (unknown) (unknown) BUN/Creatinine (units (unknown) date) Ratio 22.1 (6-22) H unknown) 01/17/22 11:57 (unknown) (no (unknown) (unknown) Balance 1104 / (units (unknown) date) 1104 unknown) (unknown) (no (unknown) (unknown) Baso # (Auto) 100 (units (unknown) date) /uL (0-100) unknown) 01/18/22 13:50 (unknown) (no (unknown) (unknown) Baso % (Auto) 0.6 (units (unknown) date) % (0-2) 01/18/22 unknown) 13:50 (unknown) (no (unknown) (unknown) Brain MR w/wo (units ( unknown) date) contrast unknown) (unknown) (no (unknown) (unknown) CBC, CMP (units (unkno wn) date) unknown) (unknown) (no (unknown) (unknown) Calcium 8.1 mg/dL (units (unknown) date) (8.4-10.2) L unknown) 01/17/22 11:57 (unknown) (no (unknown) (unknown) Carbon Dioxide 30 (units (unknown) date) mmol/L (22-32) unknown) 01/17/22 11:57 (unknown) (no (unknown) (unknown) Chief Complaint: (units (unknown) date) Small cell lung unknown) cancer (unknown) (no (unknown) (unknown) Chloride 0.9% 50 (units (unknown) date) ml @ 216 mls/ unknown) (unknown) (no (unknown) (unknown) Chloride 94 mmol/L (units (unknown) date) (98-107) L 01/17/22 unknown) 11:57 (unknown) (no (unknown) (unknown) Creatinine 1.31 (units (unknown) date) mg/dL (0.52-1.04) H unknown) 01/17/22 11:57 (unknown) (no (unknown) (unknown) : 1950 (units (unknown) date) Acct:[id number] unknown) (unknown) (no (unknown) (unknown) Date of Service: (units (unknown) date) 01/18/22 unknown) (unknown) (no (unknown) (unknown) Date of visit: (units (unknown) date) 01/18/22 unknown) (unknown) (no (unknown) (unknown) Discussion: (units (un known) date) unknown) (unknown) (no (unknown) (unknown) Eos # (Auto) 100 (units (unknown) date) /uL (0-450) unknown) 01/18/22 13:50 (unknown) (no (unknown) (unknown) Eos % (Auto) 0.9 % (units (unknown) date) (2-4) L 01/18/22 unknown) 13:50 (unknown) (no (unknown) (unknown) Estimated GFR 44 (units (unknown) date) mL/min (>60) L unknown) 01/17/22 11:57 (unknown) (no (unknown) (unknown) Exam (units (unkno wn) date) unknown) (unknown) (no (unknown) (unknown) Globulin 3.1 g/dL (units (unknown) date) (1.7-4.1) 01/17/22 unknown) 11:57 (unknown) (no (unknown) (unknown) Glucose 117 mg/dL (units (unknown) date) (80-110) H 01/17/22 unknown) 11:57 (unknown) (no (unknown) (unknown) Hct 37.0 % (36-46) (units (unknown) date) 01/18/22 13:50 unknown) (unknown) (no (unknown) (unknown) Hgb 12.5 g/dL (units ( unknown) date) (12.0-16.0) unknown) 01/18/22 13:50 (unknown) (no (unknown) (unknown) History (units (unkno wn) date) unknown) (unknown) (no (unknown) (unknown) Home Medications (units (unknown) date) and Allergies unknown) (unknown) (no (unknown) (unknown) Home Medications (units (unknown) date) unknown) (unknown) (no (unknown) (unknown) I explained that (units (unknown) date) 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 The goal is to delay the (unknown) (no (unknown) (unknown) I reviewed the (units (unknown) date) right neck lymph unknown) node biopsy pathology with the patient. I (unknown) (no (unknown) (unknown) I will obtain (units ( unknown) date) brain MRI to unknown) further evaluate. In addition patient is having a (unknown) (no (unknown) (unknown) IV 1104 / 1104 (units (unknown) date) unknown) (unknown) (no (unknown) (unknown) Intake Total 1104 (units (unknown) date) / 1104 unknown) (unknown) (no (unknown) (unknown) Intake and Output (units (unknown) date) unknown) (unknown) (no (unknown) (unknown) Intake: (units (unkno wn) date) unknown) (unknown) (no (unknown) (unknown) Interval history: (units (unknown) date) unknown) (unknown) (no (unknown) (unknown) [facility] (units (unknown) date) [address] unknown) [place] [address] (unknown) (no (unknown) (unknown) Manda Whitaker (units (unknown) date) is a 71 year old unknown) female. According to patient, she has family (unknown) (no (unknown) (unknown) Manda said that (units (unknown) date) about in 10/2021, unknown) she felt right neck tenderness. On 11/02/2021, (unknown) (no (unknown) (unknown) Laboratory Last (units (unknown) date) Values unknown) (unknown) (no (unknown) (unknown) Lymph # (Auto) (units (unknown) date) 1900 /uL unknown) ([id number]) 01/18/22 13:50 (unknown) (no (unknown) (unknown) Lymph % (Auto) (units (unknown) date) 17.7 % (25-40) L unknown) 01/18/22 13:50 (unknown) (no (unknown) (unknown) MCH 30.1 PG (units (un known) date) (26-34) 01/18/22 unknown) 13:50 (unknown) (no (unknown) (unknown) MCHC 33.9 % (units (un known) date) (30-36) 01/18/22 unknown) 13:50 (unknown) (no (unknown) (unknown) MCV 88.9 fL (units (un known) date) (80-100) 01/18/22 unknown) 13:50 (unknown) (no (unknown) (unknown) Magnesium 1.3 (units ( unknown) date) mg/dL (1.6-2.3) L unknown) 01/17/22 11:57 (unknown) (no (unknown) (unknown) Magnesium Sulfate (units (unknown) date) 2 gm In 50 ml 50 / unknown) 50 (unknown) (no (unknown) (unknown) Medication (units (unk nown) date) Instructions unknown) Recorded Confirmed Type (unknown) (no (unknown) (unknown) Ector # (Auto) 800 (units (unknown) date) /uL (0-900) unknown) 01/18/22 13:50 (unknown) (no (unknown) (unknown) Ector % (Auto) 7.3 (units (unknown) date) % (3-14) 01/18/22 unknown) 13:50 (unknown) (no (unknown) (unknown) NSAIDS (units (unkno wn) date) (Non-Steroidal unknown) AdvReac Gastrointestinal Verified 01/10/22 16:32 (unknown) (no (unknown) (unknown) Neut # (Auto) 7800 (units (unknown) date) /uL (8038-2999) H unknown) 01/18/22 13:50 (unknown) (no (unknown) (unknown) Neut % (Auto) 73.5 (units (unknown) date) % (50-75) 01/18/22 unknown) 13:50 (unknown) (no (unknown) (unknown) Nose bleeds, (units (u nknown) date) Changes in taste, unknown) Hoarseness, Swollen glands (unknown) (no (unknown) (unknown) [employer] (units (unknown) date) unknown) (unknown) (no (unknown) (unknown) On 11/21/2021 CT (units (unknown) date) chest without unknown) contrast showed bulky right supraclavicular, (unknown) (no (unknown) (unknown) On 12/06/2021, (units (unknown) date) Gus performed unknown) excisional biopsy of right cervical lymph (unknown) (no (unknown) (unknown) On 01/03/2022, (units ( unknown) date) patient underwent unknown) PET scan that showed hypermetabolic masses in (unknown) (no (unknown) (unknown) On 01/04/2022, (units ( unknown) date) patient also unknown) underwent brain MRI that showed no dana parenchymal (unknown) (no (unknown) (unknown) Oncological (units (un known) date) History unknown) (unknown) (no (unknown) (unknown) Oncology Progress (units (unknown) date) Note unknown) (unknown) (no (unknown) (unknown) Ondansetron 8 mg (units (unknown) date) In Sodium 54 / 54 unknown) (unknown) (no (unknown) (unknown) PET CT (units (unkno wn) date) unknown) (unknown) (no (unknown) (unknown) PN -Subjective (units (unknown) date) unknown) (unknown) (no (unknown) (unknown) Patient: (units (unkno wn) date) Manda Whitaker unknown) MR#: [id number] (unknown) (no (unknown) (unknown) Plan: (units (unkno wn) date) unknown) (unknown) (no (unknown) (unknown) Plt Count 227 (units ( unknown) date) X103/uL (150-400) unknown) 01/18/22 13:50 (unknown) (no (unknown) (unknown) Port placement (units (unknown) date) unknown) (unknown) (no (unknown) (unknown) Potassium 3.5 (units ( unknown) date) mmol/L (3.4-5.1) unknown) 01/17/22 11:57 (unknown) (no (unknown) (unknown) Provider: (units (unkn own) date) Melly Noe MD unknown) (unknown) (no (unknown) (unknown) RBC 4.16 X106/uL (units (unknown) date) (4.0-5.2) 01/18/22 unknown) 13:50 (unknown) (no (unknown) (unknown) RDW 14.7 % (units (unk nown) date) (11.6-14.8) unknown) 01/18/22 13:50 (unknown) (no (unknown) (unknown) RTC in 3 weeks (units (unknown) date) unknown) (unknown) (no (unknown) (unknown) Results (units (unkno wn) date) unknown) (unknown) (no (unknown) (unknown) Rx (units (unkno wn) date) unknown) (unknown) (no (unknown) (unknown) SR Cardiovascular (units (unknown) date) issues: unknown) Palpitations, Shortness of breath with activity or (unknown) (no (unknown) (unknown) SR Constitution: (units (unknown) date) Fatigue/Malaise, unknown) Night Sweats (unknown) (no (unknown) (unknown) SR Endocrine (units (u nknown) date) issues: Cold unknown) intolerance, Excessive thirst (unknown) (no (unknown) (unknown) SR (units (unkno wn) date) Gastrointestinal unknown) issues: Poor or no appetite, Nausea, Vomiting, Diarrhea, (unknown) (no (unknown) (unknown) SR Hematologic (units (unknown) date) issues: Swollen unknown) lymph nodes (unknown) (no (unknown) (unknown) SR Musculoskeletal (units (unknown) date) issues: Joint pain unknown) or swelling, Muscle weakness, Muscle pain (unknown) (no (unknown) (unknown) SR Neuro issues: (units (unknown) date) Headache, unknown) Lightheaded/dizzy, Numbness or tingling, Difficulty (unknown) (no (unknown) (unknown) SR Skin issues: (units (unknown) date) Skin color changes, unknown) Blistering or peeling, Skin lesions or (unknown) (no (unknown) (unknown) SR ears, nose, (units (unknown) date) mouth, throat unknown) issues: Congestion, Cough, Difficulty swallowing, (unknown) (no (unknown) (unknown) SR respiratory (units (unknown) date) issues: Cough, unknown) Shortness of breath, Mucous (unknown) (no (unknown) (unknown) She then underwent (units (unknown) date) CT neck w/contrast unknown) on 11/21/2021 that showed a mass-like (unknown) (no (unknown) (unknown) Signed By: (units (unk nown) date) unknown) (unknown) (no (unknown) (unknown) Sodium 129 mmol/L (units (unknown) date) (137-145) L unknown) 01/17/22 11:57 (unknown) (no (unknown) (unknown) Sodium Chloride (units (unknown) date) 0.9% 1,000 ml @ unknown) 1000 / 1000 (unknown) (no (unknown) (unknown) Sulfa (Sulfonamide (units (unknown) date) Allergy Verified unknown) 01/10/22 16:32 (unknown) (no (unknown) (unknown) Temp Pulse Resp BP (units (unknown) date) Pulse Ox unknown) (unknown) (no (unknown) (unknown) Today, she is c/o (units (unknown) date) headache. At time unknown) her headache is pretty severe. She also (unknown) (no (unknown) (unknown) Total Bilirubin (units (unknown) date) 1.2 mg/dL (0.2-1.3) unknown) 01/17/22 11:57 (unknown) (no (unknown) (unknown) Total Protein 6.0 (units (unknown) date) g/dL (6.3-8.2) L unknown) 01/17/22 11:57 (unknown) (no (unknown) (unknown) Vital Signs (units (un known) date) unknown) (unknown) (no (unknown) (unknown) Vital signs: (units (u nknown) date) unknown) (unknown) (no (unknown) (unknown) WBC 10.6 X103/uL (units (unknown) date) (4.5-11.0) 01/18/22 unknown) 13:50 (unknown) (no (unknown) (unknown) [From Paxlovid (units (unknown) date) (EUA)] nausea unknown) (unknown) (no (unknown) (unknown) acetaminophen 325 (units (unknown) date) mg capsule 650 mg unknown) PO QID PRN pain #60 caps 12/06/21 01/10/22 (unknown) (no (unknown) (unknown) aerosol inhaler (units (unknown) date) (Ventolin HFA) unknown) Bronchodilation (unknown) (no (unknown) (unknown) albuterol sulfate (units (unknown) date) 90 mcg/actuation 2 unknown) puff inhalation Q6H PRN 11/30/21 01/10/22 (unknown) (no (unknown) (unknown) alendronate 70 mg (units (unknown) date) tablet 70 mg PO unknown) WEEKLY 12/06/21 01/10/22 History (unknown) (no (unknown) (unknown) amlodipine 5 mg (units (unknown) date) tablet 5 mg PO unknown) DAILY 11/30/21 01/10/22 History (unknown) (no (unknown) (unknown) artifact. (units (unkn own) date) unknown) (unknown) (no (unknown) (unknown) atorvastatin 80 mg (units (unknown) date) tablet 80 mg PO unknown) DAILY 11/30/21 01/10/22 History (unknown) (no (unknown) (unknown) balancing (units (unkn own) date) unknown) (unknown) (no (unknown) (unknown) can be seen within (units (unknown) date) the calvarium. unknown) There is moderate suspicion for bony (unknown) (no (unknown) (unknown) cell lung cancer. (units (unknown) date) Patient clinically unknown) is also experiencing headache. I talked (unknown) (no (unknown) (unknown) cell lung cancer. (units (unknown) date) unknown) (unknown) (no (unknown) (unknown) cisplatin/etoposid (units (unknown) date) e.. I also unknown) recommended port placement. (unknown) (no (unknown) (unknown) clopidogrel 75 mg (units (unknown) date) tablet 75 mg PO unknown) DAILY 11/30/21 01/10/22 History (unknown) (no (unknown) (unknown) concerning for (units (unknown) date) metastatic is unknown) noted. (unknown) (no (unknown) (unknown) conglomerated group (units (unknown) date) of lymph nodes unknown) within the right supra-clavicular region that (unknown) (no (unknown) (unknown) developed blurred (units (unknown) date) vision. She said unknown) that she used to read a lot, but now she has (unknown) (no (unknown) (unknown) diphenoxylate-atro (units (unknown) date) pine 2.5 1 tab PO unknown) DAILY diarrhea 11/30/21 01/10/22 History (unknown) (no (unknown) (unknown) disease. (units (unkno wn) date) Ill-defined unknown) multiple hepatic mass lesions with metabolic activity most (unknown) (no (unknown) (unknown) distant (units (unkno wn) date) metastasis. To unknown) further evaluate, I will obtain PET scan. (unknown) (no (unknown) (unknown) duloxetine AdvReac (units (unknown) date) Hypotension unknown) Verified 01/10/22 16:32 (unknown) (no (unknown) (unknown) e. 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 But Manda (unknown) (no (unknown) (unknown) hr IV NOW ONE (units ( unknown) date) Rx#:[id number] unknown) (unknown) (no (unknown) (unknown) hydrocodone (units (un known) date) AdvReac Rash unknown) Verified 01/10/22 16:32 (unknown) (no (unknown) (unknown) in the spleen (units ( unknown) date) liver and both unknown) lungs, small pericardial effusion and nonspecific (unknown) (no (unknown) (unknown) informed her and (units (unknown) date) her daughter that unknown) the final diagnosis is consistent with small (unknown) (no (unknown) (unknown) is reporting (units (u nknown) date) epigastric pain and unknown) umblical snell. Her weight has remained about (unknown) (no (unknown) (unknown) legs. left > (units (u nknown) date) right. She just saw unknown) vascular surgery. no blood clot. (unknown) (no (unknown) (unknown) lidocaine-prilocai (units (unknown) date) ne 2.5 %-2.5 % See unknown) Rx Instructions .Route 01/16/22 Rx (unknown) (no (unknown) (unknown) lot of other (units (u nknown) date) symptoms including unknown) abdominal pain, nausea and food stuck in the (unknown) (no (unknown) (unknown) lying flat, (units (un known) date) Extreme swelling unknown) (unknown) (no (unknown) (unknown) masses or abnormal (units (unknown) date) enhancement. unknown) However, numerous irregularly enhancing areas (unknown) (no (unknown) (unknown) mcg/actuation (units ( unknown) date) nasal unknown) (unknown) (no (unknown) (unknown) measures at least (units (unknown) date) 5.8 x 3.6 cm in unknown) greatest axial dimension. There is partial (unknown) (no (unknown) (unknown) meclizine AdvReac (units (unknown) date) Hypertensio unknown) Verified 01/10/22 16:32 (unknown) (no (unknown) (unknown) mediastinal and (units (unknown) date) right hilar unknown) adenopathy, coarse nodular calcifications, granuloma (unknown) (no (unknown) (unknown) metastatic (units (unk nown) date) disease. unknown) (unknown) (no (unknown) (unknown) metoprolol (units (unk nown) date) tartrate 25 mg unknown) tablet 37.5 mg PO BID 11/30/21 01/10/22 History (unknown) (no (unknown) (unknown) mg-0.025 mg tablet (units (unknown) date) unknown) (unknown) (no (unknown) (unknown) moles, Hair loss (units (unknown) date) or scalp prob, Nail unknown) changes (unknown) (no (unknown) (unknown) montelukast 10 mg (units (unknown) date) tablet 10 mg PO unknown) DAILY 11/30/21 01/10/22 History (unknown) (no (unknown) (unknown) n (units (unkno wn) date) unknown) (unknown) (no (unknown) (unknown) nirmatrelvir (units (u nknown) date) AdvReac Pain, unknown) Verified 01/10/22 16:32 (unknown) (no (unknown) (unknown) node. 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 (unknown) (no (unknown) (unknown) ondansetron 4 mg (units (unknown) date) disintegrating 4 mg unknown) PO Q6H PRN nausea and 01/10/22 Rx (unknown) (no (unknown) (unknown) or cramps, Back or (units (unknown) date) neck pain, unknown) Difficulty walking, Bone pain (unknown) (no (unknown) (unknown) oxycodone 5 mg (units (unknown) date) tablet 5 mg PO BID unknown) PRN Pain (Scale Score 11/30/21 01/10/22 (unknown) (no (unknown) (unknown) paroxetine AdvReac (units (unknown) date) Nightmare Verified unknown) 01/10/22 16:32 (unknown) (no (unknown) (unknown) prochlorperazine (units (unknown) date) 25 mg rectal 25 mg unknown) KS BID PRN Nausea And 01/16/22 Rx (unknown) (no (unknown) (unknown) progress and to (units (unknown) date) keep her quality of unknown) time as best as we can. I told her that (unknown) (no (unknown) (unknown) relative quickly in (units (unknown) date) 10/2021. CT neck unknown) and chest showed bulky lymph nodes in right (unknown) (no (unknown) (unknown) reticulonodular (units (unknown) date) focus in the medial unknown) right upper lobe. Mild bronchial wall (unknown) (no (unknown) (unknown) right neck lymph (units (unknown) date) node excision unknown) biopsy. The pathology is consistent with small (unknown) (no (unknown) (unknown) ritonavir AdvReac (units (unknown) date) Pain, Verified unknown) 01/10/22 16:32 (unknown) (no (unknown) (unknown) she went to see (units (unknown) date) her PCR Lynnette unknown) Ivan, and right neck lymph nodes were palpated. (unknown) (no (unknown) (unknown) small cell the (units (unknown) date) highly sensitive to unknown) chemotherapy. I am recommending (unknown) (no (unknown) (unknown) solifenacin (units (un known) date) AdvReac Verified unknown) 01/10/22 16:32 (unknown) (no (unknown) (unknown) spray,suspension (units (unknown) date) unknown) (unknown) (no (unknown) (unknown) superior (units (unkno wn) date) mediastinum unknown) measuring 4.3 x 3 cm. Mild mass effect of is seen upon the (unknown) (no (unknown) (unknown) suppository (units (un known) date) Vomiting #20 ea unknown) (unknown) (no (unknown) (unknown) supraclavicular (units (unknown) date) fossa, and unknown) mediastinum. On 12/06/2021, Dr. Reddy performed (unknown) (no (unknown) (unknown) suvorexant [From (units (unknown) date) Belsomra] Allergy unknown) Rash Verified 01/10/22 16:32 (unknown) (no (unknown) (unknown) tablet vomiting (units (unknown) date) #30 tabs unknown) (unknown) (no (unknown) (unknown) the lower neck, (units (unknown) date) mediastinum, and unknown) hilar regions consistent with malignant diseas (unknown) (no (unknown) (unknown) the same . She (units (unknown) date) said she is losing unknown) wt in the face and arm, but edema in the (unknown) (no (unknown) (unknown) thickening noted. (units (unknown) date) unknown) (unknown) (no (unknown) (unknown) tizanidine 2 mg (units (unknown) date) tablet 2 mg PO PRN unknown) PRN Muscle Pain 12/06/21 01/10/22 History (unknown) (no (unknown) (unknown) to give up 2/2 (units ( unknown) date) blurred vision. She unknown) is also reporting food stuck in the flow. She (unknown) (no (unknown) (unknown) topical cream (units ( unknown) date) .COMPLEX #30 grams unknown) (unknown) (no (unknown) (unknown) trachea, which is (units (unknown) date) slightly deviated unknown) to the left. (unknown) (no (unknown) (unknown) trazodone 150 mg (units (unknown) date) tablet 150 mg PO unknown) BEDTIME PRN Sleep 11/30/21 01/10/22 History (unknown) (no (unknown) (unknown) upper chest. I (units (unknown) date) talked with them it unknown) is highly suspicious that patient may have a (unknown) (no (unknown) (unknown) ursodiol AdvReac (units (unknown) date) Rash Verified unknown) 01/10/22 16:32 (unknown) (no (unknown) (unknown) visualization of (units (unknown) date) mediastinal lymph unknown) nodes, with a group seen within the right (unknown) (no (unknown) (unknown) was tested (units (unk nown) date) negative (about in unknown) 2015). 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 Result panel 40 (unknown) (no (unknown) (unknown) (no value) (units (unk nown) date) unknown) (unknown) (no (unknown) (unknown) (1) 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 (unknown) (no (unknown) (unknown) (Tylenol) (units (unkn own) date) unknown) (unknown) (no (unknown) (unknown) - Date of Visit (units (unknown) date) unknown) (unknown) (no (unknown) (unknown) - Labs (units (unkno wn) date) unknown) (unknown) (no (unknown) (unknown) - Patient (units (unkn own) date) Self-Reported unknown) Symptoms (unknown) (no (unknown) (unknown) [id number] (units (unkno wn) date) unknown) (unknown) (no (unknown) (unknown) [id number] (units (unkno wn) date) unknown) (unknown) (no (unknown) (unknown) [id number] (units (unkno wn) date) unknown) (unknown) (no (unknown) (unknown) 01/17/22 01/18/22 (units (unknown) date) 01/18/22 unknown) (unknown) (no (unknown) (unknown) 01/18/22 14:00 (units (unknown) date) 97.8 F 83 18 122/58 unknown) L 98 (unknown) (no (unknown) (unknown) 1000 mls/hr IV (units (unknown) date) BOLUS ONE Rx#: unknown) (unknown) (no (unknown) (unknown) 23:59 07:59 15:59 (units (unknown) date) unknown) (unknown) (no (unknown) (unknown) 7-10) (units (unkno wn) date) unknown) (unknown) (no (unknown) (unknown) 71 year old female (units (unknown) date) with active smoking unknown) history. She developed right neck mass (unknown) (no (unknown) (unknown) @ 25 mls/hr IV NOW (units (unknown) date) ONE Rx#: unknown) (unknown) (no (unknown) (unknown) ALT 28 IU/L (<35) (units (unknown) date) 01/17/22 11:57 unknown) (unknown) (no (unknown) (unknown) AST 96 IU/L (units (un known) date) (14-36) H 01/17/22 unknown) 11:57 (unknown) (no (unknown) (unknown) Abdominal pain, (units (unknown) date) Heartburn unknown) (unknown) (no (unknown) (unknown) Age/Sex: 71 / F (units (unknown) date) unknown) (unknown) (no (unknown) (unknown) Albumin 2.9 g/dL (units (unknown) date) (3.5-5.0) L unknown) 01/17/22 11:57 (unknown) (no (unknown) (unknown) Albumin/Globulin (units (unknown) date) Ratio 0.9 (1.0-2.8) unknown) L 01/17/22 11:57 (unknown) (no (unknown) (unknown) Alkaline (units (unkno wn) date) Phosphatase 166 U/L unknown) (38-126) H 01/17/22 11:57 (unknown) (no (unknown) (unknown) Allergies (units (unkn own) date) unknown) (unknown) (no (unknown) (unknown) Allergy/AdvReac (units (unknown) date) Type Severity unknown) Reaction Status Date / Time (unknown) (no (unknown) (unknown) Anti-Inflamma (units ( unknown) date) Upset unknown) (unknown) (no (unknown) (unknown) Antibiotics) (units (u nknown) date) unknown) (unknown) (no (unknown) (unknown) Assessment and (units (unknown) date) Plan unknown) (unknown) (no (unknown) (unknown) BUN 29 mg/dL (units (u nknown) date) (7-17) H 01/17/22 unknown) 11:57 (unknown) (no (unknown) (unknown) BUN/Creatinine (units (unknown) date) Ratio 22.1 (6-22) H unknown) 01/17/22 11:57 (unknown) (no (unknown) (unknown) Balance 1104 / (units (unknown) date) 1104 unknown) (unknown) (no (unknown) (unknown) Baso # (Auto) 100 (units (unknown) date) /uL (0-100) unknown) 01/18/22 13:50 (unknown) (no (unknown) (unknown) Baso % (Auto) 0.6 (units (unknown) date) % (0-2) 01/18/22 unknown) 13:50 (unknown) (no (unknown) (unknown) Brain MR w/wo (units ( unknown) date) contrast unknown) (unknown) (no (unknown) (unknown) CBC, CMP (units (unkno wn) date) unknown) (unknown) (no (unknown) (unknown) Calcium 8.1 mg/dL (units (unknown) date) (8.4-10.2) L unknown) 01/17/22 11:57 (unknown) (no (unknown) (unknown) Carbon Dioxide 30 (units (unknown) date) mmol/L (22-32) unknown) 01/17/22 11:57 (unknown) (no (unknown) (unknown) Chief Complaint: (units (unknown) date) 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 (unknown) (no (unknown) (unknown) Chloride 0.9% 50 (units (unknown) date) ml @ 216 mls/ unknown) (unknown) (no (unknown) (unknown) Chloride 94 mmol/L (units (unknown) date) (98-107) L 01/17/22 unknown) 11:57 (unknown) (no (unknown) (unknown) Creatinine 1.31 (units (unknown) date) mg/dL (0.52-1.04) H unknown) 01/17/22 11:57 (unknown) (no (unknown) (unknown) : 1950 (units (unknown) date) Acct:[id number] unknown) (unknown) (no (unknown) (unknown) Date of Service: (units (unknown) date) 01/18/22 unknown) (unknown) (no (unknown) (unknown) Date of visit: (units (unknown) date) 01/18/22 unknown) (unknown) (no (unknown) (unknown) Discussion: (units (un known) date) unknown) (unknown) (no (unknown) (unknown) Eos # (Auto) 100 (units (unknown) date) /uL (0-450) unknown) 01/18/22 13:50 (unknown) (no (unknown) (unknown) Eos % (Auto) 0.9 % (units (unknown) date) (2-4) L 01/18/22 unknown) 13:50 (unknown) (no (unknown) (unknown) Estimated GFR 44 (units (unknown) date) mL/min (>60) L unknown) 01/17/22 11:57 (unknown) (no (unknown) (unknown) Exam (units (unkno wn) date) unknown) (unknown) (no (unknown) (unknown) Globulin 3.1 g/dL (units (unknown) date) (1.7-4.1) 01/17/22 unknown) 11:57 (unknown) (no (unknown) (unknown) Glucose 117 mg/dL (units (unknown) date) (80-110) H 01/17/22 unknown) 11:57 (unknown) (no (unknown) (unknown) Hct 37.0 % (36-46) (units (unknown) date) 01/18/22 13:50 unknown) (unknown) (no (unknown) (unknown) Hgb 12.5 g/dL (units ( unknown) date) (12.0-16.0) unknown) 01/18/22 13:50 (unknown) (no (unknown) (unknown) History (units (unkno wn) date) unknown) (unknown) (no (unknown) (unknown) Home Medications (units (unknown) date) and Allergies unknown) (unknown) (no (unknown) (unknown) Home Medications (units (unknown) date) unknown) (unknown) (no (unknown) (unknown) I explained that (units (unknown) date) 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 The goal is to delay the (unknown) (no (unknown) (unknown) I reviewed the (units (unknown) date) right neck lymph unknown) node biopsy pathology with the patient. I (unknown) (no (unknown) (unknown) I will obtain (units ( unknown) date) brain MRI to unknown) further evaluate. In addition patient is having a (unknown) (no (unknown) (unknown) IV 1104 / 1104 (units (unknown) date) unknown) (unknown) (no (unknown) (unknown) Intake Total 1104 (units (unknown) date) / 1104 unknown) (unknown) (no (unknown) (unknown) Intake and Output (units (unknown) date) unknown) (unknown) (no (unknown) (unknown) Intake: (units (unkno wn) date) unknown) (unknown) (no (unknown) (unknown) Interval history: (units (unknown) date) unknown) (unknown) (no (unknown) (unknown) [facility] (units (unknown) date) [address] unknown) [place] [address] (unknown) (no (unknown) (unknown) Manda Whitaker (units (unknown) date) is a 71 year old unknown) female. According to patient, she has family (unknown) (no (unknown) (unknown) Manda said that (units (unknown) date) about in 10/2021, unknown) she felt right neck tenderness. On 11/02/2021, (unknown) (no (unknown) (unknown) Laboratory Last (units (unknown) date) Values unknown) (unknown) (no (unknown) (unknown) Lymph # (Auto) (units (unknown) date) 1900 /uL unknown) ([id number]) 01/18/22 13:50 (unknown) (no (unknown) (unknown) Lymph % (Auto) (units (unknown) date) 17.7 % (25-40) L unknown) 01/18/22 13:50 (unknown) (no (unknown) (unknown) MCH 30.1 PG (units (un known) date) (26-34) 01/18/22 unknown) 13:50 (unknown) (no (unknown) (unknown) MCHC 33.9 % (units (un known) date) (30-36) 01/18/22 unknown) 13:50 (unknown) (no (unknown) (unknown) MCV 88.9 fL (units (un known) date) (80-100) 01/18/22 unknown) 13:50 (unknown) (no (unknown) (unknown) Magnesium 1.3 (units ( unknown) date) mg/dL (1.6-2.3) L unknown) 01/17/22 11:57 (unknown) (no (unknown) (unknown) Magnesium Sulfate (units (unknown) date) 2 gm In 50 ml 50 / unknown) 50 (unknown) (no (unknown) (unknown) Medication (units (unk nown) date) Instructions unknown) Recorded Confirmed Type (unknown) (no (unknown) (unknown) Ector # (Auto) 800 (units (unknown) date) /uL (0-900) unknown) 01/18/22 13:50 (unknown) (no (unknown) (unknown) Ector % (Auto) 7.3 (units (unknown) date) % (3-14) 01/18/22 unknown) 13:50 (unknown) (no (unknown) (unknown) NSAIDS (units (unkno wn) date) (Non-Steroidal unknown) AdvReac Gastrointestinal Verified 01/10/22 16:32 (unknown) (no (unknown) (unknown) Neut # (Auto) 7800 (units (unknown) date) /uL (0496-9928) H unknown) 01/18/22 13:50 (unknown) (no (unknown) (unknown) Neut % (Auto) 73.5 (units (unknown) date) % (50-75) 01/18/22 unknown) 13:50 (unknown) (no (unknown) (unknown) Nose bleeds, (units (u nknown) date) Changes in taste, unknown) Hoarseness, Swollen glands (unknown) (no (unknown) (unknown) [employer] (units (unknown) date) unknown) (unknown) (no (unknown) (unknown) On 11/21/2021 CT (units (unknown) date) chest without unknown) contrast showed bulky right supraclavicular, (unknown) (no (unknown) (unknown) On 12/06/2021, (units (unknown) date) Gus performed unknown) excisional biopsy of right cervical lymph (unknown) (no (unknown) (unknown) On 01/03/2022, (units ( unknown) date) patient underwent unknown) PET scan that showed hypermetabolic masses in (unknown) (no (unknown) (unknown) On 01/04/2022, (units ( unknown) date) patient also unknown) underwent brain MRI that showed no dana parenchymal (unknown) (no (unknown) (unknown) Oncological (units (un known) date) History unknown) (unknown) (no (unknown) (unknown) Oncology Progress (units (unknown) date) Note unknown) (unknown) (no (unknown) (unknown) Ondansetron 8 mg (units (unknown) date) In Sodium 54 / 54 unknown) (unknown) (no (unknown) (unknown) PET CT (units (unkno wn) date) unknown) (unknown) (no (unknown) (unknown) PN -Subjective (units (unknown) date) unknown) (unknown) (no (unknown) (unknown) Patient: (units (unkno wn) date) Manda Whtiaker unknown) MR#: [id number] (unknown) (no (unknown) (unknown) Plan: (units (unkno wn) date) unknown) (unknown) (no (unknown) (unknown) Plt Count 227 (units ( unknown) date) X103/uL (150-400) unknown) 01/18/22 13:50 (unknown) (no (unknown) (unknown) Port placement (units (unknown) date) unknown) (unknown) (no (unknown) (unknown) Potassium 3.5 (units ( unknown) date) mmol/L (3.4-5.1) unknown) 01/17/22 11:57 (unknown) (no (unknown) (unknown) Provider: (units (unkn own) date) Melly Noe MD unknown) (unknown) (no (unknown) (unknown) RBC 4.16 X106/uL (units (unknown) date) (4.0-5.2) 01/18/22 unknown) 13:50 (unknown) (no (unknown) (unknown) RDW 14.7 % (units (unk nown) date) (11.6-14.8) unknown) 01/18/22 13:50 (unknown) (no (unknown) (unknown) RTC in 3 weeks (units (unknown) date) unknown) (unknown) (no (unknown) (unknown) Results (units (unkno wn) date) unknown) (unknown) (no (unknown) (unknown) Rx (units (unkno wn) date) unknown) (unknown) (no (unknown) (unknown) SR Cardiovascular (units (unknown) date) issues: unknown) Palpitations, Shortness of breath with activity or (unknown) (no (unknown) (unknown) SR Constitution: (units (unknown) date) Fatigue/Malaise, unknown) Night Sweats (unknown) (no (unknown) (unknown) SR Endocrine (units (u nknown) date) issues: Cold unknown) intolerance, Excessive thirst (unknown) (no (unknown) (unknown) SR (units (unkno wn) date) Gastrointestinal unknown) issues: Poor or no appetite, Nausea, Vomiting, Diarrhea, (unknown) (no (unknown) (unknown) SR Hematologic (units (unknown) date) issues: Swollen unknown) lymph nodes (unknown) (no (unknown) (unknown) SR Musculoskeletal (units (unknown) date) issues: Joint pain unknown) or swelling, Muscle weakness, Muscle pain (unknown) (no (unknown) (unknown) SR Neuro issues: (units (unknown) date) Headache, unknown) Lightheaded/dizzy, Numbness or tingling, Difficulty (unknown) (no (unknown) (unknown) SR Skin issues: (units (unknown) date) Skin color changes, unknown) Blistering or peeling, Skin lesions or (unknown) (no (unknown) (unknown) SR ears, nose, (units (unknown) date) mouth, throat unknown) issues: Congestion, Cough, Difficulty swallowing, (unknown) (no (unknown) (unknown) SR respiratory (units (unknown) date) issues: Cough, unknown) Shortness of breath, Mucous (unknown) (no (unknown) (unknown) She has alwasy had (units (unknown) date) dirrhea, now more unknown) solid, (unknown) (no (unknown) (unknown) She is hainvg (units ( unknown) date) lower back and unknown) abodmin pain (unknown) (no (unknown) (unknown) She then underwent (units (unknown) date) CT neck w/contrast unknown) on 11/21/2021 that showed a mass-like (unknown) (no (unknown) (unknown) Signed By: (units (unk nown) date) unknown) (unknown) (no (unknown) (unknown) Sodium 129 mmol/L (units (unknown) date) (137-145) L unknown) 01/17/22 11:57 (unknown) (no (unknown) (unknown) Sodium Chloride (units (unknown) date) 0.9% 1,000 ml @ unknown) 1000 / 1000 (unknown) (no (unknown) (unknown) Sulfa (Sulfonamide (units (unknown) date) Allergy Verified unknown) 01/10/22 16:32 (unknown) (no (unknown) (unknown) Temp Pulse Resp BP (units (unknown) date) Pulse Ox unknown) (unknown) (no (unknown) (unknown) Today, she is c/o (units (unknown) date) headache. At time unknown) her headache is pretty severe. She also (unknown) (no (unknown) (unknown) Total Bilirubin (units (unknown) date) 1.2 mg/dL (0.2-1.3) unknown) 01/17/22 11:57 (unknown) (no (unknown) (unknown) Total Protein 6.0 (units (unknown) date) g/dL (6.3-8.2) L unknown) 01/17/22 11:57 (unknown) (no (unknown) (unknown) Vital Signs (units (un known) date) unknown) (unknown) (no (unknown) (unknown) Vital signs: (units (u nknown) date) unknown) (unknown) (no (unknown) (unknown) WBC 10.6 X103/uL (units (unknown) date) (4.5-11.0) 01/18/22 unknown) 13:50 (unknown) (no (unknown) (unknown) [From Paxlovid (units (unknown) date) (EUA)] nausea unknown) (unknown) (no (unknown) (unknown) acetaminophen 325 (units (unknown) date) mg capsule 650 mg unknown) PO QID PRN pain #60 caps 12/06/21 01/10/22 (unknown) (no (unknown) (unknown) activity most (units ( unknown) date) concerning for unknown) metastatic is noted. (unknown) (no (unknown) (unknown) aerosol inhaler (units (unknown) date) (Ventolin HFA) unknown) Bronchodilation (unknown) (no (unknown) (unknown) albuterol sulfate (units (unknown) date) 90 mcg/actuation 2 unknown) puff inhalation Q6H PRN 11/30/21 01/10/22 (unknown) (no (unknown) (unknown) alendronate 70 mg (units (unknown) date) tablet 70 mg PO unknown) WEEKLY 12/06/21 01/10/22 History (unknown) (no (unknown) (unknown) amlodipine 5 mg (units (unknown) date) tablet 5 mg PO unknown) DAILY 11/30/21 01/10/22 History (unknown) (no (unknown) (unknown) artifact. (units (unkn own) date) unknown) (unknown) (no (unknown) (unknown) atorvastatin 80 mg (units (unknown) date) tablet 80 mg PO unknown) DAILY 11/30/21 01/10/22 History (unknown) (no (unknown) (unknown) balancing (units (unkn own) date) unknown) (unknown) (no (unknown) (unknown) can be seen within (units (unknown) date) the calvarium. unknown) There is moderate suspicion for bony (unknown) (no (unknown) (unknown) cell lung cancer. (units (unknown) date) Patient clinically unknown) is also experiencing headache. I talked (unknown) (no (unknown) (unknown) cell lung cancer. (units (unknown) date) unknown) (unknown) (no (unknown) (unknown) cisplatin/etoposid (units (unknown) date) e.. I also unknown) recommended port placement. (unknown) (no (unknown) (unknown) clopidogrel 75 mg (units (unknown) date) tablet 75 mg PO unknown) DAILY 11/30/21 01/10/22 History (unknown) (no (unknown) (unknown) conglomerated group (units (unknown) date) of lymph nodes unknown) within the right supra-clavicular region that (unknown) (no (unknown) (unknown) developed blurred (units (unknown) date) vision. She said unknown) that she used to read a lot, but now she has (unknown) (no (unknown) (unknown) diphenoxylate-atro (units (unknown) date) pine 2.5 1 tab PO unknown) DAILY diarrhea 11/30/21 01/10/22 History (unknown) (no (unknown) (unknown) disease. It also (units (unknown) date) showed unknown) hypermetabolic pulmonary nodules concerning for (unknown) (no (unknown) (unknown) distant (units (unkno wn) date) metastasis. To unknown) further evaluate, I will obtain PET scan. (unknown) (no (unknown) (unknown) dry heaves (units (unk nown) date) unknown) (unknown) (no (unknown) (unknown) duloxetine AdvReac (units (unknown) date) Hypotension unknown) Verified 01/10/22 16:32 (unknown) (no (unknown) (unknown) features consist (units (unknown) date) with small cell unknown) undifferented malignancy with extensive crush (unknown) (no (unknown) (unknown) fluticasone (units (un known) date) propionate 50 1 unknown) spray intranasal DAILY 11/30/21 01/10/22 History (unknown) (no (unknown) (unknown) gaging on the (units ( unknown) date) phelgme unknown) (unknown) (no (unknown) (unknown) history of breast (units (unknown) date) cancer (her unknown) daughter with positive BRCA mutations. But Manda (unknown) (no (unknown) (unknown) hr IV NOW ONE (units ( unknown) date) Rx#:[id number] unknown) (unknown) (no (unknown) (unknown) hydrocodone (units (un known) date) AdvReac Rash unknown) Verified 01/10/22 16:32 (unknown) (no (unknown) (unknown) in the spleen (units ( unknown) date) liver and both unknown) lungs, small pericardial effusion and nonspecific (unknown) (no (unknown) (unknown) informed her and (units (unknown) date) her daughter that unknown) the final diagnosis is consistent with small (unknown) (no (unknown) (unknown) is reporting (units (u nknown) date) epigastric pain and unknown) umblical snell. Her weight has remained about (unknown) (no (unknown) (unknown) legs. left > (units (u nknown) date) right. She just saw unknown) vascular surgery. no blood clot. (unknown) (no (unknown) (unknown) lidocaine-prilocai (units (unknown) date) ne 2.5 %-2.5 % See unknown) Rx Instructions .Route 01/16/22 Rx (unknown) (no (unknown) (unknown) lot of other (units (u nknown) date) symptoms including unknown) abdominal pain, nausea and food stuck in the (unknown) (no (unknown) (unknown) lying flat, (units (un known) date) Extreme swelling unknown) (unknown) (no (unknown) (unknown) masses or abnormal (units (unknown) date) enhancement. unknown) However, numerous irregularly enhancing areas (unknown) (no (unknown) (unknown) mcg/actuation (units ( unknown) date) nasal unknown) (unknown) (no (unknown) (unknown) measures at least (units (unknown) date) 5.8 x 3.6 cm in unknown) greatest axial dimension. There is partial (unknown) (no (unknown) (unknown) meclizine AdvReac (units (unknown) date) Hypertensio unknown) Verified 01/10/22 16:32 (unknown) (no (unknown) (unknown) mediastinal and (units (unknown) date) right hilar unknown) adenopathy, coarse nodular calcifications, granuloma (unknown) (no (unknown) (unknown) metastatic (units (unk nown) date) disease. unknown) Ill-defined multiple hepatic mass lesions with metabolic (unknown) (no (unknown) (unknown) metastatic (units (unk nown) date) disease. unknown) (unknown) (no (unknown) (unknown) metoprolol (units (unk nown) date) tartrate 25 mg unknown) tablet 37.5 mg PO BID 11/30/21 01/10/22 History (unknown) (no (unknown) (unknown) mg-0.025 mg tablet (units (unknown) date) unknown) (unknown) (no (unknown) (unknown) moles, Hair loss (units (unknown) date) or scalp prob, Nail unknown) changes (unknown) (no (unknown) (unknown) montelukast 10 mg (units (unknown) date) tablet 10 mg PO unknown) DAILY 11/30/21 01/10/22 History (unknown) (no (unknown) (unknown) more confusion (units (unknown) date) unknown) (unknown) (no (unknown) (unknown) mumbling a lot. (units (unknown) date) unknown) (unknown) (no (unknown) (unknown) n (units (unkno wn) date) unknown) (unknown) (no (unknown) (unknown) nausea, very much (units (unknown) date) so unknown) (unknown) (no (unknown) (unknown) nirmatrelvir (units (u nknown) date) AdvReac Pain, unknown) Verified 01/10/22 16:32 (unknown) (no (unknown) (unknown) no chest pain (units ( unknown) date) unknown) (unknown) (no (unknown) (unknown) no choking (units (unk nown) date) problems unknown) (unknown) (no (unknown) (unknown) no fever, no (units (u nknown) date) chill. s unknown) (unknown) (no (unknown) (unknown) node. 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 (unknown) (no (unknown) (unknown) ondansetron 4 mg (units (unknown) date) disintegrating 4 mg unknown) PO Q6H PRN nausea and 01/10/22 Rx (unknown) (no (unknown) (unknown) or cramps, Back or (units (unknown) date) neck pain, unknown) Difficulty walking, Bone pain (unknown) (no (unknown) (unknown) oxycodone 5 mg (units (unknown) date) tablet 5 mg PO BID unknown) PRN Pain (Scale Score 11/30/21 01/10/22 (unknown) (no (unknown) (unknown) paroxetine AdvReac (units (unknown) date) Nightmare Verified unknown) 01/10/22 16:32 (unknown) (no (unknown) (unknown) prochlorperazine (units (unknown) date) 25 mg rectal 25 mg unknown) KS BID PRN Nausea And 01/16/22 Rx (unknown) (no (unknown) (unknown) progress and to (units (unknown) date) keep her quality of unknown) time as best as we can. I told her that (unknown) (no (unknown) (unknown) purple front neck (units (unknown) date) unknown) (unknown) (no (unknown) (unknown) relative quickly in (units (unknown) date) 10/2021. CT neck unknown) and chest showed bulky lymph nodes in right (unknown) (no (unknown) (unknown) reticulonodular (units (unknown) date) focus in the medial unknown) right upper lobe. Mild bronchial wall (unknown) (no (unknown) (unknown) right neck lymph (units (unknown) date) node excision unknown) biopsy. The pathology is consistent with small (unknown) (no (unknown) (unknown) ritonavir AdvReac (units (unknown) date) Pain, Verified unknown) 01/10/22 16:32 (unknown) (no (unknown) (unknown) she is anaere (units ( unknown) date) questiong unknown) prombpltly (unknown) (no (unknown) (unknown) she is coughing, (units (unknown) date) especially last unknown) night (unknown) (no (unknown) (unknown) she is having (units ( unknown) date) dificult time to unknown) drink (unknown) (no (unknown) (unknown) she went to see (units (unknown) date) her PCR Lynnette unknown) Ivan, and right neck lymph nodes were palpated. (unknown) (no (unknown) (unknown) small cell the (units (unknown) date) highly sensitive to unknown) chemotherapy. I am recommending (unknown) (no (unknown) (unknown) solifenacin (units (un known) date) AdvReac Verified unknown) 01/10/22 16:32 (unknown) (no (unknown) (unknown) spray,suspension (units (unknown) date) unknown) (unknown) (no (unknown) (unknown) superior (units (unkno wn) date) mediastinum unknown) measuring 4.3 x 3 cm. Mild mass effect of is seen upon the (unknown) (no (unknown) (unknown) suppository (units (un known) date) Vomiting #20 ea unknown) (unknown) (no (unknown) (unknown) supraclavicular (units (unknown) date) fossa, and unknown) mediastinum. On 12/06/2021, Dr. Reddy performed (unknown) (no (unknown) (unknown) suvorexant [From (units (unknown) date) Belsomra] Allergy unknown) Rash Verified 01/10/22 16:32 (unknown) (no (unknown) (unknown) tablet vomiting (units (unknown) date) #30 tabs unknown) (unknown) (no (unknown) (unknown) the lower neck, (units (unknown) date) mediastinum, and unknown) hilar regions consistent with malignant (unknown) (no (unknown) (unknown) the same . She (units (unknown) date) said she is losing unknown) wt in the face and arm, but edema in the (unknown) (no (unknown) (unknown) thickening noted. (units (unknown) date) unknown) (unknown) (no (unknown) (unknown) tizanidine 2 mg (units (unknown) date) tablet 2 mg PO PRN unknown) PRN Muscle Pain 12/06/21 01/10/22 History (unknown) (no (unknown) (unknown) to give up 2/2 (units ( unknown) date) blurred vision. She unknown) is also reporting food stuck in the flow. She (unknown) (no (unknown) (unknown) topical cream (units ( unknown) date) .COMPLEX #30 grams unknown) (unknown) (no (unknown) (unknown) trachea, which is (units (unknown) date) slightly deviated unknown) to the left. (unknown) (no (unknown) (unknown) trazodone 150 mg (units (unknown) date) tablet 150 mg PO unknown) BEDTIME PRN Sleep 11/30/21 01/10/22 History (unknown) (no (unknown) (unknown) upper chest. I (units (unknown) date) talked with them it unknown) is highly suspicious that patient may have a (unknown) (no (unknown) (unknown) urine areli dark (units (unknown) date) unknown) (unknown) (no (unknown) (unknown) ursodiol AdvReac (units (unknown) date) Rash Verified unknown) 01/10/22 16:32 (unknown) (no (unknown) (unknown) visualization of (units (unknown) date) mediastinal lymph unknown) nodes, with a group seen within the right (unknown) (no (unknown) (unknown) was tested (units (unk nown) date) negative (about in unknown) 2015). 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 Result panel 41 (unknown) (no (unknown) (unknown) (no value) (units (unk nown) date) unknown) (unknown) (no (unknown) (unknown) (1) 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 (unknown) (no (unknown) (unknown) (Tylenol) (units (unkn own) date) unknown) (unknown) (no (unknown) (unknown) - Date of Visit (units (unknown) date) unknown) (unknown) (no (unknown) (unknown) - Labs (units (unkno wn) date) unknown) (unknown) (no (unknown) (unknown) - Patient (units (unkn own) date) Self-Reported unknown) Symptoms (unknown) (no (unknown) (unknown) - ROS (units (unkno wn) date) unknown) (unknown) (no (unknown) (unknown) [id number] (units (unkno wn) date) unknown) (unknown) (no (unknown) (unknown) [id number] (units (unkno wn) date) unknown) (unknown) (no (unknown) (unknown) [id number] (units (unkno wn) date) unknown) (unknown) (no (unknown) (unknown) 01/17/22 01/18/22 (units (unknown) date) 01/18/22 unknown) (unknown) (no (unknown) (unknown) 01/18/22 14:00 (units (unknown) date) 97.8 F 83 18 122/58 unknown) L 98 (unknown) (no (unknown) (unknown) 1000 mls/hr IV (units (unknown) date) [facility] Rx#: unknown) (unknown) (no (unknown) (unknown) 23:59 07:59 15:59 (units (unknown) date) unknown) (unknown) (no (unknown) (unknown) 7-10) #96 tabs (units (unknown) date) unknown) (unknown) (no (unknown) (unknown) 71 year old female (units (unknown) date) with active smoking unknown) history. She developed right neck mass (unknown) (no (unknown) (unknown) @ 25 mls/hr IV NOW (units (unknown) date) ONE Rx#: unknown) (unknown) (no (unknown) (unknown) ALT 28 IU/L (<35) (units (unknown) date) 01/17/22 11:57 unknown) (unknown) (no (unknown) (unknown) AST 96 IU/L (units (un known) date) (14-36) H 01/17/22 unknown) 11:57 (unknown) (no (unknown) (unknown) Abdominal pain, (units (unknown) date) Heartburn unknown) (unknown) (no (unknown) (unknown) Age/Sex: 71 / F (units (unknown) date) unknown) (unknown) (no (unknown) (unknown) Albumin 2.9 g/dL (units (unknown) date) (3.5-5.0) L unknown) 01/17/22 11:57 (unknown) (no (unknown) (unknown) Albumin/Globulin (units (unknown) date) Ratio 0.9 (1.0-2.8) unknown) L 01/17/22 11:57 (unknown) (no (unknown) (unknown) Alkaline (units (unkno wn) date) Phosphatase 166 U/L unknown) (38-126) H 01/17/22 11:57 (unknown) (no (unknown) (unknown) All Systems: (units (u nknown) date) reviewed and no unknown) additional remarkable complaints except as stated (unknown) (no (unknown) (unknown) Allergies (units (unkn own) date) unknown) (unknown) (no (unknown) (unknown) Allergy/AdvReac (units (unknown) date) Type Severity unknown) Reaction Status Date / Time (unknown) (no (unknown) (unknown) Anti-Inflamma (units ( unknown) date) Upset unknown) (unknown) (no (unknown) (unknown) Antibiotics) (units (u nknown) date) unknown) (unknown) (no (unknown) (unknown) Assessment and (units (unknown) date) Plan unknown) (unknown) (no (unknown) (unknown) BUN 29 mg/dL (units (u nknown) date) (7-17) H 01/17/22 unknown) 11:57 (unknown) (no (unknown) (unknown) BUN/Creatinine (units (unknown) date) Ratio 22.1 (6-22) H unknown) 01/17/22 11:57 (unknown) (no (unknown) (unknown) Balance 1104 / (units (unknown) date) 1104 unknown) (unknown) (no (unknown) (unknown) Baso # (Auto) 100 (units (unknown) date) /uL (0-100) unknown) 01/18/22 13:50 (unknown) (no (unknown) (unknown) Baso % (Auto) 0.6 (units (unknown) date) % (0-2) 01/18/22 unknown) 13:50 (unknown) (no (unknown) (unknown) Brain MR w/wo (units ( unknown) date) contrast unknown) (unknown) (no (unknown) (unknown) CBC, CMP (units (unkno wn) date) unknown) (unknown) (no (unknown) (unknown) Calcium 8.1 mg/dL (units (unknown) date) (8.4-10.2) L unknown) 01/17/22 11:57 (unknown) (no (unknown) (unknown) Carbon Dioxide 30 (units (unknown) date) mmol/L (22-32) unknown) 01/17/22 11:57 (unknown) (no (unknown) (unknown) Chief Complaint: (units (unknown) date) 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 (unknown) (no (unknown) (unknown) Chloride 0.9% 50 (units (unknown) date) ml @ 216 mls/ unknown) (unknown) (no (unknown) (unknown) Chloride 94 mmol/L (units (unknown) date) (98-107) L 01/17/22 unknown) 11:57 (unknown) (no (unknown) (unknown) Creatinine 1.31 (units (unknown) date) mg/dL (0.52-1.04) H unknown) 01/17/22 11:57 (unknown) (no (unknown) (unknown) : 1950 (units (unknown) date) Acct:[id number] unknown) (unknown) (no (unknown) (unknown) Date of Service: (units (unknown) date) 01/18/22 unknown) (unknown) (no (unknown) (unknown) Date of visit: (units (unknown) date) 01/18/22 unknown) (unknown) (no (unknown) (unknown) Discussion: (units (un known) date) unknown) (unknown) (no (unknown) (unknown) Eos # (Auto) 100 (units (unknown) date) /uL (0-450) unknown) 01/18/22 13:50 (unknown) (no (unknown) (unknown) Eos % (Auto) 0.9 % (units (unknown) date) (2-4) L 01/18/22 unknown) 13:50 (unknown) (no (unknown) (unknown) Estimated GFR 44 (units (unknown) date) mL/min (>60) L unknown) 01/17/22 11:57 (unknown) (no (unknown) (unknown) Exam (units (unkno wn) date) unknown) (unknown) (no (unknown) (unknown) Globulin 3.1 g/dL (units (unknown) date) (1.7-4.1) 01/17/22 unknown) 11:57 (unknown) (no (unknown) (unknown) Glucose 117 mg/dL (units (unknown) date) (80-110) H 01/17/22 unknown) 11:57 (unknown) (no (unknown) (unknown) Hct 37.0 % (36-46) (units (unknown) date) 01/18/22 13:50 unknown) (unknown) (no (unknown) (unknown) Hgb 12.5 g/dL (units ( unknown) date) (12.0-16.0) unknown) 01/18/22 13:50 (unknown) (no (unknown) (unknown) History (units (unkno wn) date) unknown) (unknown) (no (unknown) (unknown) Home Medications (units (unknown) date) and Allergies unknown) (unknown) (no (unknown) (unknown) Home Medications (units (unknown) date) unknown) (unknown) (no (unknown) (unknown) I explained that (units (unknown) date) 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 The goal is to delay the (unknown) (no (unknown) (unknown) I reviewed the (units (unknown) date) right neck lymph unknown) node biopsy pathology with the patient. I (unknown) (no (unknown) (unknown) I will obtain (units ( unknown) date) brain MRI to unknown) further evaluate. In addition patient is having a (unknown) (no (unknown) (unknown) IV 1104 / 1104 (units (unknown) date) unknown) (unknown) (no (unknown) (unknown) Intake Total 1104 (units (unknown) date) / 1104 unknown) (unknown) (no (unknown) (unknown) Intake and Output (units (unknown) date) unknown) (unknown) (no (unknown) (unknown) Intake: (units (unkno wn) date) unknown) (unknown) (no (unknown) (unknown) Interval history: (units (unknown) date) unknown) (unknown) (no (unknown) (unknown) [facility] (units (unknown) date) [address] unknown) [place] [address] (unknown) (no (unknown) (unknown) Manda Whitaker (units (unknown) date) is a 71 year old unknown) female. According to patient, she has family (unknown) (no (unknown) (unknown) Manda said that (units (unknown) date) about in 10/2021, unknown) she felt right neck tenderness. On 11/02/2021, (unknown) (no (unknown) (unknown) Laboratory Last (units (unknown) date) Values unknown) (unknown) (no (unknown) (unknown) Lymph # (Auto) (units (unknown) date) 1900 /uL unknown) ([id number]) 01/18/22 13:50 (unknown) (no (unknown) (unknown) Lymph % (Auto) (units (unknown) date) 17.7 % (25-40) L unknown) 01/18/22 13:50 (unknown) (no (unknown) (unknown) MCH 30.1 PG (units (un known) date) (26-34) 01/18/22 unknown) 13:50 (unknown) (no (unknown) (unknown) MCHC 33.9 % (units (un known) date) (30-36) 01/18/22 unknown) 13:50 (unknown) (no (unknown) (unknown) MCV 88.9 fL (units (un known) date) (80-100) 01/18/22 unknown) 13:50 (unknown) (no (unknown) (unknown) Magnesium 1.3 (units ( unknown) date) mg/dL (1.6-2.3) L unknown) 01/17/22 11:57 (unknown) (no (unknown) (unknown) Magnesium Sulfate (units (unknown) date) 2 gm In 50 ml 50 / unknown) 50 (unknown) (no (unknown) (unknown) Medication (units (unk nown) date) Instructions unknown) Recorded Confirmed Type (unknown) (no (unknown) (unknown) Ector # (Auto) 800 (units (unknown) date) /uL (0-900) unknown) 01/18/22 13:50 (unknown) (no (unknown) (unknown) Ector % (Auto) 7.3 (units (unknown) date) % (3-14) 01/18/22 unknown) 13:50 (unknown) (no (unknown) (unknown) NSAIDS (units (unkno wn) date) (Non-Steroidal unknown) AdvReac Gastrointestinal Verified 01/10/22 16:32 (unknown) (no (unknown) (unknown) Neut # (Auto) 7800 (units (unknown) date) /uL (5310-4973) H unknown) 01/18/22 13:50 (unknown) (no (unknown) (unknown) Neut % (Auto) 73.5 (units (unknown) date) % (50-75) 01/18/22 unknown) 13:50 (unknown) (no (unknown) (unknown) Nose bleeds, (units (u nknown) date) Changes in taste, unknown) Hoarseness, Swollen glands (unknown) (no (unknown) (unknown) [employer] (units (unknown) date) unknown) (unknown) (no (unknown) (unknown) On 11/21/2021 CT (units (unknown) date) chest without unknown) contrast showed bulky right supraclavicular, (unknown) (no (unknown) (unknown) On 12/06/2021, (units (unknown) date) Gus performed unknown) excisional biopsy of right cervical lymph (unknown) (no (unknown) (unknown) On 01/03/2022, (units ( unknown) date) patient underwent unknown) PET scan that showed hypermetabolic masses in (unknown) (no (unknown) (unknown) On 01/04/2022, (units ( unknown) date) patient also unknown) underwent brain MRI that showed no dana parenchymal (unknown) (no (unknown) (unknown) Oncological (units (un known) date) History unknown) (unknown) (no (unknown) (unknown) Oncology Progress (units (unknown) date) Note unknown) (unknown) (no (unknown) (unknown) Ondansetron 8 mg (units (unknown) date) In Sodium 54 / 54 unknown) (unknown) (no (unknown) (unknown) PET CT (units (unkno wn) date) unknown) (unknown) (no (unknown) (unknown) PN -Subjective (units (unknown) date) unknown) (unknown) (no (unknown) (unknown) Patient: (units (unkno wn) date) Manda Whitaker unknown) MR#: [id number] (unknown) (no (unknown) (unknown) Plan: (units (unkno wn) date) unknown) (unknown) (no (unknown) (unknown) Plt Count 227 (units ( unknown) date) X103/uL (150-400) unknown) 01/18/22 13:50 (unknown) (no (unknown) (unknown) Port placement (units (unknown) date) unknown) (unknown) (no (unknown) (unknown) Potassium 3.5 (units ( unknown) date) mmol/L (3.4-5.1) unknown) 01/17/22 11:57 (unknown) (no (unknown) (unknown) Provider: (units (unkn own) date) Melly Noe MD unknown) (unknown) (no (unknown) (unknown) RBC 4.16 X106/uL (units (unknown) date) (4.0-5.2) 01/18/22 unknown) 13:50 (unknown) (no (unknown) (unknown) RDW 14.7 % (units (unk nown) date) (11.6-14.8) unknown) 01/18/22 13:50 (unknown) (no (unknown) (unknown) RTC in 3 weeks (units (unknown) date) unknown) (unknown) (no (unknown) (unknown) Results (units (unkno wn) date) unknown) (unknown) (no (unknown) (unknown) Rx (units (unkno wn) date) unknown) (unknown) (no (unknown) (unknown) SR Cardiovascular (units (unknown) date) issues: unknown) Palpitations, Shortness of breath with activity or (unknown) (no (unknown) (unknown) SR Constitution: (units (unknown) date) Fatigue/Malaise, unknown) Night Sweats (unknown) (no (unknown) (unknown) SR Endocrine (units (u nknown) date) issues: Cold unknown) intolerance, Excessive thirst (unknown) (no (unknown) (unknown) SR (units (unkno wn) date) Gastrointestinal unknown) issues: Poor or no appetite, Nausea, Vomiting, Diarrhea, (unknown) (no (unknown) (unknown) SR Hematologic (units (unknown) date) issues: Swollen unknown) lymph nodes (unknown) (no (unknown) (unknown) SR Musculoskeletal (units (unknown) date) issues: Joint pain unknown) or swelling, Muscle weakness, Muscle pain (unknown) (no (unknown) (unknown) SR Neuro issues: (units (unknown) date) Headache, unknown) Lightheaded/dizzy, Numbness or tingling, Difficulty (unknown) (no (unknown) (unknown) SR Skin issues: (units (unknown) date) Skin color changes, unknown) Blistering or peeling, Skin lesions or (unknown) (no (unknown) (unknown) SR ears, nose, (units (unknown) date) mouth, throat unknown) issues: Congestion, Cough, Difficulty swallowing, (unknown) (no (unknown) (unknown) SR respiratory (units (unknown) date) issues: Cough, unknown) Shortness of breath, Mucous (unknown) (no (unknown) (unknown) She has alwasy had (units (unknown) date) dirrhea, now more unknown) solid, (unknown) (no (unknown) (unknown) She is hainvg (units ( unknown) date) lower back and unknown) abodmin pain (unknown) (no (unknown) (unknown) She then underwent (units (unknown) date) CT neck w/contrast unknown) on 11/21/2021 that showed a mass-like (unknown) (no (unknown) (unknown) Signed By: (units (unk nown) date) unknown) (unknown) (no (unknown) (unknown) Sodium 129 mmol/L (units (unknown) date) (137-145) L unknown) 01/17/22 11:57 (unknown) (no (unknown) (unknown) Sodium Chloride (units (unknown) date) 0.9% 1,000 ml @ unknown) 1000 / 1000 (unknown) (no (unknown) (unknown) Sulfa (Sulfonamide (units (unknown) date) Allergy Verified unknown) 01/10/22 16:32 (unknown) (no (unknown) (unknown) Temp Pulse Resp BP (units (unknown) date) Pulse Ox unknown) (unknown) (no (unknown) (unknown) Today, she is c/o (units (unknown) date) headache. At time unknown) her headache is pretty severe. She also (unknown) (no (unknown) (unknown) Total Bilirubin (units (unknown) date) 1.2 mg/dL (0.2-1.3) unknown) 01/17/22 11:57 (unknown) (no (unknown) (unknown) Total Protein 6.0 (units (unknown) date) g/dL (6.3-8.2) L unknown) 01/17/22 11:57 (unknown) (no (unknown) (unknown) Vital Signs (units (un known) date) unknown) (unknown) (no (unknown) (unknown) Vital signs: (units (u nknown) date) unknown) (unknown) (no (unknown) (unknown) WBC 10.6 X103/uL (units (unknown) date) (4.5-11.0) 01/18/22 unknown) 13:50 (unknown) (no (unknown) (unknown) [From Paxlovid (units (unknown) date) (EUA)] nausea unknown) (unknown) (no (unknown) (unknown) acetaminophen 325 (units (unknown) date) mg capsule 650 mg unknown) PO QID PRN pain #60 caps 12/06/21 01/10/22 (unknown) (no (unknown) (unknown) activity most (units ( unknown) date) concerning for unknown) metastatic is noted. (unknown) (no (unknown) (unknown) aerosol inhaler (units (unknown) date) (Ventolin HFA) unknown) Bronchodilation (unknown) (no (unknown) (unknown) albuterol sulfate (units (unknown) date) 90 mcg/actuation 2 unknown) puff inhalation Q6H PRN 11/30/21 01/10/22 (unknown) (no (unknown) (unknown) alendronate 70 mg (units (unknown) date) tablet 70 mg PO unknown) WEEKLY 12/06/21 01/10/22 History (unknown) (no (unknown) (unknown) amlodipine 5 mg (units (unknown) date) tablet 5 mg PO unknown) DAILY 11/30/21 01/10/22 History (unknown) (no (unknown) (unknown) artifact. (units (unkn own) date) unknown) (unknown) (no (unknown) (unknown) atorvastatin 80 mg (units (unknown) date) tablet 80 mg PO unknown) DAILY 11/30/21 01/10/22 History (unknown) (no (unknown) (unknown) balancing (units (unkn own) date) unknown) (unknown) (no (unknown) (unknown) can be seen within (units (unknown) date) the calvarium. unknown) There is moderate suspicion for bony (unknown) (no (unknown) (unknown) cell lung cancer. (units (unknown) date) Patient clinically unknown) is also experiencing headache. I talked (unknown) (no (unknown) (unknown) cell lung cancer. (units (unknown) date) unknown) (unknown) (no (unknown) (unknown) cisplatin/etoposid (units (unknown) date) e.. I also unknown) recommended port placement. (unknown) (no (unknown) (unknown) clopidogrel 75 mg (units (unknown) date) tablet 75 mg PO unknown) DAILY 11/30/21 01/10/22 History (unknown) (no (unknown) (unknown) conglomerated group (units (unknown) date) of lymph nodes unknown) within the right supra-clavicular region that (unknown) (no (unknown) (unknown) developed blurred (units (unknown) date) vision. She said unknown) that she used to read a lot, but now she has (unknown) (no (unknown) (unknown) dexamethasone 4 mg (units (unknown) date) tablet 8 mg PO Q12H unknown) #30 tabs 01/18/22 Rx (unknown) (no (unknown) (unknown) diphenoxylate-atro (units (unknown) date) pine 2.5 1 tab PO unknown) DAILY diarrhea 11/30/21 01/10/22 History (unknown) (no (unknown) (unknown) disease. It also (units (unknown) date) showed unknown) hypermetabolic pulmonary nodules concerning for (unknown) (no (unknown) (unknown) distant (units (unkno wn) date) metastasis. To unknown) further evaluate, I will obtain PET scan. (unknown) (no (unknown) (unknown) dry heaves (units (unk nown) date) unknown) (unknown) (no (unknown) (unknown) duloxetine AdvReac (units (unknown) date) Hypotension unknown) Verified 01/10/22 16:32 (unknown) (no (unknown) (unknown) features consist (units (unknown) date) with small cell unknown) undifferented malignancy with extensive crush (unknown) (no (unknown) (unknown) fluticasone (units (un known) date) propionate 50 1 unknown) spray intranasal DAILY 11/30/21 01/10/22 History (unknown) (no (unknown) (unknown) gaging on the (units ( unknown) date) phelgme unknown) (unknown) (no (unknown) (unknown) history of breast (units (unknown) date) cancer (her unknown) daughter with positive BRCA mutations. But Manda (unknown) (no (unknown) (unknown) hr IV NOW ONE (units ( unknown) date) Rx#:[id number] unknown) (unknown) (no (unknown) (unknown) hydrocodone (units (un known) date) AdvReac Rash unknown) Verified 01/10/22 16:32 (unknown) (no (unknown) (unknown) in the spleen (units ( unknown) date) liver and both unknown) lungs, small pericardial effusion and nonspecific (unknown) (no (unknown) (unknown) informed her and (units (unknown) date) her daughter that unknown) the final diagnosis is consistent with small (unknown) (no (unknown) (unknown) is reporting (units (u nknown) date) epigastric pain and unknown) umblical snell. Her weight has remained about (unknown) (no (unknown) (unknown) legs. left > (units (u nknown) date) right. She just saw unknown) vascular surgery. no blood clot. (unknown) (no (unknown) (unknown) lidocaine-prilocai (units (unknown) date) ne 2.5 %-2.5 % See unknown) Rx Instructions .Route 01/16/22 Rx (unknown) (no (unknown) (unknown) lot of other (units (u nknown) date) symptoms including unknown) abdominal pain, nausea and food stuck in the (unknown) (no (unknown) (unknown) lying flat, (units (un known) date) Extreme swelling unknown) (unknown) (no (unknown) (unknown) masses or abnormal (units (unknown) date) enhancement. unknown) However, numerous irregularly enhancing areas (unknown) (no (unknown) (unknown) mcg/actuation (units ( unknown) date) nasal unknown) (unknown) (no (unknown) (unknown) measures at least (units (unknown) date) 5.8 x 3.6 cm in unknown) greatest axial dimension. There is partial (unknown) (no (unknown) (unknown) meclizine AdvReac (units (unknown) date) Hypertensio unknown) Verified 01/10/22 16:32 (unknown) (no (unknown) (unknown) mediastinal and (units (unknown) date) right hilar unknown) adenopathy, coarse nodular calcifications, granuloma (unknown) (no (unknown) (unknown) metastatic (units (unk nown) date) disease. unknown) Ill-defined multiple hepatic mass lesions with metabolic (unknown) (no (unknown) (unknown) metastatic (units (unk nown) date) disease. unknown) (unknown) (no (unknown) (unknown) metoprolol (units (unk nown) date) tartrate 25 mg unknown) tablet 37.5 mg PO BID 11/30/21 01/10/22 History (unknown) (no (unknown) (unknown) mg-0.025 mg tablet (units (unknown) date) unknown) (unknown) (no (unknown) (unknown) moles, Hair loss (units (unknown) date) or scalp prob, Nail unknown) changes (unknown) (no (unknown) (unknown) montelukast 10 mg (units (unknown) date) tablet 10 mg PO unknown) DAILY 11/30/21 01/10/22 History (unknown) (no (unknown) (unknown) more confusion (units (unknown) date) unknown) (unknown) (no (unknown) (unknown) mumbling a lot. (units (unknown) date) unknown) (unknown) (no (unknown) (unknown) n (units (unkno wn) date) unknown) (unknown) (no (unknown) (unknown) nausea, very much (units (unknown) date) so unknown) (unknown) (no (unknown) (unknown) nirmatrelvir (units (u nknown) date) AdvReac Pain, unknown) Verified 01/10/22 16:32 (unknown) (no (unknown) (unknown) no chest pain (units ( unknown) date) unknown) (unknown) (no (unknown) (unknown) no choking (units (unk nown) date) problems unknown) (unknown) (no (unknown) (unknown) no fever, no (units (u nknown) date) chill. s unknown) (unknown) (no (unknown) (unknown) node. 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 (unknown) (no (unknown) (unknown) ondansetron HCl 4 (units (unknown) date) mg tablet 4 mg PO unknown) Q6H nausea #60 tabs 01/18/22 Rx (unknown) (no (unknown) (unknown) or cramps, Back or (units (unknown) date) neck pain, unknown) Difficulty walking, Bone pain (unknown) (no (unknown) (unknown) oxycodone 5 mg (units (unknown) date) tablet 5 mg PO Q6H unknown) PRN Pain (Scale Score 01/18/22 Rx (unknown) (no (unknown) (unknown) paroxetine AdvReac (units (unknown) date) Nightmare Verified unknown) 01/10/22 16:32 (unknown) (no (unknown) (unknown) prochlorperazine (units (unknown) date) 25 mg rectal 25 mg unknown) KS BID PRN Nausea And 01/16/22 Rx (unknown) (no (unknown) (unknown) progress and to (units (unknown) date) keep her quality of unknown) time as best as we can. I told her that (unknown) (no (unknown) (unknown) purple front neck (units (unknown) date) unknown) (unknown) (no (unknown) (unknown) relative quickly in (units (unknown) date) 10/2021. CT neck unknown) and chest showed bulky lymph nodes in right (unknown) (no (unknown) (unknown) reticulonodular (units (unknown) date) focus in the medial unknown) right upper lobe. Mild bronchial wall (unknown) (no (unknown) (unknown) right neck lymph (units (unknown) date) node excision unknown) biopsy. The pathology is consistent with small (unknown) (no (unknown) (unknown) ritonavir AdvReac (units (unknown) date) Pain, Verified unknown) 01/10/22 16:32 (unknown) (no (unknown) (unknown) she is anaere (units ( unknown) date) questiong unknown) prombpltly (unknown) (no (unknown) (unknown) she is coughing, (units (unknown) date) especially last unknown) night (unknown) (no (unknown) (unknown) she is having (units ( unknown) date) dificult time to unknown) drink (unknown) (no (unknown) (unknown) she went to see (units (unknown) date) her PCR Lynnette unknown) Ivan, and right neck lymph nodes were palpated. (unknown) (no (unknown) (unknown) small cell the (units (unknown) date) highly sensitive to unknown) chemotherapy. I am recommending (unknown) (no (unknown) (unknown) solifenacin (units (un known) date) AdvReac Verified unknown) 01/10/22 16:32 (unknown) (no (unknown) (unknown) spray,suspension (units (unknown) date) unknown) (unknown) (no (unknown) (unknown) superior (units (unkno wn) date) mediastinum unknown) measuring 4.3 x 3 cm. Mild mass effect of is seen upon the (unknown) (no (unknown) (unknown) suppository (units (un known) date) Vomiting #20 ea unknown) (unknown) (no (unknown) (unknown) supraclavicular (units (unknown) date) fossa, and unknown) mediastinum. On 12/06/2021, Dr. Reddy performed (unknown) (no (unknown) (unknown) suvorexant [From (units (unknown) date) Belsomra] Allergy unknown) Rash Verified 01/10/22 16:32 (unknown) (no (unknown) (unknown) the lower neck, (units (unknown) date) mediastinum, and unknown) hilar regions consistent with malignant (unknown) (no (unknown) (unknown) the same . She (units (unknown) date) said she is losing unknown) wt in the face and arm, but edema in the (unknown) (no (unknown) (unknown) thickening noted. (units (unknown) date) unknown) (unknown) (no (unknown) (unknown) tizanidine 2 mg (units (unknown) date) tablet 2 mg PO PRN unknown) PRN Muscle Pain 12/06/21 01/10/22 History (unknown) (no (unknown) (unknown) to give up 2/2 (units ( unknown) date) blurred vision. She unknown) is also reporting food stuck in the flow. She (unknown) (no (unknown) (unknown) topical cream (units ( unknown) date) .COMPLEX #30 grams unknown) (unknown) (no (unknown) (unknown) trachea, which is (units (unknown) date) slightly deviated unknown) to the left. (unknown) (no (unknown) (unknown) trazodone 150 mg (units (unknown) date) tablet 150 mg PO unknown) BEDTIME PRN Sleep 11/30/21 01/10/22 History (unknown) (no (unknown) (unknown) upper chest. I (units (unknown) date) talked with them it unknown) is highly suspicious that patient may have a (unknown) (no (unknown) (unknown) urine areli dark (units (unknown) date) unknown) (unknown) (no (unknown) (unknown) ursodiol AdvReac (units (unknown) date) Rash Verified unknown) 01/10/22 16:32 (unknown) (no (unknown) (unknown) visualization of (units (unknown) date) mediastinal lymph unknown) nodes, with a group seen within the right (unknown) (no (unknown) (unknown) was tested (units (unk nown) date) negative (about in unknown) 2015). 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 Result panel 42 (unknown) (no (unknown) (unknown) (no value) (units (unk nown) date) unknown) (unknown) (no (unknown) (unknown) (1) 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 (unknown) (no (unknown) (unknown) (Tylenol) (units (unkn own) date) unknown) (unknown) (no (unknown) (unknown) - Date of Visit (units (unknown) date) unknown) (unknown) (no (unknown) (unknown) - Labs (units (unkno wn) date) unknown) (unknown) (no (unknown) (unknown) - Patient (units (unkn own) date) Self-Reported unknown) Symptoms (unknown) (no (unknown) (unknown) - ROS (units (unkno wn) date) unknown) (unknown) (no (unknown) (unknown) [id number] (units (unkno wn) date) unknown) (unknown) (no (unknown) (unknown) [id number] (units (unkno wn) date) unknown) (unknown) (no (unknown) (unknown) [id number] (units (unkno wn) date) unknown) (unknown) (no (unknown) (unknown) 01/17/22 01/18/22 (units (unknown) date) 01/18/22 unknown) (unknown) (no (unknown) (unknown) 01/18/22 14:00 (units (unknown) date) 97.8 F 83 18 122/58 unknown) L 98 (unknown) (no (unknown) (unknown) 1000 mls/hr IV (units (unknown) date) BOLUS ONE Rx#: unknown) (unknown) (no (unknown) (unknown) 23:59 07:59 15:59 (units (unknown) date) unknown) (unknown) (no (unknown) (unknown) 7-10) #96 tabs (units (unknown) date) unknown) (unknown) (no (unknown) (unknown) 71 year old female (units (unknown) date) with active smoking unknown) history. She developed right neck mass (unknown) (no (unknown) (unknown) @ 25 mls/hr IV NOW (units (unknown) date) ONE Rx#: unknown) (unknown) (no (unknown) (unknown) ALT 28 IU/L (<35) (units (unknown) date) 01/17/22 11:57 unknown) (unknown) (no (unknown) (unknown) AST 96 IU/L (units (un known) date) (14-36) H 01/17/22 unknown) 11:57 (unknown) (no (unknown) (unknown) Abdominal pain, (units (unknown) date) Heartburn unknown) (unknown) (no (unknown) (unknown) Age/Sex: 71 / F (units (unknown) date) unknown) (unknown) (no (unknown) (unknown) Albumin 2.9 g/dL (units (unknown) date) (3.5-5.0) L unknown) 01/17/22 11:57 (unknown) (no (unknown) (unknown) Albumin/Globulin (units (unknown) date) Ratio 0.9 (1.0-2.8) unknown) L 01/17/22 11:57 (unknown) (no (unknown) (unknown) Alkaline (units (unkno wn) date) Phosphatase 166 U/L unknown) (38-126) H 01/17/22 11:57 (unknown) (no (unknown) (unknown) All Systems: (units (u nknown) date) reviewed and no unknown) additional remarkable complaints except as stated (unknown) (no (unknown) (unknown) Allergies (units (unkn own) date) unknown) (unknown) (no (unknown) (unknown) Allergy/AdvReac (units (unknown) date) Type Severity unknown) Reaction Status Date / Time (unknown) (no (unknown) (unknown) Anti-Inflamma (units ( unknown) date) Upset unknown) (unknown) (no (unknown) (unknown) Antibiotics) (units (u nknown) date) unknown) (unknown) (no (unknown) (unknown) Assessment and (units (unknown) date) Plan unknown) (unknown) (no (unknown) (unknown) BUN 29 mg/dL (units (u nknown) date) (7-17) H 01/17/22 unknown) 11:57 (unknown) (no (unknown) (unknown) BUN/Creatinine (units (unknown) date) Ratio 22.1 (6-22) H unknown) 01/17/22 11:57 (unknown) (no (unknown) (unknown) Balance 1104 / (units (unknown) date) 1104 unknown) (unknown) (no (unknown) (unknown) Baso # (Auto) 100 (units (unknown) date) /uL (0-100) unknown) 01/18/22 13:50 (unknown) (no (unknown) (unknown) Baso % (Auto) 0.6 (units (unknown) date) % (0-2) 01/18/22 unknown) 13:50 (unknown) (no (unknown) (unknown) Calcium 8.1 mg/dL (units (unknown) date) (8.4-10.2) L unknown) 01/17/22 11:57 (unknown) (no (unknown) (unknown) Carbo/Eto/Atezo (units (unknown) date) C1D1: 01/22/2022 unknown) (unknown) (no (unknown) (unknown) Carbon Dioxide 30 (units (unknown) date) mmol/L (22-32) unknown) 01/17/22 11:57 (unknown) (no (unknown) (unknown) Chief Complaint: (units (unknown) date) 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 (unknown) (no (unknown) (unknown) Chloride 0.9% 50 (units (unknown) date) ml @ 216 mls/ unknown) (unknown) (no (unknown) (unknown) Chloride 94 mmol/L (units (unknown) date) (98-107) L 01/17/22 unknown) 11:57 (unknown) (no (unknown) (unknown) Creatinine 1.31 (units (unknown) date) mg/dL (0.52-1.04) H unknown) 01/17/22 11:57 (unknown) (no (unknown) (unknown) : 1950 (units (unknown) date) Acct:[id number] unknown) (unknown) (no (unknown) (unknown) Date of Service: (units (unknown) date) 01/18/22 unknown) (unknown) (no (unknown) (unknown) Date of visit: (units (unknown) date) 01/18/22 unknown) (unknown) (no (unknown) (unknown) Dexamethasone 8 mg (units (unknown) date) q12h unknown) (unknown) (no (unknown) (unknown) Discussion: (units (un known) date) unknown) (unknown) (no (unknown) (unknown) Eos # (Auto) 100 (units (unknown) date) /uL (0-450) unknown) 01/18/22 13:50 (unknown) (no (unknown) (unknown) Eos % (Auto) 0.9 % (units (unknown) date) (2-4) L 01/18/22 unknown) 13:50 (unknown) (no (unknown) (unknown) Estimated GFR 44 (units (unknown) date) mL/min (>60) L unknown) 01/17/22 11:57 (unknown) (no (unknown) (unknown) Exam (units (unkno wn) date) unknown) (unknown) (no (unknown) (unknown) For nausea and (units (unknown) date) vomiting, I have unknown) ordered dexamethasone 8 mg every 12 hours and (unknown) (no (unknown) (unknown) For pain control, (units (unknown) date) I will continue the unknown) pain medications oxycodone. (unknown) (no (unknown) (unknown) Globulin 3.1 g/dL (units (unknown) date) (1.7-4.1) 01/17/22 unknown) 11:57 (unknown) (no (unknown) (unknown) Glucose 117 mg/dL (units (unknown) date) (80-110) H 01/17/22 unknown) 11:57 (unknown) (no (unknown) (unknown) Hct 37.0 % (36-46) (units (unknown) date) 01/18/22 13:50 unknown) (unknown) (no (unknown) (unknown) Hgb 12.5 g/dL (units ( unknown) date) (12.0-16.0) unknown) 01/18/22 13:50 (unknown) (no (unknown) (unknown) History (units (unkno wn) date) unknown) (unknown) (no (unknown) (unknown) Home Medications (units (unknown) date) and Allergies unknown) (unknown) (no (unknown) (unknown) Home Medications (units (unknown) date) unknown) (unknown) (no (unknown) (unknown) I of the brain did (units (unknown) date) not see any unknown) intracranial metastasis but it did show possible (unknown) (no (unknown) (unknown) I reviewed the (units (unknown) date) imaging studies unknown) with the patient and her daughter. The main are (unknown) (no (unknown) (unknown) IV 1104 / 1104 (units (unknown) date) unknown) (unknown) (no (unknown) (unknown) Intake Total 1104 (units (unknown) date) / 1104 unknown) (unknown) (no (unknown) (unknown) Intake and Output (units (unknown) date) unknown) (unknown) (no (unknown) (unknown) Intake: (units (unkno wn) date) unknown) (unknown) (no (unknown) (unknown) Interval history: (units (unknown) date) unknown) (unknown) (no (unknown) (unknown) [facility] (units (unknown) date) [address] unknown) [place] [address] (unknown) (no (unknown) (unknown) Manda Whitaker (units (unknown) date) is a 71 year old unknown) female. According to patient, she has family (unknown) (no (unknown) (unknown) Manda said that (units (unknown) date) about in 10/2021, unknown) she felt right neck tenderness. On 11/02/2021, (unknown) (no (unknown) (unknown) Laboratory Last (units (unknown) date) Values unknown) (unknown) (no (unknown) (unknown) Lymph # (Auto) (units (unknown) date) 1900 /uL unknown) ([id number]) 01/18/22 13:50 (unknown) (no (unknown) (unknown) Lymph % (Auto) (units (unknown) date) 17.7 % (25-40) L unknown) 01/18/22 13:50 (unknown) (no (unknown) (unknown) MCH 30.1 PG (units (un known) date) (26-34) 01/18/22 unknown) 13:50 (unknown) (no (unknown) (unknown) MCHC 33.9 % (units (un known) date) (30-36) 01/18/22 unknown) 13:50 (unknown) (no (unknown) (unknown) MCV 88.9 fL (units (un known) date) (80-100) 01/18/22 unknown) 13:50 (unknown) (no (unknown) (unknown) Magnesium 1.3 (units ( unknown) date) mg/dL (1.6-2.3) L unknown) 01/17/22 11:57 (unknown) (no (unknown) (unknown) Magnesium Sulfate (units (unknown) date) 2 gm In 50 ml 50 / unknown) 50 (unknown) (no (unknown) (unknown) Medication (units (unk nown) date) Instructions unknown) Recorded Confirmed Type (unknown) (no (unknown) (unknown) Ector # (Auto) 800 (units (unknown) date) /uL (0-900) unknown) 01/18/22 13:50 (unknown) (no (unknown) (unknown) Ector % (Auto) 7.3 (units (unknown) date) % (3-14) 01/18/22 unknown) 13:50 (unknown) (no (unknown) (unknown) NS 1000 cc iv x 1 (units (unknown) date) today unknown) (unknown) (no (unknown) (unknown) NSAIDS (units (unkno wn) date) (Non-Steroidal unknown) AdvReac Gastrointestinal Verified 01/10/22 16:32 (unknown) (no (unknown) (unknown) Neut # (Auto) 7800 (units (unknown) date) /uL (9792-0029) H unknown) 01/18/22 13:50 (unknown) (no (unknown) (unknown) Neut % (Auto) 73.5 (units (unknown) date) % (50-75) 01/18/22 unknown) 13:50 (unknown) (no (unknown) (unknown) Nose bleeds, (units (u nknown) date) Changes in taste, unknown) Hoarseness, Swollen glands (unknown) (no (unknown) (unknown) [employer] (units (unknown) date) pending unknown) (unknown) (no (unknown) (unknown) On 11/21/2021 CT (units (unknown) date) chest without unknown) contrast showed bulky right supraclavicular, (unknown) (no (unknown) (unknown) On 12/06/2021, (units (unknown) date) Gus performed unknown) excisional biopsy of right cervical lymph (unknown) (no (unknown) (unknown) On 01/03/2022, (units ( unknown) date) patient underwent unknown) PET scan that showed hypermetabolic masses in (unknown) (no (unknown) (unknown) On 01/04/2022, (units ( unknown) date) patient also unknown) underwent brain MRI that showed no dana parenchymal (unknown) (no (unknown) (unknown) Oncological (units (un known) date) History unknown) (unknown) (no (unknown) (unknown) Oncology Progress (units (unknown) date) Note unknown) (unknown) (no (unknown) (unknown) Ondanseteon 4 mg (units (unknown) date) q6h prn unknown) (unknown) (no (unknown) (unknown) Ondansetron 8 mg (units (unknown) date) In Sodium 54 / 54 unknown) (unknown) (no (unknown) (unknown) Oxycodone 5 mg q6h (units (unknown) date) prn unknown) (unknown) (no (unknown) (unknown) PN -Subjective (units (unknown) date) unknown) (unknown) (no (unknown) (unknown) Patient signed (units (unknown) date) informed consent. unknown) (unknown) (no (unknown) (unknown) Patient: (units (unkno wn) date) Manda Whitaker S unknown) MR#: [id number] (unknown) (no (unknown) (unknown) Plan: (units (unkno wn) date) unknown) (unknown) (no (unknown) (unknown) Plt Count 227 (units ( unknown) date) X103/uL (150-400) unknown) 01/18/22 13:50 (unknown) (no (unknown) (unknown) Potassium 3.5 (units ( unknown) date) mmol/L (3.4-5.1) unknown) 01/17/22 11:57 (unknown) (no (unknown) (unknown) Provider: (units (unkn own) date) Melly Noe MD unknown) (unknown) (no (unknown) (unknown) RBC 4.16 X106/uL (units (unknown) date) (4.0-5.2) 01/18/22 unknown) 13:50 (unknown) (no (unknown) (unknown) RDW 14.7 % (units (unk nown) date) (11.6-14.8) unknown) 01/18/22 13:50 (unknown) (no (unknown) (unknown) RTC C1D8 (units (unkno wn) date) unknown) (unknown) (no (unknown) (unknown) Results (units (unkno wn) date) unknown) (unknown) (no (unknown) (unknown) Rx (units (unkno wn) date) unknown) (unknown) (no (unknown) (unknown) SR Cardiovascular (units (unknown) date) issues: unknown) Palpitations, Shortness of breath with activity or (unknown) (no (unknown) (unknown) SR Constitution: (units (unknown) date) Fatigue/Malaise, unknown) Night Sweats (unknown) (no (unknown) (unknown) SR Endocrine (units (u nknown) date) issues: Cold unknown) intolerance, Excessive thirst (unknown) (no (unknown) (unknown) SR (units (unkno wn) date) Gastrointestinal unknown) issues: Poor or no appetite, Nausea, Vomiting, Diarrhea, (unknown) (no (unknown) (unknown) SR Hematologic (units (unknown) date) issues: Swollen unknown) lymph nodes (unknown) (no (unknown) (unknown) SR Musculoskeletal (units (unknown) date) issues: Joint pain unknown) or swelling, Muscle weakness, Muscle pain (unknown) (no (unknown) (unknown) SR Neuro issues: (units (unknown) date) Headache, unknown) Lightheaded/dizzy, Numbness or tingling, Difficulty (unknown) (no (unknown) (unknown) SR Skin issues: (units (unknown) date) Skin color changes, unknown) Blistering or peeling, Skin lesions or (unknown) (no (unknown) (unknown) SR ears, nose, (units (unknown) date) mouth, throat unknown) issues: Congestion, Cough, Difficulty swallowing, (unknown) (no (unknown) (unknown) SR respiratory (units (unknown) date) issues: Cough, unknown) Shortness of breath, Mucous (unknown) (no (unknown) (unknown) She has alwasy had (units (unknown) date) dirrhea, now more unknown) solid, (unknown) (no (unknown) (unknown) She is hainvg (units ( unknown) date) lower back and unknown) abodmin pain (unknown) (no (unknown) (unknown) She then underwent (units (unknown) date) CT neck w/contrast unknown) on 11/21/2021 that showed a mass-like (unknown) (no (unknown) (unknown) Signed By: (units (unk nown) date) unknown) (unknown) (no (unknown) (unknown) Sodium 129 mmol/L (units (unknown) date) (137-145) L unknown) 01/17/22 11:57 (unknown) (no (unknown) (unknown) Sodium Chloride (units (unknown) date) 0.9% 1,000 ml @ unknown) 1000 / 1000 (unknown) (no (unknown) (unknown) Sulfa (Sulfonamide (units (unknown) date) Allergy Verified unknown) 01/10/22 16:32 (unknown) (no (unknown) (unknown) Temp Pulse Resp BP (units (unknown) date) Pulse Ox unknown) (unknown) (no (unknown) (unknown) Then I talked with (units (unknown) date) the patient and unknown) patient's daughter about the potential side (unknown) (no (unknown) (unknown) Today, she is c/o (units (unknown) date) headache. At time unknown) her headache is pretty severe. She also (unknown) (no (unknown) (unknown) Total Bilirubin (units (unknown) date) 1.2 mg/dL (0.2-1.3) unknown) 01/17/22 11:57 (unknown) (no (unknown) (unknown) Total Protein 6.0 (units (unknown) date) g/dL (6.3-8.2) L unknown) 01/17/22 11:57 (unknown) (no (unknown) (unknown) Vital Signs (units (un known) date) unknown) (unknown) (no (unknown) (unknown) Vital signs: (units (u nknown) date) unknown) (unknown) (no (unknown) (unknown) WBC 10.6 X103/uL (units (unknown) date) (4.5-11.0) 01/18/22 unknown) 13:50 (unknown) (no (unknown) (unknown) [From Paxlovid (units (unknown) date) (EUA)] nausea unknown) (unknown) (no (unknown) (unknown) acetaminophen 325 (units (unknown) date) mg capsule 650 mg unknown) PO QID PRN pain #60 caps 12/06/21 01/10/22 (unknown) (no (unknown) (unknown) activity most (units ( unknown) date) concerning for unknown) metastatic is noted. (unknown) (no (unknown) (unknown) aerosol inhaler (units (unknown) date) (Ventolin HFA) unknown) Bronchodilation (unknown) (no (unknown) (unknown) albuterol sulfate (units (unknown) date) 90 mcg/actuation 2 unknown) puff inhalation Q6H PRN 11/30/21 01/10/22 (unknown) (no (unknown) (unknown) alendronate 70 mg (units (unknown) date) tablet 70 mg PO unknown) WEEKLY 12/06/21 01/10/22 History (unknown) (no (unknown) (unknown) also on day acid (units (unknown) date) IV mg q.6 on a as unknown) needed basis. (unknown) (no (unknown) (unknown) amlodipine 5 mg (units (unknown) date) tablet 5 mg PO unknown) DAILY 11/30/21 01/10/22 History (unknown) (no (unknown) (unknown) any organ systems (units (unknown) date) commonly I have unknown) seen patient with colitis, hepatitis, (unknown) (no (unknown) (unknown) artifact. (units (unkn own) date) unknown) (unknown) (no (unknown) (unknown) atorvastatin 80 mg (units (unknown) date) tablet 80 mg PO unknown) DAILY 11/30/21 01/10/22 History (unknown) (no (unknown) (unknown) balancing (units (unkn own) date) unknown) (unknown) (no (unknown) (unknown) both voiced (units (un known) date) understanding. We unknown) will try to start the treatment next Saturday. (unknown) (no (unknown) (unknown) can be seen within (units (unknown) date) the calvarium. unknown) There is moderate suspicion for bony (unknown) (no (unknown) (unknown) carboplatin/atezol (units (unknown) date) izumab/etoposide. unknown) (unknown) (no (unknown) (unknown) cell lung cancer. (units (unknown) date) unknown) (unknown) (no (unknown) (unknown) clopidogrel 75 mg (units (unknown) date) tablet 75 mg PO unknown) DAILY 11/30/21 01/10/22 History (unknown) (no (unknown) (unknown) conglomerated group (units (unknown) date) of lymph nodes unknown) within the right supra-clavicular region that (unknown) (no (unknown) (unknown) developed blurred (units (unknown) date) vision. She said unknown) that she used to read a lot, but now she has (unknown) (no (unknown) (unknown) dexamethasone 4 mg (units (unknown) date) tablet 8 mg PO Q12H unknown) #30 tabs 01/18/22 Rx (unknown) (no (unknown) (unknown) diphenoxylate-atro (units (unknown) date) pine 2.5 1 tab PO unknown) DAILY diarrhea 11/30/21 01/10/22 History (unknown) (no (unknown) (unknown) disease. It also (units (unknown) date) showed unknown) hypermetabolic pulmonary nodules concerning for (unknown) (no (unknown) (unknown) dry heaves (units (unk nown) date) unknown) (unknown) (no (unknown) (unknown) duloxetine AdvReac (units (unknown) date) Hypotension unknown) Verified 01/10/22 16:32 (unknown) (no (unknown) (unknown) effects of the (units (unknown) date) chemotherapy unknown) including but not limited to bone marrow (unknown) (no (unknown) (unknown) features consist (units (unknown) date) with small cell unknown) undifferented malignancy with extensive crush (unknown) (no (unknown) (unknown) findings, patient (units (unknown) date) most likely has an unknown) extensive stage small cell lung cancer, (unknown) (no (unknown) (unknown) fluticasone (units (un known) date) propionate 50 1 unknown) spray intranasal DAILY 11/30/21 01/10/22 History (unknown) (no (unknown) (unknown) gaging on the (units ( unknown) date) phelgme unknown) (unknown) (no (unknown) (unknown) history of breast (units (unknown) date) cancer (her unknown) daughter with positive BRCA mutations. But Manda (unknown) (no (unknown) (unknown) hr IV NOW ONE (units ( unknown) date) Rx#:[id number] unknown) (unknown) (no (unknown) (unknown) hydrocodone (units (un known) date) AdvReac Rash unknown) Verified 01/10/22 16:32 (unknown) (no (unknown) (unknown) in the spleen (units ( unknown) date) liver and both unknown) lungs, small pericardial effusion and nonspecific (unknown) (no (unknown) (unknown) is reporting (units (u nknown) date) epigastric pain and unknown) umblical snell. Her weight has remained about (unknown) (no (unknown) (unknown) legs. left > (units (u nknown) date) right. She just saw unknown) vascular surgery. no blood clot. (unknown) (no (unknown) (unknown) lesions in the (units (unknown) date) liver. I talked unknown) with the patient that given the imaging (unknown) (no (unknown) (unknown) lesions in the (units (unknown) date) lower neck, unknown) mediastinum and lungs as well as highly suspicious (unknown) (no (unknown) (unknown) lidocaine-prilocai (units (unknown) date) ne 2.5 %-2.5 % See unknown) Rx Instructions .Route 01/16/22 Rx (unknown) (no (unknown) (unknown) lying flat, (units (un known) date) Extreme swelling unknown) (unknown) (no (unknown) (unknown) masses or abnormal (units (unknown) date) enhancement. unknown) However, numerous irregularly enhancing areas (unknown) (no (unknown) (unknown) mcg/actuation (units ( unknown) date) nasal unknown) (unknown) (no (unknown) (unknown) measures at least (units (unknown) date) 5.8 x 3.6 cm in unknown) greatest axial dimension. There is partial (unknown) (no (unknown) (unknown) meclizine AdvReac (units (unknown) date) Hypertensio unknown) Verified 01/10/22 16:32 (unknown) (no (unknown) (unknown) mediastinal and (units (unknown) date) right hilar unknown) adenopathy, coarse nodular calcifications, granuloma (unknown) (no (unknown) (unknown) metastasis in the (units (unknown) date) calvarium. The PET unknown) scan showed multiple hypermetabolic (unknown) (no (unknown) (unknown) metastatic (units (unk nown) date) disease. unknown) Ill-defined multiple hepatic mass lesions with metabolic (unknown) (no (unknown) (unknown) metastatic (units (unk nown) date) disease. unknown) (unknown) (no (unknown) (unknown) metoprolol (units (unk nown) date) tartrate 25 mg unknown) tablet 37.5 mg PO BID 11/30/21 01/10/22 History (unknown) (no (unknown) (unknown) mg-0.025 mg tablet (units (unknown) date) unknown) (unknown) (no (unknown) (unknown) moles, Hair loss (units (unknown) date) or scalp prob, Nail unknown) changes (unknown) (no (unknown) (unknown) montelukast 10 mg (units (unknown) date) tablet 10 mg PO unknown) DAILY 11/30/21 01/10/22 History (unknown) (no (unknown) (unknown) more confusion (units (unknown) date) unknown) (unknown) (no (unknown) (unknown) mumbling a lot. (units (unknown) date) unknown) (unknown) (no (unknown) (unknown) n (units (unkno wn) date) unknown) (unknown) (no (unknown) (unknown) nausea, very much (units (unknown) date) so unknown) (unknown) (no (unknown) (unknown) nirmatrelvir (units (u nknown) date) AdvReac Pain, unknown) Verified 01/10/22 16:32 (unknown) (no (unknown) (unknown) no chest pain (units ( unknown) date) unknown) (unknown) (no (unknown) (unknown) no choking (units (unk nown) date) problems unknown) (unknown) (no (unknown) (unknown) no fever, no (units (u nknown) date) chill. s unknown) (unknown) (no (unknown) (unknown) node. 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 (unknown) (no (unknown) (unknown) ondansetron HCl 4 (units (unknown) date) mg tablet 4 mg PO unknown) Q6H nausea #60 tabs 01/18/22 Rx (unknown) (no (unknown) (unknown) or cramps, Back or (units (unknown) date) neck pain, unknown) Difficulty walking, Bone pain (unknown) (no (unknown) (unknown) oxycodone 5 mg (units (unknown) date) tablet 5 mg PO Q6H unknown) PRN Pain (Scale Score 01/18/22 Rx (unknown) (no (unknown) (unknown) paroxetine AdvReac (units (unknown) date) Nightmare Verified unknown) 01/10/22 16:32 (unknown) (no (unknown) (unknown) pneumonitis, (units (u nknown) date) thyroid damage, and unknown) rashes etc.. Patient and patient's daughter (unknown) (no (unknown) (unknown) possibly blood (units (unknown) date) transfusion, etc.. unknown) The immune related side effects can happen to (unknown) (no (unknown) (unknown) prochlorperazine (units (unknown) date) 25 mg rectal 25 mg unknown) KS BID PRN Nausea And 01/16/22 Rx (unknown) (no (unknown) (unknown) purple front neck (units (unknown) date) unknown) (unknown) (no (unknown) (unknown) relative quickly in (units (unknown) date) 10/2021. CT neck unknown) and chest showed bulky lymph nodes in right (unknown) (no (unknown) (unknown) reticulonodular (units (unknown) date) focus in the medial unknown) right upper lobe. Mild bronchial wall (unknown) (no (unknown) (unknown) right neck lymph (units (unknown) date) node excision unknown) biopsy. The pathology is consistent with small (unknown) (no (unknown) (unknown) ritonavir AdvReac (units (unknown) date) Pain, Verified unknown) 01/10/22 16:32 (unknown) (no (unknown) (unknown) she is anaere (units ( unknown) date) questiong unknown) prombpltly (unknown) (no (unknown) (unknown) she is coughing, (units (unknown) date) especially last unknown) night (unknown) (no (unknown) (unknown) she is having (units ( unknown) date) dificult time to unknown) drink (unknown) (no (unknown) (unknown) she went to see (units (unknown) date) her PCR Lynnette unknown) Ivan, and right neck lymph nodes were palpated. (unknown) (no (unknown) (unknown) solifenacin (units (un known) date) AdvReac Verified unknown) 01/10/22 16:32 (unknown) (no (unknown) (unknown) spray,suspension (units (unknown) date) unknown) (unknown) (no (unknown) (unknown) superior (units (unkno wn) date) mediastinum unknown) measuring 4.3 x 3 cm. Mild mass effect of is seen upon the (unknown) (no (unknown) (unknown) suppository (units (un known) date) Vomiting #20 ea unknown) (unknown) (no (unknown) (unknown) suppression, (units (u nknown) date) fatigue, nausea unknown) vomiting, hair loss, the need for antibiotics and (unknown) (no (unknown) (unknown) supraclavicular (units (unknown) date) fossa, and unknown) mediastinum. On 12/06/2021, Dr. Reddy performed (unknown) (no (unknown) (unknown) suvorexant [From (units (unknown) date) Belsomra] Allergy unknown) Rash Verified 01/10/22 16:32 (unknown) (no (unknown) (unknown) the lower neck, (units (unknown) date) mediastinum, and unknown) hilar regions consistent with malignant (unknown) (no (unknown) (unknown) the same . She (units (unknown) date) said she is losing unknown) wt in the face and arm, but edema in the (unknown) (no (unknown) (unknown) therefore I am (units (unknown) date) recommending unknown) systemic therapy with (unknown) (no (unknown) (unknown) thickening noted. (units (unknown) date) unknown) (unknown) (no (unknown) (unknown) tizanidine 2 mg (units (unknown) date) tablet 2 mg PO PRN unknown) PRN Muscle Pain 12/06/21 01/10/22 History (unknown) (no (unknown) (unknown) to give up 2/2 (units ( unknown) date) blurred vision. She unknown) is also reporting food stuck in the flow. She (unknown) (no (unknown) (unknown) topical cream (units ( unknown) date) .COMPLEX #30 grams unknown) (unknown) (no (unknown) (unknown) trachea, which is (units (unknown) date) slightly deviated unknown) to the left. (unknown) (no (unknown) (unknown) trazodone 150 mg (units (unknown) date) tablet 150 mg PO unknown) BEDTIME PRN Sleep 11/30/21 01/10/22 History (unknown) (no (unknown) (unknown) urine areli dark (units (unknown) date) unknown) (unknown) (no (unknown) (unknown) ursodiol AdvReac (units (unknown) date) Rash Verified unknown) 01/10/22 16:32 (unknown) (no (unknown) (unknown) visualization of (units (unknown) date) mediastinal lymph unknown) nodes, with a group seen within the right (unknown) (no (unknown) (unknown) was tested (units (unk nown) date) negative (about in unknown) 2015). 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 (unknown) (no (unknown) (unknown) (Tylenol) (units (unkn own) date) unknown) (unknown) (no (unknown) (unknown) - Constitutional (units (unknown) date) unknown) (unknown) (no (unknown) (unknown) - Date of Visit (units (unknown) date) unknown) (unknown) (no (unknown) (unknown) - Labs (units (unkno wn) date) unknown) (unknown) (no (unknown) (unknown) - Patient (units (unkn own) date) Self-Reported unknown) Symptoms (unknown) (no (unknown) (unknown) - ROS (units (unkno wn) date) unknown) (unknown) (no (unknown) (unknown) - Routine (units (unkn own) date) Cardiovascular Exam unknown) (unknown) (no (unknown) (unknown) - Routine (units (unkn own) date) Chest/Breast/Axilla unknown) Exam (unknown) (no (unknown) (unknown) - Routine HEENT (units (unknown) date) Exam unknown) (unknown) (no (unknown) (unknown) - Routine (units (unkn own) date) Respiratory Exam unknown) (unknown) (no (unknown) (unknown) [id number] (units (unkno wn) date) unknown) (unknown) (no (unknown) (unknown) 7-10) #96 tabs (units (unknown) date) unknown) (unknown) (no (unknown) (unknown) 71 year old female (units (unknown) date) with active smoking unknown) history. She developed right neck mass (unknown) (no (unknown) (unknown) ALT 28 IU/L (<35) (units (unknown) date) 01/17/22 11:57 unknown) (unknown) (no (unknown) (unknown) AST 96 IU/L (units (un known) date) (14-36) H 01/17/22 unknown) 11:57 (unknown) (no (unknown) (unknown) Abdominal pain, (units (unknown) date) Heartburn unknown) (unknown) (no (unknown) (unknown) Age/Sex: 71 / F (units (unknown) date) unknown) (unknown) (no (unknown) (unknown) Albumin 2.9 g/dL (units (unknown) date) (3.5-5.0) L unknown) 01/17/22 11:57 (unknown) (no (unknown) (unknown) Albumin/Globulin (units (unknown) date) Ratio 0.9 (1.0-2.8) unknown) L 01/17/22 11:57 (unknown) (no (unknown) (unknown) Alkaline (units (unkno wn) date) Phosphatase 166 U/L unknown) (38-126) H 01/17/22 11:57 (unknown) (no (unknown) (unknown) All Systems: (units (u nknown) date) reviewed and no unknown) additional remarkable complaints except as stated (unknown) (no (unknown) (unknown) Allergies (units (unkn own) date) unknown) (unknown) (no (unknown) (unknown) Allergy/AdvReac (units (unknown) date) Type Severity unknown) Reaction Status Date / Time (unknown) (no (unknown) (unknown) Anti-Inflamma (units ( unknown) date) Upset unknown) (unknown) (no (unknown) (unknown) Antibiotics) (units (u nknown) date) unknown) (unknown) (no (unknown) (unknown) Assessment and (units (unknown) date) Plan unknown) (unknown) (no (unknown) (unknown) Axillae: Absent: (units (unknown) date) lymphadenopathy unknown) (unknown) (no (unknown) (unknown) BP 122/58 L (units (un known) date) 01/18/22 14:15 unknown) (unknown) (no (unknown) (unknown) BUN 29 mg/dL (units (u nknown) date) (7-17) H 01/17/22 unknown) 11:57 (unknown) (no (unknown) (unknown) BUN/Creatinine (units (unknown) date) Ratio 22.1 (6-22) H unknown) 01/17/22 11:57 (unknown) (no (unknown) (unknown) Baso # (Auto) 100 (units (unknown) date) /uL (0-100) unknown) 01/18/22 13:50 (unknown) (no (unknown) (unknown) Baso % (Auto) 0.6 (units (unknown) date) % (0-2) 01/18/22 unknown) 13:50 (unknown) (no (unknown) (unknown) Calcium 8.1 mg/dL (units (unknown) date) (8.4-10.2) L unknown) 01/17/22 11:57 (unknown) (no (unknown) (unknown) Carbo/Eto/Atezo (units (unknown) date) C1D1: 01/22/2022 unknown) (unknown) (no (unknown) (unknown) Carbon Dioxide 30 (units (unknown) date) mmol/L (22-32) unknown) 01/17/22 11:57 (unknown) (no (unknown) (unknown) Chief Complaint: (units (unknown) date) 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 (unknown) (no (unknown) (unknown) Chloride 94 mmol/L (units (unknown) date) (98-107) L 01/17/22 unknown) 11:57 (unknown) (no (unknown) (unknown) Creatinine 1.31 (units (unknown) date) mg/dL (0.52-1.04) H unknown) 01/17/22 11:57 (unknown) (no (unknown) (unknown) : 1950 (units (unknown) date) Acct:[id number] unknown) (unknown) (no (unknown) (unknown) Date of Service: (units (unknown) date) 01/18/22 unknown) (unknown) (no (unknown) (unknown) Date of visit: (units (unknown) date) 01/18/22 unknown) (unknown) (no (unknown) (unknown) Dexamethasone 8 mg (units (unknown) date) q12h unknown) (unknown) (no (unknown) (unknown) Discussion: (units (un known) date) unknown) (unknown) (no (unknown) (unknown) Eos # (Auto) 100 (units (unknown) date) /uL (0-450) unknown) 01/18/22 13:50 (unknown) (no (unknown) (unknown) Eos % (Auto) 0.9 % (units (unknown) date) (2-4) L 01/18/22 unknown) 13:50 (unknown) (no (unknown) (unknown) Estimated GFR 44 (units (unknown) date) mL/min (>60) L unknown) 01/17/22 11:57 (unknown) (no (unknown) (unknown) Exam (units (unkno wn) date) unknown) (unknown) (no (unknown) (unknown) For nausea and (units (unknown) date) vomiting, I have unknown) ordered dexamethasone 8 mg every 12 hours and (unknown) (no (unknown) (unknown) For pain control, (units (unknown) date) I will continue the unknown) pain medications oxycodone. (unknown) (no (unknown) (unknown) Globulin 3.1 g/dL (units (unknown) date) (1.7-4.1) 01/17/22 unknown) 11:57 (unknown) (no (unknown) (unknown) Glucose 117 mg/dL (units (unknown) date) (80-110) H 01/17/22 unknown) 11:57 (unknown) (no (unknown) (unknown) Hct 37.0 % (36-46) (units (unknown) date) 01/18/22 13:50 unknown) (unknown) (no (unknown) (unknown) Head: Absent: (units ( unknown) date) normocephalic, unknown) atraumatic, cushingoid faces (unknown) (no (unknown) (unknown) Hgb 12.5 g/dL (units ( unknown) date) (12.0-16.0) unknown) 01/18/22 13:50 (unknown) (no (unknown) (unknown) History (units (unkno wn) date) unknown) (unknown) (no (unknown) (unknown) Home Medications (units (unknown) date) and Allergies unknown) (unknown) (no (unknown) (unknown) Home Medications (units (unknown) date) unknown) (unknown) (no (unknown) (unknown) I reviewed the (units (unknown) date) imaging studies unknown) with the patient and her daughter. The MRI brain (unknown) (no (unknown) (unknown) I talked with the (units (unknown) date) patient that given unknown) the imaging findings, patient most likely (unknown) (no (unknown) (unknown) Interval history: (units (unknown) date) unknown) (unknown) (no (unknown) (unknown) [facility] (units (unknown) date) [address] unknown) [place] [address] (unknown) (no (unknown) (unknown) Manda Whitaker (units (unknown) date) is a 71 year old unknown) female. According to patient, she has family (unknown) (no (unknown) (unknown) Manda said that (units (unknown) date) about in 10/2021, unknown) she felt right neck tenderness. On 11/02/2021, (unknown) (no (unknown) (unknown) Laboratory Last (units (unknown) date) Values unknown) (unknown) (no (unknown) (unknown) Last Vital Signs (units (unknown) date) unknown) (unknown) (no (unknown) (unknown) Lymph # (Auto) (units (unknown) date) 1900 /uL unknown) ([id number]) 01/18/22 13:50 (unknown) (no (unknown) (unknown) Lymph % (Auto) (units (unknown) date) 17.7 % (25-40) L unknown) 01/18/22 13:50 (unknown) (no (unknown) (unknown) MCH 30.1 PG (units (un known) date) (26-34) 01/18/22 unknown) 13:50 (unknown) (no (unknown) (unknown) MCHC 33.9 % (units (un known) date) (30-36) 01/18/22 unknown) 13:50 (unknown) (no (unknown) (unknown) MCV 88.9 fL (units (un known) date) (80-100) 01/18/22 unknown) 13:50 (unknown) (no (unknown) (unknown) Magnesium 1.3 (units ( unknown) date) mg/dL (1.6-2.3) L unknown) 01/17/22 11:57 (unknown) (no (unknown) (unknown) Medication (units (unk nown) date) Instructions unknown) Recorded Confirmed Type (unknown) (no (unknown) (unknown) Ector # (Auto) 800 (units (unknown) date) /uL (0-900) unknown) 01/18/22 13:50 (unknown) (no (unknown) (unknown) Ector % (Auto) 7.3 (units (unknown) date) % (3-14) 01/18/22 unknown) 13:50 (unknown) (no (unknown) (unknown) NS 1000 cc iv x 1 (units (unknown) date) today unknown) (unknown) (no (unknown) (unknown) NSAIDS (units (unkno wn) date) (Non-Steroidal unknown) AdvReac Gastrointestinal Verified 01/10/22 16:32 (unknown) (no (unknown) (unknown) Neut # (Auto) 7800 (units (unknown) date) /uL (8937-2176) H unknown) 01/18/22 13:50 (unknown) (no (unknown) (unknown) Neut % (Auto) 73.5 (units (unknown) date) % (50-75) 01/18/22 unknown) 13:50 (unknown) (no (unknown) (unknown) Nose bleeds, (units (u nknown) date) Changes in taste, unknown) Hoarseness, Swollen glands (unknown) (no (unknown) (unknown) [employer] (units (unknown) date) pending unknown) (unknown) (no (unknown) (unknown) On 11/21/2021 CT (units (unknown) date) chest without unknown) contrast showed bulky right supraclavicular, (unknown) (no (unknown) (unknown) On 12/06/2021, (units (unknown) date) Gus performed unknown) excisional biopsy of right cervical lymph (unknown) (no (unknown) (unknown) On 01/03/2022, (units ( unknown) date) patient underwent unknown) PET scan that showed hypermetabolic masses in (unknown) (no (unknown) (unknown) On 01/04/2022, (units ( unknown) date) patient also unknown) underwent brain MRI that showed no dana parenchymal (unknown) (no (unknown) (unknown) Oncological (units (un known) date) History unknown) (unknown) (no (unknown) (unknown) Oncology Progress (units (unknown) date) Note unknown) (unknown) (no (unknown) (unknown) Ondanseteon 4 mg (units (unknown) date) q6h prn unknown) (unknown) (no (unknown) (unknown) Oxycodone 5 mg q6h (units (unknown) date) prn unknown) (unknown) (no (unknown) (unknown) PN -Subjective (units (unknown) date) unknown) (unknown) (no (unknown) (unknown) Patient signed (units (unknown) date) informed consent. unknown) (unknown) (no (unknown) (unknown) Patient: (units (unkno wn) date) Manda Whitaker S unknown) MR#: [id number] (unknown) (no (unknown) (unknown) Plan: (units (unkno wn) date) unknown) (unknown) (no (unknown) (unknown) Plt Count 227 (units ( unknown) date) X103/uL (150-400) unknown) 01/18/22 13:50 (unknown) (no (unknown) (unknown) Potassium 3.5 (units ( unknown) date) mmol/L (3.4-5.1) unknown) 01/17/22 11:57 (unknown) (no (unknown) (unknown) Present: Clear to (units (unknown) date) auscultation unknown) bilaterally. Absent: wheezes (unknown) (no (unknown) (unknown) Present: RRR, S1, (units (unknown) date) S2, murmur, gallop, unknown) rubs. Absent: S3, S4, click (unknown) (no (unknown) (unknown) Provider: (units (unkn own) date) Melly Noe MD unknown) (unknown) (no (unknown) (unknown) Pulse 83 01/18/22 (units (unknown) date) 14:15 unknown) (unknown) (no (unknown) (unknown) Pulse Ox 99 (units (un known) date) 01/18/22 14:15 unknown) (unknown) (no (unknown) (unknown) RBC 4.16 X106/uL (units (unknown) date) (4.0-5.2) 01/18/22 unknown) 13:50 (unknown) (no (unknown) (unknown) RDW 14.7 % (units (unk nown) date) (11.6-14.8) unknown) 01/18/22 13:50 (unknown) (no (unknown) (unknown) RTC C1D8 (units (unkno wn) date) unknown) (unknown) (no (unknown) (unknown) Resp 16 01/18/22 (units (unknown) date) 14:15 unknown) (unknown) (no (unknown) (unknown) Results (units (unkno wn) date) unknown) (unknown) (no (unknown) (unknown) Rx (units (unkno wn) date) unknown) (unknown) (no (unknown) (unknown) SR Cardiovascular (units (unknown) date) issues: unknown) Palpitations, Shortness of breath with activity or (unknown) (no (unknown) (unknown) SR Constitution: (units (unknown) date) Fatigue/Malaise, unknown) Night Sweats (unknown) (no (unknown) (unknown) SR Endocrine (units (u nknown) date) issues: Cold unknown) intolerance, Excessive thirst (unknown) (no (unknown) (unknown) SR (units (unkno wn) date) Gastrointestinal unknown) issues: Poor or no appetite, Nausea, Vomiting, Diarrhea, (unknown) (no (unknown) (unknown) SR Hematologic (units (unknown) date) issues: Swollen unknown) lymph nodes (unknown) (no (unknown) (unknown) SR Musculoskeletal (units (unknown) date) issues: Joint pain unknown) or swelling, Muscle weakness, Muscle pain (unknown) (no (unknown) (unknown) SR Neuro issues: (units (unknown) date) Headache, unknown) Lightheaded/dizzy, Numbness or tingling, Difficulty (unknown) (no (unknown) (unknown) SR Skin issues: (units (unknown) date) Skin color changes, unknown) Blistering or peeling, Skin lesions or (unknown) (no (unknown) (unknown) SR ears, nose, (units (unknown) date) mouth, throat unknown) issues: Congestion, Cough, Difficulty swallowing, (unknown) (no (unknown) (unknown) SR respiratory (units (unknown) date) issues: Cough, unknown) Shortness of breath, Mucous (unknown) (no (unknown) (unknown) She came in today (units (unknown) date) accompanied by her unknown) daughter. The daughter is reporting purple (unknown) (no (unknown) (unknown) She then underwent (units (unknown) date) CT neck w/contrast unknown) on 11/21/2021 that showed a mass-like (unknown) (no (unknown) (unknown) Signed By: (units (unk nown) date) unknown) (unknown) (no (unknown) (unknown) Sodium 129 mmol/L (units (unknown) date) (137-145) L unknown) 01/17/22 11:57 (unknown) (no (unknown) (unknown) Sulfa (Sulfonamide (units (unknown) date) Allergy Verified unknown) 01/10/22 16:32 (unknown) (no (unknown) (unknown) Temp 97.3 F L (units ( unknown) date) 01/18/22 14:15 unknown) (unknown) (no (unknown) (unknown) Then I talked with (units (unknown) date) the patient and unknown) patient's daughter about the potential side (unknown) (no (unknown) (unknown) Today, she is c/o (units (unknown) date) headache. At time unknown) her headache is pretty severe. She also (unknown) (no (unknown) (unknown) Total Bilirubin (units (unknown) date) 1.2 mg/dL (0.2-1.3) unknown) 01/17/22 11:57 (unknown) (no (unknown) (unknown) Total Protein 6.0 (units (unknown) date) g/dL (6.3-8.2) L unknown) 01/17/22 11:57 (unknown) (no (unknown) (unknown) Vital signs: (units (u nknown) date) unknown) (unknown) (no (unknown) (unknown) WBC 10.6 X103/uL (units (unknown) date) (4.5-11.0) 01/18/22 unknown) 13:50 (unknown) (no (unknown) (unknown) [From Paxlovid (units (unknown) date) (EUA)] nausea unknown) (unknown) (no (unknown) (unknown) acetaminophen 325 (units (unknown) date) mg capsule 650 mg unknown) PO QID PRN pain #60 caps 12/06/21 01/10/22 (unknown) (no (unknown) (unknown) activity most (units ( unknown) date) concerning for unknown) metastatic is noted. (unknown) (no (unknown) (unknown) aerosol inhaler (units (unknown) date) (Ventolin HFA) unknown) Bronchodilation (unknown) (no (unknown) (unknown) albuterol sulfate (units (unknown) date) 90 mcg/actuation 2 unknown) puff inhalation Q6H PRN 11/30/21 01/10/22 (unknown) (no (unknown) (unknown) alendronate 70 mg (units (unknown) date) tablet 70 mg PO unknown) WEEKLY 12/06/21 01/10/22 History (unknown) (no (unknown) (unknown) also on day acid (units (unknown) date) IV mg q.6 on a as unknown) needed basis. (unknown) (no (unknown) (unknown) amlodipine 5 mg (units (unknown) date) tablet 5 mg PO unknown) DAILY 11/30/21 01/10/22 History (unknown) (no (unknown) (unknown) any organ systems (units (unknown) date) commonly I have unknown) seen patient with colitis, hepatitis, (unknown) (no (unknown) (unknown) artifact. (units (unkn own) date) unknown) (unknown) (no (unknown) (unknown) atorvastatin 80 mg (units (unknown) date) tablet 80 mg PO unknown) DAILY 11/30/21 01/10/22 History (unknown) (no (unknown) (unknown) balancing (units (unkn own) date) unknown) (unknown) (no (unknown) (unknown) both voiced (units (un known) date) understanding. We unknown) will try to start the treatment next Saturday. (unknown) (no (unknown) (unknown) can be seen within (units (unknown) date) the calvarium. unknown) There is moderate suspicion for bony (unknown) (no (unknown) (unknown) cell lung cancer. (units (unknown) date) unknown) (unknown) (no (unknown) (unknown) clopidogrel 75 mg (units (unknown) date) tablet 75 mg PO unknown) DAILY 11/30/21 01/10/22 History (unknown) (no (unknown) (unknown) conglomerated group (units (unknown) date) of lymph nodes unknown) within the right supra-clavicular region that (unknown) (no (unknown) (unknown) developed blurred (units (unknown) date) vision. She said unknown) that she used to read a lot, but now she has (unknown) (no (unknown) (unknown) dexamethasone 4 mg (units (unknown) date) tablet 8 mg PO Q12H unknown) #30 tabs 01/18/22 Rx (unknown) (no (unknown) (unknown) did not show any (units (unknown) date) intracranial unknown) metastasis, but it did show possible metastasis in (unknown) (no (unknown) (unknown) diphenoxylate-atro (units (unknown) date) pine 2.5 1 tab PO unknown) DAILY diarrhea 11/30/21 01/10/22 History (unknown) (no (unknown) (unknown) discoloration at (units (unknown) date) the front neck. She unknown) reports no choking problems But she has the (unknown) (no (unknown) (unknown) disease. 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 But Manda (unknown) (no (unknown) (unknown) hydrocodone (units (un known) date) AdvReac Rash unknown) Verified 01/10/22 16:32 (unknown) (no (unknown) (unknown) in the spleen (units ( unknown) date) liver and both unknown) lungs, small pericardial effusion and nonspecific (unknown) (no (unknown) (unknown) is reporting (units (u nknown) date) epigastric pain and unknown) umblical snell. Her weight has remained about (unknown) (no (unknown) (unknown) legs. left > (units (u nknown) date) right. She just saw unknown) vascular surgery. no blood clot. (unknown) (no (unknown) (unknown) lidocaine-prilocai (units (unknown) date) ne 2.5 %-2.5 % See unknown) Rx Instructions .Route 01/16/22 Rx (unknown) (no (unknown) (unknown) lying flat, (units (un known) date) Extreme swelling unknown) (unknown) (no (unknown) (unknown) masses or abnormal (units (unknown) date) enhancement. unknown) However, numerous irregularly enhancing areas (unknown) (no (unknown) (unknown) mcg/actuation (units ( unknown) date) nasal unknown) (unknown) (no (unknown) (unknown) measures at least (units (unknown) date) 5.8 x 3.6 cm in unknown) greatest axial dimension. There is partial (unknown) (no (unknown) (unknown) meclizine AdvReac (units (unknown) date) Hypertensio unknown) Verified 01/10/22 16:32 (unknown) (no (unknown) (unknown) mediastinal and (units (unknown) date) right hilar unknown) adenopathy, coarse nodular calcifications, granuloma (unknown) (no (unknown) (unknown) metastatic disease, (units (unknown) date) and ill-defined unknown) multiple hepatic mass lesions with metabolic (unknown) (no (unknown) (unknown) metastatic (units (unk nown) date) disease. unknown) (unknown) (no (unknown) (unknown) metoprolol (units (unk nown) date) tartrate 25 mg unknown) tablet 37.5 mg PO BID 11/30/21 01/10/22 History (unknown) (no (unknown) (unknown) mg-0.025 mg tablet (units (unknown) date) unknown) (unknown) (no (unknown) (unknown) moles, Hair loss (units (unknown) date) or scalp prob, Nail unknown) changes (unknown) (no (unknown) (unknown) montelukast 10 mg (units (unknown) date) tablet 10 mg PO unknown) DAILY 11/30/21 01/10/22 History (unknown) (no (unknown) (unknown) n (units (unkno wn) date) unknown) (unknown) (no (unknown) (unknown) neck, mediastinum (units (unknown) date) and lungs as well unknown) as highly suspicious lesions in the liver. (unknown) (no (unknown) (unknown) nirmatrelvir (units (u nknown) date) AdvReac Pain, unknown) Verified 01/10/22 16:32 (unknown) (no (unknown) (unknown) node. 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 (unknown) (no (unknown) (unknown) ondansetron HCl 4 (units (unknown) date) mg tablet 4 mg PO unknown) Q6H nausea #60 tabs 01/18/22 Rx (unknown) (no (unknown) (unknown) or cramps, Back or (units (unknown) date) neck pain, unknown) Difficulty walking, Bone pain (unknown) (no (unknown) (unknown) oxycodone 5 mg (units (unknown) date) tablet 5 mg PO Q6H unknown) PRN Pain (Scale Score 01/18/22 Rx (unknown) (no (unknown) (unknown) paroxetine AdvReac (units (unknown) date) Nightmare Verified unknown) 01/10/22 16:32 (unknown) (no (unknown) (unknown) pneumonitis, (units (u nknown) date) thyroid damage, and unknown) rashes etc.. Patient and patient's daughter (unknown) (no (unknown) (unknown) positive mild (units ( unknown) date) distress, positive unknown) obese (unknown) (no (unknown) (unknown) possibly blood (units (unknown) date) transfusion, etc.. unknown) The immune related side effects can happen to (unknown) (no (unknown) (unknown) problem of gaging (units (unknown) date) on phlegman. unknown) (unknown) (no (unknown) (unknown) prochlorperazine (units (unknown) date) 25 mg rectal 25 mg unknown) KS BID PRN Nausea And 01/16/22 Rx (unknown) (no (unknown) (unknown) relative quickly in (units (unknown) date) 10/2021. CT neck unknown) and chest showed bulky lymph nodes in right (unknown) (no (unknown) (unknown) reticulonodular (units (unknown) date) focus in the medial unknown) right upper lobe. Mild bronchial wall (unknown) (no (unknown) (unknown) right neck lymph (units (unknown) date) node excision unknown) biopsy. The pathology is consistent with small (unknown) (no (unknown) (unknown) ritonavir AdvReac (units (unknown) date) Pain, Verified unknown) 01/10/22 16:32 (unknown) (no (unknown) (unknown) she went to see (units (unknown) date) her PCR Lynnette unknown) Ivan, and right neck lymph nodes were palpated. (unknown) (no (unknown) (unknown) solifenacin (units (un known) date) AdvReac Verified unknown) 01/10/22 16:32 (unknown) (no (unknown) (unknown) spray,suspension (units (unknown) date) unknown) (unknown) (no (unknown) (unknown) superior (units (unkno wn) date) mediastinum unknown) measuring 4.3 x 3 cm. Mild mass effect of is seen upon the (unknown) (no (unknown) (unknown) suppository (units (un known) date) Vomiting #20 ea unknown) (unknown) (no (unknown) (unknown) suppression, (units (u nknown) date) fatigue, nausea unknown) vomiting, hair loss, the need for antibiotics and (unknown) (no (unknown) (unknown) supraclavicular (units (unknown) date) fossa, and unknown) mediastinum. On 12/06/2021, Dr. Reddy performed (unknown) (no (unknown) (unknown) suvorexant [From (units (unknown) date) Belsomra] Allergy unknown) Rash Verified 01/10/22 16:32 (unknown) (no (unknown) (unknown) systemic therapy (units (unknown) date) with unknown) carboplatin/atezoli zumab/etoposide. (unknown) (no (unknown) (unknown) the calvarium. The (units (unknown) date) PET scan showed unknown) multiple hypermetabolic lesions in the lower (unknown) (no (unknown) (unknown) the lower neck, (units (unknown) date) mediastinum, and unknown) hilar regions consistent with malignant (unknown) (no (unknown) (unknown) the same . She (units (unknown) date) said she is losing unknown) wt in the face and arm, but edema in the (unknown) (no (unknown) (unknown) thickening noted. (units (unknown) date) unknown) (unknown) (no (unknown) (unknown) tizanidine 2 mg (units (unknown) date) tablet 2 mg PO PRN unknown) PRN Muscle Pain 12/06/21 01/10/22 History (unknown) (no (unknown) (unknown) to give up 2/2 (units ( unknown) date) blurred vision. She unknown) is also reporting food stuck in the flow. She (unknown) (no (unknown) (unknown) topical cream (units ( unknown) date) .COMPLEX #30 grams unknown) (unknown) (no (unknown) (unknown) trachea, which is (units (unknown) date) slightly deviated unknown) to the left. (unknown) (no (unknown) (unknown) trazodone 150 mg (units (unknown) date) tablet 150 mg PO unknown) BEDTIME PRN Sleep 11/30/21 01/10/22 History (unknown) (no (unknown) (unknown) ursodiol AdvReac (units (unknown) date) Rash Verified unknown) 01/10/22 16:32 (unknown) (no (unknown) (unknown) visualization of (units (unknown) date) mediastinal lymph unknown) nodes, with a group seen within the right (unknown) (no (unknown) (unknown) was tested (units (unk nown) date) negative (about in unknown) 2015). 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 (unknown) (no (unknown) (unknown) (Tylenol) (units (unkn own) date) unknown) (unknown) (no (unknown) (unknown) - Constitutional (units (unknown) date) unknown) (unknown) (no (unknown) (unknown) - Date of Visit (units (unknown) date) unknown) (unknown) (no (unknown) (unknown) - Labs (units (unkno wn) date) unknown) (unknown) (no (unknown) (unknown) - Patient (units (unkn own) date) Self-Reported unknown) Symptoms (unknown) (no (unknown) (unknown) - ROS (units (unkno wn) date) unknown) (unknown) (no (unknown) (unknown) - Routine (units (unkn own) date) Cardiovascular Exam unknown) (unknown) (no (unknown) (unknown) - Routine (units (unkn own) date) Chest/Breast/Axilla unknown) Exam (unknown) (no (unknown) (unknown) - Routine HEENT (units (unknown) date) Exam unknown) (unknown) (no (unknown) (unknown) - Routine (units (unkn own) date) Respiratory Exam unknown) (unknown) (no (unknown) (unknown) [id number] (units (unkno wn) date) unknown) (unknown) (no (unknown) (unknown) 7-10) #96 tabs (units (unknown) date) unknown) (unknown) (no (unknown) (unknown) 71 year old female (units (unknown) date) with active smoking unknown) history. She developed right neck mass (unknown) (no (unknown) (unknown) ALT 28 IU/L (<35) (units (unknown) date) 01/17/22 11:57 unknown) (unknown) (no (unknown) (unknown) AST 96 IU/L (units (un known) date) (14-36) H 01/17/22 unknown) 11:57 (unknown) (no (unknown) (unknown) Abdominal pain, (units (unknown) date) Heartburn unknown) (unknown) (no (unknown) (unknown) Age/Sex: 71 / F (units (unknown) date) unknown) (unknown) (no (unknown) (unknown) Albumin 2.9 g/dL (units (unknown) date) (3.5-5.0) L unknown) 01/17/22 11:57 (unknown) (no (unknown) (unknown) Albumin/Globulin (units (unknown) date) Ratio 0.9 (1.0-2.8) unknown) L 01/17/22 11:57 (unknown) (no (unknown) (unknown) Alkaline (units (unkno wn) date) Phosphatase 166 U/L unknown) (38-126) H 01/17/22 11:57 (unknown) (no (unknown) (unknown) All Systems: (units (u nknown) date) reviewed and no unknown) additional remarkable complaints except as stated (unknown) (no (unknown) (unknown) Allergies (units (unkn own) date) unknown) (unknown) (no (unknown) (unknown) Allergy/AdvReac (units (unknown) date) Type Severity unknown) Reaction Status Date / Time (unknown) (no (unknown) (unknown) Anti-Inflamma (units ( unknown) date) Upset unknown) (unknown) (no (unknown) (unknown) Antibiotics) (units (u nknown) date) unknown) (unknown) (no (unknown) (unknown) Assessment and (units (unknown) date) Plan unknown) (unknown) (no (unknown) (unknown) Axillae: Absent: (units (unknown) date) lymphadenopathy unknown) (unknown) (no (unknown) (unknown) BP 122/58 L (units (un known) date) 01/18/22 14:15 unknown) (unknown) (no (unknown) (unknown) BUN 29 mg/dL (units (u nknown) date) (7-17) H 01/17/22 unknown) 11:57 (unknown) (no (unknown) (unknown) BUN/Creatinine (units (unknown) date) Ratio 22.1 (6-22) H unknown) 01/17/22 11:57 (unknown) (no (unknown) (unknown) Baso # (Auto) 100 (units (unknown) date) /uL (0-100) unknown) 01/18/22 13:50 (unknown) (no (unknown) (unknown) Baso % (Auto) 0.6 (units (unknown) date) % (0-2) 01/18/22 unknown) 13:50 (unknown) (no (unknown) (unknown) Calcium 8.1 mg/dL (units (unknown) date) (8.4-10.2) L unknown) 01/17/22 11:57 (unknown) (no (unknown) (unknown) Carbo/Eto/Atezo (units (unknown) date) C1D1: 01/22/2022 unknown) (unknown) (no (unknown) (unknown) Carbon Dioxide 30 (units (unknown) date) mmol/L (22-32) unknown) 01/17/22 11:57 (unknown) (no (unknown) (unknown) Chief Complaint: (units (unknown) date) 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 (unknown) (no (unknown) (unknown) Chloride 94 mmol/L (units (unknown) date) (98-107) L 01/17/22 unknown) 11:57 (unknown) (no (unknown) (unknown) Creatinine 1.31 (units (unknown) date) mg/dL (0.52-1.04) H unknown) 01/17/22 11:57 (unknown) (no (unknown) (unknown) : 1950 (units (unknown) date) Acct:[id number] unknown) (unknown) (no (unknown) (unknown) Date of Service: (units (unknown) date) 01/18/22 unknown) (unknown) (no (unknown) (unknown) Date of visit: (units (unknown) date) 01/18/22 unknown) (unknown) (no (unknown) (unknown) Dexamethasone 8 mg (units (unknown) date) q12h unknown) (unknown) (no (unknown) (unknown) Discussion: (units (un known) date) unknown) (unknown) (no (unknown) (unknown) Eos # (Auto) 100 (units (unknown) date) /uL (0-450) unknown) 01/18/22 13:50 (unknown) (no (unknown) (unknown) Eos % (Auto) 0.9 % (units (unknown) date) (2-4) L 01/18/22 unknown) 13:50 (unknown) (no (unknown) (unknown) Estimated GFR 44 (units (unknown) date) mL/min (>60) L unknown) 01/17/22 11:57 (unknown) (no (unknown) (unknown) Exam (units (unkno wn) date) unknown) (unknown) (no (unknown) (unknown) For nausea and (units (unknown) date) vomiting, I have unknown) ordered dexamethasone 8 mg every 12 hours and (unknown) (no (unknown) (unknown) For pain control, (units (unknown) date) I will continue the unknown) pain medications oxycodone. (unknown) (no (unknown) (unknown) Globulin 3.1 g/dL (units (unknown) date) (1.7-4.1) 01/17/22 unknown) 11:57 (unknown) (no (unknown) (unknown) Glucose 117 mg/dL (units (unknown) date) (80-110) H 01/17/22 unknown) 11:57 (unknown) (no (unknown) (unknown) Hct 37.0 % (36-46) (units (unknown) date) 01/18/22 13:50 unknown) (unknown) (no (unknown) (unknown) Head: Absent: (units ( unknown) date) normocephalic, unknown) atraumatic, cushingoid faces (unknown) (no (unknown) (unknown) Hgb 12.5 g/dL (units ( unknown) date) (12.0-16.0) unknown) 01/18/22 13:50 (unknown) (no (unknown) (unknown) History (units (unkno wn) date) unknown) (unknown) (no (unknown) (unknown) Home Medications (units (unknown) date) and Allergies unknown) (unknown) (no (unknown) (unknown) Home Medications (units (unknown) date) unknown) (unknown) (no (unknown) (unknown) I reviewed the (units (unknown) date) imaging studies unknown) with the patient and her daughter. The MRI brain (unknown) (no (unknown) (unknown) I talked with the (units (unknown) date) patient that given unknown) the imaging findings, patient most likely (unknown) (no (unknown) (unknown) Interval history: (units (unknown) date) unknown) (unknown) (no (unknown) (unknown) [facility] (units (unknown) date) [address] unknown) [place] [address] (unknown) (no (unknown) (unknown) Manda Whitaker (units (unknown) date) is a 71 year old unknown) female. According to patient, she has family (unknown) (no (unknown) (unknown) Manda said that (units (unknown) date) about in 10/2021, unknown) she felt right neck tenderness. On 11/02/2021, (unknown) (no (unknown) (unknown) Laboratory Last (units (unknown) date) Values unknown) (unknown) (no (unknown) (unknown) Last Vital Signs (units (unknown) date) unknown) (unknown) (no (unknown) (unknown) Lymph # (Auto) (units (unknown) date) 1900 /uL unknown) ([id number]) 01/18/22 13:50 (unknown) (no (unknown) (unknown) Lymph % (Auto) (units (unknown) date) 17.7 % (25-40) L unknown) 01/18/22 13:50 (unknown) (no (unknown) (unknown) MCH 30.1 PG (units (un known) date) (26-34) 01/18/22 unknown) 13:50 (unknown) (no (unknown) (unknown) MCHC 33.9 % (units (un known) date) (30-36) 01/18/22 unknown) 13:50 (unknown) (no (unknown) (unknown) MCV 88.9 fL (units (un known) date) (80-100) 01/18/22 unknown) 13:50 (unknown) (no (unknown) (unknown) Magnesium 1.3 (units ( unknown) date) mg/dL (1.6-2.3) L unknown) 01/17/22 11:57 (unknown) (no (unknown) (unknown) Medication (units (unk nown) date) Instructions unknown) Recorded Confirmed Type (unknown) (no (unknown) (unknown) Ector # (Auto) 800 (units (unknown) date) /uL (0-900) unknown) 01/18/22 13:50 (unknown) (no (unknown) (unknown) Ector % (Auto) 7.3 (units (unknown) date) % (3-14) 01/18/22 unknown) 13:50 (unknown) (no (unknown) (unknown) NS 1000 cc iv x 1 (units (unknown) date) today unknown) (unknown) (no (unknown) (unknown) NSAIDS (units (unkno wn) date) (Non-Steroidal unknown) AdvReac Gastrointestinal Verified 01/10/22 16:32 (unknown) (no (unknown) (unknown) Neut # (Auto) 7800 (units (unknown) date) /uL (0722-8967) H unknown) 01/18/22 13:50 (unknown) (no (unknown) (unknown) Neut % (Auto) 73.5 (units (unknown) date) % (50-75) 01/18/22 unknown) 13:50 (unknown) (no (unknown) (unknown) Nose bleeds, (units (u nknown) date) Changes in taste, unknown) Hoarseness, Swollen glands (unknown) (no (unknown) (unknown) [employer] (units (unknown) date) pending unknown) (unknown) (no (unknown) (unknown) On 11/21/2021 CT (units (unknown) date) chest without unknown) contrast showed bulky right supraclavicular, (unknown) (no (unknown) (unknown) On 12/06/2021, (units (unknown) date) Gus performed unknown) excisional biopsy of right cervical lymph (unknown) (no (unknown) (unknown) On 01/03/2022, (units ( unknown) date) patient underwent unknown) PET scan that showed hypermetabolic masses in (unknown) (no (unknown) (unknown) On 01/04/2022, (units ( unknown) date) patient also unknown) underwent brain MRI that showed no dana parenchymal (unknown) (no (unknown) (unknown) Oncological (units (un known) date) History unknown) (unknown) (no (unknown) (unknown) Oncology Progress (units (unknown) date) Note unknown) (unknown) (no (unknown) (unknown) Ondanseteon 4 mg (units (unknown) date) q6h prn unknown) (unknown) (no (unknown) (unknown) Oxycodone 5 mg q6h (units (unknown) date) prn unknown) (unknown) (no (unknown) (unknown) PN -Subjective (units (unknown) date) unknown) (unknown) (no (unknown) (unknown) Patient signed (units (unknown) date) informed consent. unknown) (unknown) (no (unknown) (unknown) Patient: (units (unkno wn) date) Manda Whitaker S unknown) MR#: [id number] (unknown) (no (unknown) (unknown) Plan: (units (unkno wn) date) unknown) (unknown) (no (unknown) (unknown) Plt Count 227 (units ( unknown) date) X103/uL (150-400) unknown) 01/18/22 13:50 (unknown) (no (unknown) (unknown) Potassium 3.5 (units ( unknown) date) mmol/L (3.4-5.1) unknown) 01/17/22 11:57 (unknown) (no (unknown) (unknown) Present: Clear to (units (unknown) date) auscultation unknown) bilaterally. Absent: wheezes (unknown) (no (unknown) (unknown) Present: RRR, S1, (units (unknown) date) S2, murmur, gallop, unknown) rubs. Absent: S3, S4, click (unknown) (no (unknown) (unknown) Provider: (units (unkn own) date) Melly Noe MD unknown) (unknown) (no (unknown) (unknown) Pulse 83 01/18/22 (units (unknown) date) 14:15 unknown) (unknown) (no (unknown) (unknown) Pulse Ox 99 (units (un known) date) 01/18/22 14:15 unknown) (unknown) (no (unknown) (unknown) RBC 4.16 X106/uL (units (unknown) date) (4.0-5.2) 01/18/22 unknown) 13:50 (unknown) (no (unknown) (unknown) RDW 14.7 % (units (unk nown) date) (11.6-14.8) unknown) 01/18/22 13:50 (unknown) (no (unknown) (unknown) RTC C1D8 (units (unkno wn) date) unknown) (unknown) (no (unknown) (unknown) Resp 16 01/18/22 (units (unknown) date) 14:15 unknown) (unknown) (no (unknown) (unknown) Results (units (unkno wn) date) unknown) (unknown) (no (unknown) (unknown) Rx (units (unkno wn) date) unknown) (unknown) (no (unknown) (unknown) SR Cardiovascular (units (unknown) date) issues: unknown) Palpitations, Shortness of breath with activity or (unknown) (no (unknown) (unknown) SR Constitution: (units (unknown) date) Fatigue/Malaise, unknown) Night Sweats (unknown) (no (unknown) (unknown) SR Endocrine (units (u nknown) date) issues: Cold unknown) intolerance, Excessive thirst (unknown) (no (unknown) (unknown) SR (units (unkno wn) date) Gastrointestinal unknown) issues: Poor or no appetite, Nausea, Vomiting, Diarrhea, (unknown) (no (unknown) (unknown) SR Hematologic (units (unknown) date) issues: Swollen unknown) lymph nodes (unknown) (no (unknown) (unknown) SR Musculoskeletal (units (unknown) date) issues: Joint pain unknown) or swelling, Muscle weakness, Muscle pain (unknown) (no (unknown) (unknown) SR Neuro issues: (units (unknown) date) Headache, unknown) Lightheaded/dizzy, Numbness or tingling, Difficulty (unknown) (no (unknown) (unknown) SR Skin issues: (units (unknown) date) Skin color changes, unknown) Blistering or peeling, Skin lesions or (unknown) (no (unknown) (unknown) SR ears, nose, (units (unknown) date) mouth, throat unknown) issues: Congestion, Cough, Difficulty swallowing, (unknown) (no (unknown) (unknown) SR respiratory (units (unknown) date) issues: Cough, unknown) Shortness of breath, Mucous (unknown) (no (unknown) (unknown) She came in today (units (unknown) date) accompanied by her unknown) daughter. The daughter is reporting purple (unknown) (no (unknown) (unknown) She then underwent (units (unknown) date) CT neck w/contrast unknown) on 11/21/2021 that showed a mass-like (unknown) (no (unknown) (unknown) Signed (units (unkno wn) date) By:<Electronically unknown) signed by Melly Noe MD>01/18/22 2319 (unknown) (no (unknown) (unknown) Sodium 129 mmol/L (units (unknown) date) (137-145) L unknown) 01/17/22 11:57 (unknown) (no (unknown) (unknown) Sulfa (Sulfonamide (units (unknown) date) Allergy Verified unknown) 01/10/22 16:32 (unknown) (no (unknown) (unknown) Temp 97.3 F L (units ( unknown) date) 01/18/22 14:15 unknown) (unknown) (no (unknown) (unknown) Then I talked with (units (unknown) date) the patient and unknown) patient's daughter about the potential side (unknown) (no (unknown) (unknown) Today, she is c/o (units (unknown) date) headache. At time unknown) her headache is pretty severe. She also (unknown) (no (unknown) (unknown) Total Bilirubin (units (unknown) date) 1.2 mg/dL (0.2-1.3) unknown) 01/17/22 11:57 (unknown) (no (unknown) (unknown) Total Protein 6.0 (units (unknown) date) g/dL (6.3-8.2) L unknown) 01/17/22 11:57 (unknown) (no (unknown) (unknown) Vital signs: (units (u nknown) date) unknown) (unknown) (no (unknown) (unknown) WBC 10.6 X103/uL (units (unknown) date) (4.5-11.0) 01/18/22 unknown) 13:50 (unknown) (no (unknown) (unknown) [From Paxlovid (units (unknown) date) (EUA)] nausea unknown) (unknown) (no (unknown) (unknown) acetaminophen 325 (units (unknown) date) mg capsule 650 mg unknown) PO QID PRN pain #60 caps 12/06/21 01/10/22 (unknown) (no (unknown) (unknown) activity most (units ( unknown) date) concerning for unknown) metastatic is noted. (unknown) (no (unknown) (unknown) aerosol inhaler (units (unknown) date) (Ventolin HFA) unknown) Bronchodilation (unknown) (no (unknown) (unknown) albuterol sulfate (units (unknown) date) 90 mcg/actuation 2 unknown) puff inhalation Q6H PRN 11/30/21 01/10/22 (unknown) (no (unknown) (unknown) alendronate 70 mg (units (unknown) date) tablet 70 mg PO unknown) WEEKLY 12/06/21 01/10/22 History (unknown) (no (unknown) (unknown) also on day acid (units (unknown) date) IV mg q.6 on a as unknown) needed basis. (unknown) (no (unknown) (unknown) amlodipine 5 mg (units (unknown) date) tablet 5 mg PO unknown) DAILY 11/30/21 01/10/22 History (unknown) (no (unknown) (unknown) any organ systems (units (unknown) date) commonly I have unknown) seen patient with colitis, hepatitis, (unknown) (no (unknown) (unknown) artifact. (units (unkn own) date) unknown) (unknown) (no (unknown) (unknown) atorvastatin 80 mg (units (unknown) date) tablet 80 mg PO unknown) DAILY 11/30/21 01/10/22 History (unknown) (no (unknown) (unknown) balancing (units (unkn own) date) unknown) (unknown) (no (unknown) (unknown) both voiced (units (un known) date) understanding. We unknown) will try to start the treatment next Saturday. (unknown) (no (unknown) (unknown) can be seen within (units (unknown) date) the calvarium. unknown) There is moderate suspicion for bony (unknown) (no (unknown) (unknown) cell lung cancer. (units (unknown) date) unknown) (unknown) (no (unknown) (unknown) clopidogrel 75 mg (units (unknown) date) tablet 75 mg PO unknown) DAILY 11/30/21 01/10/22 History (unknown) (no (unknown) (unknown) conglomerated group (units (unknown) date) of lymph nodes unknown) within the right supra-clavicular region that (unknown) (no (unknown) (unknown) developed blurred (units (unknown) date) vision. She said unknown) that she used to read a lot, but now she has (unknown) (no (unknown) (unknown) dexamethasone 4 mg (units (unknown) date) tablet 8 mg PO Q12H unknown) #30 tabs 01/18/22 Rx (unknown) (no (unknown) (unknown) did not show any (units (unknown) date) intracranial unknown) metastasis, but it did show possible metastasis in (unknown) (no (unknown) (unknown) diphenoxylate-atro (units (unknown) date) pine 2.5 1 tab PO unknown) DAILY diarrhea 11/30/21 01/10/22 History (unknown) (no (unknown) (unknown) discoloration at (units (unknown) date) the front neck. She unknown) reports no choking problems But she has the (unknown) (no (unknown) (unknown) disease. 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 But Manda (unknown) (no (unknown) (unknown) hydrocodone (units (un known) date) AdvReac Rash unknown) Verified 01/10/22 16:32 (unknown) (no (unknown) (unknown) in the spleen (units ( unknown) date) liver and both unknown) lungs, small pericardial effusion and nonspecific (unknown) (no (unknown) (unknown) is reporting (units (u nknown) date) epigastric pain and unknown) umblical snell. Her weight has remained about (unknown) (no (unknown) (unknown) legs. left > (units (u nknown) date) right. She just saw unknown) vascular surgery. no blood clot. (unknown) (no (unknown) (unknown) lidocaine-prilocai (units (unknown) date) ne 2.5 %-2.5 % See unknown) Rx Instructions .Route 01/16/22 Rx (unknown) (no (unknown) (unknown) lying flat, (units (un known) date) Extreme swelling unknown) (unknown) (no (unknown) (unknown) masses or abnormal (units (unknown) date) enhancement. unknown) However, numerous irregularly enhancing areas (unknown) (no (unknown) (unknown) mcg/actuation (units ( unknown) date) nasal unknown) (unknown) (no (unknown) (unknown) measures at least (units (unknown) date) 5.8 x 3.6 cm in unknown) greatest axial dimension. There is partial (unknown) (no (unknown) (unknown) meclizine AdvReac (units (unknown) date) Hypertensio unknown) Verified 01/10/22 16:32 (unknown) (no (unknown) (unknown) mediastinal and (units (unknown) date) right hilar unknown) adenopathy, coarse nodular calcifications, granuloma (unknown) (no (unknown) (unknown) metastatic disease, (units (unknown) date) and ill-defined unknown) multiple hepatic mass lesions with metabolic (unknown) (no (unknown) (unknown) metastatic (units (unk nown) date) disease. unknown) (unknown) (no (unknown) (unknown) metoprolol (units (unk nown) date) tartrate 25 mg unknown) tablet 37.5 mg PO BID 11/30/21 01/10/22 History (unknown) (no (unknown) (unknown) mg-0.025 mg tablet (units (unknown) date) unknown) (unknown) (no (unknown) (unknown) moles, Hair loss (units (unknown) date) or scalp prob, Nail unknown) changes (unknown) (no (unknown) (unknown) montelukast 10 mg (units (unknown) date) tablet 10 mg PO unknown) DAILY 11/30/21 01/10/22 History (unknown) (no (unknown) (unknown) n (units (unkno wn) date) unknown) (unknown) (no (unknown) (unknown) neck, mediastinum (units (unknown) date) and lungs as well unknown) as highly suspicious lesions in the liver. (unknown) (no (unknown) (unknown) nirmatrelvir (units (u nknown) date) AdvReac Pain, unknown) Verified 01/10/22 16:32 (unknown) (no (unknown) (unknown) node. 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 (unknown) (no (unknown) (unknown) ondansetron HCl 4 (units (unknown) date) mg tablet 4 mg PO unknown) Q6H nausea #60 tabs 01/18/22 Rx (unknown) (no (unknown) (unknown) or cramps, Back or (units (unknown) date) neck pain, unknown) Difficulty walking, Bone pain (unknown) (no (unknown) (unknown) oxycodone 5 mg (units (unknown) date) tablet 5 mg PO Q6H unknown) PRN Pain (Scale Score 01/18/22 Rx (unknown) (no (unknown) (unknown) paroxetine AdvReac (units (unknown) date) Nightmare Verified unknown) 01/10/22 16:32 (unknown) (no (unknown) (unknown) pneumonitis, (units (u nknown) date) thyroid damage, and unknown) rashes etc.. Patient and patient's daughter (unknown) (no (unknown) (unknown) positive mild (units ( unknown) date) distress, positive unknown) obese (unknown) (no (unknown) (unknown) possibly blood (units (unknown) date) transfusion, etc.. unknown) The immune related side effects can happen to (unknown) (no (unknown) (unknown) problem of gaging (units (unknown) date) on phlegman. unknown) (unknown) (no (unknown) (unknown) prochlorperazine (units (unknown) date) 25 mg rectal 25 mg unknown) KS BID PRN Nausea And 01/16/22 Rx (unknown) (no (unknown) (unknown) relative quickly in (units (unknown) date) 10/2021. CT neck unknown) and chest showed bulky lymph nodes in right (unknown) (no (unknown) (unknown) reticulonodular (units (unknown) date) focus in the medial unknown) right upper lobe. Mild bronchial wall (unknown) (no (unknown) (unknown) right neck lymph (units (unknown) date) node excision unknown) biopsy. The pathology is consistent with small (unknown) (no (unknown) (unknown) ritonavir AdvReac (units (unknown) date) Pain, Verified unknown) 01/10/22 16:32 (unknown) (no (unknown) (unknown) she went to see (units (unknown) date) her PCR Lynnette unknown) Ivan, and right neck lymph nodes were palpated. (unknown) (no (unknown) (unknown) solifenacin (units (un known) date) AdvReac Verified unknown) 01/10/22 16:32 (unknown) (no (unknown) (unknown) spray,suspension (units (unknown) date) unknown) (unknown) (no (unknown) (unknown) superior (units (unkno wn) date) mediastinum unknown) measuring 4.3 x 3 cm. Mild mass effect of is seen upon the (unknown) (no (unknown) (unknown) suppository (units (un known) date) Vomiting #20 ea unknown) (unknown) (no (unknown) (unknown) suppression, (units (u nknown) date) fatigue, nausea unknown) vomiting, hair loss, the need for antibiotics and (unknown) (no (unknown) (unknown) supraclavicular (units (unknown) date) fossa, and unknown) mediastinum. On 12/06/2021, Dr. Reddy performed (unknown) (no (unknown) (unknown) suvorexant [From (units (unknown) date) Belsomra] Allergy unknown) Rash Verified 01/10/22 16:32 (unknown) (no (unknown) (unknown) systemic therapy (units (unknown) date) with unknown) carboplatin/atezoli zumab/etoposide. (unknown) (no (unknown) (unknown) the calvarium. The (units (unknown) date) PET scan showed unknown) multiple hypermetabolic lesions in the lower (unknown) (no (unknown) (unknown) the lower neck, (units (unknown) date) mediastinum, and unknown) hilar regions consistent with malignant (unknown) (no (unknown) (unknown) the same . She (units (unknown) date) said she is losing unknown) wt in the face and arm, but edema in the (unknown) (no (unknown) (unknown) thickening noted. (units (unknown) date) unknown) (unknown) (no (unknown) (unknown) tizanidine 2 mg (units (unknown) date) tablet 2 mg PO PRN unknown) PRN Muscle Pain 12/06/21 01/10/22 History (unknown) (no (unknown) (unknown) to give up 2/2 (units ( unknown) date) blurred vision. She unknown) is also reporting food stuck in the flow. She (unknown) (no (unknown) (unknown) topical cream (units ( unknown) date) .COMPLEX #30 grams unknown) (unknown) (no (unknown) (unknown) trachea, which is (units (unknown) date) slightly deviated unknown) to the left. (unknown) (no (unknown) (unknown) trazodone 150 mg (units (unknown) date) tablet 150 mg PO unknown) BEDTIME PRN Sleep 11/30/21 01/10/22 History (unknown) (no (unknown) (unknown) ursodiol AdvReac (units (unknown) date) Rash Verified unknown) 01/10/22 16:32 (unknown) (no (unknown) (unknown) visualization of (units (unknown) date) mediastinal lymph unknown) nodes, with a group seen within the right (unknown) (no (unknown) (unknown) was tested (units (unk nown) date) negative (about in unknown) 2015). Social History date description facility (no date) Smokes tobacco daily (finding) [facility] Vital Signs date measurement value units +0000 BMI BMI 21.6 kg/m2 +0000 BP_diastolic BP_diastolic 70 mm[H g] +0000 BP_systolic BP_systolic 120 mm[Hg] +0000 heart_rate heart_rate 75 /min +0000 height_metric height_metric 165.1 cm +0000 height_standard height_standard 65 in +0000 temperature_metric temperature_metric 37.11 C +0000 temperature_standard temperature_standard 9 8.8 F +0000 weight_metric weight_metric 58.96 kg +0000 weight_standard weight_standard 129.98 lb
--- NOTE | 2022-01-21 21:29 | ED Physician Documentation ---
PD HPI DYSPNEA - Stated complaint Stated Complaint: SOA - History obtained from History obtained from: Patient, Family (daughter (in ED at bedside)) - History of Present Illness Timing - onset: How many minutes ago (approximately 20 minutes [employer]) Timing - onset during: Light activity Timing - details: Gradual onset Pain level max: 3 Pain level now: 0 Improved by: Rest Worsened by: Exertion, Laying flat Associated symptoms: Chest pain / discomfort, Bilateral edema. No: Fever, Cough, Hemoptysis, Wheezing, Palpitations Recently seen: Not recently seen - Additional information Additional information: c/o dyspnea, anterior chest discomfort that began approximately 20 minutes [employer] after she walked up two flights of stairs in her house to get into bed. She called out to her daughter that she was short of breath and asked to go to the hospital. She does not use oxygen at home. Past medical history includes stage IV lung cancer with liver metastases, SVC syndrome. Daughter says patient's pulse ox typically runs mid 90s (it is 85-90 room air in ED). Patient is to start chemotherapy tomorrow. Review of Systems Constitutional: denies: Fever, Chills, Sweats Respiratory: reports: Dyspnea. denies: Cough GI: reports: Abdominal Pain (not new (attributed to liver mets, per patient and daughter)). 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 : Other Musculoskeletal: Osteoarthritis, Fibromyalgia, Osteoporosis - Past Surgical History Past Surgical History: Yes General: Cholecystectomy, Appendectomy /CORPORATE ACCOUNT EXECUTIVE: Hysterectomy, Mastectomy - Present Medications Home Medications: Ambulatory Orders Medication Instructions Recorded Confirmed Alendronate Sodium/Vitamin D3 1 each PO 11/12/20 [Fosamax Plus D 70 mg-2,800 Iu] Atorvastatin Calcium 40 mg PO DAILY 11/12/20 11/12/20 Clopidogrel [Plavix] 75 mg PO DAILY 11/12/20 11/12/20 Famotidine [Pepcid] 20 mg PO BID 11/12/20 11/12/20 Fenofibrate [Tricor] 48 mg PO QD 11/12/20 11/12/20 Metoclopramide [Reglan] 10 mg PO Q6H PRN 11/12/20 11/12/20 Metoprolol Succinate [Toprol Xl] 25 mg PO BID 11/12/20 11/12/20 Ondansetron Odt [Zofran] 4 mg TL Q6H PRN #10 tablet 11/12/20 Trazodone HCl 100 mg PO 11/12/20 amLODIPine [Norvasc] 5 mg PO DAILY 11/12/20 11/12/20 oxyCODONE [Roxicodone] 5 mg PO Q4-6H PRN #10 tablet 11/12/20 - Allergies Allergies/Adverse Reactions: Allergies Allergy/AdvReac Type Severity Reaction Status Date / Time Sulfa (Sulfonamide Allergy Rash Verified 01/21/22 21:35 Antibiotics) hydrocodone AdvReac Unknown Verified 01/21/22 21:35 - Social History Does the pt smoke?: Yes Smoking Status: Current every day smoker Does the pt drink ETOH?: Yes Does the pt have substance abuse?: No - Immunizations Immunizations are current?: No Immunizations: TDAP >10years/unknown PD ED PE NORMAL - Vitals Vital signs reviewed: Yes - General General: Alert and oriented X 3, No acute distress, Well developed/nourished - HEENT HEENT: Moist mucous membranes - Neck Neck: Other (visible and palpable right neck supraclavicular lymphadenopathy) - Cardiac Cardiac: RRR, No murmur - Respiratory Respiratory: No respiratory distress, Clear bilaterally - Abdomen Abdomen: Soft, Non distended, Other (TTP across uppper abdomen, predominantly RUQ without rebound or guarding) - Derm Derm: Normal color, Warm and dry - Extremities Extremities: No edema - Neuro Neuro: Alert and oriented X 3 PD ED PE EXPANDED - Extremities Extremities: Pedal edema bilateral (R>L, mild) Results - Vitals Vitals: Vital Signs - 24 hr 01/22/22 01/22/22 01/22/22 01:00 01:30 01:35 Temperature 36.8 C Heart Rate 72 72 74 Respiratory 19 14 16 Rate Blood Pressure 138/65 H 136/61 H O2 Saturation 92 98 01/22/22 01/22/22 01/22/22 02:00 02:30 03:00 Temperature Heart Rate 75 66 70 Respiratory 16 16 17 Rate Blood Pressure 139/64 H 129/56 L 124/54 L O2 Saturation 92 90 L 90 L 01/22/22 01/22/22 01/22/22 03:30 04:00 04:30 Temperature Heart Rate 88 91 80 Respiratory 22 16 21 Rate Blood Pressure 132/80 H 127/55 L 139/72 H O2 Saturation 90 L 92 88 L 01/22/22 01/22/22 01/22/22 05:00 05:30 05:50 Temperature Heart Rate 79 86 77 Respiratory 19 20 18 Rate Blood Pressure 94/83 H 94/83 H O2 Saturation 92 90 L 01/22/22 01/22/22 01/22/22 06:00 06:30 07:00 Temperature Heart Rate 73 72 72 Respiratory 21 17 16 Rate Blood Pressure 134/58 H 134/58 H 143/62 H O2 Saturation 95 90 L 90 L 01/22/22 08:00 Temperature Heart Rate 70 Respiratory 15 Rate Blood Pressure 130/60 O2 Saturation 91 L Oxygen O2 Source Room air - EKG (time done) No standard instances Rate: Rate (enter#) (69) Rhythm: NSR [place]: Normal Intervals: Normal LA QRS: Normal Ischemia: Normal ST segments - Labs Labs: Laboratory Tests 01/21/22 01/21/22 01/21/22 22:08 22:08 22:08 WBC 13.8 H RBC 4.15 L Hgb 12.7 Hct 37.2 MCV 89.6 MCH 30.6 MCHC 34.1 RDW 15.3 H Plt Count 252 MPV 10.3 Neut # (Auto) 11.6 H Lymph # (Auto) 1.4 L [place] # (Auto) 0.6 Eos # (Auto) 0.0 Baso # (Auto) 0.0 Absolute Nucleated RBC 0.10 Nucleated RBC % 0.7 Sodium 130 L Potassium 4.4 Chloride 91 L Carbon Dioxide 25 Anion Gap 14.0 H BUN 44 H Creatinine 1.6 H Estimated GFR (MDRD) 32 L Glucose 132 H Calcium 9.1 Total Bilirubin 1.6 H AST 177 H ALT 62 H Alkaline Phosphatase 232 H Troponin I High Sens 24.0 H* Total Protein 6.3 L Albumin 2.8 L Globulin 3.5 Albumin/Globulin Ratio 0.8 L Lipase 81 H Nasal Adenovirus (PCR) Nasal B. parapertussis DNA (PCR) Nasal Coronavir 229E PCR Nasal Coronavir HKU1 PCR Nasal Coronavir NL63 PCR Nasal Coronavir OC43 PCR Nasal Enterovir/Rhinovir PCR Nasal Influenza B PCR Nasal Influenza A PCR Nasal Parainfluen 1 PCR Nasal Parainfluen 2 PCR Nasal Parainfluen 3 PCR Nasal Parainfluen 4 PCR Nasal RSV (PCR) Nasal B.pertussis DNA PCR Nasal C.pneumoniae (PCR) Chai Human Metapneumo PCR Nasal M.pneumoniae (PCR) Nasal SARS-CoV-2 (PCR) 01/22/22 01:28 WBC RBC Hgb Hct MCV MCH MCHC RDW Plt Count MPV Neut # (Auto) Lymph # (Auto) [place]wey # (Auto) Eos # (Auto) Baso # (Auto) Absolute Nucleated RBC Nucleated RBC % Sodium Potassium Chloride Carbon Dioxide Anion Gap BUN Creatinine Estimated GFR (MDRD) Glucose Calcium Total Bilirubin AST ALT Alkaline Phosphatase Troponin I High Sens Total Protein Albumin Globulin Albumin/Globulin Ratio Lipase Nasal Adenovirus (PCR) NOT DETECTED Nasal B. parapertussis DNA (PCR) NOT DETECTED Nasal Coronavir 229E PCR NOT DETECTED Nasal Coronavir HKU1 PCR NOT DETECTED Nasal Coronavir NL63 PCR NOT DETECTED Nasal Coronavir OC43 PCR NOT DETECTED Nasal Enterovir/Rhinovir PCR NOT DETECTED Nasal Influenza B PCR NOT DETECTED Nasal Influenza A PCR NOT DETECTED Nasal Parainfluen 1 PCR NOT DETECTED Nasal Parainfluen 2 PCR NOT DETECTED Nasal Parainfluen 3 PCR NOT DETECTED Nasal Parainfluen 4 PCR NOT DETECTED Nasal RSV (PCR) NOT DETECTED Nasal B.pertussis DNA PCR NOT DETECTED Nasal C.pneumoniae (PCR) NOT DETECTED Chai Human Metapneumo PCR NOT DETECTED Nasal M.pneumoniae (PCR) NOT DETECTED Nasal SARS-CoV-2 (PCR) NOT DETECTED - Rads (name of study) chest xray Radiology: Prelim report reviewed, See rad report CTA chest Radiology: Prelim report reviewed, See rad report PD MEDICAL DECISION MAKING - ED course Complexity details: reviewed old records, reviewed results, re-evaluated patient, considered differential, d/w patient, d/w family ED course: Patient presents with c/o dyspnea. She has stage IV lung CA with liver metastases, scheduled for first round of palliative chemotherapy tomorrow; patient tells me she is aware this is strictly palliative and is aware of poor prognosis. She is in NAD at rest when not coughing, although she exhibits increasingly frequent coughing during ED stay. The cough sounds similar to croup, thus concerning for upper airway constriction and CT chest confirms this. The CTA does not show evidence of PE, but has very concerning findings; there is general progression of disease compared to previous study, such as increasing size of masses and lymphadenopathy, as well as new mass and new areas of lymphadenopathy. The right upper pulmonary artery is encased by mass with evidence of severe, possibly complete, restriction of blood flow to right upper lobe. There is severe constriction of trachea at level of thoracic inlet due to surrounding masses, which would correlate with the unusual sound of her cough. When patient is not coughing, the lung sounds are mostly clear (some rales at bases) and she is in NAD, speaking in full sentences. Her pulse ox ranges from mid 80s to lower 90s at rest. Regarding blood tests, she has mild leukocytosis (13.8), hs-cTn 24, bun 44, creatinine 1.6, and mild but uniformly abnormal LFTs (bilirubin 1.6, AST/ALT 177/62, alkaline phosphatase 232). She is given 10mg IV decadron , albuterol neb and duoneb (these were given before CT chest performed). She is also given nebulized racemic epinephrine which dramatically reduced the frequency of the cough, essentially resolved after completion of the treatment. I had long discussion with patient and daughter (in ED at bedside) regarding these results. I emphasized the severe narrowing of the upper airway (trachea) evident on CT and that this might progress to complete blockage of her airway with no predictable time frame; her frequent coughing likely causing edema at this narrowing which could lead to increasing coughing, increasing swelling, and unpredictably sudden closure of the airway. I explained in no uncertain terms that this means she would not be able to breathe and would rapidly lead to unless an airway were created or kept patent (such as tracheostomy or intubation). She is very clear in refusing any such intervention. She says she does not want to be intubated even if she stops breathing/airway becomes obstructed. Daughter is at bedside and expresses agreement with patient's wishes. I discussed this case with Dr. Tavera, hem/onc covering for patient's oncologist (Melly Noe). He recommends admit patient for chemotherapy and observation of airway patency. [facility] transfer service contacted by [place] [facility] but I was subsequently informed by my [facility] [place] called back and to relay that the hospitalist refuses the admission because patient would need a fisher line on care team and there are none available at . Patient is aware that she is end-stage of this malignancy process; I do not see the necessity for a fisher line for this patient at this time. I recontacted Dr. Tavera and he recommends considering transfer to another, appropriate facility or else to discharge patient with plan to keep her 9 AM appointment for chemotherapy. I relayed this information to patient and her daughter. Given lack of available beds at nearly all of the surrounding hospitals, and considering that she clearly expresses that she does not want to be intubated, and that attempts to find another hospital with appropriate services and available bed would s ignificantly delay the chemotherapy she is scheduled to have in just a few hours, a shared decision was arrived between myself, the patient, and her daughter that best plan of action is to hold patient until approximately one hour before her appointment for chemotherapy so that she can then be discharged and daughter can take patient to this appointment. Dr. 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 Patient and her daughter express understanding of , and agreement and comfort with, this plan. Departure - Departure Disposition: 01 Home, Self Care Condition: Stable Instructions: ED Dyspnea Shortness of Breath Comments: The findings on tonight's CT are significantly worse than the previous study, and there is impingement on the trachea that is significantly narrowing the airway. As we discussed, as you have indicated to me that you do not want to be intubated (placed on a ventilator), I think the best plan is for you to go to your oncology appointment at 9 AM this morning for chemotherapy. Please show your oncologist the following report (and provide the disc): "IMPRESSION: 1. No convincing evidence of PE. Right upper lobe pulmonary artery is encased and essentially occluded by surrounding mass. 2. Mediastinal mass and or lymphadenopathy has significantly progressed compared to prior study with large matted supraclavicular lymphadenopathy now seen worse on the right and significant mass-effect upon the trachea markedly narrowing the airway at the thoraic inlet. 3. Small bilateral pleural effusions with bibasilar atelectasis." Discharge Date/Time: 01/22/22 08:03
[2022-01-21 22:13] LABS: BASOPHILS % (AUTO) 0.1 %; EOSINOPHILS % (AUTO) 0.1 %; HCT - HEMATOCRIT 37.2 % (37.0-47.0); HGB - HEMOGLOBIN 12.7 g/dL (12.0-16.0); LYMPHOCYTES # (AUTO) 1.4 10^3/uL (1.5-3.5); LYMPHOCYTES % (AUTO) 9.9 %; MEAN CORPUSCULAR HEMOGLOBIN 30.6 pg (27.0-31.0); MEAN CORPUSCULAR HGB CONC 34.1 g/dL (32.0-36.0); MEAN CORPUSCULAR VOLUME 89.6 fL (81.0-99.0); MEAN PLATELET VOLUME 10.3 fL (7.9-10.8); MONOCYTES # (AUTO) 0.6 10^3/uL (0.0-1.0); MONOCYTES % (AUTO) 4.6 %; NEUTROPHILS # (AUTO) 11.6 10^3/uL (1.5-6.6); NEUTROPHILS % (AUTO) 83.8 %; NUCLEATED RED BLOOD CELLS AUTO 0.7 /100WBC; PLT - PLATELET COUNT 252 10^3/uL (130-450); RED BLOOD COUNT 4.15 10^6/uL (4.20-5.40); RED CELL DISTRIBUTION WIDTH 15.3 % (12.0-15.0); WHITE BLOOD COUNT 13.8 x10^3/uL (4.8-10.8)
[2022-01-21 22:32] LABS: ALBUMIN 2.8 g/dL (3.2-5.5); ALBUMIN/GLOBULIN RATIO 0.8 (1.0-2.2); BILIRUBIN,TOTAL 1.6 mg/dL (0.2-1.0); CALCIUM 9.1 mg/dL (8.5-10.3); CREATININE 1.6 mg/dL (0.4-1.0); POTASSIUM 4.4 mmol/L (3.5-5.0); TOTAL PROTEIN 6.3 g/dL (6.7-8.2)
--- NOTE | 2022-01-21 22:40 | XRAY Report ---
PROCEDURE: Chest 1 View X-Ray INDICATIONS: Chest pain TECHNIQUE: One view of the chest was acquired. COMPARISON: CT chest 10/25/2021 FINDINGS: Surgical changes and devices: There is a left internal jugular Port-A-Cath with the tip projecting o joce the junction of the superior vena cava and left innominate vein.. Lungs and pleura: There is a new small left pleural effusion with linear left basilar opacities like ly representing atelectasis or consolidation. A few scattered small dense nodules are demonstrated bi laterally consistent with calcified granuloma. Mediastinum: There is left paratracheal thickening and a right suprahilar mass corresponding to lymp hadenopathy on the prior CT. This appears increased in size compared to the prior study given differe nces in technique. Heart size is normal. Bones and chest wall: No suspicious bony lesions. Overlying soft tissues appear unremarkable. IMPRESSION: 1. New small left pleural effusion with associated linear opacities likely representing compressive a telectasis. 2. Mediastinal lymphadenopathy redemonstrated, increased in size compared to the prior chest CT allow ing for differences in technique. Reviewed by: Gregorio Garcia MD on 01/21/2022 10:38 PM PDT Approved by: Gregorio Garcia MD on 01/21/2022 10:38 PM PDT Station ID: [id number]
[2022-01-21] MEDS ORDERED: DEXAMETHASONE 10 MG/ML VIAL IVP STA (23:06)
[2022-01-21] MEDS ORDERED: ALBUTEROL NEB 2.5 MG/3 ML INH STA (23:06)
[2022-01-22] MEDS ORDERED: ALBUTEROL NEB 2.5 MG/3 ML INH STA (01:26)
[2022-01-22] MEDS ORDERED: SODIUM CHLORIDE 0.9% 500 ML IV STA (02:00)
[2022-01-22 03:18] LABS: B. PARAPERTUSSIS- RESP PCR PAN NOT DETECTED; B. PERTUSSIS- RESP PCR PANEL NOT DETECTED; C. PNEUMONIAE- RESP PCR PANEL NOT DETECTED; CORONAVIRUS 229E-RESP PCR NOT DETECTED; CORONAVIRUS HKU1-RESP PCR NOT DETECTED; CORONAVIRUS NL63-RESP PCR NOT DETECTED; CORONAVIRUS OC43-RESP PCR NOT DETECTED; HUMAN METAPNEUMOVIRUS NOT DETECTED; INFLUENZA A- RESP PCR PANEL NOT DETECTED; INFLUENZA B - RESP PCR PANEL NOT DETECTED; M. PNEUMONIAE- RESP PCR PANEL NOT DETECTED; PARAINFLUENZA VIRUS 1 NOT DETECTED; PARAINFLUENZA VIRUS 2 NOT DETECTED; PARAINFLUENZA VIRUS 3 NOT DETECTED; PARAINFLUENZA VIRUS 4 NOT DETECTED; RHINOVIRUS/ENTEROVIRUS NOT DETECTED; RSV- RESP PCR PANEL NOT DETECTED; SARS-CoV-2 -RESP PCR PANEL NOT DETECTED
[2022-01-22] MEDS ORDERED: SODIUM CHLORIDE INHALATION 3 ML NEB INH STA (05:37)
[2022-01-22] MEDS ORDERED: RACEPINEPHRINE 2.25% NEB INH STA (05:37)
[2022-01-22 08:03] VITALS: BP 130/60
--- NOTE | 2022-01-22 09:11 | CT Report ---
PROCEDURE: ANGIO CHEST With contrast INDICATIONS: dyspnea, chest discomfort CONTRAST: IV CONTRAST: Optiray 320 ml: 70 PO CONTRAST: *NO PO CONTRAST TECHNIQUE: After the administration of intravenous contrast, 2 mm axial images were acquired from the pulmonary apices to the posterior costophrenic angles during the arterial phase. In addition, 1 mm lung kernel and 5 mm soft tissue kernel reconstructions were performed. 3-dimensional coronal oblique maximum int ensity projection (MIP) reformats, 8 mm axial MIP, and 5 mm coronal and sagittal MPR reformats were t hen performed through the thorax. For radiation dose reduction, the following was used: automated exp osure control, adjustment of mA and/or kV according to patient size. COMPARISON: Chest CT 10/25/2021, 11/02/2020. FINDINGS: Image quality: Adequate. Pulmonary arteries: No pulmonary embolism visualized. The right upper lobe pulmonary artery is signif icantly narrowed/nearly occluded by the below described mediastinal adenopathy/right suprahilar mass. Lungs and pleura: New small-moderate bilateral pleural effusions. Mediastinal adenopathy is present a s described below, contiguous with masslike opacity present in the right suprahilar region. A 1.1 cm pleural nodule at the inferior aspect of the right upper lobe (168) is new. Central right upper lob e and right middle lobe airways are narrowed by the mediastinal/hilar mass. Mediastinal adenopathy al so results in significant narrowing of the trachea near the thoracic inlet. Mediastinum: Tip of the left chest port catheter terminates at the upper SVC. Significant interval wo rsening of mediastinal adenopathy. Right paratracheal adenopathy now measures approximately 6.6 cm () previously 3.6 cm when measured similarly on the prior exam. This there is now confluent mediast inal adenopathy in the prevascular region encasing the left common carotid artery, right brachiocepha lic artery, and right common carotid and subclavian arteries. This is contiguous with a large right s upraclavicular eva mass which is new since before and measures approximately 8.7 cm (09/20). Left hi lar adenopathy is now present, measuring 1.2 cm short axis (). No pericardial effusion. Thoracic aorta is normal in caliber and enhancement. Esophagus is normal i n caliber, without hiatal hernia. Bones and chest wall: No suspicious bony lesions. Ribs and thoracic spine appear intact throughout. New supraclavicular adenopathy as above. Abdomen: There is possible surface nodularity of the liver and possible gastrohepatic ligament adenop athy, partially imaged. IMPRESSION: 1. No pulmonary embolism visualized. 2. Significant interval worsening of disease with increase in mediastinal adenopathy and development of supraclavicular adenopathy. There is now marked narrowing of the central right upper lobe pulmonar y artery and narrowing of central right upper and middle lobe airways. There is also significant narr owing of the trachea at the level of the thoracic inlet. 3. New small-moderate bilateral pleural effusions. This report is concordant with the preliminary report. Reviewed by: Neville Elliott MD on 01/22/2022 9:10 AM PDT Approved by: Neville Elliott MD on 01/22/2022 9:10 AM PDT Station ID: [id number]
== END 2022-01-22 08:03 | disposition home or self-care (01) ==
LOC: ED 21:13
DX: R06.09 Other forms of dyspnea (principal); F17.200 Nicotine dependence, unspecified, uncomplicated; Z20.822 Contact with and (suspected) exposure to COVID-19
CPT/HCPCS: 36415; 71045; 71275; 80053; 83690; 84484; 85025; 87633; 93005; 94640; 99284; 99285; Q9967

== ENCOUNTER 2022-01-28 21:19 | Outpatient (CLI) | payer MEDICARE, OTHER | END 2022-01-28 21:20 | disposition critical access hospital (66) | LOC: EMS 21:19 | DX: G89.3 Neoplasm related pain (acute) (chronic) (principal); R63.8 Other symptoms and signs concerning food and fluid intake; R53.1 Weakness; R39.89 Other symptoms and signs involving the genitourinary system | CPT/HCPCS: A0425; A0429 ==

== ENCOUNTER 2022-01-28 21:32 | Observation (INO) | payer MEDICARE, OTHER ==
--- OUTSIDE RECORDS SUMMARY | 2022-01-28 21:39 | EXTERNAL MEDICAL SUMMARY RPT | Continuity of Care Document ---
:1950 Author Organization [place] Address [address] [place] [address] Phone Allergies and Intolerances date description facility type (no date) NSAIDS (Non-Steroidal Anti-Inflamma [facility] (unknown) (no date) Sulfa (Sulfonamide Antibiotics) [facility] (unknown) (no date) duloxetine [facility] (unknown) (no date) hydrocodone [facility] (unknown) (no date) meclizine [facility] (unknown) (no date) nirmatrelvir [facility] (unknown) (no date) paroxetine [facility] (unknown) (no date) ritonavir [facility] (unknown) (no date) solifenacin [facility] (unknown) (no date) suvorexant [facility] (unknown) (no date) ursodiol [facility] (unknown) Encounters No information. Functional Status No information. Immunizations No information. Medications date description facility + Oxycodone Hydrochloride 5 MG Oral Tabl et [facility] +0000 Atropine Sulfate 0.025 MG / Diphenoxyl ate [facility] Hydrochloride 2.5 MG Oral Tablet +0000 Amlodipine 5 MG Oral Tablet [facility] +0000 montelukast 10 MG Oral Tablet [facility] +0000 atorvastatin 80 MG Oral Tablet [facility] +0000 clopidogrel 75 MG Oral Tablet [facility] +0000 tizanidine 2 MG Oral Capsule [facility] +0000 Trazodone Hydrochloride 150 MG Oral Ta blet [facility] +0000 Metoprolol Tartrate 25 MG Oral Tablet [facility] +0000 Alendronic acid 70 MG Oral Tablet [facility] Problems No information. Procedures date description facility + General Physician [facility] [id number] General Physician [facility] +0000 General Physician [facility] [id number]+0000 General Physician [facility] Results/Labs test date author facility value unit interpret ation Result panel 1 (unknown) (no (unknown) (unknown) (no value) (units (unk nown) date) unknown) (unknown) (no (unknown) (unknown) (no value) (units (unk nown) date) unknown) (unknown) (no (unknown) (unknown) [address] [place] [address] (units (unknown) date) unknown) (unknown) (no (unknown) (unknown) [place], [place] (units ( unknown) date) [address] unknown) (unknown) (no (unknown) (unknown) CT Scan Report (units (unknown) date) unknown) (unknown) (no (unknown) (unknown) [facility] (units (unknown) date) unknown) (unknown) (no (unknown) (unknown) Signed (units (unkno wn) date) unknown) (unknown) (no (unknown) (unknown) (no value) (units (unk nown) date) unknown) (unknown) (no (unknown) (unknown) [id number] (units (unknown) date) cervical spine unknown) degenerative [...] (unknown) Approved by: (units (u nknown) date) ardha Rm) Arianna on 11/21/2021 at 18:32 (unknown) (no [...] Dictated by: (units (u nknown) date) radha Rm) Arianna on 11/21/2021 at 18:19 (unknown) (no [...] date) narrowing. unknown) (unknown) (no (unknown) (unknown) [id number] (units (unkno wn) date) unknown) (unknown) (no (unknown) (unknown) Accession Number: (units (unknown) date) [id number] unknown) (unknown) (no (unknown) (unknown) Accession Number: (units (unknown) date) [id number] unknown) (unknown) (no (unknown) (unknown) Age/Sex: 71 / F (units (unknown) date) Date of Service: unknown) (unknown) (no (unknown) (unknown) : 1950 (units (unknown) date) Acct:[id number] unknown) (unknown) (no (unknown) (unknown) Irregular (units [...] wn) date) unknown) (unknown) (no (unknown) (unknown) [place], [place] (units ( unknown) date) [address] unknown) (unknown) (no (unknown) (unknown) Draft (units [...] own) date) unknown) (unknown) (no (unknown) (unknown) [id number] (units (unkno wn) date) unknown) (unknown) (no [...] (unknown) (unknown) : 1950 (units (unknown) date) Acct:[id number] unknown) (unknown) (no (unknown) (unknown) Depression (units [...] unknown) myocardial infarction) (unknown) (no (unknown) (unknown) 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 (units (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 unknown) [...] unknown) (unknown) (no (unknown) (unknown) 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 (units (unknown) date) suspected meta unknown) lymph [...] unknown) effort is made to edit content, creative strategist errors (unknown) (no (unknown) (unknown) suvorexant [From [...] wn) date) unknown) (unknown) (no (unknown) (unknown) [place], [place] (units ( unknown) date) [address] unknown) (unknown) (no (unknown) (unknown) Draft (units (unkno wn) date) unknown) (unknown) (no (unknown) (unknown) [facility] (units (unknown) date) unknown) (unknown) (no (unknown) (unknown) Surgery Office (units (unknown) date) Visit unknown) (unknown) (no (unknown) (unknown) (no value) (units (unk nown) date) unknown) (unknown) (no (unknown) (unknown) 11/30/21 (units (unkno wn) date) unknown) (unknown) (no (unknown) (unknown) 11/30/21] (units (unkn own) date) unknown) (unknown) (no (unknown) (unknown) [id number] (units (unkno wn) date) unknown) (unknown) (no [...] (unknown) (unknown) : 1950 (units (unknown) date) Acct:[id number] unknown) (unknown) (no (unknown) (unknown) Depression (units [...] unknown) myocardial infarction) (unknown) (no (unknown) (unknown) 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 (units (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 unknown) [...] unknown) (unknown) (no (unknown) (unknown) 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 (units (unknown) date) suspected meta unknown) lymph [...] unknown) effort is made to edit content, creative strategist errors (unknown) (no (unknown) (unknown) suvorexant [From [...] wn) date) unknown) (unknown) (no (unknown) (unknown) [place], [place] (units ( unknown) date) [address] unknown) (unknown) (no (unknown) (unknown) Cancer of kidney (units (unknown) date) unknown) (unknown) (no (unknown) (unknown) Draft (units (unkno wn) date) unknown) (unknown) (no (unknown) (unknown) [facility] (units (unknown) date) unknown) (unknown) (no (unknown) (unknown) Lung cancer (units (un known) date) unknown) (unknown) (no (unknown) (unknown) Surgery Office (units (unknown) date) Visit unknown) (unknown) (no (unknown) (unknown) (no value) (units (unk nown) date) unknown) (unknown) (no (unknown) (unknown) 11/30/21 (units (unkno wn) date) unknown) (unknown) (no (unknown) (unknown) 11/30/21] (units (unkn own) date) unknown) (unknown) (no (unknown) (unknown) [id number] (units (unkno wn) date) unknown) (unknown) (no [...] (unknown) (unknown) : 1950 (units (unknown) date) Acct:[id number] unknown) (unknown) (no (unknown) (unknown) Depression (units [...] unknown) myocardial infarction) (unknown) (no (unknown) (unknown) 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 (units (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 unknown) [...] unknown) (unknown) (no (unknown) (unknown) 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 (units (unknown) date) suspected meta unknown) lymph [...] unknown) effort is made to edit content, creative strategist errors (unknown) (no (unknown) (unknown) suvorexant [From [...] nown) date) unknown) (unknown) (no (unknown) (unknown) [facility] (units ( unknown) date) [address] unknown) (unknown) (no (unknown) (unknown) Draft (units (unkno wn) date) unknown) (unknown) (no (unknown) (unknown) [facility] (units (unknown) date) unknown) (unknown) (no (unknown) (unknown) Nurse Office (units (u nknown) date) Visit unknown) (unknown) (no (unknown) (unknown) (no value) (units (unk nown) date) unknown) (unknown) (no (unknown) (unknown) COVID-19 (units (u nknown) date) unknown) (unknown) (no (unknown) (unknown) [id number] (units (unkno wn) date) unknown) (unknown) (no (unknown) (unknown) 12/05/21 (units (unkno wn) date) unknown) (unknown) (no (unknown) (unknown) Age/Sex: 71 / F (units (unknown) date) Date of unknown) Service: (unknown) (no (unknown) (unknown) Allergies (units (unkn own) date) unknown) (unknown) (no (unknown) (unknown) Attending Dr: (units ( unknown) date) Anthony Reddy MD unknown) (unknown) (no (unknown) (unknown) : 1950 (units (unknown) date) Acct:[id number] unknown) (unknown) (no (unknown) (unknown) Dept at [...] unknown) effort is made to edit content, creative strategist errors (unknown) (no (unknown) (unknown) suvorexant [From [...] unknown) date) unknown) (unknown) (no (unknown) (unknown) [place], [place] (units ( unknown) date) [address] unknown) (unknown) (no (unknown) (unknown) [facility] (units (unknown) date) unknown) (unknown) (no (unknown) (unknown) Nurse Office (units (u nknown) date) Visit unknown) (unknown) (no (unknown) (unknown) Signed (units (unkno wn) date) unknown) (unknown) (no (unknown) (unknown) (no value) (units (unk nown) date) unknown) (unknown) (no (unknown) (unknown) COVID-19 (units (u nknown) date) unknown) (unknown) (no (unknown) (unknown) [id number] (units (unkno wn) date) unknown) (unknown) (no (unknown) (unknown) 12/05/21 (units (unkno wn) date) unknown) (unknown) (no (unknown) (unknown) Age/Sex: 71 / F (units (unknown) date) Date of unknown) Service: (unknown) (no (unknown) (unknown) Allergies (units (unkn own) date) unknown) (unknown) (no (unknown) (unknown) Attending Dr: (units ( unknown) date) Anthony Reddy MD unknown) (unknown) (no (unknown) (unknown) : 1950 (units (unknown) date) Acct:[id number] unknown) (unknown) (no (unknown) (unknown) Dept at [...] (unknown) (unknown) Patient: (units (unkno wn) date) KaterinenochManda Yessica unknown) MR#: [id number] (unknown) (no (unknown) (unknown) [...] unknown) effort is made to edit content, creative strategist errors (unknown) (no (unknown) (unknown) suvorexant [From [...] wn) date) unknown) (unknown) (no (unknown) (unknown) [place], [place] (units ( unknown) date) [address] unknown) (unknown) (no (unknown) (unknown) Cancer of kidney (units (unknown) date) unknown) (unknown) (no (unknown) (unknown) [facility] [...] date) lymphadenopathy: unknown) (unknown) (no (unknown) (unknown) [id number] (units (unkno wn) date) unknown) (unknown) (no [...] (unknown) (unknown) : 1950 (units (unknown) date) Acct:[id number] unknown) (unknown) (no (unknown) (unknown) Depression (units [...] and supraclavicular lymph (unknown) (no (unknown) (unknown) 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 She unknown) requires an excisional lymph node biopsy for (unknown) (no (unknown) (unknown) surrounding (units (un known) date) structures we were unknown) discussed. Questions have been answered and she (unknown) (no (unknown) (unknown) suvorexant [From (units (unknown) date) [facility]] Adverse unknown) Reaction (Verified 11/30/21 15:47) (unknown) [...] (unknown) (no date) (unknown) (unknown) Comment: (units 22565 -1 unknown) Result panel 10 (unknown) (no date) (unknown) (unknown) (no value) (units (un known) unknown) (unknown) (no date) (unknown) (unknown) Date of (units (unkn own) Service: unknown) 12/06/21 (unknown) (no date) (unknown) (unknown) 12/06/21 1418 (units (unknown) unknown) (unknown) (no date) (unknown) (unknown) [facility] (units (unkn own) [facility] 12[address] unknown) [address] [place] [address] (unknown) (no date) (unknown) (unknown) Pre-operative (units (unknown) Note unknown) (unknown) (no date) (unknown) (unknown) (no value) (units (un known) unknown) (unknown) (no date) (unknown) (unknown) [id number] (units (unkn own) unknown) (unknown) (no date) (unknown) (unknown) Age/Sex: 71 / (units (unknown) F unknown) (unknown) (no date) (unknown) (unknown) Changes to (units (un known) H+P: No unknown) (unknown) (no date) (unknown) (unknown) : (units (unkn own) 1950 unknown) Acct:[id number] (unknown) (no date) (unknown) (unknown) History [...] (see comment). (unknown) (no (unknown) (unknown) [address] [place] [address] (units (unknown) date) [facility] [address], [place], unknown) [place] [phone] (unknown) (no (unknown) (unknown) [facility] (units (unknown) date) Cytology unknown) (unknown) (no (unknown) (unknown) MD Gregorio Courtney (units (unknown) date) Phone: unknown) [phone] (unknown) (no (unknown) (unknown) Specimen in (units (un known) date) alcohol and two unknown) slides, respectively. Transferred to (unknown) (no (unknown) (unknown) aggregate of four (units (unknown) date) irregularly shaped unknown) pink soft tissue fragments that (unknown) (no (unknown) (unknown) an aggregate of (units (unknown) date) four irregularly unknown) shaped montjeo soft tissue fragments that (unknown) (no (unknown) (unknown) cassette A1. (units (u nknown) date) unknown) (unknown) (no (unknown) (unknown) cassette B1. (units (u nknown) date) (KV:Punt Club10 [id number]) unknown) (unknown) (no (unknown) (unknown) cytology for (units (u nknown) date) further processing. unknown) (KV:Punt Club10 142079) (unknown) (no (unknown) (unknown) measure 1.2 x [...] date) unknown) (unknown) (no (unknown) (unknown) [address] [place] [address] (units (unknown) date) unknown) (unknown) (no (unknown) (unknown) [place] (units ( unknown) date) [address] unknown) (unknown) (no (unknown) (unknown) [facility] (units (unknown) date) unknown) (unknown) (no (unknown) [...] Storage/container unknown) code(s) (unknown) (no (unknown) (unknown) 409642, 394051, (units (unknown) date) [id number], Y64210 unknown) (unknown) (no (unknown) (unknown) A and [...] [facility] Accession (units ( unknown) date) Number: [id number] unknown) (unknown) (no (unknown) (unknown) [facility] 12/14/2021 (units (unknown) date) 1521 Local unknown) (unknown) (no (unknown) (unknown) Material (units ( wn) date) submitted: . 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 (units (unknown) date) Veena on 12/14/2021 unknown) [...] unknown) date) unknown) (unknown) (no (unknown) (unknown) [facility] (units (unknown) date) [address] [place] [address] unknown) [place] [address] (unknown) (no (unknown) (unknown) Operative Note (units (unknown) date) unknown) (unknown) (no (unknown) (unknown) (no value) (units (unk nown) date) unknown) (unknown) (no (unknown) (unknown) [id number] (units (unkno wn) date) unknown) (unknown) (no [...] (unknown) (unknown) : 1950 (units (unknown) date) Acct:[id number] unknown) (unknown) (no (unknown) (unknown) Date of [...] (unknown) date) unknown) (unknown) (no (unknown) (unknown) [facility] (units (unknown) date) [address] [place] [address] Street unknown) [place] [address] (unknown) (no (unknown) (unknown) Lung cancer (units [...] (unknown) date) unknown) (unknown) (no (unknown) (unknown) [id number] (units (unkno wn) date) unknown) (unknown) (no [...] (unknown) (unknown) : 1950 (units (unknown) date) Acct:[id number] unknown) (unknown) (no (unknown) (unknown) Linus Demarco [...] Score 11/30/21 12/06/21 (unknown) (no (unknown) (unknown) retroperitoneum (units (unknown) [...] (unknown) date) unknown) (unknown) (no (unknown) (unknown) [facility] (units (unknown) date) [address] unknown) [place] [address] (unknown) (no (unknown) (unknown) Lung cancer (units [...] (unknown) date) unknown) (unknown) (no (unknown) (unknown) [id number] (units (unkno wn) date) unknown) (unknown) (no [...] (unknown) (unknown) : 1950 (units (unknown) date) Acct:[id number] unknown) (unknown) (no (unknown) (unknown) Linus Demarco [...] unknown) (unknown) (no (unknown) (unknown) Peripheral (units (un) date) vascular disease unknown) (unknown) (no (unknown) (unknown) Primary Care (units (u nknown) date) Provider: unknown) (unknown) (no (unknown) (unknown) Provider: (units (unkn ) date) Melly Noe MD unknown) (unknown) (no (unknown) (unknown) 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 at time unknown) pretty sever. at oxydone at night. blurred vision (unknown) (no (unknown) (unknown) She is still (units (u nkw) date) smoking actively. 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 [...] (unknown) date) unknown) (unknown) (no (unknown) (unknown) [facility] (units (unknown) date) [address] unknown) [place] [address] (unknown) (no (unknown) (unknown) Lung cancer (units [...] (unknown) date) unknown) (unknown) (no (unknown) (unknown) [id number] (units (unkno wn) date) unknown) (unknown) (no [...] (unknown) (unknown) : 1950 (units (unknown) date) Acct:[id number] unknown) (unknown) (no (unknown) (unknown) Linus Demarco [...] Patient: (units (o wn) date) Manda Whitaker unknown) MR#: [id number] [...] (unknown) date) unknown) (unknown) (no (unknown) (unknown) [facility] (units (unknown) date) [address] unknown) [place] [address] (unknown) (no (unknown) (unknown) Laboratory Last (units [...] (unknown) date) unknown) (unknown) (no (unknown) (unknown) [id number] (units (unkno wn) date) unknown) (unknown) (no [...] (unknown) (unknown) : 1950 (units (unknown) date) Acct:[id number] unknown) (unknown) (no (unknown) (unknown) Linus Demarco [...] (Auto) (units (unknown) date) 1800 /uL unknown) ([id number]) 01/01/22 14:24 (unknown) (no (unknown) (unknown) Lymph [...] (unknown) date) unknown) (unknown) (no (unknown) (unknown) [place] # (Auto) 400 (units (unknown) date) /uL (0-900) unknown) 01/01/22 14:24 (unknown) (no (unknown) (unknown) [place] % (Auto) 8.0 (units (unknown) date) % [...] (units ( unknown) date) 3200 /uL unknown) ([id number]) 01/01/22 14:24 (unknown) (no (unknown) (unknown) Neut [...] (unknown) date) unknown) (unknown) (no (unknown) (unknown) [facility] (units (unknown) date) [address] unknown) [place] [address] (unknown) (no (unknown) (unknown) Laboratory Last (units [...] (unknown) date) unknown) (unknown) (no (unknown) (unknown) [id number] (units (unkno wn) date) unknown) (unknown) (no [...] (unknown) (unknown) : 1950 (units (unknown) date) Acct:[id number] unknown) (unknown) (no (unknown) (unknown) Linus Demarco [...] (Auto) (units (unknown) date) 1800 /uL unknown) ([id number]) 01/01/22 14:24 (unknown) (no (unknown) (unknown) Lymph [...] (unknown) date) unknown) (unknown) (no (unknown) (unknown) [place] # (Auto) 400 (units (unknown) date) /uL (0-900) unknown) 01/01/22 14:24 (unknown) (no (unknown) (unknown) [place] % (Auto) 8.0 (units (unknown) date) % [...] (units ( unknown) date) 3200 /uL unknown) ([phone]) 01/01/22 14:24 (unknown) (no (unknown) (unknown) Neut [...] date) unknown) (unknown) (no (unknown) (unknown) [address] [place] [address] (units (unknown) date) unknown) (unknown) (no (unknown) (unknown) [place] [address] (unit s (unknown) date) unknown) (unknown) (no (unknown) (unknown) [facility] (units (unknown) date) unknown) (unknown) (no (unknown) [...] SUV (unknown) (no (unknown) (unknown) Approved by: Kate (unit s (unknown) date) Arianna Gutiérrez on unknown) 01/04/2022 at 15:19 (unknown) (no (unknown) (unknown) Bones: No abnormal (unit s (unknown) date) osseous tracer unknown) uptake. No lytic or blastic bony lesions. (unknown) (no (unknown) (unknown) COMPARISON: (units (un known) date) [facility], CT, unknown) CT CHEST W CON, 11/21/2021, [...] date) disease. unknown) (unknown) (no (unknown) (unknown) [id number] (units (unkn own) date) unknown) (unknown) (no (unknown) (unknown) Accession Number: (units (unknown) date) [id number] unknown) (unknown) (no (unknown) (unknown) Age/Sex: 71 / F (units (unknown) date) Date of Service: unknown) (unknown) (no (unknown) (unknown) CT images (units (unkn own) date) unknown) (unknown) (no (unknown) (unknown) : 1950 (units (unknown) date) Acct:[id number] unknown) (unknown) (no (unknown) (unknown) It is [...] wn) date) unknown) (unknown) (no (unknown) (unknown) [place], [place] (units ( unknown) date) [address] unknown) (unknown) (no (unknown) (unknown) Cancer of [...] nown) date) unknown) (unknown) (no (unknown) (unknown) [id number] (units (unkno wn) date) unknown) (unknown) (no [...] (unknown) (unknown) : 1950 (units (unknown) date) Acct:[id number] unknown) (unknown) (no (unknown) (unknown) Depression (units [...] effort is unknown) made to edit content, creative strategist errors (unknown) (no (unknown) (unknown) solifenacin (units [...] date) unknown) (unknown) (no (unknown) (unknown) [address] [place] [address] (units (unknown) date) unknown) (unknown) (no (unknown) (unknown) [place], [place] (units ( unknown) date) [address] unknown) (unknown) (no (unknown) (unknown) [facility] (units (unknown) date) unknown) (unknown) (no (unknown) [...] (unknown) (unknown) COMPARISON: (units (un known) date) [facility], unknown) NM, NM PET CT FUSION SKULL 2 THIGH, 01/03/2022, (unknown) (no (unknown) (unknown) CSF spaces: (units (un known) date) Ventricles are unknown) normal in size and shape. Basal cisterns are (unknown) (no (unknown) (unknown) CT CHEST W CON, (units (unknown) date) 11/21/2021, 13:10. unknown) (unknown) (no (unknown) (unknown) Dictated by: (units (u nknown) date) Mario Yao, unknownFrederick Keller on 01/04/2022 at 13:23 (unknown) [...] date) Excellent. unknown) (unknown) (no (unknown) (unknown) [facility], (units (unknown) date) CT, CT SOFT unknown) TISSUE NECK W CON, 11/21/2021, 13:10. [facility] (unknown) (no (unknown) (unknown) Noncontrast (units (un [...] through the brain. (unknown) (no (unknown) (unknown) [id number] (units (unkn own) date) unknown) (unknown) (no (unknown) (unknown) 10:53. (units (unkno wn) date) unknown) (unknown) (no (unknown) (unknown) Accession (units (unkn own) date) Number: unknown) [id number] (unknown) (no (unknown) (unknown) Age/Sex: 71 / F (units (unknown) date) Date of unknown) Service: (unknown) (no (unknown) (unknown) : 1950 (units (unknown) date) Acct:[id number] unknown) (unknown) (no (unknown) (unknown) FLAIR, axial [...] wn) date) unknown) (unknown) (no (unknown) (unknown) [place], [place] (units ( unknown) date) [address] unknown) (unknown) (no (unknown) (unknown) Cancer of [...] nown) date) unknown) (unknown) (no (unknown) (unknown) [id number] (units (unkno wn) date) unknown) (unknown) (no [...] (unknown) (unknown) : 1950 (units (unknown) date) Acct:[id number] unknown) (unknown) (no (unknown) (unknown) Depression (units [...] (Verified 01/04/22 09:40) (unknown) (no (unknown) (unknown) [id number] weeks (units (unknown) date) ago without issue unknown) for an excisional biopsy of the right neck (unknown) (no (unknown) (unknown) small cell lung (units (unknown) date) cancer. unknown) (unknown) (no (unknown) (unknown) software. Although (units (unknown) date) every effort is unknown) made to edit content, creative strategist errors (unknown) (no (unknown) (unknown) solifenacin (units [...] date) unknown) (unknown) (no (unknown) (unknown) 01/04/22 192 (units ( unknown) date) unknown) (unknown) (no (unknown) (unknown) 09:42 (units (unkno wn) date) unknown) (unknown) (no (unknown) (unknown) [place], [place] (units ( unknown) date) [address] unknown) (unknown) (no (unknown) (unknown) Cancer of [...] days preop unknown) (unknown) (no (unknown) (unknown) [id number] (units (unkno wn) date) unknown) (unknown) (no [...] (unknown) (unknown) : 1950 (units (unknown) date) Acct:[id number] unknown) (unknown) (no (unknown) (unknown) Depression (units [...] effort is unknown) made to edit content, creative strategist errors (unknown) (no (unknown) (unknown) solifenacin (units [...] nknown) date) unknown) (unknown) (no (unknown) (unknown) [id number] (units (unkno wn) date) unknown) (unknown) (no (unknown) (unknown) 01/09/22 (units (unkno wn) date) unknown) (unknown) (no (unknown) (unknown) Age/Sex: 71 / F (units (unknown) date) Date of Service: unknown) (unknown) (no (unknown) (unknown) Allergies (units (unkn own) date) unknown) (unknown) (no (unknown) (unknown) [place], [place] (units ( unknown) date) [address] unknown) (unknown) (no (unknown) (unknown) Attending Dr: (units ( unknown) date) Anthony Reddy MD unknown) (unknown) (no (unknown) (unknown) : 1950 (units (unknown) date) Acct:[id number] unknown) (unknown) (no (unknown) (unknown) Dept at [...] effort is unknown) made to edit content, creative strategist errors (unknown) (no (unknown) (unknown) solifenacin (units [...] nknown) date) unknown) (unknown) (no (unknown) (unknown) [id number] (units (unkno wn) date) unknown) (unknown) (no (unknown) (unknown) 01/09/22 1121 (units ( unknown) date) unknown) (unknown) (no (unknown) (unknown) 01/09/22 (units (unkno wn) date) unknown) (unknown) (no (unknown) (unknown) Age/Sex: 71 / F (units (unknown) date) Date of Service: unknown) (unknown) (no (unknown) (unknown) Allergies (units (unkn own) date) unknown) (unknown) (no (unknown) (unknown) [place], [place] (units ( unknown) date) [address] unknown) (unknown) (no (unknown) (unknown) Attending Dr: (units ( unknown) date) Anthony Reddy MD unknown) (unknown) (no (unknown) (unknown) : 1950 (units (unknown) date) Acct:[id number] unknown) (unknown) (no (unknown) (unknown) Dept at [...] effort is unknown) made to edit content, creative strategist errors (unknown) (no (unknown) (unknown) solifenacin (units [...] known) unknown) (unknown) (no date) (unknown) (unknown) [id number] (units (unkn own) unknown) (unknown) (no date) (unknown) (unknown) 01/10/22 1537 (units (unknown) unknown) (unknown) (no date) (unknown) (unknown) Age/Sex: 71 / (units (unknown) F unknown) (unknown) (no date) (unknown) (unknown) Changes to (units (un known) H+P: No unknown) (unknown) (no date) (unknown) (unknown) : (units (unkn own) 1950 unknown) Acct:[id number] (unknown) (no date) (unknown) (unknown) Date of (units (unkn own) Service: unknown) 01/10/22 (unknown) (no date) (unknown) (unknown) History + (units (unk nown) Physical unknown) reviewed/Exam performed by Physician: Yes (unknown) (no date) (unknown) (unknown) Interval Note (units (unknown) unknown) (unknown) (no date) (unknown) (unknown) [place] (units (unkn own) [facility] [address] unknown) [address] [place] [id number] (unknown) (no date) (unknown) (unknown) Patient: (units [...] nown) date) unknown) (unknown) (no (unknown) (unknown) [id number] (units (unkn own) date) unknown) (unknown) (no (unknown) (unknown) 01/10/22 (units (unkno wn) date) unknown) (unknown) (no (unknown) (unknown) 1. Port placement (units (unknown) date) as above. unknown) (unknown) (no (unknown) (unknown) [address] [place] [address] (units (unknown) date) unknown) (unknown) (no (unknown) (unknown) 2. Right (units (unkno wn) date) paratracheal unknown) adenopathy. (unknown) (no (unknown) (unknown) Accession Number: (units (unknown) date) [id number] unknown) (unknown) (no (unknown) (unknown) Age/Sex: 71 / F (units (unknown) date) Date of Service: unknown) (unknown) (no (unknown) (unknown) [place] (units ( unknown) date) [address] unknown) (unknown) (no (unknown) (unknown) Approved by: (units (u nknown) date) Quan Fine M.D. unknown) on 01/10/2022 at 17:54 (unknown) (no (unknown) (unknown) Bones and chest (units (unknown) date) wall: No unknown) suspicious bony lesions. Overlying soft tissues (unknown) (no (unknown) (unknown) COMPARISON: (units (un known) date) [facility], unknown) CT, CT CHEST W CON, 11/21/2021, 13:10. (unknown) (no (unknown) (unknown) : 1950 (units (unknown) date) Acct:[id number] unknown) (unknown) (no (unknown) (unknown) Dictated by: (units (u nknown) date) Quan Fine M.D. unknown) on 01/10/2022 at 17:53 (unknown) (no (unknown) (unknown) FINDINGS: (units (unkn own) date) unknown) (unknown) (no (unknown) (unknown) IMPRESSION: (units (un known) date) unknown) (unknown) (no (unknown) (unknown) INDICATIONS: PORT (units (unknown) date) PLACEMENT unknown) (unknown) (no (unknown) (unknown) [facility] (units (unknown) date) unknown) (unknown) (no (unknown) [...] nown) date) unknown) (unknown) (no (unknown) (unknown) [id number] (units (unkno wn) date) unknown) (unknown) (no [...] (unknown) (unknown) : 1950 (units (unknown) date) Acct:[id number] unknown) (unknown) (no (unknown) (unknown) Date of [...] nknown) date) unknown) (unknown) (no (unknown) (unknown) [facility] (units (unknown) date) [address] unknown) [place] [address] (unknown) (no (unknown) (unknown) Metastatic small (units [...] Self-Reported unknown) Symptoms (unknown) (no (unknown) (unknown) [id number] (units (unkno wn) date) unknown) (unknown) (no (unknown) (unknown) [id number] (units (unkno wn) date) unknown) (unknown) (no (unknown) (unknown) [id number] (units (unkno wn) date) unknown) (unknown) (no [...] (unknown) (unknown) : 1950 (units (unknown) date) Acct:[id number] unknown) (unknown) (no (unknown) (unknown) Date of [...] (unknown) date) unknown) (unknown) (no (unknown) (unknown) [facility] (units (unknown) date) [address] unknown) [place] [address] (unknown) (no (unknown) (unknown) Manda Whitaker (units [...] (Auto) (units (unknown) date) 1900 /uL unknown) ([id number]) 01/18/22 13:50 (unknown) (no (unknown) (unknown) Lymph [...] Recorded Confirmed Type (unknown) (no (unknown) (unknown) [place] # (Auto) 800 (units (unknown) date) /uL (0-900) unknown) 01/18/22 13:50 (unknown) (no (unknown) (unknown) [place] % (Auto) 7.3 (units (unknown) date) % (3-14) 01/18/22 unknown) 13:50 (unknown) (no (unknown) (unknown) NSAIDS (units (unkno wn) date) (Non-Steroidal unknown) AdvReac Gastrointestinal Verified 01/10/22 16:32 (unknown) (no (unknown) (unknown) Neut # (Auto) 7800 (units (unknown) date) /uL ([id number]) H unknown) 01/18/22 13:50 (unknown) (no (unknown) [...] IV NOW ONE (units ( unknown) date) Rx#:[id number] unknown) (unknown) (no (unknown) (unknown) hydrocodone (units [...] date) 25 mg rectal 25 mg unknown) [place] BID PRN Nausea And 01/16/22 Rx (unknown) [...] Self-Reported unknown) Symptoms (unknown) (no (unknown) (unknown) [id number] (units (unkno wn) date) unknown) (unknown) (no (unknown) (unknown) [id number] (units (unkno wn) date) unknown) (unknown) (no (unknown) (unknown) [id number] (units (unkno wn) date) unknown) (unknown) (no [...] (unknown) (unknown) : 1950 (units (unknown) date) Acct:[id number] unknown) (unknown) (no (unknown) (unknown) Date of [...] (unknown) date) unknown) (unknown) (no (unknown) (unknown) [facility] (units (unknown) date) [address] unknown) [place] [address] (unknown) (no (unknown) (unknown) Manda Whitaker (units [...] (Auto) (units (unknown) date) 1900 /uL unknown) ([id number]) 01/18/22 13:50 (unknown) (no (unknown) (unknown) Lymph [...] Recorded Confirmed Type (unknown) (no (unknown) (unknown) [place] # (Auto) 800 (units (unknown) date) /uL (0-900) unknown) 01/18/22 13:50 (unknown) (no (unknown) (unknown) [place] % (Auto) 7.3 (units (unknown) date) % (3-14) 01/18/22 unknown) 13:50 (unknown) (no (unknown) (unknown) NSAIDS (units (unkno wn) date) (Non-Steroidal unknown) AdvReac Gastrointestinal Verified 01/10/22 16:32 (unknown) (no (unknown) (unknown) Neut # (Auto) 7800 (units (unknown) date) /uL (6438-7261) H unknown) 01/18/22 13:50 (unknown) (no (unknown) [...] supraclavicular, (unknown) (no (unknown) (unknown) On 12/06/2021, Dr. (units (unknown) date) Gus performed unknown) excisional [...] IV NOW ONE (units ( unknown) date) Rx#:[id number] unknown) (unknown) (no (unknown) (unknown) hydrocodone (units [...] date) 25 mg rectal 25 mg unknown) [place] BID PRN Nausea And 01/16/22 Rx (unknown) [...] Self-Reported unknown) Symptoms (unknown) (no (unknown) (unknown) [id number] (units (unkno wn) date) unknown) (unknown) (no (unknown) (unknown) [id number] (units (unkno wn) date) unknown) (unknown) (no (unknown) (unknown) [id number] (units (unkno wn) date) unknown) (unknown) (no [...] (unknown) (unknown) : 1950 (units (unknown) date) Acct:[id number] unknown) (unknown) (no (unknown) (unknown) Date of [...] (unknown) date) unknown) (unknown) (no (unknown) (unknown) [facility] (units (unknown) date) [address] unknown) [place] [address] (unknown) (no (unknown) (unknown) Manda Whitaker (units [...] (Auto) (units (unknown) date) 1900 /uL unknown) ([phone]) 01/18/22 13:50 (unknown) (no (unknown) (unknown) Lymph [...] Recorded Confirmed Type (unknown) (no (unknown) (unknown) [place] # (Auto) 800 (units (unknown) date) /uL (0-900) unknown) 01/18/22 13:50 (unknown) (no (unknown) (unknown) [place] % (Auto) 7.3 (units (unknown) date) % (3-14) 01/18/22 unknown) 13:50 (unknown) (no (unknown) (unknown) NSAIDS (units (unkno wn) date) (Non-Steroidal unknown) AdvReac Gastrointestinal Verified 01/10/22 16:32 (unknown) (no (unknown) (unknown) Neut # (Auto) 7800 (units (unknown) date) /uL (3836-2536) H unknown) 01/18/22 13:50 (unknown) (no (unknown) [...] IV NOW ONE (units ( unknown) date) Rx#:[id number] unknown) (unknown) (no (unknown) (unknown) hydrocodone (units [...] date) 25 mg rectal 25 mg unknown) NJ BID PRN Nausea And 01/16/22 Rx (unknown) [...] Self-Reported unknown) Symptoms (unknown) (no (unknown) (unknown) [id number] (units (unkno wn) date) unknown) (unknown) (no (unknown) (unknown) [id number] (units (unkno wn) date) unknown) (unknown) (no (unknown) (unknown) [id number] (units (unkno wn) date) unknown) (unknown) (no [...] (unknown) (unknown) : 1950 (units (unknown) date) Acct:[id number] unknown) (unknown) (no (unknown) (unknown) Date of [...] (unknown) date) unknown) (unknown) (no (unknown) (unknown) [facility] (units (unknown) date) [address] unknown) [place] [address] (unknown) (no (unknown) (unknown) Manda Whitaker (units [...] (Auto) (units (unknown) date) 1900 /uL unknown) ([phone]) 01/18/22 13:50 (unknown) (no (unknown) (unknown) Lymph [...] Recorded Confirmed Type (unknown) (no (unknown) (unknown) [place] # (Auto) 800 (units (unknown) date) /uL (0-900) unknown) 01/18/22 13:50 (unknown) (no (unknown) (unknown) [place] % (Auto) 7.3 (units (unknown) date) % (3-14) 01/18/22 unknown) 13:50 (unknown) (no (unknown) (unknown) NSAIDS (units (unkno wn) date) (Non-Steroidal unknown) AdvReac Gastrointestinal Verified 01/10/22 16:32 (unknown) (no (unknown) (unknown) Neut # (Auto) 7800 (units (unknown) date) /uL (3506-3540) H unknown) 01/18/22 13:50 (unknown) (no (unknown) [...] IV NOW ONE (units ( unknown) date) Rx#:[id number] unknown) (unknown) (no (unknown) (unknown) hydrocodone (units [...] Nail unknown) changes (unknown) (no (unknown) (unknown) marybethst 10 mg (units (unknown) date) tablet 10 [...] date) 25 mg rectal 25 mg unknown) [place] BID PRN Nausea And 01/16/22 Rx (unknown) [...] (unknown) (unknown) su[facility]orex[facility] Allergy unknown) Rash Verified 01/10/22 16:32 (unknown) [...] wn) date) unknown) (unknown) (no (unknown) (unknown) [id number] (units (unkno wn) date) unknown) (unknown) (no (unknown) (unknown) [id number] (units (unkno wn) date) unknown) (unknown) (no (unknown) (unknown) [id number] (units (unkno wn) date) unknown) (unknown) (no [...] (unknown) (unknown) : 1950 (units (unknown) date) Acct:[id number] unknown) (unknown) (no (unknown) (unknown) Date of [...] (unknown) date) unknown) (unknown) (no (unknown) (unknown) [facility] (units (unknown) date) [address] unknown) [place] [address] (unknown) (no (unknown) (unknown) Manda Whitaker (units [...] (Auto) (units (unknown) date) 1900 /uL unknown) ([phone]) 01/18/22 13:50 (unknown) (no (unknown) (unknown) Lymph [...] Recorded Confirmed Type (unknown) (no (unknown) (unknown) [place] # (Auto) 800 (units (unknown) date) /uL (0-900) unknown) 01/18/22 13:50 (unknown) (no (unknown) (unknown) [place] % (Auto) 7.3 (units (unknown) date) % (3-14) 01/18/22 unknown) 13:50 (unknown) (no (unknown) (unknown) NSAIDS (units (unkno wn) date) (Non-Steroidal unknown) AdvReac Gastrointestinal Verified 01/10/22 16:32 (unknown) (no (unknown) (unknown) Neut # (Auto) 7800 (units (unknown) date) /uL (7192-4327) H unknown) 01/18/22 13:50 (unknown) (no (unknown) [...] IV NOW ONE (units ( unknown) date) Rx#:[id number] unknown) (unknown) (no (unknown) (unknown) hydrocodone (units [...] date) 25 mg rectal 25 mg unknown) NJ BID PRN Nausea And 01/16/22 Rx (unknown) [...] (unknown) (unknown) suvorexant [From (units (unknown) date) [facility]] Allergy unknown) Rash Verified 01/10/22 16:32 (unknown) [...] wn) date) unknown) (unknown) (no (unknown) (unknown) [id number] (units (unkno wn) date) unknown) (unknown) (no (unknown) (unknown) [id number] (units (unkno wn) date) unknown) (unknown) (no (unknown) (unknown) [id number] (units (unkno wn) date) unknown) (unknown) (no [...] (unknown) (unknown) : 1950 (units (unknown) date) Acct:[id number] unknown) (unknown) (no (unknown) (unknown) Date of [...] (unknown) date) unknown) (unknown) (no (unknown) (unknown) [facility] (units (unknown) date) [address] unknown) [place] [address] (unknown) (no (unknown) (unknown) Manda Whitaker (units [...] (Auto) (units (unknown) date) 1900 /uL unknown) ([id number]) 01/18/22 13:50 (unknown) (no (unknown) (unknown) Lymph [...] Recorded Confirmed Type (unknown) (no (unknown) (unknown) [place] # (Auto) 800 (units (unknown) date) /uL (0-900) unknown) 01/18/22 13:50 (unknown) (no (unknown) (unknown) [place] % (Auto) 7.3 (units (unknown) date) % (3-14) 01/18/22 unknown) 13:50 (unknown) (no (unknown) (unknown) NS 1000 cc iv x 1 (units (unknown) date) today unknown) (unknown) (no (unknown) (unknown) NSAIDS (units (unkno wn) date) (Non-Steroidal unknown) AdvReac Gastrointestinal Verified 01/10/22 16:32 (unknown) (no (unknown) (unknown) Neut # (Auto) 7800 (units (unknown) date) /uL (1889-9461) H unknown) 01/18/22 13:50 (unknown) (no (unknown) [...] IV NOW ONE (units ( unknown) date) Rx#:[id number] unknown) (unknown) (no (unknown) (unknown) hydrocodone (units [...] date) 25 mg rectal 25 mg unknown) NJ BID PRN Nausea And 01/16/22 Rx (unknown) [...] Respiratory Exam unknown) (unknown) (no (unknown) (unknown) [id number] (units (unkno wn) date) unknown) (unknown) (no [...] (unknown) (unknown) : 1950 (units (unknown) date) Acct:[id number] unknown) (unknown) (no (unknown) (unknown) Date of [...] (unknown) date) unknown) (unknown) (no (unknown) (unknown) [facility] (units (unknown) date) [address] unknown) [place] [address] (unknown) (no (unknown) (unknown) Manda Whitaker (units [...] (Auto) (units (unknown) date) 1900 /uL unknown) ([phone]) 01/18/22 13:50 (unknown) (no (unknown) (unknown) Lymph [...] Recorded Confirmed Type (unknown) (no (unknown) (unknown) [place] # (Auto) 800 (units (unknown) date) /uL (0-900) unknown) 01/18/22 13:50 (unknown) (no (unknown) (unknown) [place] % (Auto) 7.3 (units (unknown) date) % (3-14) 01/18/22 unknown) 13:50 (unknown) (no (unknown) (unknown) NS 1000 cc iv x 1 (units (unknown) date) today unknown) (unknown) (no (unknown) (unknown) NSAIDS (units (unkno wn) date) (Non-Steroidal unknown) AdvReac Gastrointestinal Verified 01/10/22 16:32 (unknown) (no (unknown) (unknown) Neut # (Auto) 7800 (units (unknown) date) /uL (8619-6978) H unknown) 01/18/22 13:50 (unknown) (no (unknown) [...] date) 25 mg rectal 25 mg unknown) NJ BID PRN Nausea And 01/16/22 Rx (unknown) [...] went to see (units (unknown) date) her [employer] unknown) Ivan, and right neck lymph nodes [...] Respiratory Exam unknown) (unknown) (no (unknown) (unknown) [id number] (units (unkno wn) date) unknown) (unknown) (no [...] (unknown) (unknown) : 1950 (units (unknown) date) Acct:[id number] unknown) (unknown) (no (unknown) (unknown) Date of [...] (unknown) date) unknown) (unknown) (no (unknown) (unknown) [facility] (units (unknown) date) [address] unknown) [place] [address] (unknown) (no (unknown) (unknown) Manda Whitaker (units [...] (Auto) (units (unknown) date) 1900 /uL unknown) ([phone]) 01/18/22 13:50 (unknown) (no (unknown) (unknown) Lymph [...] Recorded Confirmed Type (unknown) (no (unknown) (unknown) [place] # (Auto) 800 (units (unknown) date) /uL (0-900) unknown) 01/18/22 13:50 (unknown) (no (unknown) (unknown) [place] % (Auto) 7.3 (units (unknown) date) % (3-14) 01/18/22 unknown) 13:50 (unknown) (no (unknown) (unknown) NS 1000 cc iv x 1 (units (unknown) date) today unknown) (unknown) (no (unknown) (unknown) NSAIDS (units (unkno wn) date) (Non-Steroidal unknown) AdvReac Gastrointestinal Verified 01/10/22 16:32 (unknown) (no (unknown) (unknown) Neut # (Auto) 7800 (units (unknown) date) /uL (9907-1668) H unknown) 01/18/22 13:50 (unknown) (no (unknown) [...] date) 25 mg rectal 25 mg unknown) NJ BID PRN Nausea And 01/16/22 Rx (unknown) [...] facility (no date) Smokes tobacco daily (finding) [facility] Vital Signs date measurement value units +0000 [...]
--- NOTE | 2022-01-28 22:46 | ED Physician Documentation ---
PD HPI DYSPNEA - Stated complaint Stated Complaint: LOW BACK PAIN, LUNG CA/LIVER DIAZ, - Chief complaint Chief Complaint: General - History obtained from History obtained from: Patient - History of Present Illness Timing - onset: Today, Yesterday (The patient has had recent diagnosis of lung cancer with involvement around the trachea and bronchi. Difficulty swallowing and breathing related. Saw her oncologist and was starting with radiation with 2 courses last week. Patient and daughter change their mind and wish to go hospice/comfort care), Other (The patient had been at home without oxygen need and normotensive. She is abruptly worse yesterday into today with hypoxia, hypotension, anxiety and difficulty breathing. Minimal intake the last 2 days.) Timing - onset during: Rest Timing - details: Gradual onset (Onset through part of the day and worsening with increased hypoxia weakness and hypotension. 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 No: Fever Recently seen: Clinic (RT this past Sat and Sat and then pateint/family opted to stop treatments and opt for Hospice.), Emergency Dept Review of Systems Constitutional: denies: Fever Throat: denies: Sore throat Cardiac: reports: Chest pain / pressure Respiratory: reports: Dyspnea, Cough, Wheezing GI: reports: Other (Unable to eat foods and only small amounts of liquid due to blockage of her esophagus.). denies: Abdominal Pain, Vomiting Musculoskeletal: denies: Extremity swelling Neurologic: reports: Generalized weakness PD PAST MEDICAL HISTORY - Past Medical History Cardiovascular: Peripheral Vascular Disease, [place] Respiratory: Asthma, Other (lung cancer recent diagnosis. 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 : Other Musculoskeletal: Osteoarthritis, Fibromyalgia, Osteoporosis - Past Surgical History Past Surgical History: Yes General: Cholecystectomy, Appendectomy /OPTICAL INSTRUMENT REPAIRER: Hysterectomy, Mastectomy - Present Medications Home Medications: Ambulatory Orders Medication Instructions Recorded Confirmed Alendronate Sodium/Vitamin D3 1 each PO 11/12/20 [Fosamax Plus D 70 mg-2,800 Iu] Atorvastatin Calcium 40 mg PO DAILY 11/12/20 11/12/20 Clopidogrel [Plavix] 75 mg PO DAILY 11/12/20 11/12/20 Famotidine [Pepcid] 20 mg PO BID 11/12/20 11/12/20 Fenofibrate [Tricor] 48 mg PO QD 11/12/20 11/12/20 Metoclopramide [Reglan] 10 mg PO Q6H PRN 11/12/20 11/12/20 Metoprolol Succinate [Toprol Xl] 25 mg PO BID 11/12/20 11/12/20 Ondansetron Odt [Zofran] 4 mg TL Q6H PRN #10 tablet 11/12/20 Trazodone HCl 100 mg PO 11/12/20 amLODIPine [Norvasc] 5 mg PO DAILY 11/12/20 11/12/20 oxyCODONE [Roxicodone] 5 mg PO Q4-6H PRN #10 tablet 11/12/20 Oxycodone HCl/Acetaminophen 1 each PO BID #30 tablet 01/24/22 [Percocet 10-325 mg Tablet] - Allergies Allergies/Adverse Reactions: Allergies Allergy/AdvReac Type Severity Reaction Status Date / Time Sulfa (Sulfonamide Allergy Rash Verified 01/24/22 04:43 Antibiotics) hydrocodone AdvReac Unknown Verified 01/24/22 04:43 - Social History Does the pt smoke?: Yes Smoking Status: Current every day smoker Does the pt drink ETOH?: Yes Does the pt have substance abuse?: No - Immunizations Immunizations are current?: No Immunizations: TDAP >10years/unknown - POLST POLST Status: DNR (requests [facility]/Hospice) PD ED PE NORMAL - Vitals Vital signs reviewed: Yes - General General: Alert and oriented X 3, Other (The patient was having tachypnea and work of breathing. She seemed uncomfortable. She was pale with facemask oxygen on.) - Cardiac Cardiac: No: RRR (tachycardic) - Respiratory Respiratory: Other (mass noted right medial clavicular area.). No: Clear bilaterally (wheezing and coarse sounds diffusely, more to right. ) - Abdomen Abdomen: Soft, Non tender - Derm Derm: Warm and dry. No: Normal color - Extremities Extremities: No edema, No calf tenderness / cord - Neuro Neuro: No motor deficit, Normal speech (but weak voice.) Results - Vitals Vitals: Vital Signs - 24 hr 01/28/22 21:42 Temperature 37.0 C Heart Rate 142 H Respiratory 28 H Rate Blood Pressure 117/99 H O2 Saturation 80 L Oxygen O2 Source Room air PD MEDICAL DECISION MAKING - ED course Complexity details: re-evaluated patient (Confirmed with the patient and her daughter comfort measures only. They did not want any IV fluids or feedings. IV access would be okay if required for comfort medications. However we were able to provide morphine solution and atropine drops which helped with her secretions and her tachypnea. ), considered differential (The patient is markedly hypoxic on room air and just into the 90s on facemask. Tachypneic and hypotensive.She appears to be at end-of-life and considerable abnormal breath sounds. Presume critical tipping point such as pneumonia or collapsed lung or aspiration.), d/w patient, d/w family Departure - Departure Disposition: 66 [facility] DC/Xfer Clinical Impression: Hypoxia, Hypotension, Lung cancer, End of life care Condition: Poor Discharge Date/Time: 01/29/22 00:35
[2022-01-28] MEDS ORDERED: ATROPINE 1% OPHTH DROPS 2 ML SL PRN (23:05)
[2022-01-28] MEDS ORDERED: MORPHINE SOL 10 MG/0.5 ML ORAL SYRINGE PO PRN (23:06)
[2022-01-28] MEDS ORDERED: SODIUM CHLORIDE FLUSH 0.9% 10 ML SYRINGE IVP PRN (23:47)
[2022-01-28] MEDS ORDERED: ONDANSETRON 4 MG/2 ML VIAL IVP PRN (23:47)
[2022-01-28] MEDS ORDERED: LORazepam 0.5 MG TABLET SL PRN (23:58)
--- NOTE | 2022-01-29 00:07 | HISTORY & PHYSICAL EXAMINATION ---
Chief Complaint - Chief Complaint Chief Complaint: shortness of breath History of Present Illness - Admitted From Admitted From:: ED - History Obtained From History obtained from: patient - History of Present Illness HPI Comment/Other: 71yoF with recent dx of lung ca with mets presents to ED with worsening shortness of breath and dysphagia wanting comfort measures only. Pt started 2 course of radiation treatments last week with oncology and then refused further treatment wishing to pursue hospice/comfort measures. Pt had hospice referral placed but her symptoms were worsening so she presented to ED for hospice/comfort measures. In ED patient received morphine, tele hospitalist consulted for comfort measure admission. Pt anxious. Denies chest pain, fever, chills, nausea, vomitting. Has decreased po intake the last two days. History - Past Medical History Cardiovascular: reports: Peripheral Vascular Disease, [place] Respiratory: reports: Asthma Neuro: reports: CVA [employer]: reports: Breast cancer : reports: Other Musculoskeletal: reports: Osteoarthritis, Fibromyalgia, Osteoporosis MRSA Hx?: No Other Past Medical History: Stage IV lung cancer w/mets - Past Surgical History General: reports: Cholecystectomy, Appendectomy /[employer]: reports: Hysterectomy, Mastectomy Meds/Allgy - Home Medications Home Medications: Ambulatory Orders Medication Instructions Recorded Confirmed Alendronate Sodium/Vitamin D3 1 each PO 11/12/20 [Fosamax Plus D 70 mg-2,800 Iu] Atorvastatin Calcium 40 mg PO DAILY 11/12/20 11/12/20 Clopidogrel [Plavix] 75 mg PO DAILY 11/12/20 11/12/20 Famotidine [Pepcid] 20 mg PO BID 11/12/20 11/12/20 Fenofibrate [Tricor] 48 mg PO QD 11/12/20 11/12/20 Metoclopramide [Reglan] 10 mg PO Q6H PRN 11/12/20 11/12/20 Metoprolol Succinate [Toprol Xl] 25 mg PO BID 11/12/20 11/12/20 Ondansetron Odt [Zofran] 4 mg TL Q6H PRN #10 tablet 11/12/20 Trazodone HCl 100 mg PO 11/12/20 amLODIPine [Norvasc] 5 mg PO DAILY 11/12/20 11/12/20 oxyCODONE [Roxicodone] 5 mg PO Q4-6H PRN #10 tablet 11/12/20 Oxycodone HCl/Acetaminophen 1 each PO BID #30 tablet 01/24/22 [Percocet 10-325 mg Tablet] - Allergies Allergies/Adverse Reactions: Allergies Allergy/AdvReac Type Severity Reaction Status Date / Time Sulfa (Sulfonamide Allergy Rash Verified 01/24/22 04:43 Antibiotics) hydrocodone AdvReac Unknown Verified 01/24/22 04:43 Review of Systems - All Other Systems All Other Systems: reports: Reviewed and negative (12 point system reviewed and all negative except what's listed in hpi) Prior Level of Functionality: at baseline pt did not require oxygen and ambulatory Exam - Vital Signs Vital Signs: Vital Signs x48h Temp Pulse Resp BP Pulse Ox 01/28/22 23:51 143 H 31 H 85 L 01/28/22 21:42 37.0 C 142 H 28 H 117/99 H 80 L - Physical Exam General Appearance: positive: No acute distress Eyes Bilateral: positive: PERRL, EOMI Neck: positive: Nml inspection Respiratory: positive: Rhonchi (b/l rhonchi) Cardiovascular: positive: Tachycardia Peripheral Pulses: positive: 2+ Abdomen: positive: Tenderness (mild tenderness diffuse, no rebound no guarding) Extremities: positive: Other (b/l 2 + pitting edema) Neurologic/Psychiatric: positive: Other (alert, awake oriented x 1) Comments/Other: physical exam performed with assistance of nurse on site via webcam Conclusion/Plan - Problem List (1) End of life care Conclusion/Plan: comfort measures ordered pt and daughter does not want any aggressive measures, comfort measures only morphine prn atropine prn ativan prn consult hospice.palliative care in AM (2) Lung cancer Conclusion/Plan: comfort measures only as per patient - Lab Results Lab results reviewed: Yes
[2022-01-29] MEDS ORDERED: LOPERAMIDE 2 MG CAPSULE PO PRN (00:25)
[2022-01-29] MEDS ORDERED: bisacodyL 5 MG TABLET PO PRN (00:25)
[2022-01-29] MEDS ORDERED: GLYCOPYRROLATE 1 MG/5 ML VIAL SUBQ PRN (00:25)
[2022-01-29] MEDS ORDERED: MORPHINE SOL 10 MG/0.5 ML ORAL SYRINGE SL PRN (00:25)
[2022-01-29 00:40] VITALS: BP 74/42
[2022-01-29] MEDS ORDERED: SODIUM CHLORIDE FLUSH 0.9% 10 ML SYRINGE IVP SCH (01:00)
--- NOTE | 2022-01-29 04:27 | ED Physician Documentation ---
ED Addendum - Addendum Addendum: 01/29/22 04:26 Asked to go to the floor to see the patient for apparent demise. Being the provider in-house, I went to see the patient in her room. The family was there. She had no breathing and no pulse and no heart sounds. was confirmed clinically.
== END 2022-01-29 01:00 | disposition expired ==
LOC: EDUNIT# → ED 21:32 → MS2 23:29 → INTOOBSV 23:29
PROVIDERS: ADMIT Family Medicine; ATTEND Family Medicine
DX: C34.90 Malignant neoplasm of unspecified part of unspecified bronchus or lung (principal); C78.7 Secondary malignant neoplasm of liver and intrahepatic bile duct; I25.2 Old myocardial infarction; I73.9 Peripheral vascular disease, unspecified; I95.9 Hypotension, unspecified; J45.909 Unspecified asthma, uncomplicated; M19.90 Unspecified osteoarthritis, unspecified site; M54.50 Low back pain, unspecified; M81.0 Age-related osteoporosis without current pathological fracture; F17.200 Nicotine dependence, unspecified, uncomplicated; F41.9 Anxiety disorder, unspecified; R09.02 Hypoxemia; Z51.5 Encounter for palliative care; Z66 Do not resuscitate; Z79.02 Long term (current) use of antithrombotics/antiplatelets; Z79.899 Other long term (current) drug therapy; Z85.3 Personal history of malignant neoplasm of breast; Z86.73 Personal history of transient ischemic attack (TIA), and cerebral infarction without residual deficits; Z90.10 Acquired absence of unspecified breast and nipple; Z90.49 Acquired absence of other specified parts of digestive tract; Z90.710 Acquired absence of both cervix and uterus
CPT/HCPCS: 99284; 99285; A9270